=== PATIENT | male | born 1950 | race Caucasian/White ===

== ENCOUNTER 2022-06-11 13:10 | Observation (INO) | payer OTHER ==
[2022-06-11 13:44] LABS: Absolute Lymphocytes (CBC) 0.4 K/uL (0.7-4.9); Hematocrit 28.4 % (39.6-49.0); Lymphocytes % 4.3 % (15.3-44.8); MCV 90.4 fL (80-100); MPV 8.4 fL (7.6-11.3); RBC Red Blood Cell Count 3.15 M/uL (4.33-5.43)
[2022-06-11] MEDS ORDERED: LEVALBUTEROL 1.25 MG/3 ML NEB ONE (14:03)
[2022-06-11 14:10] LABS: Albumin 2.9 g/dL (3.4-5.0); Bilirubin Direct 0.3 mg/dL (0-0.2); Bilirubin Total 0.6 mg/dL (0.2-1.0); Potassium 4.2 mmol/L (3.5-5.1); Protein, Total 7.2 g/dL (6.4-8.2); Troponin High Sensitivity 10.2 pg/mL (<58.9)
--- NOTE | 2022-06-11 14:36 | RAD REPORT ---
EXAM DESCRIPTION: Lainey Single View06/11/2022 2:22 pm CLINICAL HISTORY: Confusion COMPARISON: none FINDINGS: 9 millimeter nodular opacity overlies the left base. Haziness involves the lateral left umm ng. Right lung appears clear. The heart is normal size Deformity of the humeral head and neck has the appearance of a subacute fracture IMPRESSION: Haziness involves the lateral left lung. This may represent pleural thickening, pulmonar y infiltrate or overlying soft tissue. 9 millimeter nodular opacity overlies the left base. This may represent a pulmonary nodule such as a granuloma or other nodule. Sclerotic foci within the rib is another consideration Given the aforementioned findings unenhanced CT chest may be helpful
[2022-06-11] MEDS ORDERED: MORPHINE 4 MG/ML SYR ONE (15:08)
[2022-06-11] MEDS ORDERED: HYDROCODONE/APAP 10/325 TAB ONE (15:09)
[2022-06-11] MEDS ORDERED: ONDANSETRON 4 MG/2 ML VIAL ONE (15:09)
[2022-06-11 16:44] LABS: Anisocytosis 2+; Blood Morphology Comment NOTED (NOT SEEN); Platelet Estimate ADEQ; White Blood Cell Scan OK (OK)
[2022-06-11 16:45] LABS: Poikilocytosis 1+
--- NOTE | 2022-06-11 17:23 | EDPHYS ---
Physician Documentation [facility] Name: Dk Miranda Age: 71 yrs Sex: Male : 1950 Arrival Date: 06/11/2022 Time: 13:11 Bed 2 Private MD: ED Physician Ariel Manning Historical: - Allergies: 06/11 13:14 No Known Allergies; hb - Immunization history:: Adult Immunizations up to date. - Social history:: Smoking status: Patient reports the use of cigarette tobacco products. Vital Signs: 13:13 BP 141 / 76; Pulse 63; Resp 16; Temp 97.8; Pulse Ox 100% on R/A; Weight 79.38 kg; hb Height 5 ft. 3 in. (160.02 cm); Pain 0/10; 14:16 BP 145 / 74; Pulse 59; Resp 17; Pulse Ox 100% on R/A; hb 15:14 BP 152 / 66; Pulse 57; Resp 15; Pulse Ox 99% ; Pain 10/10; hb 16:47 BP 132 / 65; Pulse 63; Resp 17; Pulse Ox 97% on R/A; hb 13:13 Body Mass Index 31.00 (79.38 kg, 160.02 cm) hb MDM: 17:22 Patient medically screened. kdr 06/11 13:15 Order name: glucometer results - FOR PT WITH NO ID hb 06/11 13:27 Order name: Basic Metabolic Panel kdr 06/11 13:27 Order name: CBC with Diff kdr 06/11 13:27 Order name: LFT's kdr / 13:27 Order name: NT PRO-BNP kdr 06/11 13:27 Order name: Troponin HS kdr 06/11 13:27 Order name: XRAY Chest (1 view) kdr 03/ 13:27 Order name: EKG; Complete Time: 13:28 kdr 03/ 13:27 Order name: IV Saline Lock; Complete Time: 13:35 kdr 03/ 13:27 Order name: Labs collected and sent; Complete Time: 13:35 kdr 03/ 13:27 Order name: O2 Per Protocol; Complete Time: 13:35 kdr 03/ 13:27 Order name: O2 Sat Monitoring; Complete Time: 13:35 kdr 03/ 13:27 Order name: Cardiac monitoring; Complete Time: 13:35 kdr 03/ 13:27 Order name: EKG - Nurse/Tech; Complete Time: 13:58 kdr 06/11 13:53 Order name: FSBS; Complete Time: 14:03 kdr 06/11 14:10 Order name: Basic Metabolic Panel; Complete Time: 15:07 EDMS 06/11 14:10 Order name: Liver (Hepatic) Function; Complete Time: 15:07 EDMS 06/11 14:10 Order name: NT PRO-BNP; Complete Time: 15:07 EDMS 06/11 14:12 Order name: Glucose, Ancillary Testing; Complete Time: 15:07 EDMS 06/11 14:10 Order name: Troponin High Sensitivity; Complete Time: 15:07 EDMS 06/11 14:37 Order name: RAD; Complete Time: 15:07 EDMS 06/11 16:08 Order name: Glucose, Ancillary Testing; Complete Time: 16:34 EDMS 06/11 13:50 Order name: CBC with Automated Diff; Complete Time: 17:12 EDMS 06/11 16:45 Order name: CBC Smear Scan; Complete Time: 17:12 EDMS Administered Medications: 14:03 Drug: Xopenex (levalbuterol) (3) 1.25 mg Route: Inhalation; hb 15:00 Follow up: Response: No adverse reaction hb 15:08 Drug: [place] (HYDROcodone-acetaminophen) 10 mg-325 mg 1 tabs Route: PO; hb 16:43 Follow up: Response: No adverse reaction hb 15:08 Drug: Zofran (Ondansetron) 4 mg Route: IVP; Site: right antecubital; hb 16:00 Follow up: Response: No adverse reaction hb 15:08 Drug: morphine 4 mg Route: IVP; Infused Over: 4 mins; Site: right antecubital; hb 16:00 Follow up: Response: No adverse reaction hb Point of Care Testing: Blood Glucose: 13:14 Blood Glucose: 180 mg/dL; hb 14:03 Blood Glucose: 193 mg/dL; hb 15:57 Blood Glucose: 223 mg/dL; hb Ranges: Critical Glucose Levels:Adult <50 mg/dl or >400 mg/dl <40 mg/dl or >180 mg/dl Disposition Summary: 06/11/22 17:22 Hospitalization Ordered Hospitalization Status: Observation kdr Provider: Hayes, Mohammad kdr Location: Telemetry/MedSurg (observation) kdr Condition: Fair kdr Problem: new kdr Symptoms: have improved kdr Bed/Room Type: Standard kdr Room Assignment: kdr Diagnosis - Other hypoglycemia kdr - Hypoglycemia, unspecified kdr - Weakness kdr Forms: - Medication Reconciliation Form kdr - SBAR form kdr Signatures: Dispatcher [employer] EDAriel Snowden MD MD kdr Camryn Johnson RN RN hb
--- NOTE | 2022-06-11 17:23 | ER ---
Nurse's Notes [facility] Name: Dk Miranda Age: 71 yrs Sex: Male : 1950 Arrival Date: 06/11/2022 Time: 13:11 Bed 2 Private MD: Diagnosis: Other hypoglycemia;Hypoglycemia, unspecified;Weakness Presentation: 06/11 13:13 Chief complaint: EMS states: Toned out for confusion, possible stroke, on scene BGL 47, hb improved to 127 after oral glucose and protein shake. VAN Negative. GCS 15. Coronavirus screen: At this time, the client does not indicate any symptoms associated with coronavirus-19. Ebola Screen: No symptoms or risks identified at this time. Initial Sepsis Screen: Does the patient meet any 2 criteria? No. Patient's initial sepsis screen is negative. Does the patient have a suspected source of infection? No. Patient's initial sepsis screen is negative. Risk Assessment: Do you want to hurt yourself or someone else? Patient reports no desire to harm self or others. Onset of symptoms was June 11, 2022. 13:13 Method Of Arrival: EMS: [facility] hb 13:13 Acuity: INDIO 3 hb Triage Assessment: 13:15 General: Appears in no apparent distress. Behavior is calm, cooperative. Pain: Pain hb currently is 8 out of 10 on a pain scale. EENT: No signs and/or symptoms were reported regarding the EENT system. Neuro: Level of Consciousness is awake, alert, obeys commands, Oriented to person, place, time, situation. Cardiovascular: Patient's skin is warm and dry. Respiratory: Respiratory effort is even, unlabored, Respiratory pattern is regular, symmetrical. GI: No signs and/or symptoms were reported involving the gastrointestinal system. : No signs and/or symptoms were reported regarding the genitourinary system. Derm: Skin is pink, warm \T\ dry. Musculoskeletal: No signs and/or symptoms reported regarding the musculoskeletal system. Historical: - Allergies: 13:14 No Known Allergies; hb - Immunization history:: Adult Immunizations up to date. - Social history:: Smoking status: Patient reports the use of cigarette tobacco products. Screenin:16 [facility] ED Fall Risk Assessment (Adult) Score/Fall Risk Level 0 - 2 = Low Risk hb Oriented to surroundings, Maintained a safe environment, Educated pt \T\ family on fall prevention, incl call for assistance when getting out of bed. Abuse screen: Denies threats or abuse. Denies injuries from another. Nutritional screening: No deficits noted. Tuberculosis screening: No symptoms or risk factors identified. Assessment: 13:16 General: SEE TRIAGE ASSESSMENT. hb 14:16 Reassessment: Patient appears in no apparent distress at this time. No changes from hb previously documented assessment. Patient and/or family updated on plan of care and expected duration. Pain level reassessed. 15:13 Reassessment: Patient appears in no apparent distress at this time. No changes from hb previously documented assessment. Patient and/or family updated on plan of care and expected duration. Pain level reassessed. 16:47 Reassessment: Patient appears in no apparent distress at this time. No changes from hb previously documented assessment. Patient and/or family updated on plan of care and expected duration. Pain level reassessed. Vital Signs: 13:13 BP 141 / 76; Pulse 63; Resp 16; Temp 97.8; Pulse Ox 100% on R/A; Weight 79.38 kg; hb Height 5 ft. 3 in. (160.02 cm); Pain 0/10; 14:16 BP 145 / 74; Pulse 59; Resp 17; Pulse Ox 100% on R/A; hb 15:14 BP 152 / 66; Pulse 57; Resp 15; Pulse Ox 99% ; Pain 10/10; hb 16:47 BP 132 / 65; Pulse 63; Resp 17; Pulse Ox 97% on R/A; hb 13:13 Body Mass Index 31.00 (79.38 kg, 160.02 cm) hb ED Course: 13:11 Patient arrived in ED. hb 13:13 Ariel Manning MD is Attending Physician. kdr 13:14 Triage completed. hb 13:14 Arm band placed on. hb 13:16 Patient has correct armband on for positive identification. hb 13:34 Camryn Johnson RN is Primary Nurse. hb 17:21 Melissa Hayes MD is Hospitalizing Provider. kdr Administered Medications: 14:03 Drug: Xopenex (levalbuterol) (3) 1.25 mg Route: Inhalation; hb 15:00 Follow up: Response: No adverse reaction hb 15:08 Drug: [place] (HYDROcodone-acetaminophen) 10 mg-325 mg 1 tabs Route: PO; hb 16:43 Follow up: Response: No adverse reaction hb 15:08 Drug: Zofran (Ondansetron) 4 mg Route: IVP; Site: right antecubital; hb 16:00 Follow up: Response: No adverse reaction hb 15:08 Drug: morphine 4 mg Route: IVP; Infused Over: 4 mins; Site: right antecubital; hb 16:00 Follow up: Response: No adverse reaction hb Medication: 13:16 VIS not applicable for this client. hb Point of Care Testing: Blood Glucose: 13:14 Blood Glucose: 180 mg/dL; hb 14:03 Blood Glucose: 193 mg/dL; hb 15:57 Blood Glucose: 223 mg/dL; hb Ranges: Outcome: 17:22 Decision to Hospitalize by Provider. kdr Signatures: Ariel Manning MD MD kdr Camryn Johnson RN RN hb
[2022-06-11 17:29] LABS: Urine Blood Negative (Negative); Urine Glucose Negative (Negative); Urine Protein Negative (Negative)
[2022-06-11 18:20] LABS: SARS-CoV-2 Antigen Rapid Res Negative (Negative)
--- NOTE | 2022-06-11 18:46 | RAD REPORT ---
EXAM DESCRIPTION: CT - Thorax Wo Con - 06/11/2022 6:24 pm CLINICAL HISTORY: sob TECHNIQUE: Computed axial tomography of the chest was obtained. Contrast was not requested. All CT scans are performed using dose optimization technique as appropriate and may include automated exposure control or mA/KV adjustment according to patient size. FINDINGS: The evaluation of mediastinum, sara and vessels is limited secondary to lack of IV contras t administration. Calcified granuloma left lung corresponding to the nodule on recent chest x-ray. Lungs are otherwise generally clear. No mediastinal or hilar lymphadenopathy is seen. Minimal pleural effusion. Fractures involve the majority of the left ribs. Some are subacute and others are old. Some of the fr actures are mildly displaced. Subacute and old right rib fractures. Moderately displaced left humeral head/neck fracture probably subacute Moderate compression fracture involves a lower vertebral body probably is subacute Moderate compression fracture involves and upper vertebral body which appears late subacute IMPRESSION: Rib, humeral and vertebral fractures. The majority appear subacute
--- NOTE | 2022-06-11 19:20 | P.HP ---
Certification for Inpatient Patient admitted to: Observation With expected LOS: <2 Midnights Patient will require the following post-hospital care: None Practitioner: I am a practitioner with admitting privileges, knowledge of patient current condition, hospital course, and medical plan of care. Services: Services provided to patient in accordance with Admission requirements found in Title 42 Section 412.3 of the Code of Federal Regulations Patient History Date of Service: 06/11/22 Reason for admission: Hypoglycemia, falls History of Present Illness: 71-year-old male with history of insulin-dependent diabetes, PAD, hypertension presents to the emergency department for altered mental status. He reports going to bed around midnight and waking up around noon today very confused, he last took his insulin 70/30 approximately 40 units at 3 PM on 06/10/2022, he reports normal oral intake. Upon EMS arrival patient's blood sugar was 47, his mental status quickly improved after oral glucose and protein shake and is back at baseline at this time. Patient has had multiple falls in the recent past, CT without contrast of his chest performed today revealed rib, humeral and vertebral fractures the majority of which appear subacute. His labs were significant for normocytic anemia with a hemoglobin of 9.3 and hematocrit of 28.4, creatinine of 1.51 GFR 49 BUN 27 bicarb 20unknown renal baseline, BNP 1951. ED provider wishes to admit under observation for hypoglycemia, multiple falls, multiple rib fractures. - Past Medical/Surgical History -: Insulin-dependent diabetes -: PAD -: Hypertension -: Hepatitis C -: Cholecystectomy -: Knee surgery -: Leg stent/PAD Psychosocial/ Personal History: Patient lives at home, alone. - Social History Smoking Status: Current every day smoker (Cigar x1/day) Counseled patient to stop smoking for: less than 10 minutes Alcohol use: Yes CD- Drugs: No Caffeine use: Yes Place of Residence: Home Review of Systems 10-point ROS is otherwise unremarkable General: Weakness, Other (Frequent falls) Musculoskeletal: Back Pain Physical Examination - Physical Exam General: Alert, In no apparent distress, Oriented x3 HEENT: Atraumatic, PERRLA, Mucous membr. moist/pink, EOMI, Sclerae nonicteric Neck: Supple, 2+ carotid pulse no bruit, No LAD, Without JVD or thyroid abnormality Respiratory: Clear to auscultation bilaterally, Normal air movement Cardiovascular: Regular rate/rhythm, Normal S1 S2 Capillary refill: <2 Seconds Gastrointestinal: Normal bowel sounds, No tenderness Musculoskeletal: Other (Left arm in sling) Integumentary: No rashes Neurological: Normal speech, Normal strength at 5/5 x4 extr, Normal tone, Normal affect - Studies Laboratory Data (last 24 hrs) 06/11/22 13:30: WBC 9.00, Hgb 9.3 L, Hct 28.4 L, Plt Count 242 06/11/22 13:30: Sodium 132 L, Potassium 4.2, BUN 27 H, Creatinine 1.51 H, Glucose 168 H, Total Bilirubin 0.6, AST 26, ALT 22, Alkaline Phosphatase 225 H Assessment and Plan - Plan Assessment: Diabetes mellitus type 2insulin-dependent with hypoglycemia Weakness, multiple falls, subacute fractures of the ribs, left humerus, vertebrae Acute kidney injury Normocytic anemia Hypertension PAD Plan: Diabetes mellitus type 2insulin-dependent with hypoglycemia Hold long-acting insulin tonight, patient recently had his insulin titrated down from approximately 80 units down to 40 units twice daily of 70/30 insulin. Will obtain A1c in the morning, patient may require further decrease in his dose of insulin. Blood sugar stabilized at this time, patient eating. We will provide mild sliding scale insulin for tonight, titrate up as needed. Weakness, multiple falls, subacute fractures of the ribs, left humerus, vertebrae PT consult, PRN pain meds, Incentive spirometry. Acute kidney injury Continue IVF, recheck renal function in AM. Consult nephrology PRN. Normocytic anemia Possible acute blood loss anemia with multiple fractures/falls. Trend, anemia workup ordered. Denies GIB symptoms Hypertension PAD Continue home meds. DVT PPX: Lovenox Code status: Full Discharge Plan: Home Plan to discharge in: 24 Hours - Advance Directives Does patient have a Living Will: No Does patient have a Durable POA for Healthcare: No - Code Status/Comfort Care Code Status Assessed: Yes (Full code) Critical Care: No Time Spent Managing Pts Care (In Minutes): 70
[2022-06-11 19:25] VITALS: BMI 30.9
[2022-06-11] MEDS ORDERED: ALBUTEROL 2.5 MG/3 ML NEB SOL NEB PRN (19:25)
[2022-06-11] MEDS ORDERED: MELATONIN 5 MG TABLET PO PRN (19:25)
[2022-06-11] MEDS ORDERED: ONDANSETRON 4 MG/2 ML VIAL IV PRN (19:25)
[2022-06-11] MEDS ORDERED: NA CHLORIDE 0.9% 1,000 ML ONE (19:43)
[2022-06-11] MEDS: NA CHLORIDE 0.9% 1,000 ML IV SCH (19:51)
[2022-06-11] MEDS: HYDROCODONE/APAP 7.5/325 MG TAB PO PRN (20:52)
[2022-06-11] MEDS ORDERED: HYDROCODONE/APAP 7.5/325 MG TAB ONE (20:54)
[2022-06-11] MEDS: INSULIN -REGULAR HUMAN 50 UNIT/0.5 ML ML SQ SCH (21:00)
[2022-06-11] MEDS ORDERED: INSULIN -REGULAR HUMAN 50 UNIT/0.5 ML ML ONE (21:41)
[2022-06-12 02:46] LABS: Absolute Lymphocytes (CBC) 0.9 K/uL (0.7-4.9); Hematocrit 24.2 % (39.6-49.0); Lymphocytes % 12.8 % (15.3-44.8); MCV 91.8 fL (80-100); MPV 8.8 fL (7.6-11.3); RBC Red Blood Cell Count 2.63 M/uL (4.33-5.43)
[2022-06-12 03:24] LABS: Ferritin 28.8 ng/mL (26-388); Potassium 3.9 mmol/L (3.5-5.1)
[2022-06-12] MEDS: HYDROCODONE/APAP 7.5/325 MG TAB PO PRN ×4 (03:24→22:46)
[2022-06-12] MEDS ORDERED: HYDROCODONE/APAP 7.5/325 MG TAB ONE ×4 (03:27→22:21)
[2022-06-12] MEDS: INSULIN -REGULAR HUMAN 50 UNIT/0.5 ML ML SQ SCH ×4 (07:30→21:00)
[2022-06-12] MEDS: ENOXAPARIN 40 MG/0.4 ML SQ SCH (09:00)
[2022-06-12] MEDS: NA CHLORIDE 0.9% 1,000 ML IV SCH ×2 (09:00→19:11)
[2022-06-12] MEDS ORDERED: NA CHLORIDE 0.9% 1,000 ML ONE ×2 (09:04→19:11)
[2022-06-12] MEDS ORDERED: ENOXAPARIN 40 MG/0.4 ML SQ ONE (09:04)
[2022-06-12] MEDS ORDERED: INSULIN -REGULAR HUMAN 50 UNIT/0.5 ML ML ONE ×3 (11:40→17:31)
[2022-06-12] MEDS ORDERED: ALBUTEROL 2.5 MG/3 ML NEB SOL NEB PRN (15:00)
--- NOTE | 2022-06-12 16:40 | EKG ---
Test Date: 2022-06-11 Test Time: 13:54:04 Textile Worker: QUAN MEASUREMENT RESULTS: Intervals: Rate: 60 VA: 170 QRSD: 84 QT: 446 QTc: 446 [place]: P: 69 VA: 170 QRS: 54 T: 62 INTERPRETIVE STATEMENTS: Normal sinus rhythm Normal ECG No previous ECG available for comparison Electronically Signed On 06-12-22 16:37:01 WINDOWS MOBILE DEVELOPER by Jose Luis Orta
[2022-06-13] MEDS: NA CHLORIDE 0.9% 1,000 ML IV SCH (01:25)
[2022-06-13 02:55] LABS: Hematocrit 23.3 % (39.6-49.0); Lymphocytes % 16.5 % (15.3-44.8); MCV 92.5 fL (80-100); MPV 8.9 fL (7.6-11.3); RBC Red Blood Cell Count 2.52 M/uL (4.33-5.43)
[2022-06-13 03:12] LABS: Potassium 4.3 mmol/L (3.5-5.1)
[2022-06-13] MEDS ORDERED: HYDROCODONE/APAP 7.5/325 MG TAB ONE ×2 (04:11→10:53)
[2022-06-13] MEDS: HYDROCODONE/APAP 7.5/325 MG TAB PO PRN ×2 (04:13→11:00)
[2022-06-13 04:16] VITALS: TEMP 98.1
--- NOTE | 2022-06-13 06:39 | P.PN ---
Subjective Date of Service: 06/12/22 Patient still having a lot of pain. However, patient participated with physical therapy today and did really well but he has a hard time going from lying to standing. He walked 200 ft with minimal assistance. Inpatient rehab was requested. However, patient's blood sugars have been stable and he does have some family support. Will discuss with physical therapy and case management and will make the best decision for patient with the least risk to him. Possible discharge home later today or in the morning or we may need to await for inpatient rehab placement. Review of Systems 10-point ROS is otherwise unremarkable Physical Examination - Vital Signs Temperature: 98.1 F Blood Pressure: 173/84 Pulse: 58 Respirations: 21 Pulse Ox (%): 97 - Physical Exam General: Alert, In no apparent distress, Oriented x3 HEENT: Atraumatic, PERRLA, EOMI Neck: Supple, JVD not distended Respiratory: Clear to auscultation bilaterally, Normal air movement Cardiovascular: Regular rate/rhythm, Normal S1 S2 Gastrointestinal: Normal bowel sounds, No tenderness Musculoskeletal: No tenderness Integumentary: No rashes Neurological: Normal speech, Normal tone, Normal affect Lymphatics: No axilla or inguinal lymphadenopathy - Studies Medications List Reviewed: Yes Assessment & Plan - Problems (Diagnosis) (1) Humeral fracture Current Visit: Yes Status: Acute Qualifiers: Encounter type: subsequent encounter Humerus Location: proximal Fracture alignment: nondisplaced Laterality: right (2) History of vertebral fracture Current Visit: Yes Status: Acute (3) Rib fracture Current Visit: Yes Status: Acute Qualifiers: Encounter type: subsequent encounter Fracture type: closed (4) Hypoglycemia Current Visit: Yes Status: Acute - Advance Directives Does patient have a Living Will: No Does patient have a Durable POA for Healthcare: No
[2022-06-13] MEDS: INSULIN -REGULAR HUMAN 50 UNIT/0.5 ML ML SQ SCH ×2 (07:30→11:30)
[2022-06-13] MEDS ORDERED: SOD FERRIC GLUC COMPLX/SUCROSE 125 MG in NA CHLORIDE 0.9% 100 ML IV SCH (09:00)
[2022-06-13] MEDS: ENOXAPARIN 40 MG/0.4 ML SQ SCH (09:00)
[2022-06-13] MEDS ORDERED: ENOXAPARIN 40 MG/0.4 ML SQ ONE (09:34)
[2022-06-13] MEDS ORDERED: INSULIN -REGULAR HUMAN 50 UNIT/0.5 ML ML ONE (11:36)
[2022-06-13 17:05] VITALS: BP 157/79
[2022-06-13 17:30] VITALS: O2SAT 96
== END 2022-06-13 16:58 | disposition home health service (06) ==
LOC: ER 13:10 → ERHOLD 18:58
PROVIDERS: ADMIT Hospitalist; ATTEND Hospitalist
DX: E11.649 Type 2 diabetes mellitus with hypoglycemia without coma (principal); S22.39XG Fracture of one rib, unspecified side, subsequent encounter for fracture with delayed healing; S42.301G Unspecified fracture of shaft of humerus, right arm, subsequent encounter for fracture with delayed healing; R53.1 Weakness; N17.9 Acute kidney failure, unspecified; I10 Essential (primary) hypertension; I73.9 Peripheral vascular disease, unspecified; F17.210 Nicotine dependence, cigarettes, uncomplicated; D64.9 Anemia, unspecified; Z79.4 Long term (current) use of insulin; Z91.81 History of falling
CPT/HCPCS: 93005; 85025 ×3; 80048 ×3; 36415 ×2; 82947 ×11; 80076; 81003; 83036; 84484; 82728; 82607; 83540; 83880; 84466; 71250; 71045; 97116 ×2; 97161; 97530; 94010; 87811; J1815 ×5; J2916; J7614; J1650 ×2; J7030 ×3; J2405; G0378

== ENCOUNTER 2022-10-11 23:10 | Emergency (ER) | payer OTHER ==
[2022-10-11] MEDS ORDERED: ROCURONIUM 50 MG/5 ML VIAL IV ONE (23:11)
[2022-10-11] MEDS ORDERED: ETOMIDATE 20 MG/10 ML VIAL IV ONE ×2 (23:11→23:26)
[2022-10-11] MEDS ORDERED: RSI MEDICATION KIT IV ONE (23:24)
--- OUTSIDE RECORDS SUMMARY | 2022-10-11 23:27 | XMS REPORT | Continuity of Care Document ---
:1950 Author Organization [facility] t Address [address] [place] [address] [place] [id number] Care Team Providers Name Role Phone NORMA BELCHER Primary Care Physician Unavailable YOLI WHALEY Attending Clinician Unavailable Doctor Unassigned, [place] Attending Clinician Unavailable Yoli Elliott Attending Clinician Norma Belcher MD Attending Clinician Tatyana Castaneda MD Attending Clinician Kelsey Fields Attending Clinician Unavailable TATYANA CASTANEDA Attending Clinician Unavailable YOVANI GREEN Attending Clinician Unavailable Yovani Green MD Attending Clinician JINA TREJO Attending Clinician Unavailable Jina Shen Attending Clinician Unknown, Attending Attending Clinician Unavailable NORMA BELCHER Attending Clinician Unavailable Lab, Ang - Db Attending Clinician Unavailable Nati Nicholson RN Attending Clinician Unavailable LEWIS SPICER Attending Clinician Unavailable Humberto Woodward DO Attending Clinician Lewis Spicer DO Attending Clinician Edgar Nye MD Attending Clinician Wil Bennett DO Attending Clinician Rafat Ballard Attending Clinician Gregor Jimenez Attending Clinician Jeet Mccoy Attending Clinician Derek Rivero Attending Clinician Du Lu Attending Clinician Erlin Grimes Attending Clinician YOVANI GREEN Admitting Clinician Unavailable LEWIS SPICER Admitting Clinician Unavailable Lewis Spicer DO Admitting Clinician Derek Rivero Admitting Clinician Du Lu Admitting Clinician Payers Payer Name Policy Type Policy Number Effective Date Expiration Date S suki MEDICARE PART A [id number] 2015 \\T\\ B 00:00:00 [employer] [id number] 2015 00:00:00 Problems Condition Condition Condition Status Onset Resolution Last Treating Co mments Source Name Details Category Date Date Treatment Clinician Date Pneumonia Pneumonia Disease Active Uni vers 4- ity of 00:00: [address] LOW BACK LOW BACK Diagnosis Active 2016-12-01 Memoria PAIN, PAIN, 10-23 18:20:00 l STENOSIS, STENOSIS, 00:00: Sonia fareed SPONDYLOSI SPONDYLOSI 00 S S Active 10/23/2016 [facility] STENOSIS STENOSIS Diagnosis Active 2016-12-01 Memoria Active 09-27 18:20:00 l 09/27/2016 00:00: Edward rodgers [address] LOW BACK LOW BACK Diagnosis Active 2016-09-13 Memoria PAIN PAIN 09-07 10:19:00 l Active 00:00: [place] 09/07/[address] [place], [place] [address]ann M54.30 - M54.30 - Diagnosis Active 2016-10-09 Memoria "SCIATICA, "SCIATICA, 08-31 16:05:00 l UNSPECIFIE UNSPECIFIE 00:01: Rogelio gardiner D SIDE" D SIDE" 00 Active 08/31/2016 [facility] OPID [facility] BACK PAIN BACK PAIN Diagnosis Active 2016-08-22 Memoria Active 08-22 15:24:00 l 08/22/2016 00:00: Edward rodgers [address] WITH PVD WITH Diagnosis Active 2016-08-14 Memoria CLAUDICATI CLAUDICATI 4-11 10:24:00 l ON ON Active 00:00: [place] 07/18/2016 00 [facility] N/A N/A Diagnosis Active 2016-05-11 Mem oria Active 05-02 09:35:00 l 05/02/2016 00:00: Edward n 00 [facility] ATHEROSCLE ATHEROSCL Diagnosis Active 2016-08-14 Memoria ROTIC PVD EROTIC PVD 05-02 10:16:00 l WITH WITH 00:00: [place] INTERMITTE INTERMITTE 00 NT CL NT CL Active 05/02/2016 [facility] I73.9 CPT I73.9 CPT Diagnosis Active 2015-042016-03-16 Memoria [id number] 04-25 11:21:00 l Active 00:00: [place] 02/24/2016 00 [facility] B18.2 - B18.2 - Diagnosis Active 2015-11-02 Memoria CHRONIC CHRONIC 10-25 08:15:00 l VIRAL VIRAL 00:01: [place] HEPATITIS HEPATITIS 00 C C Active 10/26/2015 [facility] Atheroscle Atheroscl Problem 2016-08-16 Memoria rosis of erosis of 00:04:52 [place] arteries arteries of of extremitie extremitie s with s with intermitte intermitte nt nt claudicati claudicati on, on, unspecifie unspecifie d d extremity extremity 08/16/2016 [facility] Final: Final: Problem 2016-05-15 Sukh tigist Atheroscle Atheroscle 02:10:41 l rosis of rosis of [place] n [place] arteries arteries of of extremitie extremitie s with s with intermitte intermitte nt nt claudicati claudicati on, on, unspecifie unspecifie d d extremity extremity 05/15/2016 [facility] Acute Acute Problem Resolve 2018-10-16 Sukh tigist hepatitis hepatitis d 22:49:04 l C C [place] (disorder) (disorder) Resolved Problem 10/16/2018 [facility], [facility], [facility] Benign Benign Problem Resolve 2018-10-16 Mem oria hypertensi hypertensi d 22:49:04 l on on [place] (disorder) (disorder) Resolved Problem 10/16/2018 [facility] 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 to Edward n hepatitis chronic C hepatitis (disorder) C (disorder) Resolved Problem 10/16/2018 [facility] 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 sleep 22:49:04 l apnea apnea [place] syndrome syndrome (disorder) (disorder) Active Problem 10/16/2018 [facility] Chest Chest Problem Active 2018-10-16 Memor ia discomfort discomfort 22:49:04 l (finding) (finding) Herm fareed Active Problem 10/16/2018 [facility] Claudicati Claudicat Problem Active 2018-10-16 Memoria on ion 22:49:04 l (finding) (finding) Herm fareed Active Problem 10/16/2018 [facility] Diabetes Diabetes Problem Active 2018-10-16 Memoria mellitus mellitus 22:49:04 l (disorder) (disorder) He rmann Active Problem 10/16/2018 [facility] Dyspnea Dyspnea Problem Active 2018-10-16 Me moria (finding) (finding) 22:49:04 l Active [place] Problem 10/16/2018 [facility] Gastroesop Gastroeso Problem Active 2018-10-16 Memoria hageal phageal 22:49:04 l reflux reflux [place] disease disease (disorder) (disorder) Active Problem 10/16/2018 [facility] Hypertensi Hypertens Problem Active 2018-10-16 Memoria ve poncho 22:49:04 l disorder, disorder, Herm fareed systemic systemic arterial arterial (disorder) (disorder) Active Problem 10/16/2018 [facility] Low back Low back Problem Active 2018-10-16 Memoria pain pain 22:49:04 l (disorder) (disorder) He rmann Active Problem 10/16/2018 [facility] Peripheral Periphera Problem Active 2018-10-16 Memoria vascular l vascular 22:49:04 l disease disease [place] (disorder) (disorder) Active Problem 10/16/2018 [facility], [facility], [facility] PERIPHERAL PERIPHERA Diagnosis Active 2016-08-14 Memoria VASCULAR L VASCULAR 10:16:00 l DISEASE, DISEASE, Edward n UNSPECIFIE UNSPECIFIE D D Active [facility] ATHSCL ATHSCL Diagnosis Active 2016-08-14 Me moria YERINGTON YERINGTON 10:24:00 l ARTERIES ARTERIES Edward n OF EXTRM W OF EXTRM W INTRMT INTRMT Active [facility] History of Past Illness Condition Condition Condition Status Onset Resolution Last Treating Co mments Source Name Details Category Date Date Treatment Clinician Date Lumbago Lumbago Problem 2016-08-25 2016-08-25 Memoria with with 5-16 03:46:00 03:46:00 l sciatica, sciatica, 05:00: Herm fareed left side left side 00 08/22/201608/25/ 7 [facility] Allergies, Adverse Reactions, Alerts Allergy Allergy Status Severity Reaction(s) Onset Inactive Treating Comm ents Source Name Type Date Date Clinician Penicill Propensi Active Rash 2020-0 Univer s ins ty to 1-29 ity of adverse 00:00: [place] reaction 00 Medical s Branch PENICILL Drug Active Rash 2020-0 Univers INS Class 1-29 ity of 00:00: [place] 00 Medical Branch Penicill Propensi Active Rash 2020-0 Univer s ins ty to 1-29 ity of adverse 00:00: [place] reaction 00 Medical s Branch cephalos cephalos Active Memori a porins porins l [place] NKFA NKFA Active Memoria l [place] penicill penicill Active Memori a ins ins l [place] Social History Social Habit Start Date Stop Date Quantity Comments Source History of Cigar Smoker [place] o f tobacco use [facility] Exposure to 2022-07-03 2022-07-13 Not sure [facility] SARS-CoV-2 00:00:00 10:14:00 [facility] (event) [place] Alcohol intake 2022-07-13 2022-07-13 4 /d University of 00:00:00 00:00:00 [facility] Tobacco use and 2022-05-22 2022-05-22 Smokeless tobacco Un iversity of exposure 00:00:00 00:00:00 non-user [facility] Social History 2016-08-03 2016-08-03 [facility] 14:53:25 14:53:25 Sex [birth year] Universit y of 00:00:00 00:00:00 [facility] Smoking Status Start Date Stop Date Source Smokes tobacco daily 2022-05-22 00:00:00 [facility] Medications Ordered Filled Start Stop Current Ordering Indication Dosage Frequency Signature Comments Components Source Medication Medication Date Date Medication? Clinician (SIG) Name Name clopidogreL Yes [id number] 75mg Take 1 Univers 75 mg 5-11 tablet by ity of tablet 00:00: mouth in [place] the morning. Branch clopidogreL Yes [id number] 75mg Take 1 Univers 75 mg 5-11 tablet by ity of tablet 00:00: mouth in [place] the morning. Branch clopidogreL Yes [id number] 75mg Take 1 Univers 75 mg 5-11 tablet by ity of tablet 00:00: mouth in [place] the morning. Branch insulin Yes [id number] 45U inject 45 Univers aspart 4-03 Units ity of protamine-i 00:00: [place] nsulin 00 skin in Medical aspart the Branch (NOVOLOG morning MIX 70-30 and 45 U-100 Units in INSULN) 100 the unit/mL evening. (70-30) injection insulin Yes [id number] 45U inject 45 Univers aspart 4-03 Units ity of protamine-i 00:00: [place] nsulin 00 skin in Medical aspart the Branch (NOVOLOG morning MIX 70-30 and 45 U-100 Units in INSULN) 100 the unit/mL evening. (70-30) injection insulin Yes [id number] 45U inject 45 Univers aspart 4-03 Units ity of protamine-i 00:00: [place] nsulin 00 skin in Medical aspart the Branch (NOVOLOG morning MIX 70-30 and 45 U-100 Units in INSULN) 100 the unit/mL evening. (70-30) injection insulin Yes [id number] 45U inject 45 Univers aspart 4-03 Units ity of protamine-i 00:00: [place] nsulin 00 skin in Medical aspart the Branch (NOVOLOG morning MIX 70-30 and 45 U-100 Units in INSULN) 100 the unit/mL evening. (70-30) injection insulin 2022-0 Yes [id number] 45U inject 45 Univers aspart 4-03 Units ity of protamine-i 00:00: [place] nsulin 00 skin in Medical aspart the Branch (NOVOLOG morning MIX 70-30 and 45 U-100 Units in INSULN) 100 the unit/mL evening. (70-30) injection insulin 2022-0 Yes [id number] 45U inject 45 Univers aspart 4-03 Units ity of protamine-i 00:00: [place] nsulin 00 skin in Medical aspart the Branch (NOVOLOG morning MIX 70-30 and 45 U-100 Units in INSULN) 100 the unit/mL evening. (70-30) injection insulin 2022-0 Yes [id number] 45U inject 45 Univers aspart 4-03 Units ity of protamine-i 00:00: [place] nsulin 00 skin in Medical aspart the Branch (NOVOLOG morning MIX 70-30 and 45 U-100 Units in INSULN) 100 the unit/mL evening. (70-30) injection insulin 2022-0 Yes [id number] 45U inject 45 Univers aspart 4-03 Units ity of protamine-i 00:00: [place] nsulin 00 skin in Medical aspart the Branch (NOVOLOG morning MIX 70-30 and 45 U-100 Units in INSULN) 100 the unit/mL evening. (70-30) injection insulin 2022-0 Yes [id number] 45U inject 45 Univers aspart 4-03 Units ity of protamine-i 00:00: [place] nsulin 00 skin in Medical aspart the Branch (NOVOLOG morning MIX 70-30 and 45 U-100 Units in INSULN) 100 the unit/mL evening. (70-30) injection insulin 2022-0 Yes [id number] 45U inject 45 Univers aspart 4-03 Units ity of protamine-i 00:00: [place] nsulin 00 skin in Medical aspart the Branch (NOVOLOG morning MIX 70-30 and 45 U-100 Units in INSULN) 100 the unit/mL evening. (70-30) injection insulin 2022-0 Yes [id number] 45U inject 45 Univers aspart 4-03 Units ity of protamine-i 00:00: [place] nsulin 00 skin in Medical aspart the Branch (NOVOLOG morning MIX 70-30 and 45 U-100 Units in INSULN) 100 the unit/mL evening. (70-30) injection insulin 3-0 Yes [id number] 45U inject 45 Univers aspart 4-03 Units ity of protamine-i 00:00: [place] nsulin 00 skin in Medical aspart the Branch (NOVOLOG morning MIX 70-30 and 45 U-100 Units in INSULN) 100 the unit/mL evening. (70-30) injection insulin 3-0 Yes [id number] 45U inject 45 Univers aspart 4-03 Units ity of protamine-i 00:00: [place] nsulin 00 skin in Medical aspart the Branch (NOVOLOG morning MIX 70-30 and 45 U-100 Units in INSULN) 100 the unit/mL evening. (70-30) injection acetaminoph 2023-0 Yes 4647 1{tbl} Take 1 Un ale en-codeine 3-08 tablet by ity of (TYLENOL-CO 00:00: mouth [place] DEINE #3) 00 every 4 Medical 300-30 mg (four) Branch tablet hours as needed for Pain (scale 4-6) or Pain (scale 7-10). Indication s: acute pain acetaminoph 2023-0 Yes 4647 1{tbl} Take 1 Un ale en-codeine 3-08 tablet by ity of (TYLENOL-CO 00:00: mouth [place] DEINE #3) 00 every 4 Medical 300-30 mg (four) Branch tablet hours as needed for Pain (scale 4-6) or Pain (scale 7-10). Indication s: acute pain acetaminoph 2023-0 Yes 4647 1{tbl} Take 1 Un ale en-codeine 3-08 tablet by ity of (TYLENOL-CO 00:00: mouth [place] DEINE #3) 00 every 4 Medical 300-30 mg (four) Branch tablet hours as needed for Pain (scale 4-6) or Pain (scale 7-10). Indication s: acute pain acetaminoph 2023-0 Yes 4647 1{tbl} Take 1 Un ale en-codeine 3-08 tablet by ity of (TYLENOL-CO 00:00: mouth [place] DEINE #3) 00 every 4 Medical 300-30 mg (four) Branch tablet hours as needed for Pain (scale 4-6) or Pain (scale 7-10). Indication s: acute pain acetaminoph 2023-0 Yes 4647 1{tbl} Take 1 Un ale en-codeine 3-08 tablet by ity of (TYLENOL-CO 00:00: mouth [place] DEINE #3) 00 every 4 Medical 300-30 mg (four) Branch tablet hours as needed for Pain (scale 4-6) or Pain (scale 7-10). Indication s: acute pain acetaminoph 2023-0 Yes 4647 1{tbl} Take 1 Un ale en-codeine 3-08 tablet by ity of (TYLENOL-CO 00:00: mouth [place] DEINE #3) 00 every 4 Medical 300-30 mg (four) Branch tablet hours as needed for Pain (scale 4-6) or Pain (scale 7-10). Indication s: acute pain acetaminoph 2023-0 Yes 4647 1{tbl} Take 1 Un ale en-codeine 3-08 tablet by ity of (TYLENOL-CO 00:00: mouth [place] DEINE #3) 00 every 4 Medical 300-30 mg (four) Branch tablet hours as needed for Pain (scale 4-6) or Pain (scale 7-10). Indication s: acute pain acetaminoph 2023-0 Yes 4647 1{tbl} Take 1 Un ale en-codeine 3-08 tablet by ity of (TYLENOL-CO 00:00: mouth [place] DEINE #3) 00 every 4 Medical 300-30 mg (four) Branch tablet hours as needed for Pain (scale 4-6) or Pain (scale 7-10). Indication s: acute pain acetaminoph 2023-0 Yes 4647 1{tbl} Take 1 Un ale en-codeine 3-08 tablet by ity of (TYLENOL-CO 00:00: mouth [place] DEINE #3) 00 every 4 Medical 300-30 mg (four) Branch tablet hours as needed for Pain (scale 4-6) or Pain (scale 7-10). Indication s: acute pain acetaminoph 2023-0 Yes 4647 1{tbl} Take 1 Un ale en-codeine 3-08 tablet by ity of (TYLENOL-CO 00:00: mouth [place] DEINE #3) 00 every 4 Medical 300-30 mg (four) Branch tablet hours as needed for Pain (scale 4-6) or Pain (scale 7-10). Indication s: acute pain acetaminoph 2023-0 Yes 4647 1{tbl} Take 1 Un ale en-codeine 3-08 tablet by ity of (TYLENOL-CO 00:00: mouth [place] DEINE #3) 00 every 4 Medical 300-30 mg (four) Branch tablet hours as needed for Pain (scale 4-6) or Pain (scale 7-10). Indication s: acute pain acetaminoph 2023-0 Yes 4647 1{tbl} Take 1 Un ale en-codeine 3-08 tablet by ity of (TYLENOL-CO 00:00: mouth [place] DEINE #3) 00 every 4 Medical 300-30 mg (four) Branch tablet hours as needed for Pain (scale 4-6) or Pain (scale 7-10). Indication s: acute pain acetaminoph 2023-0 Yes 4647 1{tbl} Take 1 Un ale en-codeine 3-08 tablet by ity of (TYLENOL-CO 00:00: mouth [place] DEINE #3) 00 every 4 Medical 300-30 mg (four) Branch tablet hours as needed for Pain (scale 4-6) or Pain (scale 7-10). Indication s: acute pain acetaminoph 2023-0 Yes 4647 1{tbl} Take 1 Un ale en-codeine 3-08 tablet by ity of (TYLENOL-CO 00:00: mouth [place] DEINE #3) 00 every 4 Medical 300-30 mg (four) Branch tablet hours as needed for Pain (scale 4-6) or Pain (scale 7-10). Indication s: acute pain acetaminoph 2023-0 Yes 4647 1{tbl} Take 1 Un ale en-codeine 3-08 tablet by ity of (TYLENOL-CO 00:00: mouth [place] DEINE #3) 00 every 4 Medical 300-30 mg (four) Branch tablet hours as needed for Pain (scale 4-6) or Pain (scale 7-10). Indication s: acute pain acetaminoph 2023-0 Yes 4647 1{tbl} Take 1 Un ale en-codeine 3-08 tablet by ity of (TYLENOL-CO 00:00: mouth [place] DEINE #3) 00 every 4 Medical 300-30 mg (four) Branch tablet hours as needed for Pain (scale 4-6) or Pain (scale 7-10). Indication s: acute pain acetaminoph 2022-0 Yes 4647 1{tbl} Take 1 Un ale en-codeine 3-08 tablet by ity of (TYLENOL-CO 00:00: mouth [place] DEINE #3) 00 every 4 Medical 300-30 mg (four) Branch tablet hours as needed for Pain (scale 4-6) or Pain (scale 7-10). Indication s: acute pain FENTanyl PF 2022- No 75ug 75 mcg, Un ale (SUBLIMAZE 2-06 06- Intramuscu it y of (PF)) 21:00: 20:29 lar, ONCE, [place] injection 00 :00 1 dose, On Medi marilou 75 mcg Tue Branch 06/06/22 at 1500, STAT ondansetron 2022-0 Yes [id number] 4mg Take 1 Univers 4 mg 2-28 tablet by ity of disintegrat 00:00: mouth [place] ing tablet 00 every 4 Medica l (four) Branch hours as needed for Nausea and Vomiting (N/V). ondansetron 2022-0 Yes [id number] 4mg Take 1 Univers 4 mg 2-28 tablet by ity of disintegrat 00:00: mouth [place] ing tablet 00 every 4 Medica l (four) Branch hours as needed for Nausea and Vomiting (N/V). ondansetron 2022-0 Yes [id number] 4mg Take 1 Univers 4 mg 2-28 tablet by ity of disintegrat 00:00: mouth [place] ing tablet 00 every 4 Medica l (four) Branch hours as needed for Nausea and Vomiting (N/V). ondansetron 2022-0 Yes [id number] 4mg Take 1 Univers 4 mg 2-28 tablet by ity of disintegrat 00:00: mouth [place] ing tablet 00 every 4 Medica l (four) Branch hours as needed for Nausea and Vomiting (N/V). ondansetron 2023-0 Yes [id number] 4mg Take 1 Univers 4 mg 2-28 tablet by ity of disintegrat 00:00: mouth [place] ing tablet 00 every 4 Medica l (four) Branch hours as needed for Nausea and Vomiting (N/V). ondansetron 3-0 Yes [id number] 4mg Take 1 Univers 4 mg 2-28 tablet by ity of disintegrat 00:00: mouth [place] ing tablet 00 every 4 Medica l (four) Branch hours as needed for Nausea and Vomiting (N/V). ondansetron 3-0 Yes [id number] 4mg Take 1 Univers 4 mg 2-28 tablet by ity of disintegrat 00:00: mouth [place] ing tablet 00 every 4 Medica l (four) Branch hours as needed for Nausea and Vomiting (N/V). ondansetron 3-0 Yes [id number] 4mg Take 1 Univers 4 mg 2-28 tablet by ity of disintegrat 00:00: mouth [place] ing tablet 00 every 4 Medica l (four) Branch hours as needed for Nausea and Vomiting (N/V). ondansetron 3-0 Yes [id number] 4mg Take 1 Univers 4 mg 2-28 tablet by ity of disintegrat 00:00: mouth [place] ing tablet 00 every 4 Medica l (four) Branch hours as needed for Nausea and Vomiting (N/V). ondansetron 3-0 Yes [id number] 4mg Take 1 Univers 4 mg 2-28 tablet by ity of disintegrat 00:00: mouth [place] ing tablet 00 every 4 Medica l (four) Branch hours as needed for Nausea and Vomiting (N/V). ondansetron 3-0 Yes [id number] 4mg Take 1 Univers 4 mg 2-28 tablet by ity of disintegrat 00:00: mouth [place] ing tablet 00 every 4 Medica l (four) Branch hours as needed for Nausea and Vomiting (N/V). ondansetron 2023-0 Yes [id number] 4mg Take 1 Univers 4 mg 2-28 tablet by ity of disintegrat 00:00: mouth [place] ing tablet 00 every 4 Medica l (four) Branch hours as needed for Nausea and Vomiting (N/V). ondansetron 2023-0 Yes [id number] 4mg Take 1 Univers 4 mg 2-28 tablet by ity of disintegrat 00:00: mouth [place] ing tablet 00 every 4 Medica l (four) Branch hours as needed for Nausea and Vomiting (N/V). ondansetron 2023-0 Yes [id number] 4mg Take 1 Univers 4 mg 2-28 tablet by ity of disintegrat 00:00: mouth [place] ing tablet 00 every 4 Medica l (four) Branch hours as needed for Nausea and Vomiting (N/V). ondansetron 2023-0 Yes [id number] 4mg Take 1 Univers 4 mg 2-28 tablet by ity of disintegrat 00:00: mouth [place] ing tablet 00 every 4 Medica l (four) Branch hours as needed for Nausea and Vomiting (N/V). ondansetron 2023-0 Yes [id number] 4mg Take 1 Univers 4 mg 2-28 tablet by ity of disintegrat 00:00: mouth [place] ing tablet 00 every 4 Medica l (four) Branch hours as needed for Nausea and Vomiting (N/V). ondansetron 2023-0 Yes [id number] 4mg Take 1 Univers 4 mg 2-28 tablet by ity of disintegrat 00:00: mouth [place] ing tablet 00 every 4 Medica l (four) Branch hours as needed for Nausea and Vomiting (N/V). ondansetron 2023-0 Yes [id number] 4mg Take 1 Univers 4 mg 2-28 tablet by ity of disintegrat 00:00: mouth [place] ing tablet 00 every 4 Medica l (four) Branch hours as needed for Nausea and Vomiting (N/V). ondansetron 2023-0 Yes [id number] 4mg Take 1 Univers 4 mg 2-28 tablet by ity of disintegrat 00:00: mouth [place] ing tablet 00 every 4 Medica l (four) Branch hours as needed for Nausea and Vomiting (N/V). ondansetron 2023-0 Yes [id number] 4mg Take 1 Univers 4 mg 2-28 tablet by ity of disintegrat 00:00: mouth [place] ing tablet 00 every 4 Medica l (four) Branch hours as needed for Nausea and Vomiting (N/V). ondansetron 2023-0 Yes [id number] 4mg Take 1 Univers 4 mg 2-28 tablet by ity of disintegrat 00:00: mouth [place] ing tablet 00 every 4 Medica l (four) Branch hours as needed for Nausea and Vomiting (N/V). ondansetron 2022-0 Yes [id number] 4mg Take 1 Univers 4 mg 2-28 tablet by ity of disintegrat 00:00: mouth [place] ing tablet 00 every 4 Medica l (four) Branch hours as needed for Nausea and Vomiting (N/V). ondansetron 2022-0 Yes [id number] 4mg Take 1 Univers 4 mg 2-28 tablet by ity of disintegrat 00:00: mouth [place] ing tablet 00 every 4 Medica l (four) Branch hours as needed for Nausea and Vomiting (N/V). HYDROcodone 2022-2022- No 4647 1{tbl} Take 1 U nivers -acetaminop 2-28 03-08 tablet by it y of hen 5-325 00:00: 05:59 mouth [place] mg tablet 00 :00 every 4 Medical (four) Branch hours as needed for Pain (scale 4-6) for up to 7 days. Indication s: acute pain HYDROcodone 2022-2022- No 4647 1{tbl} Take 1 U nivers -acetaminop 2-28 03-08 tablet by it y of hen 5-325 00:00: 05:59 mouth [place] mg tablet 00 :00 every 4 Medical (four) Branch hours as needed for Pain (scale 4-6) for up to 7 days. Indication s: acute pain HYDROcodone 2022-0 2022- No 4647 1{tbl} Take 1 U nivers -acetaminop 2-28 03-08 tablet by it y of hen 5-325 00:00: 05:59 mouth [place] mg tablet 00 :00 every 4 Medical (four) Branch hours as needed for Pain (scale 4-6) for up to 7 days. Indication s: acute pain HYDROcodone 2022-0 2022- No 4647 1{tbl} Take 1 U nivers -acetaminop 2-28 03-08 tablet by it y of hen 5-325 00:00: 05:59 mouth [place] mg tablet 00 :00 every 4 Medical (four) Branch hours as needed for Pain (scale 4-6) for up to 7 days. Indication s: acute pain HYDROcodone 2022-0 2022- No 4647 1{tbl} Take 1 U nivers -acetaminop 2-28 03-08 tablet by it y of hen 5-325 00:00: 05:59 mouth [place] mg tablet 00 :00 every 4 Medical (four) Branch hours as needed for Pain (scale 4-6) for up to 7 days. Indication s: acute pain HYDROcodone 2022- No 4647 1{tbl} Take 1 U nivers -acetaminop 2-28 03-08 tablet by it y of hen 5-325 00:00: 05:59 mouth [place] mg tablet 00 :00 every 4 Medical (four) Branch hours as needed for Pain (scale 4-6) for up to 7 days. Indication s: acute pain HYDROcodone 2022- No 4647 1{tbl} Take 1 U nivers -acetaminop 2-28 03-08 tablet by it y of hen 5-325 00:00: 05:59 mouth [place] mg tablet 00 :00 every 4 Medical (four) Branch hours as needed for Pain (scale 4-6) for up to 7 days. Indication s: acute pain methocarbam 2022- No [id number] 500mg Take 1 Univers oL 500 mg 05-22 tablet by ity of tablet 00:00: 05:59 mouth 4 [place] 00 :00 (four) Medical times Branch daily for 5 days. methocarbam 2022- No [id number] 500mg Take 1 [facility] oL 500 mg 05-22 tablet by [facility] of tablet 00:00: 05:59 mouth 4 [place] 00 :00 (four) Medical times Branch daily for 5 days. methocarbam 2022- No [id number] 500mg Take 1 [facility] oL 500 mg 05-22 tablet by [facility] of tablet 00:00: 05:59 mouth 4 [place] 00 :00 (four) Medical times Branch daily for 5 days. insulin Yes [id number] [id number] inject 45 [facility] aspart 1-24 Units it[facility] of protamine-i 00:00: under the [place] nsulin 00 skin in Medical aspart the Branch (NOVOLOG morning MIX 70-30 and 45 U-100 Units in INSULN) 100 the unit/mL evening. (70-30) injection insulin Yes [id number] [id number] inject 45 [facility] aspart 1-24 Units ity of protamine-i 00:00: under the [place] nsulin 00 skin in Medical aspart the Branch (NOVOLOG morning MIX 70-30 and 45 U-100 Units in INSULN) 100 the unit/mL evening. (70-30) injection insulin 0 Yes [id number] 45U inject 45 [facility] aspart 1-24 Units ity of protamine-i 00:00: under the [place] nsulin 00 skin in Medical aspart the Branch (NOVOLOG morning MIX 70-30 and 45 U-100 Units in INSULN) 100 the unit/mL evening. (70-30) injection insulin 0 Yes [id number] 45U inject 45 [facility] aspart 1-24 Units ity of protamine-i 00:00: under the [place] nsulin 00 skin in Medical aspart the Branch (NOVOLOG morning MIX 70-30 and 45 U-100 Units in INSULN) 100 the unit/mL evening. (70-30) injection insulin Yes [id number] 45U inject 45 [facility] aspart 1-24 Units ity of protamine-i 00:00: under the [place] nsulin 00 skin in Medical aspart the Branch (NOVOLOG morning MIX 70-30 and 45 U-100 Units in INSULN) 100 the unit/mL evening. (70-30) injection insulin Yes [id number] 45U inject 45 [facility] aspart 1-24 Units ity of protamine-i 00:00: under the [place] nsulin 00 skin in Medical aspart the Branch (NOVOLOG morning MIX 70-30 and 45 U-100 Units in INSULN) 100 the unit/mL evening. (70-30) injection insulin Yes [id number] 45U inject 45 [facility] aspart 1-24 Units ity of protamine-i 00:00: under the [place] nsulin 00 skin in Medical aspart the Branch (NOVOLOG morning MIX 70-30 and 45 U-100 Units in INSULN) 100 the unit/mL evening. (70-30) injection insulin 0 Yes [id number] 45U inject 45 [facility] aspart 1-24 Units it[facility] of protamine-i 00:00: under the [place] nsulin 00 skin in Medical aspart the Branch (NOVOLOG morning MIX 70-30 and 45 U-100 Units in INSULN) 100 the unit/mL evening. (70-30) injection insulin Yes [id number] 45U inject 45 [facility] aspart 1-24 Units ity of protamine-i 00:00: under the [place] nsulin 00 skin in Medical aspart the Branch (NOVOLOG morning MIX 70-30 and 45 U-100 Units in INSULN) 100 the unit/mL evening. (70-30) injection insulin 0 Yes [id number] 45U inject 45 [facility] aspart 1-24 Units ity of protamine-i 00:00: under the [place] nsulin 00 skin in Medical aspart the Branch (NOVOLOG morning MIX 70-30 and 45 U-100 Units in INSULN) 100 the unit/mL evening. (70-30) injection insulin Yes [id number] 45U inject 45 [facility] aspart 1-24 Units ity of protamine-i 00:00: under the [place] nsulin 00 skin in Medical aspart the Branch (NOVOLOG morning MIX 70-30 and 45 U-100 Units in INSULN) 100 the unit/mL evening. (70-30) injection insulin Yes [id number] 45U inject 45 [facility] aspart 1-24 Units it[facility] of protamine-i 00:00: under the [place] nsulin 00 skin in Medical aspart the Branch (NOVOLOG morning MIX 70-30 and 45 U-100 Units in INSULN) 100 the unit/mL evening. (70-30) injection insulin Yes [id number] 45U inject 45 [facility] aspart 1-24 Units ity of protamine-i 00:00: under the [place] nsulin 00 skin in Medical aspart the Branch (NOVOLOG morning MIX 70-30 and 45 U-100 Units in INSULN) 100 the unit/mL evening. (70-30) injection insulin Yes [id number] 45U inject 45 [facility] aspart 1-24 Units ity of protamine-i 00:00: under the [place] nsulin 00 skin in Medical aspart the Branch (NOVOLOG morning MIX 70-30 and 45 U-100 Units in INSULN) 100 the unit/mL evening. (70-30) injection insulin 2022- No [id number] [id number] inject 45 [facility] aspart 1-24 04-02 Units ity of protamine-i 00:00: 00:00 under the [place] nsulin 00 :00 skin in Medical aspart the Branch (NOVOLOG morning MIX 70-30 and 45 U-100 Units in INSULN) 100 the unit/mL evening. (70-30) injection nebivoloL 2021-04 Yes [id number] 5mg Take 1 Un ale (BYSTOLIC) 2-21 tablet by [facility] of 5 mg tablet 00:00: mouth in [place] 00 the Medical morning. Branch atorvastati 2021-04 Yes [id number] 20mg Take 1 [facility] n 20 mg 2-21 tablet by [facility] of tablet 00:00: mouth in [place] 00 the Medical morning. Branch clopidogreL 2021-04 Yes [id number] 75mg Take 1 [facility] 75 mg 2-21 tablet by it[facility] of tablet 00:00: mouth in [place] 00 the Medical morning. Branch NIFEdipine 2021-04 Yes [id number] 60mg Take 1 U nivers XL 60 mg 24 2-21 tablet by ity of hr tablet 00:00: mouth in [facility] 00 the Medical morning. Branch nebivoloL 2021-04 Yes [id number] 5mg Take 1 Un ale (BYSTOLIC) 2-21 tablet by ity of 5 mg tablet 00:00: mouth in [place] 00 the Medical morning. Branch atorvastati 2021-04 Yes [id number] 20mg Take 1 [facility] n 20 mg 2-21 tablet by ity of tablet 00:00: mouth in [place] 00 the Medical morning. Branch clopidogreL 2021-04 Yes [id number] 75mg Take 1 [facility] 75 mg 2-21 tablet by ity of tablet 00:00: mouth in [place] 00 the Medical morning. Branch NIFEdipine 2021-04 Yes [id number] 60mg Take 1 U nivers XL 60 mg 24 2-21 tablet by [facility] hr tablet 00:00: mouth [place] 00 the Medical morning. Branch nebivoloL 2021-04 Yes [id number] 5mg Take 1 Un ale (BYSTOLIC) 2-21 tablet by ity of 5 mg tablet 00:00: mouth in [place] 00 the Medical morning. Branch atorvastati 2021-04 Yes [id number] 20mg Take 1 [facility] n 20 mg 2-21 tablet by ity of tablet 00:00: mouth in [place] 00 the Medical morning. Branch clopidogreL 2021-04 Yes [id number] 75mg Take 1 [facility] 75 mg 2-21 tablet by ity of tablet 00:00: mouth in [place] 00 the Medical morning. Branch NIFEdipine 2021-04 Yes [id number] 60mg Take 1 [facility] nivers XL 60 mg 24 2-21 tablet by [facility] of hr tablet 00:00: mouth in [place] 00 the Medical morning. Branch nebivoloL 2021-04 Yes [id number] 5mg Take 1 [facility] ale (BYSTOLIC) 2-21 tablet by it[facility] of 5 mg tablet 00:00: mouth in [place] 00 the Medical morning. Branch atorvastati 2021-04 Yes [id number] 20mg Take 1 [facility] n 20 mg 2-21 tablet by ity of tablet 00:00: mouth in [place] 00 the Medical morning. Branch clopidogreL 2021-04 Yes [id number] 75mg Take 1 [facility] 75 mg 2-21 tablet by ity of tablet 00:00: mouth in [place] 00 the Medical morning. Branch NIFEdipine 2021- Yes [id number] 60mg Take 1 U nivers XL 60 mg 24 2-21 tablet by [facility] of hr tablet 00:00: mouth in [place] 00 the Medical morning. Branch nebivoloL 2021-04 Yes [id number] 5mg Take 1 [facility] ale (BYSTOLIC) 2-21 tablet by ity of 5 mg tablet 00:00: mouth in [place] 00 the Medical morning. Branch atorvastati 2021-04 Yes [id number] 20mg Take 1 [facility] n 20 mg 2-21 tablet by ity of tablet 00:00: mouth in [place] 00 the Medical morning. Branch clopidogreL 2021-04 Yes [id number] 75mg Take 1 [facility] 75 mg 2-21 tablet by it[facility] of tablet 00:00: mouth in [place] 00 the Medical morning. Branch NIFEdipine 2021- Yes [id number] 60mg Take 1 U nivers XL 60 mg 24 2-21 tablet by [facility] of hr tablet 00:00: mouth in [place] 00 the Medical morning. Branch nebivoloL 2021-04 Yes [id number] 5mg Take 1 [facility] ale (BYSTOLIC) 2-21 tablet by ity of 5 mg tablet 00:00: mouth in [place] 00 the Medical morning. Branch atorvastati 2021- Yes [id number] 20mg Take 1 [facility] n 20 mg 2-21 tablet by ity of tablet 00:00: mouth in [place] 00 the Medical morning. Branch clopidogreL 2021-04 Yes [id number] 75mg Take 1 [facility] 75 mg 2-21 tablet by ity of tablet 00:00: mouth in [place] 00 the Medical morning. Branch NIFEdipine 2021-04 Yes [id number] 60mg Take 1 U nivers XL 60 mg 24 2-21 tablet by [facility] of hr tablet 00:00: mouth in [place] 00 the Medical morning. Branch nebivoloL 2021-04 Yes [id number] 5mg Take 1 [facility] [place] (BYSTOLIC) 2-21 tablet by ity of 5 mg tablet 00:00: mouth in [place] 00 the Medical morning. Branch atorvastati 2021-04 Yes [id number] 20mg Take 1 [facility] n 20 mg 2-21 tablet by ity of tablet 00:00: mouth in [place] 00 the Medical morning. Branch clopidogreL 2021-04 Yes [id number] 75mg Take 1 [facility] 75 mg 2-21 tablet by ity of tablet 00:00: mouth in [place] 00 the Medical morning. Branch NIFEdipine 2021-04 Yes [id number] 60mg Take 1 [facility] nivers XL 60 mg 24 2-21 tablet by [facility] of hr tablet 00:00: mouth in [place] 00 the Medical morning. Branch nebivoloL 2021-04 Yes [id number] 5mg Take 1 Un ale (BYSTOLIC) 2-21 tablet by ity of 5 mg tablet 00:00: mouth in [place] 00 the Medical morning. Branch atorvastati 2021-04 Yes [id number] 20mg Take 1 [facility] n 20 mg 2-21 tablet by ity of tablet 00:00: mouth in [place] 00 the Medical morning. Branch clopidogreL 2021-04 Yes [id number] 75mg Take 1 [facility] 75 mg 2-21 tablet by ity of tablet 00:00: mouth in [place] 00 the Medical morning. Branch NIFEdipine 2021- Yes [id number] 60mg Take 1 U nivers XL 60 mg 24 2-21 tablet by [facility] of hr tablet 00:00: mouth in [place] 00 the Medical morning. Branch nebivoloL 2021-04 Yes [id number] 5mg Take 1 Un ale (BYSTOLIC) 2-21 tablet by ity of 5 mg tablet 00:00: mouth in [place] 00 the Medical morning. Branch atorvastati 2021-04 Yes [id number] 20mg Take 1 [facility] n 20 mg 2-21 tablet by ity of tablet 00:00: mouth in [place] 00 the Medical morning. Branch clopidogreL 2021-04 Yes [id number] 75mg Take 1 [facility] 75 mg 2-21 tablet by ity of tablet 00:00: mouth in [place] 00 the Medical morning. Branch NIFEdipine 2021-04 Yes [id number] 60mg Take 1 [facility] nivers XL 60 mg 24 2-21 tablet by [facility] of hr tablet 00:00: mouth in [place] 00 the Medical morning. Branch nebivoloL 2021-04 Yes [id number] 5mg Take 1 Un ale (BYSTOLIC) 2-21 tablet by ity of 5 mg tablet 00:00: mouth in [place] 00 the Medical morning. Branch atorvastati 2021-04 Yes [id number] 20mg Take 1 [facility] n 20 mg 2-21 tablet by ity of tablet 00:00: mouth in [place] 00 the Medical morning. Branch clopidogreL 2021-04 Yes [id number] 75mg Take 1 [facility] 75 mg 2-21 tablet by ity of tablet 00:00: mouth in [place] 00 the Medical morning. Branch NIFEdipine 2021-04 Yes [id number] 60mg Take 1 U nivers XL 60 mg 24 2-21 tablet by it[facility] of hr tablet 00:00: mouth in [facility] 00 the Medical morning. Branch nebivoloL 2021-04 Yes [id number] 5mg Take 1 Un ale (BYSTOLIC) 2-21 tablet by ity of 5 mg tablet 00:00: mouth in [place] 00 the Medical morning. Branch atorvastati 2021-04 Yes [id number] 20mg Take 1 [facility] n 20 mg 2-21 tablet by ity of tablet 00:00: mouth in [place] 00 the Medical morning. Branch clopidogreL 2021-04 Yes [id number] 75mg Take 1 [facility] 75 mg 2-21 tablet by ity of tablet 00:00: mouth in [place] 00 the Medical morning. Branch NIFEdipine 2021- Yes [id number] 60mg Take 1 U nivers XL 60 mg 24 2-21 tablet by [facility] of hr tablet 00:00: mouth in [place] 00 the Medical morning. Branch nebivoloL 2021- Yes [id number] 5mg Take 1 Un ale (BYSTOLIC) 2-21 tablet by ity of 5 mg tablet 00:00: mouth in [place] 00 the Medical morning. Branch atorvastati 2021-04 Yes [id number] 20mg Take 1 [facility] n 20 mg 2-21 tablet by ity of tablet 00:00: mouth in [place] 00 the Medical morning. Branch clopidogreL 2021-04 Yes [id number] 75mg Take 1 [facility] 75 mg 2-21 tablet by ity of tablet 00:00: mouth in [place] 00 the Medical morning. Branch NIFEdipine 2021-04 Yes [id number] 60mg Take 1 U nivers XL 60 mg 24 2-21 tablet by [facility] of hr tablet 00:00: mouth in [place] 00 the Medical morning. Branch nebivoloL 2021-04 Yes [id number] 5mg Take 1 Un ale (BYSTOLIC) 2-21 tablet by ity of 5 mg tablet 00:00: mouth in [place] 00 the Medical morning. Branch atorvastati 2021-04 Yes [id number] 20mg Take 1 [facility] n 20 mg 2-21 tablet by ity of tablet 00:00: mouth in [place] 00 the Medical morning. Branch clopidogreL 2021-04 Yes [id number] 75mg Take 1 [facility] 75 mg 2-21 tablet by ity of tablet 00:00: mouth in [place] 00 the Medical morning. Branch NIFEdipine 2021-04 Yes [id number] 60mg Take 1 U nivers XL 60 mg 24 2-21 tablet by [facility] of hr tablet 00:00: mouth [place] 00 the Medical morning. Branch nebivoloL 2021-04 Yes [id number] 5mg Take 1 Un ale (BYSTOLIC) 2-21 tablet by ity of 5 mg tablet 00:00: mouth in [place] 00 the Medical morning. Branch atorvastati 2021-04 Yes [id number] 20mg Take 1 [facility] n 20 mg 2-21 tablet by ity of tablet 00:00: mouth in [place] 00 the Medical morning. Branch clopidogreL 2021-04 Yes [id number] 75mg Take 1 [facility] 75 mg 2-21 tablet by ity of tablet 00:00: mouth in [place] 00 the Medical morning. Branch NIFEdipine 2021- Yes [id number] 60mg Take 1 U nivers XL 60 mg 24 2-21 tablet by [facility] of hr tablet 00:00: mouth in [place] 00 the Medical morning. Branch nebivoloL 2021-04 Yes [id number] 5mg Take 1 Un ale (BYSTOLIC) 2-21 tablet by ity of 5 mg tablet 00:00: mouth in [place] 00 the Medical morning. Branch atorvastati 2021-04 Yes [id number] 20mg Take 1 [facility] n 20 mg 2-21 tablet by ity of tablet 00:00: mouth in [place] 00 the Medical morning. Branch clopidogreL 2021-04 Yes [id number] 75mg Take 1 [facility] 75 mg 2-21 tablet by ity of tablet 00:00: mouth in [place] 00 the Medical morning. Branch NIFEdipine 2021-04 Yes [id number] 60mg Take 1 U nivers XL 60 mg 24 2-21 tablet by [facility] of hr tablet 00:00: mouth in [place] 00 the Medical morning. Branch nebivoloL 2021-04 Yes [id number] 5mg Take 1 Un ale (BYSTOLIC) 2-21 tablet by ity of 5 mg tablet 00:00: mouth in [place] 00 the Medical morning. Branch atorvastati 2021-04 Yes [id number] 20mg Take 1 [facility] n 20 mg 2-21 tablet by ity of tablet 00:00: mouth in [place] 00 the Medical morning. Branch NIFEdipine 2021-04 Yes [id number] 60mg Take 1 U nivers XL 60 mg 24 2-21 tablet by [facility] of hr tablet 00:00: mouth [place] 00 the Medical morning. Branch nebivoloL 2021-04 Yes [id number] 5mg Take 1 Un ale (BYSTOLIC) 2-21 tablet by ity of 5 mg tablet 00:00: mouth in [place] 00 the Medical morning. Branch atorvastati 2021-04 Yes [id number] 20mg Take 1 [facility] n 20 mg 2-21 tablet by ity of tablet 00:00: mouth in [place] 00 the Medical morning. Branch NIFEdipine 2021-04 Yes [id number] 60mg Take 1 U nivers XL 60 mg 24 2-21 tablet by [facility] of hr tablet 00:00: mouth in [place] 00 the Medical morning. Branch nebivoloL 2021-04 Yes [id number] 5mg Take 1 Un ale (BYSTOLIC) 2-21 tablet by ity of 5 mg tablet 00:00: mouth in [place] 00 the Medical morning. Branch atorvastati 2021-04 Yes [id number] 20mg Take 1 [facility] n 20 mg 2-21 tablet by ity of tablet 00:00: mouth in [place] 00 the Medical morning. Branch NIFEdipine 2021-04 Yes [id number] 60mg Take 1 U nivers XL 60 mg 24 2-21 tablet by [facility] of hr tablet 00:00: mouth in [place] 00 the Medical morning. Branch nebivoloL 2021-04 Yes [id number] 5mg Take 1 Un ale (BYSTOLIC) 2-21 tablet by ity of 5 mg tablet 00:00: mouth in [place] 00 the Medical morning. Branch atorvastati 2021-04 Yes [id number] 20mg Take 1 [facility] n 20 mg 2-21 tablet by ity of tablet 00:00: mouth in [place] 00 the Medical morning. Branch clopidogreL 2021-04 Yes [id number] 75mg Take 1 [facility] 75 mg 2-21 tablet by ity of tablet 00:00: mouth in [place] 00 the Medical morning. Branch NIFEdipine 2021-04 Yes [id number] 60mg Take 1 U nivers XL 60 mg 24 2-21 tablet by [facility] of hr tablet 00:00: mouth in [place] 00 the Medical morning. Branch nebivoloL 2021-04 Yes [id number] 5mg Take 1 Un ale (BYSTOLIC) 2-21 tablet by ity of 5 mg tablet 00:00: mouth in [place] 00 the Medical morning. Branch atorvastati 2021-04 Yes [id number] 20mg Take 1 [facility] n 20 mg 2-21 tablet by ity of tablet 00:00: mouth in [place] 00 the Medical morning. Branch clopidogreL 2021-04 Yes [id number] 75mg Take 1 [facility] 75 mg 2-21 tablet by ity of tablet 00:00: mouth in [place] 00 the Medical morning. Branch NIFEdipine 2021-04 Yes [id number] 60mg Take 1 U nivers XL 60 mg 24 2-21 tablet by [facility] of hr tablet 00:00: mouth in [place] 00 the Medical morning. Branch nebivoloL 2021-04 Yes [id number] 5mg Take 1 Un ale (BYSTOLIC) 2-21 tablet by ity of 5 mg tablet 00:00: mouth in [place] 00 the Medical morning. Branch atorvastati 2021-04 Yes [id number] 20mg Take 1 [facility] n 20 mg 2-21 tablet by ity of tablet 00:00: mouth in [place] 00 the Medical morning. Branch clopidogreL 2021-04 Yes [id number] 75mg Take 1 [facility] 75 mg 2-21 tablet by ity of tablet 00:00: mouth in [place] 00 the Medical morning. Branch NIFEdipine 2021-04 Yes [id number] 60mg Take 1 U nivers XL 60 mg 24 2-21 tablet by [facility] of hr tablet 00:00: mouth in [place] 00 the Medical morning. Branch nebivoloL 2021-04 Yes [id number] 5mg Take 1 Un ale (BYSTOLIC) 2-21 tablet by ity of 5 mg tablet 00:00: mouth in [place] 00 the Medical morning. Branch atorvastati 2021-04 Yes [id number] 20mg Take 1 [facility] n 20 mg 2-21 tablet by ity of tablet 00:00: mouth in [place] 00 the Medical morning. Branch clopidogreL 2021-04 Yes [id number] 75mg Take 1 [facility] 75 mg 2-21 tablet by ity of tablet 00:00: mouth in [place] 00 the Medical morning. Branch NIFEdipine 2021-04 Yes [id number] 60mg Take 1 U nivers XL 60 mg 24 2-21 tablet by ity of hr tablet 00:00: mouth in [facility] 00 the Medical morning. Branch nebivoloL 2021-04 Yes [id number] 5mg Take 1 Un ale (BYSTOLIC) 2-21 tablet by ity of 5 mg tablet 00:00: mouth in [place] 00 the Medical morning. Branch atorvastati 2021-04 Yes [id number] 20mg Take 1 [facility] n 20 mg 2-21 tablet by ity of tablet 00:00: mouth in [place] 00 the Medical morning. Branch clopidogreL 2021-04 Yes [id number] 75mg Take 1 [facility] 75 mg 2-21 tablet by ity of tablet 00:00: mouth in [place] 00 the Medical morning. Branch NIFEdipine 2021- Yes [id number] 60mg Take 1 U nivers XL 60 mg 24 2-21 tablet by [facility] of hr tablet 00:00: mouth [place] 00 the Medical morning. Branch nebivoloL 2021-04 Yes [id number] 5mg Take 1 Un ale (BYSTOLIC) 2-21 tablet by ity of 5 mg tablet 00:00: mouth in [place] 00 the Medical morning. Branch atorvastati 2021-04 Yes [id number] 20mg Take 1 [facility] n 20 mg 2-21 tablet by ity of tablet 00:00: mouth in [place] 00 the Medical morning. Branch clopidogreL 2021-04 Yes [id number] 75mg Take 1 [facility] 75 mg 2-21 tablet by ity of tablet 00:00: mouth in [place] 00 the Medical morning. Branch NIFEdipine 2021-04 Yes [id number] 60mg Take 1 U nivers XL 60 mg 24 2-21 tablet by [facility] of hr tablet 00:00: mouth [place] 00 the Medical morning. Branch nebivoloL 2021-04 Yes [id number] 5mg Take 1 Un ale (BYSTOLIC) 2-21 tablet by ity of 5 mg tablet 00:00: mouth in [place] 00 the Medical morning. Branch atorvastati 2021-04 Yes [id number] 20mg Take 1 [facility] n 20 mg 2-21 tablet by ity of tablet 00:00: mouth in [place] 00 the Medical morning. Branch clopidogreL 2021-04 Yes [id number] 75mg Take 1 [facility] 75 mg 2-21 tablet by ity of tablet 00:00: mouth in [place] 00 the Medical morning. Branch NIFEdipine 2021-04 Yes [id number] 60mg Take 1 U nivers XL 60 mg 24 2-21 tablet by ity of hr tablet 00:00: mouth in [facility] 00 the Medical morning. Branch nebivoloL 2021-04 Yes [id number] 5mg Take 1 Un ale (BYSTOLIC) 2-21 tablet by ity of 5 mg tablet 00:00: mouth in [place] 00 the Medical morning. Branch atorvastati 2021-04 Yes [id number] 20mg Take 1 [facility] n 20 mg 2-21 tablet by ity of tablet 00:00: mouth in [place] 00 the Medical morning. Branch clopidogreL 2021-04 Yes [id number] 75mg Take 1 [facility] 75 mg 2-21 tablet by ity of tablet 00:00: mouth in [place] 00 the Medical morning. Branch NIFEdipine 2021- Yes [id number] 60mg Take 1 U nivers XL 60 mg 24 2-21 tablet by [facility] of hr tablet 00:00: mouth in [place] 00 the Medical morning. Branch nebivoloL 2021-04 Yes [id number] 5mg Take 1 Un ale (BYSTOLIC) 2-21 tablet by ity of 5 mg tablet 00:00: mouth in [place] 00 the Medical morning. Branch atorvastati 2021-04 Yes [id number] 20mg Take 1 [facility] n 20 mg 2-21 tablet by ity of tablet 00:00: mouth in [place] 00 the Medical morning. Branch clopidogreL 2021-04 Yes [id number] 75mg Take 1 [facility] 75 mg 2-21 tablet by ity of tablet 00:00: mouth in [place] 00 the Medical morning. Branch NIFEdipine 2021-04 Yes [id number] 60mg Take 1 U nivers XL 60 mg 24 2-21 tablet by ity of hr tablet 00:00: mouth in [facility] 00 the Medical morning. Branch nebivoloL 2021-04 Yes [id number] 5mg Take 1 Un ale (BYSTOLIC) 2-21 tablet by ity of 5 mg tablet 00:00: mouth in [place] 00 the Medical morning. Branch atorvastati 2021-04 Yes [id number] 20mg Take 1 [facility] n 20 mg 2-21 tablet by ity of tablet 00:00: mouth in [place] 00 the Medical morning. Branch clopidogreL 2021-04 Yes [id number] 75mg Take 1 [facility] 75 mg 2-21 tablet by ity of tablet 00:00: mouth in [place] 00 the Medical morning. Branch NIFEdipine 2021-04 Yes [id number] 60mg Take 1 U nivers XL 60 mg 24 2-21 tablet by ity of hr tablet 00:00: mouth in [facility] 00 the Medical morning. Branch clopidogreL 2021-04 2023- No [id number] 75mg Take 1 [facility] 75 mg 2-21 05-10 tablet by ity of tablet 00:00: 00:00 mouth in [place] 00 :00 the Medical morning. Branch HYDROcodone 2021-04 Yes 4647 1{tbl} Take 1 Un ale -acetaminop 2-14 tablet by ity of hen 10-325 00:00: mouth [place] mg tablet 00 every 6 Medical (six) Branch hours as needed for Pain (scale 7-10). Indication s: acute pain HYDROcodone 2021-04 Yes 4647 1{tbl} Take 1 Un ale -acetaminop 2-14 tablet by ity of hen 10-325 00:00: mouth [place] mg tablet 00 every 6 Medical (six) Branch hours as needed for Pain (scale 7-10). Indication s: acute pain HYDROcodone 2021-04 Yes 4647 1{tbl} Take 1 Un ale -acetaminop 2-14 tablet by ity of hen 10-325 00:00: mouth [place] mg tablet 00 every 6 Medical (six) Branch hours as needed for Pain (scale 7-10). Indication s: acute pain HYDROcodone 2021-04 Yes 4647 1{tbl} Take 1 Un ale -acetaminop 2-14 tablet by ity of hen 10-325 00:00: mouth [place] mg tablet 00 every 6 Medical (six) Branch hours as needed for Pain (scale 7-10). Indication s: acute pain HYDROcodone 2021-04 Yes 4647 1{tbl} Take 1 Un ale -acetaminop 2-14 tablet by ity of hen 10-325 00:00: mouth [place] mg tablet 00 every 6 Medical (six) Branch hours as needed for Pain (scale 7-10). Indication s: acute pain HYDROcodone 2021-04 Yes 4647 1{tbl} Take 1 Un ale -acetaminop 2-14 tablet by ity of hen 10-325 00:00: mouth [place] mg tablet 00 every 6 Medical (six) Branch hours as needed for Pain (scale 7-10). Indication s: acute pain HYDROcodone 2021-04 Yes 4647 1{tbl} Take 1 Un ale -acetaminop 2-14 tablet by ity of hen 10-325 00:00: mouth [place] mg tablet 00 every 6 Medical (six) Branch hours as needed for Pain (scale 7-10). Indication s: acute pain HYDROcodone 2021-04 Yes 4647 1{tbl} Take 1 Un ale -acetaminop 2-14 tablet by ity of hen 10-325 00:00: mouth [place] mg tablet 00 every 6 Medical (six) Branch hours as needed for Pain (scale 7-10). Indication s: acute pain HYDROcodone 2021-04 Yes 4647 1{tbl} Take 1 Un ale -acetaminop 2-14 tablet by ity of hen 10-325 00:00: mouth [place] mg tablet 00 every 6 Medical (six) Branch hours as needed for Pain (scale 7-10). Indication s: acute pain HYDROcodone 2021-04 Yes 4647 1{tbl} Take 1 Un ale -acetaminop 2-14 tablet by ity of hen 10-325 00:00: mouth [place] mg tablet 00 every 6 Medical (six) Branch hours as needed for Pain (scale 7-10). Indication s: acute pain HYDROcodone 2021-04 Yes 4647 1{tbl} Take 1 Un ale -acetaminop 2-14 tablet by ity of hen 10-325 00:00: mouth [place] mg tablet 00 every 6 Medical (six) Branch hours as needed for Pain (scale 7-10). Indication s: acute pain HYDROcodone 2021-04 Yes 4647 1{tbl} Take 1 Un ale -acetaminop 2-14 tablet by ity of hen 10-325 00:00: mouth [place] mg tablet 00 every 6 Medical (six) Branch hours as needed for Pain (scale 7-10). Indication s: acute pain HYDROcodone 2021-04 Yes 4647 1{tbl} Take 1 Un ale -acetaminop 2-14 tablet by ity of hen 10-325 00:00: mouth [place] mg tablet 00 every 6 Medical (six) Branch hours as needed for Pain (scale 7-10). Indication s: acute pain HYDROcodone 2021-04 Yes 4647 1{tbl} Take 1 Un ale -acetaminop 2-14 tablet by ity of hen 10-325 00:00: mouth [place] mg tablet 00 every 6 Medical (six) Branch hours as needed for Pain (scale 7-10). Indication s: acute pain HYDROcodone 2021-04 Yes 4647 1{tbl} Take 1 Un ale -acetaminop 2-14 tablet by ity of hen 10-325 00:00: mouth [place] mg tablet 00 every 6 Medical (six) Branch hours as needed for Pain (scale 7-10). Indication s: acute pain HYDROcodone 2021-04 Yes 4647 1{tbl} Take 1 Un ale -acetaminop 2-14 tablet by [facility] hen 10-325 00:00: mouth [place] mg tablet 00 every 6 Medical (six) Branch hours as needed for Pain (scale 7-10). Indication s: acute pain HYDROcodone 2021-04 Yes 4647 1{tbl} Take 1 Un ale -acetaminop 2-14 tablet by [facility] hen 10-325 00:00: mouth [place] mg tablet 00 every 6 Medical (six) Branch hours as needed for Pain (scale 7-10). Indication s: acute pain HYDROcodone 2021-04 Yes 4647 1{tbl} Take 1 Un ale -acetaminop 2-14 tablet by [facility] hen 10-325 00:00: mouth [place] mg tablet 00 every 6 Medical (six) Branch hours as needed for Pain (scale 7-10). Indication s: acute pain HYDROcodone 2021-04 Yes 4647 1{tbl} Take 1 Un ale -acetaminop 2-14 tablet by [facility] hen 10-325 00:00: mouth [place] mg tablet 00 every 6 Medical (six) Branch hours as needed for Pain (scale 7-10). Indication s: acute pain HYDROcodone 2021-04 Yes 4647 1{tbl} Take 1 Un ale -acetaminop 2-14 tablet by [facility] hen 10-325 00:00: mouth [place] mg tablet 00 every 6 Medical (six) Branch hours as needed for Pain (scale 7-10). Indication s: acute pain HYDROcodone 2021-04 Yes 4647 1{tbl} Take 1 Un ale -acetaminop 2-14 tablet by [facility] hen 10-325 00:00: mouth [place] mg tablet 00 every 6 Medical (six) Branch hours as needed for Pain (scale 7-10). Indication s: acute pain HYDROcodone 2021-04 Yes 4647 1{tbl} Take 1 Un ale -acetaminop 2-14 tablet by [facility] hen 10-325 00:00: mouth [place] mg tablet 00 every 6 Medical (six) Branch hours as needed for Pain (scale 7-10). Indication s: acute pain HYDROcodone 2021-04 Yes 4647 1{tbl} Take 1 Un ale -acetaminop 2-14 tablet by [facility] hen 10-325 00:00: mouth [place] mg tablet 00 every 6 Medical (six) Branch hours as needed for Pain (scale 7-10). Indication s: acute pain HYDROcodone 2021-04 Yes 4647 1{tbl} Take 1 Un ale -acetaminop 2-14 tablet by [facility] hen 10-325 00:00: mouth [place] mg tablet 00 every 6 Medical (six) Branch hours as needed for Pain (scale 7-10). Indication s: acute pain HYDROcodone 2021-04 Yes 4647 1{tbl} Take 1 Un ale -acetaminop 2-14 tablet by [facility] hen 10-325 00:00: mouth [place] mg tablet 00 every 6 Medical (six) Branch hours as needed for Pain (scale 7-10). Indication s: acute pain HYDROcodone 2021-04 Yes 4647 1{tbl} Take 1 Un ale -acetaminop 2-14 tablet by [facility] hen 10-325 00:00: mouth [place] mg tablet 00 every 6 Medical (six) Branch hours as needed for Pain (scale 7-10). Indication s: acute pain HYDROcodone 2021-04 Yes 4647 1{tbl} Take 1 Un ale -acetaminop 2-14 tablet by [facility] hen 10-325 00:00: mouth [place] mg tablet 00 every 6 Medical (six) Branch hours as needed for Pain (scale 7-10). Indication s: acute pain HYDROcodone 2021-04 Yes 4647 1{tbl} Take 1 Un ale -acetaminop 2-14 tablet by [facility] hen 10-325 00:00: mouth [place] mg tablet 00 every 6 Medical (six) Branch hours as needed for Pain (scale 7-10). Indication s: acute pain HYDROcodone 2021-04 Yes 4647 1{tbl} Take 1 Un ale -acetaminop 2-14 tablet by [facility] hen 10-325 00:00: mouth [place] mg tablet 00 every 6 Medical (six) Branch hours as needed for Pain (scale 7-10). Indication s: acute pain HYDROcodone 2021-04 Yes 4647 1{tbl} Take 1 Un ale -acetaminop 2-06 tablet by [facility] hen 10-325 00:00: mouth [place] mg tablet 00 every 6 Medical (six) Branch hours as needed for Pain (scale 7-10). Indication s: acute pain HYDROcodone 2021-04 Yes 4647 1{tbl} Take 1 Un ale -acetaminop 2-06 tablet by [facility] hen 10-325 00:00: mouth [place] mg tablet 00 every 6 Medical (six) Branch hours as needed for Pain (scale 7-10). Indication s: acute pain HYDROcodone 2021-04 Yes 4647 1{tbl} Take 1 [facility] ale -acetaminop 2-06 tablet by [facility] hen 10-325 00:00: mouth [place] mg tablet 00 every 6 Medical (six) Branch hours as needed for Pain (scale 7-10). Indication s: acute pain HYDROcodone 2021-04 Yes 4647 1{tbl} Take 1 Un ale -acetaminop 2-06 tablet by [facility] hen 10-325 00:00: mouth [place] mg tablet 00 every 6 Medical (six) Branch hours as needed for Pain (scale 7-10). Indication s: acute pain HYDROcodone 2021-04 Yes 4647 1{tbl} Take 1 Un ale -acetaminop 2-06 tablet by [facility] 10-325 00:00: mouth [place] mg tablet 00 every 6 Medical (six) Branch hours as needed for Pain (scale 7-10). Indication s: acute pain HYDROcodone 2021-04 No 4647 1{tbl} Take 1 U nivers -acetaminop 2-06 12-14 tablet by [facility] hen 10-325 00:00: 00:00 mouth [place] mg tablet 00 :00 every 6 Medical (six) Branch hours as needed for Pain (scale 7-10). Indication s: acute pain HYDROcodone Yes 4647 1{tbl} Take 1 Un ale -acetaminop 6-23 tablet by [facility] hen 10-325 00:00: mouth [place] mg tablet 00 every 6 Medical (six) Branch hours as needed for Pain (scale 7-10). Indication s: acute pain nebivoloL Yes [id number] 5mg Take 1 Un ale (BYSTOLIC) 6-23 tablet by [facility] of 5 mg tablet 00:00: mouth [place] 00 daily. [facility] atorvastati Yes [id number] 20mg Take 1 [facility] n 20 mg 6-23 tablet by [facility] of tablet 00:00: mouth [place] 00 daily. [facility] clopidogreL Yes [id number] 75mg Take 1 [facility] 75 mg 6-23 tablet by [facility] of tablet 00:00: mouth [place] 00 daily. [facility] insulin Yes [id number] 45U inject 45 [facility] aspart 6-23 Units [facility] of protamine-i 00:00: under the [place] nsulin 00 skin 2 Medical aspart (two) Branch (NOVOLOG times MIX 70-30 daily. U-100 INSULN) 100 unit/mL (70-30) injection NIFEdipine Yes [id number] 60mg Take 1 U nivers XL 60 mg 24 6-23 tablet by [facility] of hr tablet 00:00: mouth [place] 00 daily. [facility] furosemide Yes [id number] 20mg Take 1 U nivers 20 mg 6-23 tablet by [facility] of tablet 00:00: mouth [place] 00 daily. [facility] HYDROcodone Yes 4647 1{tbl} Take 1 Un ale -acetaminop 6-23 tablet by [facility] hen 10-325 00:00: mouth [place] mg tablet 00 every 6 Medical (six) Branch hours as needed for Pain (scale 7-10). Indication s: acute pain nebivoloL Yes [id number] 5mg Take 1 Un ale (BYSTOLIC) 6-23 tablet by [facility] of 5 mg tablet 00:00: mouth [place] 00 daily. [facility] atorvastati Yes [id number] 20mg Take 1 [facility] n 20 mg 6-23 tablet by [facility] of tablet 00:00: mouth [place] 00 daily. [facility] clopidogreL Yes [id number] 75mg Take 1 [facility] 75 mg 6-23 tablet by [facility] of tablet 00:00: mouth [place] 00 daily. [facility] insulin Yes [id number] 45U inject 45 [facility] aspart 6-23 Units [facility] of protamine-i 00:00: under the [place] nsulin 00 skin 2 Medical aspart (two) Branch (NOVOLOG times MIX 70-30 daily. U-100 INSULN) 100 unit/mL (70-30) injection NIFEdipine Yes [id number] 60mg Take 1 U nivers XL 60 mg 24 6-23 tablet by [facility] of hr tablet 00:00: mouth [place] 00 daily. [facility] furosemide Yes [id number] 20mg Take 1 [facility] nivers 20 mg 6-23 tablet by [facility] of tablet 00:00: mouth [place] 00 daily. [facility] nebivoloL Yes [id number] 5mg Take 1 Un ale (BYSTOLIC) 6-23 tablet by [facility] of 5 mg tablet 00:00: mouth [place] 00 daily. [facility] atorvastati Yes [id number] 20mg Take 1 [facility] n 20 mg 6-23 tablet by [facility] of tablet 00:00: mouth [place] 00 daily. [facility] clopidogreL Yes [id number] 75mg Take 1 [facility] 75 mg 6-23 tablet by [facility] of tablet 00:00: mouth [place] 00 daily. [facility] insulin Yes [id number] 45U inject 45 [facility] aspart 6-23 Units [facility] of protamine-i 00:00: under the [place] nsulin 00 skin 2 Medical aspart (two) Branch (NOVOLOG times MIX 70-30 daily. U-100 INSULN) 100 unit/mL (70-30) injection NIFEdipine Yes [id number] 60mg Take 1 U nivers XL 60 mg 24 6-23 tablet by [facility] of hr tablet 00:00: mouth [place] 00 daily. [facility] nebivoloL Yes [id number] 5mg Take 1 Un ale (BYSTOLIC) 6-23 tablet by [facility] of 5 mg tablet 00:00: mouth [place] 00 daily. [facility] atorvastati Yes [id number] 20mg Take 1 [facility] n 20 mg 6-23 tablet by [facility] of tablet 00:00: mouth [place] 00 daily. [facility] clopidogreL Yes [id number] 75mg Take 1 [facility] 75 mg 6-23 tablet by [facility] of tablet 00:00: mouth [place] 00 daily. [facility] insulin Yes [id number] 45U inject 45 [facility] aspart 6-23 Units [facility] of protamine-i 00:00: under the [place] nsulin 00 skin 2 Medical aspart (two) Branch (NOVOLOG times MIX 70-30 daily. U-100 INSULN) 100 unit/mL (70-30) injection NIFEdipine 2021-0 Yes [id number] 60mg Take 1 U nivers XL 60 mg 24 6-23 tablet by [facility] of hr tablet 00:00: mouth [place] 00 daily. [facility] nebivoloL 0 Yes [id number] 5mg Take 1 Un ale (BYSTOLIC) 6-23 tablet by [facility] of 5 mg tablet 00:00: mouth [place] 00 daily. [facility] atorvastati Yes [id number] 20mg Take 1 [facility] n 20 mg 6-23 tablet by [facility] of tablet 00:00: mouth [place] 00 daily. [facility] clopidogreL Yes [id number] 75mg Take 1 [facility] 75 mg 6-23 tablet by [facility] of tablet 00:00: mouth [place] 00 daily. [facility] insulin Yes [id number] 45U inject 45 [facility] aspart 6-23 Units [facility] of protamine-i 00:00: under the [place] nsulin 00 skin 2 Medical aspart (two) Branch (NOVOLOG times MIX 70-30 daily. U-100 INSULN) 100 unit/mL (70-30) injection NIFEdipine Yes [id number] 60mg Take 1 U nivers XL 60 mg 24 6-23 tablet by [facility] of hr tablet 00:00: mouth [place] 00 daily. [facility] nebivoloL Yes [id number] 5mg Take 1 Un ale (BYSTOLIC) 6-23 tablet by [facility]y of 5 mg tablet 00:00: mouth [place] 00 daily. [facility] atorvastati Yes [id number] 20mg Take 1 [facility] n 20 mg 6-23 tablet by [facility]y of tablet 00:00: mouth [place] 00 daily. [facility] clopidogreL Yes [id number] 75mg Take 1 [facility] 75 mg 6-23 tablet by [facility] of tablet 00:00: mouth [place] 00 daily. [facility] insulin Yes [id number] 45U inject 45 [facility] aspart 6-23 Units [facility] of protamine-i 00:00: under the [place] nsulin 00 skin 2 Medical aspart (two) Branch (NOVOLOG times MIX 70-30 daily. U-100 INSULN) 100 unit/mL (70-30) injection NIFEdipine 2021-0 Yes [id number] 60mg Take 1 U nivers XL 60 mg 24 6-23 tablet by [facility] of hr tablet 00:00: mouth [place] 00 daily. [facility] nebivoloL Yes [id number] 5mg Take 1 Un ale (BYSTOLIC) 6-23 tablet by [facility]y of 5 mg tablet 00:00: mouth [place] 00 daily. [facility] atorvastati Yes [id number] 20mg Take 1 [facility] n 20 mg 6-23 tablet by [facility] of tablet 00:00: mouth [place] 00 daily. [facility] clopidogreL Yes [id number] 75mg Take 1 [facility] 75 mg 6-23 tablet by [facility]y of tablet 00:00: mouth [place] 00 daily. [facility] insulin Yes [id number] 45U inject 45 [facility] aspart 6-23 Units [facility] of protamine-i 00:00: under the [place] nsulin 00 skin 2 Medical aspart (two) Branch (NOVOLOG times MIX 70-30 daily. U-100 INSULN) 100 unit/mL (70-30) injection NIFEdipine Yes [id number] 60mg Take 1 U nivers XL 60 mg 24 6-23 tablet by [facility] of hr tablet 00:00: mouth [place] 00 daily. [facility] nebivoloL 0 Yes [id number] 5mg Take 1 Un ale (BYSTOLIC) 6-23 tablet by [facility] of 5 mg tablet 00:00: mouth [place] 00 daily. [facility] atorvastati Yes [id number] 20mg Take 1 [facility] n 20 mg 6-23 tablet by [facility]y of tablet 00:00: mouth [place] 00 daily. [facility] clopidogreL Yes [id number] 75mg Take 1 [facility] 75 mg 6-23 tablet by [facility]y of tablet 00:00: mouth [place] 00 daily. [facility] insulin Yes [id number] 45U inject 45 [facility] aspart 6-23 Units [facility] of protamine-i 00:00: under the [place] nsulin 00 skin 2 Medical aspart (two) Branch (NOVOLOG times MIX 70-30 daily. U-100 INSULN) 100 unit/mL (70-30) injection NIFEdipine Yes [id number] 60mg Take 1 U nivers XL 60 mg 24 6-23 tablet by [facility]y of hr tablet 00:00: mouth [place] 00 daily. [facility] insulin Yes [id number] 45U inject 45 [facility] aspart 6-23 Units [facility] of protamine-i 00:00: under the [place] nsulin 00 skin 2 Medical aspart (two) Branch (NOVOLOG times MIX 70-30 daily. U-100 INSULN) 100 unit/mL (70-30) injection insulin 3- No [id number] 45U inject 45 [facility] aspart 6-23 01-24 Units ity of protamine-i 00:00: 00:00 under the [place] nsulin 00 :00 skin 2 Medical aspart (two) Branch (NOVOLOG times MIX 70-30 daily. U-100 INSULN) 100 unit/mL (70-30) injection nebivoloL 2021- No [id number] 5mg Take 1 U nivers (BYSTOLIC) 6-23 12-20 tablet by [facility] 5 mg tablet 00:00: 00:00 [facility] [place] 00 :00 daily. [facility] atorvastati 2021- No [id number] 20mg Take 1 [facility] n 20 mg 6-23 12-20 tablet by [facility] of tablet 00:00: 00:00 mouth [place] 00 :00 daily. [facility] clopidogreL 2021- No [id number] 75mg Take 1 [facility] 75 mg 6-23 12-20 tablet by [facility]y of tablet 00:00: 00:00 mouth [place] 00 :00 daily. [facility] NIFEdipine 2021- No [id number] 60mg Take 1 [facility] XL 60 mg 24 6-23 12-20 tablet by it y of hr tablet 00:00: 00:00 mouth [place] 00 :00 daily. [facility] HYDROcodone 2021- No 4647 1{tbl} Take 1 U nivers -acetaminop 6-23 12-06 tablet by [facility] y of hen 10-325 00:00: 00:00 mouth [place] mg tablet 00 :00 every 6 Medical (six) Branch hours as needed for Pain (scale 7-10). Indication s: acute pain furosemide 2021- No [id number] 20mg Take 1 [facility] 20 mg 6-23 12-06 tablet by [facility]y of tablet 00:00: 00:00 mouth [place] 00 :00 daily. [facility] HYDROcodone 2021- No 4647 1{tbl} Take 1 U nivers -acetaminop 6-23 12-06 tablet by [facility] of hen 10-325 00:00: 00:00 mouth [place] mg tablet 00 :00 every 6 Medical (six) Branch hours as needed for Pain (scale 7-10). Indication s: acute pain furosemide 2021- No [id number] 20mg Take 1 [facility] 20 mg 6-23 12-06 tablet by [facility] of tablet 00:00: 00:00 mouth [place] 00 :00 daily. [facility] furosemide Yes [id number] 20mg Take 1 U nivers 20 mg 6-03 tablet by [facility] of tablet 00:00: mouth [place] 00 daily. [facility] furosemide Yes [id number] 20mg Take 1 U nivers 20 mg 6-03 tablet by [facility] of tablet 00:00: mouth [place] 00 daily. [facility] furosemide 2021- No [id number] 20mg Take 1 [facility] 20 mg 6-03 -23 tablet by [facility]y of tablet 00:00: 00:00 mouth [place] 00 :00 daily. [facility] furosemide Yes [id number] 20mg Take 1 U nivers 20 mg 5-27 tablet by [facility] of tablet 00:00: mouth [place] 00 daily. [facility] HYDROcodone Yes 4647 1{tbl} Take 1 Un ale -acetaminop 5-27 tablet by [facility] of hen 10-325 00:00: mouth [place] mg tablet 00 every 6 Medical (six) Branch hours as needed for Pain (scale 7-10). Indication s: acute pain HYDROcodone Yes 4647 1{tbl} Take 1 Un ale -acetaminop 5-27 tablet by [facility] of hen 10-325 00:00: mouth [place] mg tablet 00 every 6 Medical (six) Branch hours as needed for Pain (scale 7-10). Indication s: acute pain HYDROcodone Yes 4647 1{tbl} Take 1 Un ale -acetaminop 5-27 tablet by [facility] of hen 10-325 00:00: mouth [place] mg tablet 00 every 6 Medical (six) Branch hours as needed for Pain (scale 7-10). Indication s: acute pain HYDROcodone 2021- No 4647 1{tbl} Take 1 U nivers -acetaminop 5-27 -23 tablet by it y of hen 10-325 00:00: 00:00 mouth [place] mg tablet 00 :00 every 6 Medical (six) Branch hours as needed for Pain (scale 7-10). Indication s: acute pain furosemide 2021-2021- No [id number] 20mg Take 1 [facility] 20 mg 5-27 06-03 tablet by ity of tablet 00:00: 00:00 mouth [place] 00 :00 daily. [facility] HYDROcodone 2021- No 4647 1{tbl} Take 1 U nivers -acetaminop 5-17 05-27 tablet by it y of hen 10-325 00:00: 00:00 mouth [place] mg tablet 00 :00 every 6 Medical (six) Branch hours as needed for Pain (scale 7-10). Indication s: acute pain budesonide- 2-0 Yes 2{puff} Inhale 2 [facility] formoteroL 5-13 Puffs 2 ity of (SYMBICORT) 15:01: (two) [place] 160-4.5 54 times Medical mcg/actuati daily. Branch on inhaler aspirin 2-0 Yes 81mg Take 81 mg [facility] ers (ASPIR-81 5-13 by mouth ity of ORAL) 15:01: daily. [place] [address] Medical Branch budesonide- 2-0 Yes 2{puff} Inhale 2 [facility] formoteroL 5-13 Puffs 2 ity of (SYMBICORT) 15:01: (two) [place] 160-4.5 54 times Medical mcg/actuati daily. Branch on inhaler aspirin 2-0 Yes 81mg Take 81 mg [facility] ers (ASPIR-81 5-13 by mouth ity of ORAL) 15:01: daily. [place] [address] Medical Branch budesonide- 2-0 Yes 2{puff} Inhale 2 [facility] formoteroL 5-13 Puffs 2 ity of (SYMBICORT) 15:01: (two) [place] 160-4.5 54 times Medical mcg/actuati daily. Branch on inhaler aspirin 2-0 Yes 81mg Take 81 mg [facility] ers (ASPIR-81 5-13 by mouth ity of ORAL) 15:01: daily. [place] [address] Medical Branch budesonide- 2-0 Yes 2{puff} Inhale 2 [facility] formoteroL 5-13 Puffs 2 ity of (SYMBICORT) 15:01: (two) [place] 160-4.5 54 times Medical mcg/actuati daily. Branch on inhaler aspirin 2-0 Yes 81mg Take 81 mg [facility] ers (ASPIR-81 5-13 by mouth ity of ORAL) 15:01: daily. [place] [address] Medical Branch budesonide- 2-0 Yes 2{puff} Inhale 2 [facility] formoteroL 5-13 Puffs 2 ity of (SYMBICORT) 15:01: (two) [place] 160-4.5 54 times Medical mcg/actuati daily. Branch on inhaler aspirin 2-0 Yes 81mg Take 81 mg [facility] ers (ASPIR-81 5-13 by mouth ity of ORAL) 15:01: daily. [place] [address] [facility] [place] budesonide- 2021-0 Yes 2{puff} Inhale 2 [facility] formoteroL 5-13 Puffs 2 ity of (SYMBICORT) 15:01: (two) [place] 160-4.5 54 times Medical mcg/actuati daily. Branch on inhaler aspirin 2-0 Yes 81mg Take 81 mg [facility] ers (ASPIR-81 5-13 by mouth ity of ORAL) 15:01: daily. [place] [address] Medical Branch budesonide- 2021-0 Yes 2{puff} Inhale 2 [facility] formoteroL 5-13 Puffs 2 ity of (SYMBICORT) 15:01: (two) [place] 160-4.5 54 times Medical mcg/actuati daily. Branch on inhaler aspirin 2-0 Yes 81mg Take 81 mg [facility] ers (ASPIR-81 5-13 by mouth ity of ORAL) 15:01: daily. [place] [address] Medical Branch budesonide- 2021-0 Yes 2{puff} Inhale 2 [facility] formoteroL 5-13 Puffs 2 ity of (SYMBICORT) 15:01: (two) [place] 160-4.5 54 times Medical mcg/actuati daily. Branch on inhaler aspirin 2-0 Yes 81mg Take 81 mg [facility] ers (ASPIR-81 5-13 by mouth ity of ORAL) 15:01: daily. [place] [address] Medical [place] budesonide- 2021-0 Yes 2{puff} Inhale 2 [facility] formoteroL 5-13 Puffs 2 ity of (SYMBICORT) 15:01: (two) [place] 160-4.5 54 times Medical mcg/actuati daily. Branch on inhaler aspirin 2-0 Yes 81mg Take 81 mg [facility] ers (ASPIR-81 5-13 by mouth ity of ORAL) 15:01: daily. [place] [address] [facility] [place] budesonide- 2-0 Yes 2{puff} Inhale 2 [facility] formoteroL 5-13 Puffs 2 ity of (SYMBICORT) 15:01: (two) [place] 160-4.5 54 times Medical mcg/actuati daily. Branch on inhaler aspirin 2-0 Yes 81mg Take 81 mg [facility] ers (ASPIR-81 5-13 by mouth ity of ORAL) 15:01: daily. [address] budesonide- 2-0 Yes 2{puff} Inhale 2 [facility] formoteroL 5-13 Puffs 2 ity of (SYMBICORT) 15:01: (two) [place] 160-4.5 54 times Medical mcg/actuati daily. Branch on inhaler aspirin 2022-0 Yes 81mg Take 81 mg [facility] ers (ASPIR-81 5-13 by mouth ity of ORAL) 15:01: daily. [place] [address] Medical Branch budesonide- 2-0 Yes 2{puff} Inhale 2 [facility] formoteroL 5-13 Puffs 2 ity of (SYMBICORT) 15:01: (two) [place] 160-4.5 54 times Medical mcg/actuati daily. Branch on inhaler aspirin 2-0 Yes 81mg Take 81 mg [facility] ers (ASPIR-81 5-13 by mouth ity of ORAL) 15:01: daily. [address] budesonide- 2021-0 Yes 2{puff} Inhale 2 [facility] formoteroL 5-13 Puffs 2 ity of (SYMBICORT) 15:01: (two) [place] 160-4.5 54 times Medical mcg/actuati daily. Branch on inhaler aspirin 2-0 Yes 81mg Take 81 mg [facility] ers (ASPIR-81 5-13 by mouth ity of ORAL) 15:01: daily. [address] budesonide- 2-0 Yes 2{puff} Inhale 2 [facility] formoteroL 5-13 Puffs 2 ity of (SYMBICORT) 15:01: (two) [place] 160-4.5 54 times Medical mcg/actuati daily. Branch on inhaler aspirin 2022-0 Yes 81mg Take 81 mg [facility] ers (ASPIR-81 5-13 by mouth ity of ORAL) 15:01: daily. [address] budesonide- 2022-0 Yes 2{puff} Inhale 2 [facility] formoteroL 5-13 Puffs 2 ity of (SYMBICORT) 15:01: (two) [place] 160-4.5 54 times Medical mcg/actuati daily. Branch on inhaler aspirin 2022-0 Yes 81mg Take 81 mg [facility] ers (ASPIR-81 5-13 by mouth ity of ORAL) 15:01: daily. [place] 54 [facility] Branch budesonide- 2-0 Yes 2{puff} Inhale 2 [facility] formoteroL 5-13 Puffs 2 ity of (SYMBICORT) 15:01: (two) [place] 160-4.5 54 times Medical mcg/actuati daily. Branch on inhaler aspirin 2-0 Yes 81mg Take 81 mg [facility] ers (ASPIR-81 5-13 by mouth ity of ORAL) 15:01: daily. [place] [address] Medical Branch budesonide- 2-0 Yes 2{puff} Inhale 2 [facility] formoteroL 5-13 Puffs 2 ity of (SYMBICORT) 15:01: (two) [place] 160-4.5 54 times Medical mcg/actuati daily. Branch on inhaler aspirin 2-0 Yes 81mg Take 81 mg [facility] ers (ASPIR-81 5-13 by mouth ity of ORAL) 15:01: daily. [place] [address] Medical Branch budesonide- 2021-0 Yes 2{puff} Inhale 2 [facility] formoteroL 5-13 Puffs 2 ity of (SYMBICORT) 15:01: (two) [place] 160-4.5 54 times Medical mcg/actuati daily. Branch on inhaler aspirin 2-0 Yes 81mg Take 81 mg [facility] ers (ASPIR-81 5-13 by mouth ity of ORAL) 15:01: daily. [place] [address] Medical Branch budesonide- 2-0 Yes 2{puff} Inhale 2 [facility] formoteroL 5-13 Puffs 2 ity of (SYMBICORT) 15:01: (two) [place] 160-4.5 54 times Medical mcg/actuati daily. Branch on inhaler aspirin 2-0 Yes 81mg Take 81 mg [facility] ers (ASPIR-81 5-13 by mouth ity of ORAL) 15:01: daily. [place] [address] Medical Branch budesonide- 2-0 Yes 2{puff} Inhale 2 [facility] formoteroL 5-13 Puffs 2 ity of (SYMBICORT) 15:01: (two) [place] 160-4.5 54 times Medical mcg/actuati daily. Branch on inhaler aspirin 2022-0 Yes 81mg Take 81 mg [facility] ers (ASPIR-81 5-13 by mouth ity of ORAL) 15:01: daily. [place] [address] Medical Branch budesonide- 2022-0 Yes 2{puff} Inhale 2 [facility] formoteroL 5-13 Puffs 2 ity of (SYMBICORT) 15:01: (two) [place] 160-4.5 54 times Medical mcg/actuati daily. Branch on inhaler aspirin 2-0 Yes 81mg Take 81 mg [facility] ers (ASPIR-81 5-13 by mouth ity of ORAL) 15:01: daily. [place] [address] Medical Branch budesonide- 2021-0 Yes 2{puff} Inhale 2 [facility] formoteroL 5-13 Puffs 2 ity of (SYMBICORT) 15:01: (two) [place] 160-4.5 54 times Medical mcg/actuati daily. Branch on inhaler aspirin 2-0 Yes 81mg Take 81 mg [facility] ers (ASPIR-81 5-13 by mouth ity of ORAL) 15:01: daily. [place] [address] [facility] [place] budesonide- 2021-0 Yes 2{puff} Inhale 2 [facility] formoteroL 5-13 Puffs 2 ity of (SYMBICORT) 15:01: (two) [place] 160-4.5 54 times Medical mcg/actuati daily. Branch on inhaler aspirin 2-0 Yes 81mg Take 81 mg [facility] ers (ASPIR-81 5-13 by mouth ity of ORAL) 15:01: daily. [place] [address] [facility] [place] budesonide- 2021-0 Yes 2{puff} Inhale 2 [facility] formoteroL 5-13 Puffs 2 ity of (SYMBICORT) 15:01: (two) [place] 160-4.5 54 times Medical mcg/actuati daily. Branch on inhaler aspirin 2-0 Yes 81mg Take 81 mg [facility] ers (ASPIR-81 5-13 by mouth ity of ORAL) 15:01: daily. [place] [address] Medical Branch budesonide- 2-0 Yes 2{puff} Inhale 2 [facility] formoteroL 5-13 Puffs 2 ity of (SYMBICORT) 15:01: (two) [place] 160-4.5 54 times Medical mcg/actuati daily. Branch on inhaler aspirin 2-0 Yes 81mg Take 81 mg [facility] ers (ASPIR-81 5-13 by mouth ity of ORAL) 15:01: daily. [place] [address] Medical Branch budesonide- 2021-0 Yes 2{puff} Inhale 2 [facility] formoteroL 5-13 Puffs 2 ity of (SYMBICORT) 15:01: (two) [place] 160-4.5 54 times Medical mcg/actuati daily. Branch on inhaler aspirin 2-0 Yes 81mg Take 81 mg [facility] ers (ASPIR-81 5-13 by mouth ity of ORAL) 15:01: daily. [place] [address] Medical Branch budesonide- 2021-0 Yes 2{puff} Inhale 2 [facility] formoteroL 5-13 Puffs 2 ity of (SYMBICORT) 15:01: (two) [place] 160-4.5 54 times Medical mcg/actuati daily. Branch on inhaler aspirin 2-0 Yes 81mg Take 81 mg [facility] ers (ASPIR-81 5-13 by mouth ity of ORAL) 15:01: daily. [place] [address] Medical Branch budesonide- 2021-0 Yes 2{puff} Inhale 2 [facility] formoteroL 5-13 Puffs 2 ity of (SYMBICORT) 15:01: (two) [place] 160-4.5 54 times Medical mcg/actuati daily. Branch on inhaler aspirin 2-0 Yes 81mg Take 81 mg [facility] ers (ASPIR-81 5-13 by mouth ity of ORAL) 15:01: daily. [place] [address] Medical Branch budesonide- 2021-0 Yes 2{puff} Inhale 2 [facility] formoteroL 5-13 Puffs 2 ity of (SYMBICORT) 15:01: (two) [place] 160-4.5 54 times Medical mcg/actuati daily. Branch on inhaler aspirin 2-0 Yes 81mg Take 81 mg [facility] ers (ASPIR-81 5-13 by mouth ity of ORAL) 15:01: daily. [place] [address] Medical Branch budesonide- 2021-0 Yes 2{puff} Inhale 2 [facility] formoteroL 5-13 Puffs 2 ity of (SYMBICORT) 15:01: (two) [place] 160-4.5 54 times Medical mcg/actuati daily. Branch on inhaler aspirin 2-0 Yes 81mg Take 81 mg [facility] ers (ASPIR-81 5-13 by mouth ity of ORAL) 15:01: daily. [place] [address] [facility] [place] budesonide- 2021-0 Yes 2{puff} Inhale 2 [facility] formoteroL 5-13 Puffs 2 ity of (SYMBICORT) 15:01: (two) [place] 160-4.5 54 times Medical mcg/actuati daily. Branch on inhaler aspirin 2022-0 Yes 81mg Take 81 mg [facility] ers (ASPIR-81 5-13 by mouth ity of ORAL) 15:01: daily. [place] [address] Medical Branch budesonide- 2022-0 Yes 2{puff} Inhale 2 [facility] formoteroL 5-13 Puffs 2 ity of (SYMBICORT) 15:01: (two) [place] 160-4.5 54 times Medical mcg/actuati daily. Branch on inhaler aspirin 2022-0 Yes 81mg Take 81 mg [facility] ers (ASPIR-81 5-13 by mouth ity of ORAL) 15:01: daily. [place] [address] Medical Branch budesonide- 2-0 Yes 2{puff} Inhale 2 [facility] formoteroL 5-13 Puffs 2 ity of (SYMBICORT) 15:01: (two) [place] 160-4.5 54 times Medical mcg/actuati daily. Branch on inhaler aspirin 2-0 Yes 81mg Take 81 mg [facility] ers (ASPIR-81 5-13 by mouth ity of ORAL) 15:01: daily. [place] [address] Medical Branch budesonide- 2022-0 Yes 2{puff} Inhale 2 [facility] formoteroL 5-13 Puffs 2 ity of (SYMBICORT) 15:01: (two) [place] 160-4.5 54 times Medical mcg/actuati daily. Branch on inhaler aspirin 2022-0 Yes 81mg Take 81 mg [facility] ers (ASPIR-81 5-13 by mouth ity of ORAL) 15:01: daily. [place] [address] Medical Branch budesonide- 2022-0 Yes 2{puff} Inhale 2 [facility] formoteroL 5-13 Puffs 2 ity of (SYMBICORT) 15:01: (two) [place] 160-4.5 54 times Medical mcg/actuati daily. Branch on inhaler aspirin 2022-0 Yes 81mg Take 81 mg [facility] ers (ASPIR-81 5-13 by mouth ity of ORAL) 15:01: daily. [place] [address] Medical Branch budesonide- 2022-0 Yes 2{puff} Inhale 2 [facility] formoteroL 5-13 Puffs 2 ity of (SYMBICORT) 15:01: (two) [place] 160-4.5 54 times Medical mcg/actuati daily. Branch on inhaler aspirin 2-0 Yes 81mg Take 81 mg [facility] ers (ASPIR-81 5-13 by mouth ity of ORAL) 15:01: daily. [place] [address] Medical Branch budesonide- 2021-0 Yes 2{puff} Inhale 2 [facility] formoteroL 5-13 Puffs 2 ity of (SYMBICORT) 15:01: (two) [place] 160-4.5 54 times Medical mcg/actuati daily. Branch on inhaler aspirin 2-0 Yes 81mg Take 81 mg [facility] ers (ASPIR-81 5-13 by mouth ity of ORAL) 15:01: daily. [place] [address] Medical Branch budesonide- 2021-0 Yes 2{puff} Inhale 2 [facility] formoteroL 5-13 Puffs 2 ity of (SYMBICORT) 15:01: (two) [place] 160-4.5 54 times Medical mcg/actuati daily. Branch on inhaler aspirin 2021-0 Yes 81mg Take 81 mg [facility] ers (ASPIR-81 5-13 by mouth ity of ORAL) 15:01: daily. [place] [address] Medical Branch budesonide- 2021-0 Yes 2{puff} Inhale 2 [facility] formoteroL 5-13 Puffs 2 ity of (SYMBICORT) 15:01: (two) [place] 160-4.5 54 times Medical mcg/actuati daily. Branch on inhaler aspirin 2-0 Yes 81mg Take 81 mg [facility] ers (ASPIR-81 5-13 by mouth ity of ORAL) 15:01: daily. [place] [address] Medical Branch budesonide- 2021-0 Yes 2{puff} Inhale 2 [facility] formoteroL 5-13 Puffs 2 ity of (SYMBICORT) 15:01: (two) [place] 160-4.5 54 times Medical mcg/actuati daily. Branch on inhaler aspirin 2-0 Yes 81mg Take 81 mg [facility] ers (ASPIR-81 5-13 by mouth ity of ORAL) 15:01: daily. [address] Branch Cholecalcif 2021-0 Yes [id number] 2000U Take 1 [facility] stiven, 5-05 tablet by ity of Vitamin D3, 00:00: mouth [place] 50 mcg 00 daily. Medical (2,000 Branch unit) tablet ipratropium 2022-0 Yes [id number] 3mL Inhale 3 [facility] -albuteroL 5-05 mL every 6 ity of 0.5 mg-3 00:00: (six) [place] mg(2.5 mg 00 hours as Medica l base)/3 mL needed for [facility] nebulizer Wheezing. solution Nebulizer & 2-0 Yes [id number] Use every [facility] Compressor 5-05 4 hours as ity of For Neb 00:00: needed for [place] 00 shortness [facility] of breath Branch Cholecalcif 2022-0 Yes [id number] 2000U Take 1 [facility] stiven, 5-05 tablet by ity of Vitamin D3, 00:00: mouth [place] 50 mcg 00 daily. Medical (2,000 Branch unit) tablet ipratropium 2022-0 Yes [id number] 3mL Inhale 3 [facility] -albuteroL 5-05 mL every 6 ity of 0.5 mg-3 00:00: (six) [place] mg(2.5 mg 00 hours as Medica l base)/3 mL needed for [facility] nebulizer Wheezing. solution Nebulizer & 2021-0 Yes [id number] Use every [facility] Compressor 5-05 4 hours as ity of For Neb 00:00: needed for [place] 00 shortness Medical of breath Branch Cholecalcif 2-0 Yes [id number] 2000U Take 1 [facility] stiven, 5-05 tablet by ity of Vitamin D3, 00:00: mouth [place] 50 mcg 00 daily. Medical (2,000 Branch unit) tablet ipratropium 2022-0 Yes [id number] 3mL Inhale 3 [facility] -albuteroL 5-05 mL every 6 ity of 0.5 mg-3 00:00: (six) [place] mg(2.5 mg 00 hours as Medica l base)/3 mL needed for [facility] nebulizer Wheezing. solution Nebulizer & 2-0 Yes [id number] Use every [facility] Compressor 5-05 4 hours as ity of For Neb 00:00: needed for [place] 00 shortness Medical of breath Branch Cholecalcif 2-0 Yes [id number] 2000U Take 1 [facility] stiven, 5-05 tablet by ity of Vitamin D3, 00:00: mouth [place] 50 mcg 00 daily. Medical (2,000 Branch unit) tablet ipratropium 2022-0 Yes [id number] 3mL Inhale 3 [facility] -albuteroL 5-05 mL every 6 ity of 0.5 mg-3 00:00: (six) [place] mg(2.5 mg 00 hours as Medica l base)/3 mL needed for [facility] nebulizer Wheezing. solution Nebulizer & 2-0 Yes [id number] Use every [facility] Compressor 5-05 4 hours as ity of For Neb 00:00: needed for [place] 00 shortness Medical of breath Branch Cholecalcif 2-0 Yes [id number] 2000U Take 1 [facility] stiven, 5-05 tablet by ity of Vitamin D3, 00:00: mouth [place] 50 mcg 00 daily. Medical (2,000 Branch unit) tablet ipratropium 2-0 Yes [id number] 3mL Inhale 3 [facility] -albuteroL 5-05 mL every 6 ity of 0.5 mg-3 00:00: (six) [place] mg(2.5 mg 00 hours as Medica l base)/3 mL needed for [facility] nebulizer Wheezing. solution Nebulizer & 2021-0 Yes [id number] Use every [facility] Compressor 5-05 4 hours as ity of For Neb 00:00: needed for [place] 00 shortness Medical of breath Branch Cholecalcif 2021-0 Yes [id number] 2000U Take 1 [facility] stiven, 5-05 tablet by ity of Vitamin D3, 00:00: mouth [place] 50 mcg 00 daily. Medical (2,000 Branch unit) tablet ipratropium 2022-0 Yes [id number] 3mL Inhale 3 [facility] -albuteroL 5-05 mL every 6 ity of 0.5 mg-3 00:00: (six) [place] mg(2.5 mg 00 hours as Medica l base)/3 mL needed for [facility] n[facility] nebulizer Wheezing. solution Nebulizer & 2-0 Yes [id number] Use every [facility] Compressor 5-05 4 hours as ity of For Neb 00:00: needed for [place] 00 shortness Medical of breath Branch Cholecalcif 2-0 Yes [id number] 2000U Take 1 [facility] stiven, 5-05 tablet by ity of Vitamin D3, 00:00: mouth [place] 50 mcg 00 daily. Medical (2,000 Branch unit) tablet ipratropium 2022-0 Yes [id number] 3mL Inhale 3 [facility] -albuteroL 5-05 mL every 6 ity of 0.5 mg-3 00:00: (six) [place] mg(2.5 mg 00 hours as Medica l base)/3 mL needed for [facility] n[facility] nebulizer Wheezing. solution Nebulizer & 2-0 Yes [id number] Use every [facility] Compressor 5-05 4 hours as ity of For Neb 00:00: needed for [place] 00 shortness Medical of breath Branch Cholecalcif 2022-0 Yes [id number] 2000U Take 1 [facility] stiven, 5-05 tablet by ity of Vitamin D3, 00:00: mouth [place] 50 mcg 00 daily. Medical (2,000 Branch unit) tablet ipratropium 2022-0 Yes [id number] 3mL Inhale 3 [facility] -albuteroL 5-05 mL every 6 ity of 0.5 mg-3 00:00: (six) [place] mg(2.5 mg 00 hours as Medica l base)/3 mL needed for [facility] n[facility] nebulizer Wheezing. solution Nebulizer & 2021-0 Yes [id number] Use every [facility] Compressor 5-05 4 hours as ity of For Neb 00:00: needed for [place] 00 shortness Medical of breath Branch Cholecalcif 2-0 Yes [id number] 2000U Take 1 [facility] stiven, 5-05 tablet by ity of Vitamin D3, 00:00: mouth [place] 50 mcg 00 daily. Medical (2,000 Branch unit) tablet ipratropium 2-0 Yes [id number] 3mL Inhale 3 [facility] -albuteroL 5-05 mL every 6 ity of 0.5 mg-3 00:00: (six) [place] mg(2.5 mg 00 hours as Medica l base)/3 mL needed for [facility] n[facility] nebulizer Wheezing. solution Nebulizer & 2-0 Yes [id number] Use every [facility] Compressor 5-05 4 hours as ity of For Neb 00:00: needed for [place] 00 shortness Medical of breath Branch Cholecalcif 2022-0 Yes [id number] 2000U Take 1 [facility] stiven, 5-05 tablet by ity of Vitamin D3, 00:00: mouth [place] 50 mcg 00 daily. Medical (2,000 Branch unit) tablet ipratropium 2022-0 Yes [id number] 3mL Inhale 3 [facility] -albuteroL 5-05 mL every 6 ity of 0.5 mg-3 00:00: (six) [place] mg(2.5 mg 00 hours as Medica l base)/3 mL needed for Bra n[facility] nebulizer Wheezing. solution Nebulizer & 2-0 Yes [id number] Use every [facility] Compressor 5-05 4 hours as ity of For Neb 00:00: needed for [place] 00 shortness Medical of breath Branch Cholecalcif 2-0 Yes [id number] 2000U Take 1 [facility] stiven, 5-05 tablet by ity of Vitamin D3, 00:00: mouth [place] 50 mcg 00 daily. Medical (2,000 Branch unit) tablet ipratropium 2022-0 Yes [id number] 3mL Inhale 3 [facility] -albuteroL 5-05 mL every 6 ity of 0.5 mg-3 00:00: (six) [place] mg(2.5 mg 00 hours as Medica l base)/3 mL needed for Bra nch nebulizer Wheezing. solution Nebulizer & 2021-0 Yes [id number] Use every [facility] Compressor 5-05 4 hours as ity of For Neb 00:00: needed for [place] 00 shortness Medical of breath Branch Cholecalcif 2-0 Yes [id number] 2000U Take 1 [facility] stiven, 5-05 tablet by ity of Vitamin D3, 00:00: mouth [place] 50 mcg 00 daily. Medical (2,000 Branch unit) tablet ipratropium 2-0 Yes [id number] 3mL Inhale 3 [facility] -albuteroL 5-05 mL every 6 ity of 0.5 mg-3 00:00: (six) [place] mg(2.5 mg 00 hours as Medica l base)/3 mL needed for Bra n[facility] nebulizer Wheezing. solution Nebulizer & 2021-0 Yes [id number] Use every [facility] Compressor 5-05 4 hours as ity of For Neb 00:00: needed for [place] 00 shortness Medical of breath Branch Cholecalcif 2-0 Yes [id number] 2000U Take 1 [facility] stiven, 5-05 tablet by ity of Vitamin D3, 00:00: mouth [place] 50 mcg 00 daily. Medical (2,000 Branch unit) tablet ipratropium 2022-0 Yes [id number] 3mL Inhale 3 [facility] -albuteroL 5-05 mL every 6 ity of 0.5 mg-3 00:00: (six) [place] mg(2.5 mg 00 hours as Medica l base)/3 mL needed for Bra nch nebulizer Wheezing. solution Nebulizer & 2-0 Yes [id number] Use every [facility] Compressor 5-05 4 hours as ity of For Neb 00:00: needed for [place] 00 shortness Medical of breath Branch Cholecalcif 2022-0 Yes [id number] 2000U Take 1 [facility] stiven, 5-05 tablet by ity of Vitamin D3, 00:00: mouth [place] 50 mcg 00 daily. Medical (2,000 Branch unit) tablet ipratropium 2022-0 Yes [id number] 3mL Inhale 3 [facility] -albuteroL 5-05 mL every 6 ity of 0.5 mg-3 00:00: (six) [place] mg(2.5 mg 00 hours as Medica l base)/3 mL needed for Bra n[facility] nebulizer Wheezing. solution Nebulizer & 2021-0 Yes [id number] Use every [facility] Compressor 5-05 4 hours as ity of For Neb 00:00: needed for [place] 00 shortness Medical of breath Branch Cholecalcif 2-0 Yes [id number] 2000U Take 1 [facility] stiven, 5-05 tablet by ity of Vitamin D3, 00:00: mouth [place] 50 mcg 00 daily. Medical (2,000 Branch unit) tablet ipratropium 2-0 Yes [id number] 3mL Inhale 3 [facility] -albuteroL 5-05 mL every 6 ity of 0.5 mg-3 00:00: (six) [place] mg(2.5 mg 00 hours as Medica l base)/3 mL needed for Bra nch nebulizer Wheezing. solution Nebulizer & 2021-0 Yes [id number] Use every [facility] Compressor 5-05 4 hours as ity of For Neb 00:00: needed for [place] 00 shortness Medical of breath Branch Cholecalcif 2-0 Yes [id number] 2000U Take 1 [facility] stiven, 5-05 tablet by ity of Vitamin D3, 00:00: mouth [place] 50 mcg 00 daily. Medical (2,000 Branch unit) tablet ipratropium 2022-0 Yes [id number] 3mL Inhale 3 [facility] -albuteroL 5-05 mL every 6 ity of 0.5 mg-3 00:00: (six) [place] mg(2.5 mg 00 hours as Medica l base)/3 mL needed for Bra nch nebulizer Wheezing. solution Nebulizer & 2021-0 Yes [id number] Use every [facility] Compressor 5-05 4 hours as ity of For Neb 00:00: needed for [place] 00 shortness Medical of breath Branch Cholecalcif 2-0 Yes [id number] 2000U Take 1 [facility] stiven, 5-05 tablet by ity of Vitamin D3, 00:00: mouth [place] 50 mcg 00 daily. Medical (2,000 Branch unit) tablet ipratropium 2-0 Yes [id number] 3mL Inhale 3 [facility] -albuteroL 5-05 mL every 6 ity of 0.5 mg-3 00:00: (six) [place] mg(2.5 mg 00 hours as Medica l base)/3 mL needed for Bra nch nebulizer Wheezing. solution Nebulizer & 2021-0 Yes [id number] Use every [facility] Compressor 5-05 4 hours as ity of For Neb 00:00: needed for [place] 00 shortness Medical of breath Branch Cholecalcif 2021-0 Yes [id number] 2000U Take 1 [facility] stiven, 5-05 tablet by ity of Vitamin D3, 00:00: mouth [place] 50 mcg 00 daily. Medical (2,000 Branch unit) tablet ipratropium 2-0 Yes [id number] 3mL Inhale 3 [facility] -albuteroL 5-05 mL every 6 ity of 0.5 mg-3 00:00: (six) [place] mg(2.5 mg 00 hours as Medica l base)/3 mL needed for Bra nch nebulizer Wheezing. solution Nebulizer & 2021-0 Yes [id number] Use every [facility] Compressor 5-05 4 hours as ity of For Neb 00:00: needed for [place] 00 shortness Medical of breath Branch Cholecalcif 2-0 Yes [id number] 2000U Take 1 [facility] stiven, 5-05 tablet by ity of Vitamin D3, 00:00: mouth [place] 50 mcg 00 daily. Medical (2,000 Branch unit) tablet nebivoloL 2022-0 Yes [id number] 5mg Take 1 Un ale (BYSTOLIC) 5-05 tablet by ity of 5 mg tablet 00:00: mouth [place] 00 daily. Medical Branch ipratropium 2-0 Yes [id number] 3mL Inhale 3 [facility] -albuteroL 5-05 mL every 6 ity of 0.5 mg-3 00:00: (six) [place] mg(2.5 mg 00 hours as Medica l base)/3 mL needed for Bra nch nebulizer Wheezing. solution Nebulizer & 2021-0 Yes [id number] Use every [facility] Compressor 5-05 4 hours as ity of For Neb 00:00: needed for [place] 00 shortness Medical of breath Branch Cholecalcif 2-0 Yes [id number] 2000U Take 1 [facility] stiven, 5-05 tablet by ity of Vitamin D3, 00:00: mouth [place] 50 mcg 00 daily. Medical (2,000 Branch unit) tablet nebivoloL 2022-0 Yes [id number] 5mg Take 1 Un ale (BYSTOLIC) 5-05 tablet by ity of 5 mg tablet 00:00: mouth [place] 00 daily. Medical Branch ipratropium 2-0 Yes [id number] 3mL Inhale 3 [facility] -albuteroL 5-05 mL every 6 ity of 0.5 mg-3 00:00: (six) [place] mg(2.5 mg 00 hours as Medica l base)/3 mL needed for Bra nch nebulizer Wheezing. solution Nebulizer & 2021-0 Yes [id number] Use every [facility] Compressor 5-05 4 hours as ity of For Neb 00:00: needed for [place] 00 shortness Medical of breath Branch Cholecalcif 2022-0 Yes [id number] 2000U Take 1 [facility] stiven, 5-05 tablet by ity of Vitamin D3, 00:00: mouth [place] 50 mcg 00 daily. Medical (2,000 Branch unit) tablet nebivoloL 2022-0 Yes [id number] 5mg Take 1 Un ale (BYSTOLIC) 5-05 tablet by ity of 5 mg tablet 00:00: mouth [place] 00 daily. Medical Branch ipratropium 2022-0 Yes [id number] 3mL Inhale 3 [facility] -albuteroL 5-05 mL every 6 ity of 0.5 mg-3 00:00: (six) [place] mg(2.5 mg 00 hours as Medica l base)/3 mL needed for Bra nch nebulizer Wheezing. solution Nebulizer & 2021-0 Yes [id number] Use every [facility] Compressor 5-05 4 hours as ity of For Neb 00:00: needed for [place] 00 shortness Medical of breath Branch Cholecalcif 2-0 Yes [id number] 2000U Take 1 [facility] stiven, 5-05 tablet by ity of Vitamin D3, 00:00: mouth [place] 50 mcg 00 daily. Medical (2,000 Branch unit) tablet nebivoloL 2021-0 Yes [id number] 5mg Take 1 Un ale (BYSTOLIC) 5-05 tablet by ity of 5 mg tablet 00:00: mouth [place] 00 daily. Medical Branch ipratropium 2021-0 Yes [id number] 3mL Inhale 3 [facility] -albuteroL 5-05 mL every 6 ity of 0.5 mg-3 00:00: (six) [place] mg(2.5 mg 00 hours as Medica l base)/3 mL needed for Bra nch nebulizer Wheezing. solution Nebulizer & 2021-0 Yes [id number] Use every [facility] Compressor 5-05 4 hours as ity of For Neb 00:00: needed for [place] 00 shortness Medical of breath Branch Cholecalcif 2021-0 Yes [id number] 2000U Take 1 [facility] stiven, 5-05 tablet by ity of Vitamin D3, 00:00: mouth [place] 50 mcg 00 daily. Medical (2,000 Branch unit) tablet ipratropium 2-0 Yes [id number] 3mL Inhale 3 [facility] -albuteroL 5-05 mL every 6 ity of 0.5 mg-3 00:00: (six) [place] mg(2.5 mg 00 hours as Medica l base)/3 mL needed for Bra nch nebulizer Wheezing. solution Nebulizer & 2021-0 Yes [id number] Use every [facility] Compressor 5-05 4 hours as ity of For Neb 00:00: needed for [place] 00 shortness Medical of breath Branch Cholecalcif 2-0 Yes [id number] 2000U Take 1 [facility] stiven, 5-05 tablet by ity of Vitamin D3, 00:00: mouth [place] 50 mcg 00 daily. Medical (2,000 Branch unit) tablet ipratropium 2022-0 Yes [id number] 3mL Inhale 3 [facility] -albuteroL 5-05 mL every 6 ity of 0.5 mg-3 00:00: (six) [place] mg(2.5 mg 00 hours as Medica l base)/3 mL needed for Bra nch nebulizer Wheezing. solution Nebulizer & 2-0 Yes [id number] Use every [facility] Compressor 5-05 4 hours as ity of For Neb 00:00: needed for [place] 00 shortness Medical of breath Branch Cholecalcif 2-0 Yes [id number] 2000U Take 1 [facility] stiven, 5-05 tablet by ity of Vitamin D3, 00:00: mouth [place] 50 mcg 00 daily. Medical (2,000 Branch unit) tablet ipratropium 2022-0 Yes [id number] 3mL Inhale 3 [facility] -albuteroL 5-05 mL every 6 ity of 0.5 mg-3 00:00: (six) [place] mg(2.5 mg 00 hours as Medica l base)/3 mL needed for Bra nch nebulizer Wheezing. solution Nebulizer & 2021-0 Yes [id number] Use every [facility] Compressor 5-05 4 hours as ity of For Neb 00:00: needed for [place] 00 shortness Medical of breath Branch Cholecalcif 2-0 Yes [id number] 2000U Take 1 [facility] stiven, 5-05 tablet by ity of Vitamin D3, 00:00: mouth [place] 50 mcg 00 daily. Medical (2,000 Branch unit) tablet ipratropium 2-0 Yes [id number] 3mL Inhale 3 [facility] -albuteroL 5-05 mL every 6 ity of 0.5 mg-3 00:00: (six) [place] mg(2.5 mg 00 hours as Medica l base)/3 mL needed for Bra nch nebulizer Wheezing. solution Nebulizer & 2021-0 Yes [id number] Use every [facility] Compressor 5-05 4 hours as ity of For Neb 00:00: needed for [place] 00 shortness Medical of breath Branch Cholecalcif 2-0 Yes [id number] 2000U Take 1 [facility] stiven, 5-05 tablet by ity of Vitamin D3, 00:00: mouth [place] 50 mcg 00 daily. Medical (2,000 Branch unit) tablet ipratropium 2022-0 Yes [id number] 3mL Inhale 3 [facility] -albuteroL 5-05 mL every 6 ity of 0.5 mg-3 00:00: (six) [place] mg(2.5 mg 00 hours as Medica l base)/3 mL needed for Bra nch nebulizer Wheezing. solution Nebulizer & 2-0 Yes [id number] Use every [facility] Compressor 5-05 4 hours as ity of For Neb 00:00: needed for [place] 00 shortness Medical of breath Branch Cholecalcif 2022-0 Yes [id number] 2000U Take 1 [facility] stiven, 5-05 tablet by ity of Vitamin D3, 00:00: mouth [place] 50 mcg 00 daily. Medical (2,000 Branch unit) tablet ipratropium 2022-0 Yes [id number] 3mL Inhale 3 [facility] -albuteroL 5-05 mL every 6 ity of 0.5 mg-3 00:00: (six) [place] mg(2.5 mg 00 hours as Medica l base)/3 mL needed for Bra nch nebulizer Wheezing. solution Nebulizer & 2021-0 Yes [id number] Use every [facility] Compressor 5-05 4 hours as ity of For Neb 00:00: needed for [place] 00 shortness Medical of breath Branch Cholecalcif 2-0 Yes [id number] 2000U Take 1 [facility] stiven, 5-05 tablet by ity of Vitamin D3, 00:00: mouth [place] 50 mcg 00 daily. Medical (2,000 Branch unit) tablet ipratropium 2-0 Yes [id number] 3mL Inhale 3 [facility] -albuteroL 5-05 mL every 6 ity of 0.5 mg-3 00:00: (six) [place] mg(2.5 mg 00 hours as Medica l base)/3 mL needed for Bra nch nebulizer Wheezing. solution Nebulizer & 2021-0 Yes [id number] Use every [facility] Compressor 5-05 4 hours as ity of For Neb 00:00: needed for [place] 00 shortness Medical of breath Branch Cholecalcif 2-0 Yes [id number] 2000U Take 1 [facility] stiven, 5-05 tablet by ity of Vitamin D3, 00:00: mouth [place] 50 mcg 00 daily. Medical (2,000 Branch unit) tablet ipratropium 2022-0 Yes [id number] 3mL Inhale 3 [facility] -albuteroL 5-05 mL every 6 ity of 0.5 mg-3 00:00: (six) [place] mg(2.5 mg 00 hours as Medica l base)/3 mL needed for Bra nch nebulizer Wheezing. solution Nebulizer & 2021-0 Yes [id number] Use every [facility] Compressor 5-05 4 hours as ity of For Neb 00:00: needed for [place] 00 shortness Medical of breath Branch Cholecalcif 2-0 Yes [id number] 2000U Take 1 [facility] stiven, 5-05 tablet by ity of Vitamin D3, 00:00: mouth [place] 50 mcg 00 daily. Medical (2,000 Branch unit) tablet ipratropium 2-0 Yes [id number] 3mL Inhale 3 [facility] -albuteroL 5-05 mL every 6 ity of 0.5 mg-3 00:00: (six) [place] mg(2.5 mg 00 hours as Medica l base)/3 mL needed for Bra nch nebulizer Wheezing. solution Nebulizer & 2021-0 Yes [id number] Use every [facility] Compressor 5-05 4 hours as ity of For Neb 00:00: needed for [place] 00 shortness Medical of breath Branch Cholecalcif 2021-0 Yes [id number] 2000U Take 1 [facility] stiven, 5-05 tablet by ity of Vitamin D3, 00:00: mouth [place] 50 mcg 00 daily. Medical (2,000 Branch unit) tablet ipratropium 2-0 Yes [id number] 3mL Inhale 3 [facility] -albuteroL 5-05 mL every 6 ity of 0.5 mg-3 00:00: (six) [place] mg(2.5 mg 00 hours as Medica l base)/3 mL needed for Bra nch nebulizer Wheezing. solution Nebulizer & 2021-0 Yes [id number] Use every [facility] Compressor 5-05 4 hours as ity of For Neb 00:00: needed for [place] 00 shortness Medical of breath Branch Cholecalcif 2-0 Yes [id number] 2000U Take 1 [facility] stiven, 5-05 tablet by ity of Vitamin D3, 00:00: mouth [place] 50 mcg 00 daily. Medical (2,000 Branch unit) tablet ipratropium 2022-0 Yes [id number] 3mL Inhale 3 [facility] -albuteroL 5-05 mL every 6 ity of 0.5 mg-3 00:00: (six) [place] mg(2.5 mg 00 hours as Medica l base)/3 mL needed for Bra nch nebulizer Wheezing. solution Nebulizer & 2-0 Yes [id number] Use every [facility] Compressor 5-05 4 hours as ity of For Neb 00:00: needed for [place] 00 shortness Medical of breath Branch Cholecalcif 2022-0 Yes [id number] 2000U Take 1 [facility] stiven, 5-05 tablet by ity of Vitamin D3, 00:00: mouth [place] 50 mcg 00 daily. Medical (2,000 Branch unit) tablet ipratropium 2022-0 Yes [id number] 3mL Inhale 3 [facility] -albuteroL 5-05 mL every 6 ity of 0.5 mg-3 00:00: (six) [place] mg(2.5 mg 00 hours as Medica l base)/3 mL needed for Bra nch nebulizer Wheezing. solution Nebulizer & 2021-0 Yes [id number] Use every [facility] Compressor 5-05 4 hours as ity of For Neb 00:00: needed for [place] 00 shortness Medical of breath Branch Cholecalcif 2-0 Yes [id number] 2000U Take 1 [facility] stiven, 5-05 tablet by ity of Vitamin D3, 00:00: mouth [place] 50 mcg 00 daily. Medical (2,000 Branch unit) tablet ipratropium 2022-0 Yes [id number] 3mL Inhale 3 [facility] -albuteroL 5-05 mL every 6 ity of 0.5 mg-3 00:00: (six) [place] mg(2.5 mg 00 hours as Medica l base)/3 mL needed for Bra nch nebulizer Wheezing. solution Nebulizer & 2021-0 Yes [id number] Use every [facility] Compressor 5-05 4 hours as ity of For Neb 00:00: needed for [place] 00 shortness Medical of breath Branch Cholecalcif 2-0 Yes [id number] 2000U Take 1 [facility] stiven, 5-05 tablet by ity of Vitamin D3, 00:00: mouth [place] 50 mcg 00 daily. Medical (2,000 Branch unit) tablet ipratropium 2022-0 Yes [id number] 3mL Inhale 3 [facility] -albuteroL 5-05 mL every 6 ity of 0.5 mg-3 00:00: (six) [place] mg(2.5 mg 00 hours as Medica l base)/3 mL needed for Bra nch nebulizer Wheezing. solution Nebulizer & 2021-0 Yes [id number] Use every [facility] Compressor 5-05 4 hours as ity of For Neb 00:00: needed for [place] 00 shortness Medical of breath Branch Cholecalcif 2-0 Yes [id number] 2000U Take 1 [facility] stiven, 5-05 tablet by ity of Vitamin D3, 00:00: mouth [place] 50 mcg 00 daily. Medical (2,000 Branch unit) tablet ipratropium 2-0 Yes [id number] 3mL Inhale 3 [facility] -albuteroL 5-05 mL every 6 ity of 0.5 mg-3 00:00: (six) [place] mg(2.5 mg 00 hours as Medica l base)/3 mL needed for Bra nch nebulizer Wheezing. solution Nebulizer & 2021-0 Yes [id number] Use every [facility] Compressor 5-05 4 hours as ity of For Neb 00:00: needed for [place] 00 shortness Medical of breath Branch Cholecalcif 2021-0 Yes [id number] 2000U Take 1 [facility] stiven, 5-05 tablet by ity of Vitamin D3, 00:00: mouth [place] 50 mcg 00 daily. Medical (2,000 Branch unit) tablet ipratropium 2-0 Yes [id number] 3mL Inhale 3 [facility] -albuteroL 5-05 mL every 6 ity of 0.5 mg-3 00:00: (six) [place] mg(2.5 mg 00 hours as Medica l base)/3 mL needed for Bra nch nebulizer Wheezing. solution Nebulizer & 2021-0 Yes [id number] Use every [facility] Compressor 5-05 4 hours as ity of For Neb 00:00: needed for [place] 00 shortness [facility] of breath Branch Cholecalcif 2-0 Yes [id number] 2000U Take 1 [facility] stiven, 5-05 tablet by ity of Vitamin D3, 00:00: mouth [place] 50 mcg 00 daily. Medical (2,000 Branch unit) tablet ipratropium 2022-0 Yes [id number] 3mL Inhale 3 [facility] -albuteroL 5-05 mL every 6 ity of 0.5 mg-3 00:00: (six) [place] mg(2.5 mg 00 hours as Medica l base)/3 mL needed for Bra nch nebulizer Wheezing. solution Nebulizer & 0 Yes [id number] Use every [facility] Compressor 5-05 4 hours as ity of For Neb 00:00: needed for [place] 00 shortness [facility] of breath Branch Cholecalcif 0 Yes [id number] 2000U Take 1 [facility] stiven, 5-05 tablet by ity of Vitamin D3, 00:00: mouth [place] 50 mcg 00 daily. Medical (2,000 Branch unit) tablet ipratropium Yes [id number] 3mL Inhale 3 [facility] -albuteroL 5-05 mL every 6 ity of 0.5 mg-3 00:00: (six) [place] mg(2.5 mg 00 hours as Medica l base)/3 mL needed for Bra nch nebulizer Wheezing. solution Nebulizer & Yes [id number] Use every [facility] Compressor 5-05 4 hours as [facility]y of For Neb 00:00: needed [place] [place] 00 shortness Medical of breath Branch nebivoloL 0 2021- No [id number] 5mg Take 1 U nivers (BYSTOLIC) - 06-23 tablet by ity of 5 mg tablet 00:[place]. [facility] furosemide 2021-0 2021- No [id number] 20mg Take 1 [facility] 20 mg -05 05-27 tablet by ity of tablet 00:00: 00:00 mouth [place] 00 :00 daily for Medical 30 days. Branch NIFEdipine 2020-0 Yes [facility] XL 60 mg 24 1-25 ity of hr tablet 00:00: Medical Branch NIFEdipine 2020-0 Yes [facility] XL 60 mg 24 1-25 ity of hr tablet 00:00: Medical Branch NIFEdipine 2020-0 Yes [facility] XL 60 mg 24 1-25 ity of hr tablet 00:00: Medical Branch NIFEdipine 2020-0 Yes [facility] XL 60 mg 24 1-25 ity of hr tablet 00:00: Medical Branch NIFEdipine 2020-0 2021- No Univer s XL 60 mg 24 1-25 06-23 ity of hr tablet 00:00: 00:00 [place] 00 :00 Medical Branch NOVOLOG MIX 2020-0 Yes 45U 45 Units 2 [facility] 70-30 U-100 1-20 (two) ity of INSULN 100 00:00: times [place] unit/mL 00 daily. Medical (70-30) Branch injection NOVOLOG MIX 2020-0 Yes 45U 45 Units 2 [facility] 70-30 U-100 1-20 (two) ity of INSULN 100 00:00: times [place] unit/mL 00 daily. Medical (70-30) Branch injection NOVOLOG MIX 2020-0 Yes 45U 45 Units 2 [facility] 70-30 U-100 1-20 (two) ity of INSULN 100 00:00: times [place] unit/mL 00 daily. Medical (70-30) Branch injection NOVOLOG MIX 2020-0 Yes 45U 45 Units 2 [facility] 70-30 U-100 1-20 (two) ity of INSULN 100 00:00: times [place] unit/mL 00 daily. Medical (70-30) Branch injection NOVOLOG MIX 0 202- No 45U 45 Units 2 [facility] 70-30 U-100 -20 - (two) ity of INSULN 100 00:00: 00:00 times [place] unit/mL 00 :00 daily. Medical (70-30) Branch injection atorvastati 2019- Yes Univer s n 20 mg 2-21 ity of tablet 00:00: [place] 00 Medical Branch clopidogreL 2020-1 Yes Univer s 75 mg 2-21 ity of tablet 00:00: [place] 00 [facility] atorvastati 2020-1 Yes Univer s n 20 mg 2-21 ity of tablet 00:00: [place] 00 [facility] clopidogreL 2020-1 Yes Univer s 75 mg 2-21 ity of tablet 00:00: [place] 00 Medical Branch atorvastati 2020-1 Yes Univer s n 20 mg 2-21 ity of tablet 00:00: [place] 00 Medical Branch clopidogreL 2020-1 Yes Univer s 75 mg 2-21 ity of tablet 00:00: [place] 00 Medical [facility] atorvastati 2020- Yes Univer s n 20 mg 2-21 ity of tablet 00:00: [place] 00 Medical Branch clopidogreL 2020- Yes Univer s 75 mg 2-21 ity of tablet 00:00: [place] 00 Medical Branch atorvastati 2019-2021- No Unive rs n 20 mg 2-21 - ity of tablet 00:00: 00:00 [place] 00 :00 Medical Branch clopidogreL 2019-2021- No Unive rs 75 mg 2-21 -23 ity of tablet 00:00: 00:00 [place] 00 :00 Medical Branch omeprazole 2020- Yes [facility] 20 mg 2-05 ity of capsule 00:00: [place] 00 [facility] omeprazole 2020- Yes [facility] 20 mg 2-05 ity of capsule 00:00: [place] 00 Medical Branch omeprazole 2020- Yes [facility] 20 mg 2-05 ity of capsule 00:00: [place] 00 Medical Branch omeprazole 2020- Yes [facility] 20 mg 2-05 ity of capsule 00:00: [place] [address] Medical Branch omeprazole 2020- Yes [facility] 20 mg 2-05 ity of capsule 00:00: [place] [address] Medical Branch omeprazole 2020- Yes [facility] 20 mg 2-05 ity of capsule 00:00: [place] 00 [facility] omeprazole 2020-1 Yes [facility] 20 mg 2-05 ity of capsule 00:00: [place] 00 [facility] Branch omeprazole 2020-1 Yes [facility] 20 mg 2-05 ity of capsule 00:00: [place] 00 [facility] omeprazole 2020-1 Yes [facility] 20 mg 2-05 ity of capsule 00:00: [place] 00 Medical Branch omeprazole 2020-1 Yes [facility] 20 mg 2-05 ity of capsule 00:00: [place] [address] Medical Branch omeprazole 2020-1 Yes [facility] 20 mg 2-05 ity of capsule 00:00: [place] 00 Medical Branch omeprazole 2020-1 Yes [facility] 20 mg 2-05 ity of capsule 00:00: [place] 00 Medical Branch omeprazole 2020-1 Yes [facility] 20 mg 2-05 ity of capsule 00:00: [place] 00 Medical Branch omeprazole 2020-1 Yes [facility] 20 mg 2-05 ity of capsule 00:00: [place] 00 Medical Branch omeprazole 2020-1 Yes [facility] 20 mg 2-05 ity of capsule 00:00: [place] [address] Medical Branch omeprazole 2020-1 Yes [facility] 20 mg 2-05 ity of capsule 00:00: [place] [address] Medical Branch omeprazole 2020-1 Yes [facility] 20 mg 2-05 ity of capsule 00:00: [place] [address] Medical Branch omeprazole 2020-1 Yes [facility] 20 mg 2-05 ity of capsule 00:00: [place] 00 Medical Branch omeprazole 2020-1 Yes [facility] 20 mg 2-05 ity of capsule 00:00: [place] [facility] omeprazole 2020-1 Yes [facility] 20 mg 2-05 ity of capsule 00:00: [place] [facility] omeprazole 2020-1 Yes [facility] 20 mg 2-05 ity of capsule 00:00: [place] [facility] omeprazole 2020-1 Yes [facility] 20 mg 2-05 ity of capsule 00:00: [place] [facility] omeprazole 2020-1 Yes [facility] 20 mg 2-05 ity of capsule 00:00: [place] [address] Medical Branch omeprazole 2020-1 Yes [facility] 20 mg 2-05 ity of capsule 00:00: [place] [address] Medical Branch omeprazole 2020-1 Yes [facility] 20 mg 2-05 ity of capsule 00:00: [place] [address] Medical Branch omeprazole 2020-1 Yes [facility] 20 mg 2-05 ity of capsule 00:00: [place] [address] Medical Branch omeprazole 2020-1 Yes [facility] 20 mg 2-05 ity of capsule 00:00: [place] [facility] omeprazole 2020-1 Yes [facility] 20 mg 2-05 ity of capsule 00:00: [place] [address] Medical Branch omeprazole 2020-1 Yes [facility] 20 mg 2-05 ity of capsule 00:00: [place] [address] Medical Branch omeprazole 2020-1 Yes [facility] 20 mg 2-05 ity of capsule 00:00: [place] [facility] omeprazole 2020-1 Yes [facility] 20 mg 2-05 ity of capsule 00:00: [place] [address] Medical Branch omeprazole 2020-1 Yes [facility] 20 mg 2-05 ity of capsule 00:00: [place] [facility] omeprazole 2020-1 Yes [facility] 20 mg 2-05 ity of capsule 00:00: [place] [address] Medical Branch omeprazole 2020-1 Yes [facility] 20 mg 2-05 ity of capsule 00:00: [place] [address] Medical Branch omeprazole 2020-1 Yes [facility] 20 mg 2-05 ity of capsule 00:00: [place] [address] Medical Branch omeprazole 2020-1 Yes [facility] 20 mg 2-05 ity of capsule 00:00: [place] [address] Medical Branch omeprazole 2020-1 Yes [facility] 20 mg 2-05 ity of capsule 00:00: [place] [address] Medical Branch omeprazole 2020-1 Yes [facility] 20 mg 2-05 ity of capsule 00:00: [place] [address] Medical Branch omeprazole 2020- Yes [facility] 20 mg 2-05 ity of capsule 00:00: [place] [facility] [place] omeprazole 2020- Yes [facility] 20 mg 2-05 ity of capsule 00:00: [place] [facility] VENTOLIN 2020- Yes Univers HFA 90 2-02 ity of mcg/actuati 00:00: [place] on inhaler Medical Branch VENTOLIN 2020- Yes Univers HFA 90 2-02 ity of mcg/actuati 00:00: [place] on inhaler Medical Branch VENTOLIN 2020- Yes Univers HFA 90 2-02 ity of mcg/actuati 00:00: [place] on inhaler [facility] HFA 90 2-02 ity of mcg/actuati 00:00: [place] on inhaler Medical Branch VENTOLIN 2020- Yes Univers HFA 90 2-02 ity of mcg/actuati 00:00: [place] on inhaler [facility] Yes [facility] HFA 90 2-02 ity of mcg/actuati 00:00: [place] on inhaler Medical Branch VENTOLIN 2020- Yes Univers HFA 90 2-02 ity of mcg/actuati 00:00: [place] on inhaler Medical Branch VENTOLIN 2020 Yes Univers HFA 90 2-02 ity of mcg/actuati 00:00: [place] on inhaler Medical Branch VENTOLIN 2020- Yes Univers HFA 90 2-02 ity of mcg/actuati 00:00: [place] on inhaler Medical Branch VENTOLIN 2020- Yes Univers HFA 90 2-02 ity of mcg/actuati 00:00: [place] on inhaler Medical Branch VENTOLIN 2020- Yes Univers HFA 90 2-02 ity of mcg/actuati 00:00: [place] on inhaler Medical Branch VENTOLIN 2020- Yes Univers HFA 90 2-02 ity of mcg/actuati 00:00: [place] on inhaler Medical Branch VENTOLIN 2020- Yes Univers HFA 90 2-02 ity of mcg/actuati 00:00: [place] on inhaler Medical Branch VENTOLIN 2020- Yes Univers HFA 90 2-02 ity of mcg/actuati 00:00: [place] on inhaler Medical Branch VENTOLIN 2020- Yes Univers HFA 90 2-02 ity of mcg/actuati 00:00: [place] on inhaler 00 Medical Branch VENTOLIN 2020- Yes Univers HFA 90 2-02 ity of mcg/actuati 00:00: [place] on inhaler Medical Branch VENTOLIN 2020- Yes Univers HFA 90 2-02 ity of mcg/actuati 00:00: [place] on inhaler [facility] Yes [facility] HFA 90 2-02 ity of mcg/actuati 00:00: [place] on inhaler Medical Branch VENTOLIN 2020- Yes Univers HFA 90 2-02 ity of mcg/actuati 00:00: [place] on inhaler [facility] Yes [facility] HFA 90 2-02 ity of mcg/actuati 00:00: [place] on inhaler Medical [facility]- Yes [facility] HFA 90 2-02 ity of mcg/actuati 00:00: [place] on inhaler [facility]- Yes [facility] HFA 90 2-02 ity of mcg/actuati 00:00: [place] on inhaler Medical [facility]- Yes Univers HFA 90 2-02 ity of mcg/actuati 00:00: [place] on inhaler Medical [facility]- Yes Univers HFA 90 2-02 ity of mcg/actuati 00:00: [place] on inhaler Medical [facility]- Yes Univers HFA 90 2-02 ity of mcg/actuati 00:00: [place] on inhaler Medical Branch [facility]- Yes Univers HFA 90 2-02 ity of mcg/actuati 00:00: [place] on inhaler Medical Branch VENTOLIN 2020- Yes Univers HFA 90 2-02 ity of mcg/actuati 00:00: [place] on inhaler Medical [facility]- Yes Univers HFA 90 2-02 ity of mcg/actuati 00:00: [place] on inhaler Medical Branch VENTOLIN 2020- Yes Univers HFA 90 2-02 ity of mcg/actuati 00:00: [place] on inhaler Medical [facility]- Yes Univers HFA 90 2-02 ity of mcg/actuati 00:00: [place] on inhaler Medical Branch VENTOLIN 2020- Yes Univers HFA 90 2-02 ity of mcg/actuati 00:00: [place] on inhaler Medical Branch VENTOLIN 2019-04 Yes Univers HFA 90 2-02 ity of mcg/actuati 00:00: [place] on inhaler Medical Branch VENTOLIN 2019-04 Yes Univers HFA 90 2-02 ity of mcg/actuati 00:00: [place] on inhaler [facility] VENTOLIN 2019-04 Yes Univers HFA 90 2-02 ity of mcg/actuati 00:00: [place] on inhaler [facility] VENTOLIN 2019-04 Yes Univers HFA 90 2-02 ity of mcg/actuati 00:00: [place] on inhaler [facility] VENTOLIN 2019-04 Yes Univers HFA 90 2-02 ity of mcg/actuati 00:00: [place] on inhaler [facility] VENTOLIN 2019-04 Yes Univers HFA 90 2-02 ity of mcg/actuati 00:00: [place] on inhaler [facility] VENTOLIN 2019-04 Yes Univers HFA 90 2-02 ity of mcg/actuati 00:00: [place] on inhaler [facility] VENTOLIN 2019-04 Yes Univers HFA 90 2-02 ity of mcg/actuati 00:00: [place] on inhaler [facility] VENTOLIN 2019-04 Yes Univers HFA 90 2-02 ity of mcg/actuati 00:00: [place] on inhaler [facility] Lactated No 1,000 mL, Sukh tigist Ringers - Rate: 125 l 1,000 mL 17:11: ml/hr, Infuse over: 8 hr, Route: IV, Dosing Weight 94.545 kg, Total Volume: 1,000, Start date: 10/25/16 12:11:00 CDT, Duration: 30 day, Stop date: 11/24/16 12:10:00 CDT Ondansetron No Notes: Sukh tigist - (Same as: l 17:11: Zofran) MEDICATION WASTE Product Size: 4 mg Product Wasted: ___ mg Hydromorpho No Notes: Sukh tigist ne - Same as l 17:11: Dilaudid Acetaminoph No Notes: Do M emoria en 325 MG / 10-25 not exceed l Hydrocodone 17:11: 4gm/day of [place] Bitartrate 00 acetaminop 10 MG Oral hen. (Same Tablet as: Bapchule 325/10) Lactated No 1,000 mL, Sukh tigits [place] -19 Rate: 125 l 1,000 mL 17:11: ml/hr, [place] 00 Infuse over: 8 hr, Route: IV, Dosing Weight 94.545 kg, Total Volume: 1,000, Start date: 10/25/16 12:11:00 CDT, Duration: 30 day, Stop date: 11/24/16 12:10:00 CDT Ondansetron No Notes: Sukh tigist 7-19 (Same as: l 17:11: Zofran) [place] 00 MEDICATION WASTE Product Size: 4 mg Product Wasted: ___ mg Hydromorpho No Notes: Sukh tigist ne 10-25 Same as l 17:11: Dilaudid [place] Acetaminoph No Notes: Do M emoria en 325 MG / 10-25 not exceed l Hydrocodone 17:11: 4gm/day of [place] Bitartrate 00 acetaminop 10 MG Oral hen. (Same Tablet as: Bapchule 325/10) Lactated No 1,000 mL, Sukh tigist Ringers 19 Rate: 125 l 1,000 mL 17:11: ml/hr, [place] 00 Infuse over: 8 hr, Route: IV, Dosing Weight 94.545 kg, Total Volume: 1,000, Start date: 10/25/16 12:11:00 CDT, Duration: 30 day, Stop date: 11/24/16 12:10:00 CDT Ondansetron No Notes: Sukh tigist 7-19 (Same as: l 17:11: Zofran) [place] 00 MEDICATION WASTE Product Size: 4 mg Product Wasted: ___ mg Hydromorpho No Notes: Sukh tigist ne 19 Same as l 17:11: Dilaudid [place] 00 Acetaminoph No Notes: Do M emoria en 325 MG / 10-25 not exceed l Hydrocodone 17:11: 4gm/day of [place] Bitartrate 00 acetaminop 10 MG Oral hen. (Same Tablet as: Bapchule 325/10) Lactated 2017-0 No 1,000 mL, Sukh tigist Ring[place] 7-19 Rate: 125 l 1,000 mL 16:02: ml/hr, [place] 00 Infuse over: 8 hr, Route: IV, Dosing Weight 94.545 kg, Total Volume: 1,000, Start date: 10/25/16 11:02:00 CDT, Duration: 30 day, Stop date: 11/24/16 11:01:00 CDT Lactated 2017-0 No 1,000 mL, Sukh tigist Ring[place] 7-19 Rate: 125 l 1,000 mL 16:02: ml/hr, [place] 00 Infuse over: 8 hr, Route: IV, Dosing Weight 94.545 kg, Total Volume: 1,000, Start date: 10/25/16 11:02:00 CDT, Duration: 30 day, Stop date: 11/24/16 11:01:00 CDT Lactated 2017-0 No 1,000 mL, Sukh tigist Ring[place] 7-19 Rate: 125 l 1,000 mL 16:02: ml/hr, [place] 00 Infuse over: 8 hr, Route: IV, Dosing Weight 94.545 kg, Total Volume: 1,000, Start date: 10/25/16 11:02:00 CDT, Duration: 30 day, Stop date: 11/24/16 11:01:00 CDT Vitamin B 2017- Yes 1 tab, PO, Me moria Complex 7-17 Daily, # l oral tablet 19:53: 100 tab, 0 [place] 00 Refill(s) nebivolol 5 0 Yes 5 mg = 1 Me moria mg oral 7-17 tab, PO, l tablet 19:53: Daily, # [place] 00 30 tab, 0 Refill(s) Vitamin B 2017-0 Yes 1 tab, PO, Me moria Complex 7-17 Daily, # l oral tablet 19:53: 100 tab, 0 [place] 00 Refill(s) nebivolol 5 Yes 5 mg = 1 Me moria mg oral 7-17 tab, PO, l tablet 19:53: Daily, # [place] 00 30 tab, 0 Refill(s) Vitamin B 2017-0 Yes 1 tab, PO, Me moria Complex 7-17 Daily, # l oral tablet 19:53: 100 tab, 0 Refill(s) nebivolol 5 Yes 5 mg = 1 Me moria mg oral 7-17 tab, PO, l tablet 19:53: Daily, # [place] 00 30 tab, 0 Refill(s) Milk Yes 1 tb, Memoria Thistle 7-17 Daily, 0 l 19:52: Refill(s) [place] 00 multivitami Yes 1 tab, PO, Memoria n 7-17 Daily, 0 l 19:52: Refill(s) [place] Milk Yes 1 tb, [facility] Thistle 7-17 Daily, 0 l 19:52: Refill(s) [place] Milk Yes 1 tb, [facility] Thistle 7-17 Daily, 0 l 19:52: Refill(s) [place] multivitami Yes 1 tab, PO, Memoria n 7-17 Daily, 0 l 19:52: Refill(s) [place] multivitami Yes 1 tab, PO, Memoria n 7-17 Daily, 0 l 19:52: Refill(s) Hydromorpho No Notes: Sukh tigist ne 09-28 Same as l 14:46: Dilaudid Acetaminoph No Notes: Do M emoria en 325 MG / 09-28 not exceed l Hydrocodone 14:46: 4gm/day of [place] Bitartrate 00 acetaminop 10 MG Oral hen. (Same Tablet as: Bapchule 325/10) Ondansetron No Notes: Sukh tigist 09-28 (Same as: l 14:46: Zofran) MEDICATION WASTE Product Size: 4 mg Product Wasted: ___ mg Lactated No 1,000 mL, Sukh tigist Ringers 09-28 Rate: 125 l 1,000 mL 14:46: ml/hr, Infuse over: 8 hr, Route: IV, Dosing Weight 96.364 kg, Total Volume: 1,000, Start date: 09/28/16 9:46:00 CDT, Duration: 30 day, Stop date: 10/28/16 9:45:00 CDT Hydromorpho No Notes: Sukh tigist ne -22 Same as l 14:46: Dilaudid [place] Acetaminoph No Notes: Do M emoria en 325 MG / 09-28 not exceed l Hydrocodone 14:46: 4gm/day of [place] Bitartrate 00 acetaminop 10 MG Oral hen. (Same Tablet as: Bapchule 325/10) Ondansetron No Notes: Sukh tigist 6-22 (Same as: l 14:46: Zofran) [place] 00 MEDICATION WASTE Product Size: 4 mg Product Wasted: ___ mg Lactated No 1,000 mL, Sukh tigist Ringers 22 Rate: 125 l 1,000 mL 14:46: ml/hr, [place] 00 Infuse over: 8 hr, Route: IV, Dosing Weight 96.364 kg, Total Volume: 1,000, Start date: 09/28/16 9:46:00 CDT, Duration: 30 day, Stop date: 10/28/16 9:45:00 CDT Hydromorpho No Notes: Sukh tigist ne -22 Same as l 14:46: Dilaudid [place] Acetaminoph No Notes: Do M emoria en 325 MG / 09-28 not exceed l Hydrocodone 14:46: 4gm/day of [place] Bitartrate 00 acetaminop 10 MG Oral hen. (Same Tablet as: Bapchule 325/10) Ondansetron No Notes: Sukh tigist 6-22 (Same as: l 14:46: Zofran) [place] 00 MEDICATION WASTE Product Size: 4 mg Product Wasted: ___ mg Lactated No 1,000 mL, Sukh tigist Ringers 6-22 Rate: 125 l 1,000 mL 14:46: ml/hr, [place] 00 Infuse over: 8 hr, Route: IV, Dosing Weight 96.364 kg, Total Volume: 1,000, Start date: 09/28/16 9:46:00 CDT, Duration: 30 day, Stop date: 10/28/16 9:45:00 CDT Lactated 2017-0 No 1,000 mL, Sukh tigist Ringers 6-22 Rate: 125 l 1,000 mL 13:49: ml/hr, [place] 00 Infuse over: 8 hr, Route: IV, Dosing Weight 96.364 kg, Total Volume: 1,000, Start date: 09/28/16 8:49:00 CDT, Duration: 30 day, Stop date: 10/28/16 8:48:00 CDT Lactated 2017-0 No 1,000 mL, Sukh tigist Ring[place] 6-22 Rate: 125 l 1,000 mL 13:49: ml/hr, [place] 00 Infuse over: 8 hr, Route: IV, Dosing Weight 96.364 kg, Total Volume: 1,000, Start date: 09/28/16 8:49:00 CDT, Duration: 30 day, Stop date: 10/28/16 8:48:00 CDT Lactated 2017-0 No 1,000 mL, Sukh tigist Ringers 6- Rate: 125 l 1,000 mL 13:49: ml/hr, [place] 00 Infuse over: 8 hr, Route: IV, Dosing Weight 96.364 kg, Total Volume: 1,000, Start date: 09/28/16 8:49:00 CDT, Duration: 30 day, Stop date: 10/28/16 8:48:00 CDT Lactated 2016-0 No 1,000 mL, Sukh tigist Ringers -07 Rate: 125 l 1,000 mL 14:31: ml/hr, [place] 00 Infuse over: 8 hr, Route: IV, Dosing Weight 96.79 kg, Total Volume: 1,000, Start date: 09/13/16 9:31:00 CDT, Duration: 30 day, Stop date: 10/13/16 9:30:00 CDT Ondansetron No Notes: Sukh tigist 09-13 (Same as: l 14:31: Zofran) [place] 00 MEDICATION WASTE Product Size: 4 mg Product Wasted: ___ mg Acetaminoph No Notes: Do M emoria en 325 MG / 09-13 not exceed l Hydrocodone 14:31: 4gm/day of [place] Bitartrate 00 acetaminop 10 MG Oral hen. (Same Tablet as: Bapchule 325/10) Hydromorpho No Notes: Sukh tigist ne 6-07 Same as l 14:31: Dilaudid [place] 00 Lactated No 1,000 mL, Sukh tigist Ringers 09-13 Rate: 125 l 1,000 mL 14:31: ml/hr, [place] 00 Infuse over: 8 hr, Route: IV, Dosing Weight 96.79 kg, Total Volume: 1,000, Start date: 09/13/16 9:31:00 CDT, Duration: 30 day, Stop date: 10/13/16 9:30:00 CDT Ondansetron No Notes: Sukh tigist 6- (Same as: l 14:31: Zofran) [place] 00 MEDICATION WASTE Product Size: 4 mg Product Wasted: ___ mg Acetaminoph No Notes: Do M emoria en 325 MG / 09-13 not exceed l Hydrocodone 14:31: 4gm/day of [place] Bitartrate 00 acetaminop 10 MG Oral hen. (Same Tablet as: Bapchule 325/10) Hydromorpho No Notes: Sukh tigist ne 07 Same as l 14:31: Dilaudid [place] 00 Lactated No 1,000 mL, Sukh tigist Ringers 09-13 Rate: 125 l 1,000 mL 14:31: ml/hr, [place] 00 Infuse over: 8 hr, Route: IV, Dosing Weight 96.79 kg, Total Volume: 1,000, Start date: 09/13/16 9:31:00 CDT, Duration: 30 day, Stop date: 10/13/16 9:30:00 CDT Ondansetron No Notes: Sukh tigist 6-07 (Same as: l 14:31: Zofran) [place] 00 MEDICATION WASTE Product Size: 4 mg Product Wasted: ___ mg Acetaminoph No Notes: Do M emoria en 325 MG / 09-13 not exceed l Hydrocodone 14:31: 4gm/day of [place] Bitartrate 00 acetaminop 10 MG Oral hen. (Same Tablet as: Bapchule 325/10) Hydromorpho No Notes: Sukh tigist ne 6-07 Same as l 14:31: Dilaudid Flumazenil No Notes: Memor ia 6-07 (Same as: l 13:48: Romazicon) [place] Naloxone No Notes: Memoria 6-07 Same as l 13:48: Narcan Ondansetron No Notes: Sukh tigist 6-07 (Same as: l 13:48: Zofran) [place] 00 MEDICATION WASTE Product Size: 4 mg Product Wasted: ___ mg Flumazenil No Notes: Memor ia 6-07 (Same as: l 13:48: Romazicon) [place] Naloxone No Notes: Memoria 6-07 Same as l 13:48: Narcan Ondansetron No Notes: Sukh tigist 6-07 (Same as: l 13:48: Zofran) [place] 00 MEDICATION WASTE Product Size: 4 mg Product Wasted: ___ mg Flumazenil No Notes: Memor ia 6-07 (Same as: l 13:48: Romazicon) [place] Naloxone No Notes: Memoria 6-07 Same as l 13:48: Narcan Ondansetron No Notes: Sukh tigist 6-07 (Same as: l 13:48: Zofran) [place] 00 MEDICATION WASTE Product Size: 4 mg Product Wasted: ___ mg Lactated No 1,000 mL, Sukh tigist Ringers 6-07 Rate: 125 l 1,000 mL 13:21: ml/hr, [place] 00 Infuse over: 8 hr, Route: IV, Dosing Weight 96.79 kg, Total Volume: 1,000, Start date: 09/13/16 8:21:00 CDT, Duration: 30 day, Stop date: 10/13/16 8:20:00 CDT Lactated No 1,000 mL, Sukh tigist Ringers 6-07 Rate: 125 l 1,000 mL 13:21: ml/hr, [place] 00 Infuse over: 8 hr, Route: IV, Dosing Weight 96.79 kg, Total Volume: 1,000, Start date: 09/13/16 8:21:00 CDT, Duration: 30 day, Stop date: 10/13/16 8:20:00 CDT Lactated 2016- No 1,000 mL, Sukh tigist Ringers 09-13 Rate: 125 l 1,000 mL 13:21: ml/hr, [place] 00 Infuse over: 8 hr, Route: IV, Dosing Weight 96.79 kg, Total Volume: 1,000, Start date: 09/13/16 8:21:00 CDT, Duration: 30 day, Stop date: 10/13/16 8:20:00 CDT Acetaminoph Yes 1-2 tab, Me moria en 325 MG / 5-16 PO, Q4-6H, l Hydrocodone 20:43: PRN Pain, [place] Bitartrate 00 X 5 day, # 5 MG Oral 24 tab, 0 Tablet Refill(s) [Bapchule 5/325] Acetaminoph Yes 1-2 tab, Me moria en 325 MG / 5-16 PO, Q4-6H, l Hydrocodone 20:43: PRN Pain, [place] Bitartrate 00 X 5 day, # 5 MG Oral 24 tab, 0 Tablet Refill(s) [Bapchule 5/325] Acetaminoph 2016- Yes 1-2 tab, Me moria en 325 MG / 5-16 PO, Q4-6H, l Hydrocodone 20:43: PRN Pain, [place] Bitartrate 00 X 5 day, # 5 MG Oral 24 tab, 0 Tablet Refill(s) [Bapchule 5/325] Naproxen Yes 375 mg = 1 Mem oria 375 MG Oral 5-16 tab, PO, l Tablet 20:42: BID, PRN [place] [Naprosyn] 00 pain., # 20 tab, 0 Refill(s) Naproxen 2016- Yes 375 mg = 1 Mem oria 375 MG Oral 5-16 tab, PO, l Tablet 20:42: BID, PRN [place] [Naprosyn] 00 pain., # 20 tab, 0 Refill(s) Naproxen Yes 375 mg = 1 Mem oria 375 MG Oral 5-16 tab, PO, l Tablet 20:42: BID, PRN [place] [Naprosyn] 00 pain., # 20 tab, 0 Refill(s) Dilaudid 2017-0 No 1 mg, Memoria 5-16 Route: IM, l 19:33: ONCE, Dosing Weight 100, kg, Start date: 08/22/16 14:33:00 CDT, Stop date: 08/22/16 14:33:00 CDT Dexamethaso 2017-0 No 10 mg, Sukh tigist ne 5-16 Route: IM, l 19:33: ONCE, Dosing Weight 100, kg, Priority: STAT, Start date: 08/22/16 14:33:00 CDT, Stop date: 08/22/16 14:33:00 CDT Dilaudid 2017-0 No 1 mg, Memoria 5-16 Route: IM, l 19:33: ONCE, Dosing Weight 100, kg, Start date: 08/22/16 14:33:00 CDT, Stop date: 08/22/16 14:33:00 CDT Dexamethaso 2017-0 No 10 mg, Sukh tigist ne 5-16 Route: IM, l 19:33: ONCE, Dosing Weight 100, kg, Priority: STAT, Start date: 08/22/16 14:33:00 CDT, Stop date: 08/22/16 14:33:00 CDT Dilaudid 2017-0 No 1 mg, Memoria 5-16 Route: IM, l 19:33: ONCE, Dosing Weight 100, kg, Start date: 08/22/16 14:33:00 CDT, Stop date: 08/22/16 14:33:00 CDT Dexamethaso 2017-0 No 10 mg, Sukh tigist ne 5-16 Route: IM, l 19:33: ONCE, Dosing Weight 100, kg, Priority: STAT, Start date: 08/22/16 14:33:00 CDT, Stop date: 08/22/16 14:33:00 CDT tramadol 2017-0 Yes 50 mg = 1 Sukh tigist hydrochlori 5-07 tab, PO, l de 50 MG 19:06: Q4H, PRN Jess nn Oral Tablet 00 for pain, [Ultram] X 10 day, # 60 tab, 0 Refill(s) tramadol Yes 50 mg = 1 Sukh tigist hydrochlori 5-07 tab, PO, l de 50 MG 19:06: Q4H, PRN Jess nn Oral Tablet 00 for pain, [Ultram] X 10 day, # 60 tab, 0 Refill(s) tramadol Yes 50 mg = 1 Sukh tigist hydrochlori 5-07 tab, PO, l de 50 MG 19:06: Q4H, PRN Jess nn Oral Tablet 00 for pain, [Ultram] X 10 day, # 60 tab, 0 Refill(s) sitaGLIPtin Yes 50 mg = 1 M emoria 50 mg oral 5-07 tab, PO, l tablet 19:05: Daily, # Uriah 00 30 tab, 0 Refill(s), Pharmacy: [place] [id number] nebivolol 5 Yes 2.5 mg = Me moria mg oral 5-07 0.5 tab, l tablet 19:05: PO, Daily, Jess nn 00 # 30 tab, 0 Refill(s), Pharmacy: [facility] [place] [id number] sitaGLIPtin Yes 50 mg = 1 M emoria 50 mg oral 5-07 tab, PO, l tablet 19:05: Daily, # Uriah 00 30 tab, 0 Refill(s), Pharmacy: [place] [id number] nebivolol 5 Yes 2.5 mg = Me moria mg oral 5-07 0.5 tab, l tablet 19:05: PO, Daily, Jess nn 00 # 30 tab, 0 Refill(s), Pharmacy: [facility] sitaGLIPtin Yes 50 mg = 1 M emoria 50 mg oral 5-07 tab, PO, l tablet 19:05: Daily, # [place] 00 30 tab, 0 Refill(s), Pharmacy: [facility] [place] [id number] nebivolol 5 Yes 2.5 mg = Me moria mg oral 5-07 0.5 tab, l tablet 19:05: PO, Daily, Jess nn 00 # 30 tab, 0 Refill(s), Pharmacy: [facility] [place] [id number] Januvia 2017-0 No Notes: Memoria 5-06 Same as l 14:00: Apruvia [place] No Notes: Memoria 5-06 (same as: l 14:00: ) No Notes: Memoria 5-06 Same as l 14:00: ia [place] No Notes: Memoria 5-06 (same as: l 14:00: ) No Notes: Memoria 5-06 Same as l 14:00: [place] No Notes: Memoria 5-06 (same as: l 14:00: ) Sodium 2017-0 No 250 mL, Memoria Chloride 5-05 Route: l 0.9% IV 21:00: IVPB, [place] 00 Start date: 08/11/16 16:00:00 CDT, Duration: 30 day, Stop date: 09/10/16 15:59:00 CDT, PRN Line Flush Sodium 2016-0 No 250 mL, Memoria Chloride 5-05 Route: l 0.9% IV 21:00: IVPB, Start date: 08/11/16 16:00:00 CDT, Duration: 30 day, Stop date: 09/10/16 15:59:00 CDT, PRN Line Flush Sodium 2017-0 No 250 mL, Memoria Chloride 5-05 Route: l 0.9% IV 21:00: IVPB, Start date: 08/11/16 16:00:00 CDT, Duration: 30 day, Stop date: 09/10/16 15:59:00 CDT, PRN Line Flush clopidogrel 2016-0 No Notes: Sukh tigist 5-05 (Same As: l 14:00: Plavix) Protonix 2016-0 No 40 mg, Memoria 5-05 Route: l 14:00: IVP, Uri[place] Daily, Dosing Weight 99.545, kg, Patient is NPO, Start date: 08/11/16 9:00:00 CDT, Duration: 30 day, Stop date: 09/09/16 9:00:00 CDT clopidogrel 2016-0 No Notes: Sukh tigist 5-05 (Same As: l 14:00: Plavix) Protonix No 40 mg, Memoria 5-05 Route: l 14:00: IVP, [place] 00 Daily, Dosing Weight 99.545, kg, Patient is NPO, Start date: 08/11/16 9:00:00 CDT, Duration: 30 day, Stop date: 09/09/16 9:00:00 CDT clopidogrel No Notes: Sukh tigist 5-05 (Same As: l 14:00: Plavix) Protonix No 40 mg, Memoria 5-05 Route: l 14:00: IVP, [place] 00 Daily, Dosing Weight 99.545, kg, Patient is NPO, Start date: 08/11/16 9:00:00 CDT, Duration: 30 day, Stop date: 09/09/16 9:00:00 CDT Acetaminoph No Notes: Sukh tigist en 325 MG / 5-05 (Same as: l Hydrocodone 12:41: Bapchule Jess nn Bitartrate 00 325/5) Do 5 MG Oral not exceed Tablet 4gm/day of [Bapchule acetaminop 5/325] hen. Acetaminoph No Notes: Sukh tigist en 325 MG / 5-05 (Same as: l Hydrocodone 12:41: Bapchule Jess nn Bitartrate 00 325/5) Do 5 MG Oral not exceed Tablet 4gm/day of [B[place]ule acetaminop 5/325] hen. Acetaminoph No Notes: Sukh tigist en 325 MG / 5-05 (Same as: l Hydrocodone 12:41: Bapchule Jess nn Bitartrate 00 325/5) Do 5 MG Oral not exceed Tablet 4gm/day of [Bap[place]ule acetaminop 5/325] hen. potassium No Notes: Memori a chloride 20 5-05 (Same as: l mEq oral 11:30: K-Dur 20) Herm fareed tablet, 00 "Do Not extended Crush" release With food and full glass of water potassium No Notes: Memori a chloride 20 5-05 (Same as: l mEq oral 11:30: K-Dur 20) Herm fareed tablet, 00 "Do Not extended Crush" release With food and full glass of water potassium 2017-0 No Notes: Memori a chloride 20 5-05 (Same as: l mEq oral 11:30: K-Dur 20) Herm fareed tablet, 00 "Do Not extended Crush" release With food and full glass of water Hydromorpho 2016-0 No 0.4 mg, Mem oria ne 5-05 0.4 mL, l 09:12: Route: IV, [place] 00 Drug form: INJ, ONCE, Dosing Weight 99.545, kg, Priority: NOW, Start date: 08/11/16 4:12:00 CDT, Stop date: 08/11/16 4:12:00 CDT Hydromorpho 2017-0 No 0.4 mg, Mem oria ne 5-05 0.4 mL, l 09:12: Route: IV, [place] 00 Drug form: INJ, ONCE, Dosing Weight 99.545, kg, Priority: NOW, Start date: 08/11/16 4:12:00 CDT, Stop date: 08/11/16 4:12:00 CDT Hydromorpho 2016-0 No 0.4 mg, Mem oria ne 5-05 0.4 mL, l 09:12: Route: IV, [place] 00 Drug form: INJ, ONCE, Dosing Weight 99.545, kg, Priority: NOW, Start date: 08/11/16 4:12:00 CDT, Stop date: 08/11/16 4:12:00 CDT vancomycin 2016-0 No 2001 mg: Me moria 5-05 infuse l 00:59: over 2.5 [place] 00 hours vancomycin 2017-0 No 2001 mg: Me moria 5-05 infuse l 00:59: over 2.5 [place] 00 hours vancomycin 2017-0 No 2001 mg: Me moria 5-05 infuse l 00:59: over 2.5 [place] 00 hours pantoprazol 2017-0 No Notes: Sukh tigist e -04 Tablet l 23:00: should not [place] 00 be chewed or crushed. (Same as: Protonix) NovoLOG 2017-0 No Notes: Memoria 70/30 5-04 pharmacy l 23:00: re-entry [place] 00 for dosing time adjustment Roll in palms of hands gently; Do not shake vigorously . (Same as: NovoLOG Mix) "single patient use only" WASTE: F/P - Black; E - Municipal Trash Bin Stable for 14 days at room temperatur e Expires in days from ____Date pantoprazol No Notes: Sukh tigist e 5-04 Tablet l 23:00: should not [place] 00 be chewed or crushed. (Same as: Protonix) NovoLOG No Notes: Memoria 08-10 pharmacy l 23:00: re-entry [place] 00 for dosing time adjustment Roll in palms of hands gently; Do not shake vigorously . (Same as: NovoLOG Mix) "single patient use only" WASTE: F/P - Black; E - Municipal Trash Bin Stable for 14 days at room temperatur e Expires in days from ____Date pantoprazol No Notes: Sukh tigist e 5-04 Tablet l 23:00: should not [place] 00 be chewed or crushed. (Same as: Protonix) NovoLOG No Notes: Memoria 08-10 pharmacy l 23:00: re-entry [place] 00 for dosing time adjustment Roll in palms of hands gently; Do not shake vigorously . (Same as: NovoLOG Mix) "single patient use only" WASTE: F/P - Black; E - Municipal Trash Bin Stable for 14 days at room temperatur e Expires in days from ____Date insulin No Notes: Memoria aspart 5-04 Roll in l 22:27: palms of [place] 00 hands gently; Do not shake vigorously . (Same as: NovoLOG) "single patient use only" WASTE: F/P - Black; E - Municipal Trash Bin Stable for 28 days at room temperatur e. Expires in days from ____Date glucagon 2016- No 1 mg, Memoria 5-04 Route: IV, l 22:27: Drug form: [place] 00 PDR/INJ, PRN, PRN Blood Glucose Results, Start date: 08/10/16 17:27:00 CDT, Duration: 30 day, Stop date: 09/09/16 17:26:00 CDT Dextrose 2017-0 No 25 gm, 50 Sukh tigist 50% in 5-04 mL, Route: l Water IV 22:27: IVP, Drug Herm fareed 00 Form: INJ, PRN, PRN Blood Glucose Results, Start date: 08/10/16 17:27:00 CDT, Duration: 30 day, Stop date: 09/09/16 17:26:00 CDT insulin 2017-0 No Notes: Memoria aspart 5-04 Roll in l 22:27: palms of [place] 00 hands gently; Do not shake vigorously . (Same as: NovoLOG) "single patient use only" WASTE: F/P - Black; E - Municipal Trash Bin Stable for 28 days at room temperatur e. Expires in days from ____Date glucagon 2017-0 No 1 mg, Memoria 5-04 Route: IV, l 22:27: Drug form: [place] 00 PDR/INJ, PRN, PRN Blood Glucose Results, Start date: 08/10/16 17:27:00 CDT, Duration: 30 day, Stop date: 09/09/16 17:26:00 CDT Dextrose 2017-0 No 25 gm, 50 Sukh tigist 50% in 5-04 mL, Route: l Water IV 22:27: IVP, Drug Herm fareed 00 Form: INJ, PRN, PRN Blood Glucose Results, Start date: 08/10/16 17:27:00 CDT, Duration: 30 day, Stop date: 09/09/16 17:26:00 CDT insulin 2017-0 No Notes: Memoria aspart 5-04 Roll in l 22:27: palms of [place] 00 hands gently; Do not shake vigorously . (Same as: NovoLOG) "single patient use only" WASTE: F/P - Black; E - Municipal Trash Bin Stable for 28 days at room temperatur e. Expires in days from ____Date glucagon 2017-0 No 1 mg, Memoria 5-04 Route: IV, l 22:27: Drug form: [place] 00 PDR/INJ, PRN, PRN Blood Glucose Results, Start date: 08/10/16 17:27:00 CDT, Duration: 30 day, Stop date: 09/09/16 17:26:00 CDT Dextrose No 25 gm, 50 Sukh tigist 50% in 5-04 mL, Route: l Water IV 22:27: IVP, Drug Form: INJ, PRN, PRN Blood Glucose Results, Start date: 08/10/16 17:27:00 CDT, Duration: 30 day, Stop date: 09/09/16 17:26:00 CDT Nifedical No Notes: Memori a XL 5-04 (Same as: l 22:15: Adalat CC, [place] Procardia XL) Give on empty stomach. Take 1 hour before or 2 hours after meal; "Avoid grapefruit and grapefruit juice". Do not crush Nifedical No Notes: Memori a XL 5-04 (Same as: l 22:15: Adalat CC, [place] Procardia XL) Give on empty stomach. Take 1 hour before or 2 hours after meal; "Avoid grapefruit and grapefruit juice". Do not crush Nifedical No Notes: Memori a XL 5-04 (Same as: l 22:15: Adalat CC, [place] 00 Procardia XL) Give on empty stomach. Take 1 hour before or 2 hours after meal; "Avoid grapefruit and grapefruit juice". Do not crush Enoxaparin No Notes: Memor ia 5-04 (Same as: l 22:00: Lovenox) Enoxaparin No Notes: Memor ia 5-04 (Same as: l 22:00: Lovenox) Enoxaparin No Notes: Memor ia 5-04 (Same as: l 22:00: Lovenox) sodium No 1,000 mL, Memori a chloride 5-04 Rate: 75 l 0.9% 1000 17:00: ml/hr, Edward n ml INJ 00 Infuse 1,000 mL over: 13.3 hr, Route: IV, Dosing Weight 99.545 kg, Total Volume: 1,000, Start date: 08/10/16 12:00:00 CDT, Duration: 1 day, Stop date: 08/11/16 11:59:00 CDT sodium 2017-0 No 1,000 mL, Memori a chloride 5-04 Rate: 75 l 0.9% 1000 17:00: ml/hr, Edward n ml INJ 00 Infuse 1,000 mL over: 13.3 hr, Route: IV, Dosing Weight 99.545 kg, Total Volume: 1,000, Start date: 08/10/16 12:00:00 CDT, Duration: 1 day, Stop date: 08/11/16 11:59:00 CDT sodium 2017-0 No 1,000 mL, Memori a chloride 5-04 Rate: 75 l 0.9% 1000 17:00: ml/hr, Edward n ml INJ 00 Infuse 1,000 mL over: 13.3 hr, Route: IV, Dosing Weight 99.545 kg, Total Volume: 1,000, Start date: 08/10/16 12:00:00 CDT, Duration: 1 day, Stop date: 08/11/16 11:59:00 CDT Labetalol No Notes: Memori a 5-04 (Same as: l 16:29: Normodyne, [place] 00 Trandate) Push over 2 minutes Give bolus over 2-3 minutes. Labetalol 2016- No Notes: Memori a 5-04 (Same as: l 16:29: Normodyne, [place] 00 Trandate) Push over 2 minutes Give bolus over 2-3 minutes. Labetalol No Notes: Memori a 5-04 (Same as: l 16:29: Normodyne, [place] 00 Trandate) Push over 2 minutes Give bolus over 2-3 minutes. Hydralazine 2016- No Notes: Sukh tigist 5-04 (Same as: l 15:43: Apresoline Uri[place] 00 ) Push over 5 minutes Hydralazine 2016-0 No Notes: Sukh tigist 5-04 (Same as: l 15:43: Apresoline Uri[place] 00 ) Push over 5 minutes Hydralazine No Notes: Sukh tigist 5-04 (Same as: l 15:43: Apresoline [place] 00 ) Push over 5 minutes Albuterol No Notes: Memori a 0.833 MG/ML 5-04 (Same as: l / 15:40: Duoneb) [place] Ipratropium 00 Point 0.167 MG/ML Inhalant Solution [DuoNeb] Albuterol No Notes: Memori a 0.833 MG/ML 5-04 (Same as: l / 15:40: Duoneb) [place] Ipratropium 00 Point 0.167 MG/ML Inhalant Solution [DuoNeb] Albuterol No Notes: Memori a 0.833 MG/ML 5-04 (Same as: l / 15:40: Duoneb) [place] Ipratropium 00 Point 0.167 MG/ML Inhalant Solution [DuoNeb] Magnesium No Notes: Memori a Sulfate 5-04 WASTE: F/P l 15:38: - Sink; E [place] 00 - Municipal Trash Bin potassium No Notes: Memori a phosphate + 5-04 (Same as: l sodium 15:38: K [place] chloride 00 Phosphate. 0.9% INJ ) 1 mMol 250 mL phoshate has 1.47 mEq potassium Infuse over 4 hours potassium No Notes: Memori a phosphate-s -04 (Same as: l odium 15:38: Phos-NaK) [place] phosphate 00 Each 1.5 250 mg-280 gm pkt has mg-160 mg 250mg oral powder phosphorou for s. Mix reconstitut w/2.5oz ion water and stir. sodium No 30 mmol, Memoria phosphate 5-04 250 mL, l 15:38: Route: [place] 00 IVPB, Drug form: INJ, PRN, Dosing Weight 99.545, kg, PRN Abnormal Lab Result, Start date: 08/10/16 10:38:00 CDT, Duration: 30 day, Stop date: 09/09/16 10:37:00 CDT, FOR ICU USE ONLY sodium No 45 mmol, Memoria phosphate + 5-04 15 mL, l sodium 15:38: Route: [place] chloride 00 IVPB, PRN, 0.9% INJ Dosing 250 mL Weight 99.545, kg, PRN Abnormal Lab Result, Start date: 08/10/16 10:38:00 CDT, Duration: 30 day, Stop date: 09/09/16 10:37:00 CDT, FOR ICU USE ONLY Magnesium No Notes: Memori a Oxide 5-04 (Same as: l 15:38: Mag-Ox [place] 00 400) Magnesium oxide 599qh=350l g elemental magnesium Dose=____m g magnesium oxide (___mg elemental magnesium) Calcium No Notes: Memoria Gluconate - WASTE: F/P l 15:38: - Sink; E [place] 00 - Municipal Trash Bin Calcium No Notes: Memoria Carbonate -04 (Same As: l 500 MG 15:38: Tums) [place] Chewable 00 Calcium Tablet Carbonate 500 mg = 200 mg elemental calcium Dose = mg calcium carbonate ( mg elemental calcium) potassium No Notes: Memori a phosphate 5-04 (Same as: l 15:38: K [place] 00 Phosphate) potassium No Notes: Memori a chloride 5-04 (Same as: l 15:38: K-Dur 20) [place] 00 "Do Not Crush" With food and full glass of water sodium No 30 mmol, Memoria phosphate 5-04 250 mL, l 15:38: Route: [place] 00 IVPB, Drug form: INJ, PRN, Dosing Weight 99.545, kg, PRN Abnormal Lab Result, Start date: 08/10/16 10:38:00 CDT, Duration: 30 day, Stop date: 09/09/16 10:37:00 CDT, FOR ICU USE ONLY sodium No 45 mmol, Memoria phosphate + 5-04 15 mL, l sodium 15:38: Route: [place] chloride 00 IVPB, PRN, 0.9% INJ Dosing 250 mL Weight 99.545, kg, PRN Abnormal Lab Result, Start date: 08/10/16 10:38:00 CDT, Duration: 30 day, Stop date: 09/09/16 10:37:00 CDT, FOR ICU USE ONLY Magnesium No Notes: Memori a Oxide 5-04 (Same as: l 15:38: Mag-Ox [place] 00 400) Magnesium oxide 630lj=865h g elemental magnesium Dose=____m g magnesium oxide (___mg elemental magnesium) Calcium No Notes: Memoria Gluconate 5-04 WASTE: F/P l 15:38: - Sink; E [place] 00 - Municipal Trash Bin Calcium No Notes: Memoria Carbonate 5-04 (Same As: l 500 MG 15:38: Tums) [place] Chewable 00 Calcium Tablet Carbonate 500 mg = 200 mg elemental calcium Dose = mg calcium carbonate ( mg elemental calcium) potassium No Notes: Memori a phosphate 5-04 (Same as: l 15:38: K [place] 00 Phosphate) potassium No Notes: Memori a chloride 5-04 (Same as: l 15:38: K-Dur 20) [place] 00 "Do Not Crush" With food and full glass of water Magnesium No Notes: Memori a Sulfate -04 WASTE: F/P l 15:38: - Sink; E [place] - Municipal Trash Bin potassium No Notes: Memori a phosphate + 5-04 (Same as: l sodium 15:38: K [place] chloride 00 Phosphate. 0.9% INJ ) 1 mMol 250 mL phoshate has 1.47 mEq potassium Infuse over 4 hours potassium No Notes: Memori a phosphate-s 5-04 (Same as: l odium 15:38: Phos-NaK) [place] phosphate 00 Each 1.5 250 mg-280 gm pkt has mg-160 mg 250mg oral powder phosphorou for s. Mix reconstitut w/2.5oz ion water and stir. sodium No 30 mmol, Memoria phosphate 5-04 250 mL, l 15:38: Route: [place] 00 IVPB, Drug form: INJ, PRN, Dosing Weight 99.545, kg, PRN Abnormal Lab Result, Start date: 08/10/16 10:38:00 CDT, Duration: 30 day, Stop date: 09/09/16 10:37:00 CDT, FOR ICU USE ONLY sodium No 45 mmol, Memoria phosphate + 5-04 15 mL, l sodium 15:38: Route: [place] chloride 00 IVPB, PRN, 0.9% INJ Dosing 250 mL Weight 99.545, kg, PRN Abnormal Lab Result, Start date: 08/10/16 10:38:00 CDT, Duration: 30 day, Stop date: 09/09/16 10:37:00 CDT, FOR ICU USE ONLY Magnesium No Notes: Memori a Oxide 5-04 (Same as: l 15:38: Mag-Ox [place] 00 400) Magnesium oxide 438gn=357t g elemental magnesium Dose=____m g magnesium oxide (___mg elemental magnesium) Calcium No Notes: Memoria Gluconate - WASTE: F/P l 15:38: - Sink; E [place] 00 - Municipal Trash Bin Calcium No Notes: Memoria Carbonate - (Same As: l 500 MG 15:38: Tums) [place] Chewable 00 Calcium Tablet Carbonate 500 mg = 200 mg elemental calcium Dose = mg calcium carbonate ( mg elemental calcium) potassium No Notes: Memori a phosphate - (Same as: l 15:38: K [place] 00 Phosphate) potassium No Notes: Memori a chloride - (Same as: l 15:38: K-Dur 20) [place] 00 "Do Not Crush" With food and full glass of water Magnesium No Notes: Memori a Sulfate - WASTE: F/P l 15:38: - Sink; E [place] - Municipal Trash Bin potassium No Notes: Memori a phosphate + - (Same as: l sodium 15:38: K [place] chloride 00 Phosphate. 0.9% INJ ) 1 mMol 250 mL phoshate has 1.47 mEq potassium Infuse over 4 hours potassium No Notes: Memori a phosphate-s -04 (Same as: l odium 15:38: Phos-NaK) [place] phosphate 00 Each 1.5 250 mg-280 gm pkt has mg-160 mg 250mg oral powder phosphorou for s. Mix reconstitut w/2.5oz ion water and stir. calcium No Route: IV, Sukh tigist chloride 08-10 Drug form: l (ANES) 15:26: INJ, ONCE, Jess nn 00 Stop date: 08/10/16 10:26:00 CDT calcium 2016-0 No Route: IV, Sukh tigist chloride 5-04 Drug form: l (ANES) 15:26: INJ, ONCE, Jess Stop date: 08/10/16 10:26:00 CDT calcium 2016-0 No Route: IV, Sukh tigist chloride 5-04 Drug form: l (ANES) 15:26: INJ, ONCE, Jess Stop date: 08/10/16 10:26:00 CDT protamine 0 No Route: IV, Me moria (ANES) 5-04 Drug form: l 15:25: INJ, ONCE, Stop date: 08/10/16 10:25:00 CDT protamine 0 No Route: IV, Me moria (ANES) 5-04 Drug form: l 15:25: INJ, ONCE, Stop date: 08/10/16 10:25:00 CDT protamine 0 No Route: IV, Me moria (ANES) 5-04 Drug form: l 15:25: INJ, ONCE, Stop date: 08/10/16 10:25:00 CDT heparin 0 No Route: IV, Sukh tigist (ANES) 5-04 Drug form: l 14:10: INJ, ONCE, Stop date: 08/10/16 9:10:00 CDT heparin 0 No Route: IV, Sukh tigist (ANES) 5-04 Drug form: l 14:10: INJ, ONCE, Stop date: 08/10/16 9:10:00 CDT heparin 2016-0 No Route: IV, Sukh tigist (ANES) 5-04 Drug form: l 14:10: INJ, ONCE, Stop date: 08/10/16 9:10:00 CDT Omeprazole No 20 mg, Memor ia 5-04 Route: PO, l 14:00: Drug form: [place] ECTAB, QAM, Dosing Weight 99.545, kg, Start date: 08/10/16 9:00:00 CDT, Duration: 30 day, Stop date: 09/08/16 9:00:00 CDT Nifedical 0 No Notes: Memori a XL 5-04 (Same as: l 14:00: Adalat CC, [place] 00 Procardia XL) Give on empty stomach. Take 1 hour before or 2 hours after meal; "Avoid grapefruit and grapefruit juice". Do not crush NovoLOG No Route: Memoria 5-04 SUB-Q, l 14:00: BID, [place] Dosing Weight 99.545, kg, Start date: 08/10/16 9:00:00 CDT, Duration: 30 day, Stop date: 09/08/16 17:00:00 CDT atorvastati No Notes: Sukh tigist n 5-04 (Same As: l 14:00: Lipitor) [place] 00 aspirin 81 No Notes: Do Me moria mg tablet, 5-04 not crush l enteric 14:00: or chew. Edward n coated 00 (Same As: Ecotrin) pantoprazol No Notes: Sukh tigist e 5-04 Tablet l 14:00: should not [place] 00 be chewed or crushed. (Same as: Protonix) Docusate No Notes: Memoria Sodium 100 -04 (Same as: l MG Oral 14:00: Colace) [place] Capsule 00 (Do Not Crush) Omeprazole No 20 mg, Memor ia 5-04 Route: PO, l 14:00: Drug form: [place] LESLIE LANGLEY, Dosing Weight 99.545, kg, Start date: 08/10/16 9:00:00 CDT, Duration: 30 day, Stop date: 09/08/16 9:00:00 CDT Nifedical No Notes: Memori a XL 5-04 (Same as: l 14:00: Adalat CC, [place] 00 Procardia XL) Give on empty stomach. Take 1 hour before or 2 hours after meal; "Avoid grapefruit and grapefruit juice". Do not crush NovoLOG No Route: Memoria -04 SUB-Q, l 14:00: BID, [place] Dosing Weight 99.545, kg, Start date: 08/10/16 9:00:00 CDT, Duration: 30 day, Stop date: 09/08/16 17:00:00 CDT atorvastati No Notes: Sukh tigist n 5-04 (Same As: l 14:00: Lipitor) [place] 00 aspirin 81 No Notes: Do Me moria mg tablet, 5-04 not crush l enteric 14:00: or chew. Edward n coated 00 (Same As: Ecotrin) pantoprazol No Notes: Sukh tigist e 5-04 Tablet l 14:00: should not [place] 00 be chewed or crushed. (Same as: Protonix) Docusate No Notes: Memoria Sodium 100 5-04 (Same as: l MG Oral 14:00: Colace) [place] Capsule 00 (Do Not Crush) Omeprazole No 20 mg, Memor ia 5-04 Route: PO, l 14:00: Drug form: [place] 00 ECTABNITOM, Dosing Weight 99.545, kg, Start date: 08/10/16 9:00:00 CDT, Duration: 30 day, Stop date: 09/08/16 9:00:00 CDT Nifedical No Notes: Memori a XL 5-04 (Same as: l 14:00: Adalat CC, [place] 00 Procardia XL) Give on empty stomach. Take 1 hour before or 2 hours after meal; "Avoid grapefruit and grapefruit juice". Do not crush NovoLOG No Route: Memoria 70/30 5-04 SUB-Q, l 14:00: BID, Dosing Weight 99.545, kg, Start date: 08/10/16 9:00:00 CDT, Duration: 30 day, Stop date: 09/08/16 17:00:00 CDT atorvastati No Notes: Sukh tigist n 5-04 (Same As: l 14:00: Lipitor) aspirin 81 No Notes: Do Me moria mg tablet, 5-04 not crush l enteric 14:00: or chew. Edward n coated 00 (Same As: Ecotrin) pantoprazol No Notes: Sukh tigist e 5-04 Tablet l 14:00: should not [place] 00 be chewed or crushed. (Same as: Protonix) Docusate No Notes: Memoria Sodium 100 5-04 (Same as: l MG Oral 14:00: Colace) [place] Capsule 00 (Do Not Crush) morphine No Route: IV, Mem oria Sulfate 5-04 Drug form: l (ANES) 13:55: INJ, ONCE, Jess nn Stop date: 08/10/16 8:55:00 CDT morphine No Route: IV, Mem oria Sulfate 5-04 Drug form: l (ANES) 13:55: INJ, ONCE, Jess nn Stop date: 08/10/16 8:55:00 CDT morphine No Route: IV, Mem oria Sulfate 5-04 Drug form: l (ANES) 13:55: INJ, ONCE, Jess nn Stop date: 08/10/16 8:55:00 CDT rocuronium No Route: IV, M emoria (ANES) 5-04 Drug form: l 13:35: INJ, ONCE, Uri[place] Stop date: 08/10/16 8:35:00 CDT propofol 0 No Route: IV, Mem oria (ANES) 5-04 Drug form: l 13:35: INJ, ONCE, [place] Stop date: 08/10/16 8:35:00 CDT rocuronium 0 No Route: IV, M emoria (ANES) 5-04 Drug form: l 13:35: INJ, ONCE, [place] Stop date: 08/10/16 8:35:00 CDT propofol 0 No Route: IV, Mem oria (ANES) 5-04 Drug form: l 13:35: INJ, ONCE, [place] Stop date: 08/10/16 8:35:00 CDT rocuronium 0 No Route: IV, M emoria (ANES) 5-04 Drug form: l 13:35: INJ, ONCE, [place] Stop date: 08/10/16 8:35:00 CDT propofol 0 No Route: IV, Mem oria (ANES) 5-04 Drug form: l 13:35: INJ, ONCE, [place] Stop date: 08/10/16 8:35:00 CDT fentaNYL 2017-0 No Route: IV, Mem oria (ANES) 5-04 Drug form: l 13:15: INJ, ONCE, [place] 00 Stop date: 08/10/16 8:15:00 CDT midazolam 2017-0 No Route: IV, Me moria (ANES) 5-04 Drug form: l 13:15: SOLN, [place] 00 ONCE, Stop date: 08/10/16 8:15:00 CDT fentaNYL 2017-0 No Route: IV, Mem oria (ANES) 5-04 Drug form: l 13:15: INJ, ONCE, [place] 00 Stop date: 08/10/16 8:15:00 CDT midazolam 2017-0 No Route: IV, Me moria (ANES) 5-04 Drug form: l 13:15: SOLN, [place] 00 ONCE, Stop date: 08/10/16 8:15:00 CDT fentaNYL 2017-0 No Route: IV, Mem oria (ANES) 5-04 Drug form: l 13:15: INJ, ONCE, [place] 00 Stop date: 08/10/16 8:15:00 CDT midazolam 2017-0 No Route: IV, Me moria (ANES) 5-04 Drug form: l 13:15: SOLN, [place] 00 ONCE, Stop date: 08/10/16 8:15:00 CDT sodium 2017-0 No Route: IV, Memor ia chloride 5-04 Drug form: l 0.9% 100 ml 13:00: INJ, Start [place] INJ (ANES) 00 date: 08/10/16 gentamicin 8:00:00 (ANES) CDT, Stop (ANES) date: 08/10/16 9:00:00 CDT sodium 2017-0 No Route: IV, Memor ia chloride 5-04 Drug form: l 0.9% 100 ml 13:00: INJ, Start [place] INJ (ANES) 00 date: 08/10/16 gentamicin 8:00:00 (ANES) CDT, Stop (ANES) date: 08/10/16 9:00:00 CDT sodium 2017-0 No Route: IV, Memor ia chloride 5-04 Drug form: l 0.9% 100 ml 13:00: INJ, Start [place] INJ (ANES) 00 date: 08/10/16 gentamicin 8:00:00 (ANES) CDT, Stop (ANES) date: 08/10/16 9:00:00 CDT vancomycin No Route: IV, M emoria (ANES) 5-04 Drug form: l (ANES) 12:59: INJ, Start Jess nn 00 date: 08/10/16 7:59:00 CDT, Stop date: 08/10/16 8:59:00 CDT vancomycin No Route: IV, M emoria (ANES) 5-04 Drug form: l (ANES) 12:59: INJ, Start Jess nn 00 date: 08/10/16 7:59:00 CDT, Stop date: 08/10/16 8:59:00 CDT vancomycin No Route: IV, M emoria (ANES) 5-04 Drug form: l (ANES) 12:59: INJ, Start Jess nn 00 date: 08/10/16 7:59:00 CDT, Stop date: 08/10/16 8:59:00 CDT Saline No Notes: Memoria Flush 0.9% 5-04 (Same as: l 12:45: BD [place] Posiflush) POLYETHYLEN No Notes: Sukh tigist E GLYCOL 5-04 Dissolve l 3350 12:45: in 8 oz of [place] 00 water or juice. (Same as: Miralax) Acetaminoph No Notes: Do M emoria en 5-04 not exceed l 12:45: 4 gm/day. Uriah 00 (Same as: Tylenol) acetaminoph No Notes: Do M emoria en-codeine 5-04 not exceed l #3 12:45: 4gm/day of Uriah acetaminop hen. (Same as: Tylenol with Codeine # 3) Morphine No Notes: Memoria 5-04 (Same l 12:45: as:MORPhin [place] 00 e Sulfate) Acetaminoph No Notes: Sukh tigist en 325 MG / 5-04 (Same as: l Hydrocodone 12:45: Bapchule Jess nn Bitartrate 00 325/5) Do 5 MG Oral not exceed Tablet 4gm/day of acetaminop hen. Ondansetron No Notes: Sukh tigist 5-04 (Same as: l 12:45: Zofran) [place] 00 MEDICATION WASTE Product Size: 4 mg Product Wasted: ___ mg Dulcolax No Notes: Memoria Laxative 5-04 (Same As: l 12:45: Dulcolax, Uriah 00 Correctol) (Do Not Crush) "Do Not Crush" Saline No Notes: Memoria Flush 0.9% 5-04 (Same as: l 12:45: BD Uriah 00 Posiflush) POLYETHYLEN No Notes: Sukh tigist E GLYCOL 5-04 Dissolve l [id number] 12:45: in 8 oz of Uriah water or juice. (Same as: Miralax) Acetaminoph No Notes: Do M emoria en 5-04 not exceed l 12:45: 4 gm/day. [place] 00 (Same as: Tylenol) acetaminoph No Notes: Do M emoria en-codeine 5-04 not exceed l #3 12:45: 4gm/day of Uriah 00 acetaminop hen. (Same as: Tylenol with Codeine # 3) Morphine No Notes: Memoria 5-04 (Same l 12:45: as:MORPhin [place] 00 e Sulfate) Acetaminoph No Notes: Sukh tigist en 325 MG / 5-04 (Same as: l Hydrocodone 12:45: Bapchule Jess nn Bitartrate 00 325/5) Do 5 MG Oral not exceed Tablet 4gm/day of acetaminop hen. Ondansetron No Notes: Sukh tigist 5-04 (Same as: l 12:45: Zofran) [place] 00 MEDICATION WASTE Product Size: 4 mg Product Wasted: ___ mg Dulcolax No Notes: Memoria Laxative 5-04 (Same As: l 12:45: Dulcolax, [place] 00 Correctol) (Do Not Crush) "Do Not Crush" Saline No Notes: Memoria Flush 0.9% 5-04 (Same as: l 12:45: BD [place] 00 Posiflush) POLYETHYLEN No Notes: Sukh tigist E GLYCOL 5-04 Dissolve l 3350 12:45: in 8 oz of [place] 00 water or juice. (Same as: Miralax) Acetaminoph No Notes: Do M emoria en 5-04 not exceed l 12:45: 4 gm/day. [place] 00 (Same as: Tylenol) acetaminoph No Notes: Do M emoria en-codeine 5-04 not exceed l #3 12:45: 4gm/day of [place] acetaminop hen. (Same as: Tylenol with Codeine # 3) Morphine No Notes: Memoria 5-04 (Same l 12:45: as:MORPhin [place] 00 e Sulfate) Acetaminoph No Notes: Sukh tigist en 325 MG / 5-04 (Same as: l Hydrocodone 12:45: Bapchule Jess nn Bitartrate 00 325/5) Do 5 MG Oral not exceed Tablet 4gm/day of acetaminop hen. Ondansetron No Notes: Sukh tigist 5-04 (Same as: l 12:45: Zofran) [place] 00 MEDICATION WASTE Product Size: 4 mg Product Wasted: ___ mg Dulcolax No Notes: Memoria Laxative -04 (Same As: l 12:45: Dulcolax, [place] 00 Correctol) (Do Not Crush) "Do Not Crush" Isolyte S No Route: IV, Me moria (PH 7.4) 5-04 Total l 1000 mL 12:39: Volume: [place] (ANES) 00 1,000, Start date: 08/10/16 7:39:00 CDT, Stop date: 08/10/16 8:39:00 CDT Isolyte S No Route: IV, Me moria (PH 7.4) 5-04 Total l 1000 mL 12:39: Volume: [place] (ANES) 00 1,000, Start date: 08/10/16 7:39:00 CDT, Stop date: 08/10/16 8:39:00 CDT Isolyte S No Route: IV, Me moria (PH 7.4) 5-04 Total l 1000 mL 12:39: Volume: [place] (ANES) 00 1,000, Start date: 08/10/16 7:39:00 CDT, Stop date: 08/10/16 8:39:00 CDT Cefazolin No Notes: Memori a 5-04 Same as: l 12:00: Ancef [place] Cefazolin No Notes: Memori a 5-04 Same as: l 12:00: Ancef [place] 00 Cefazolin No Notes: Memori a 5-04 Same as: l 12:00: Ancef [place] 00 gentamicin Yes Notes: Memor ia + sodium 5-04 TIME l chloride 11:25: CRITICAL Jess nn 0.9% INJ 00 MEDICATION 100 mL (Same as Garamycin) gentamicin Yes Notes: Memor ia + sodium 5-04 TIME l chloride 11:25: CRITICAL Jess nn 0.9% INJ 00 MEDICATION 100 mL (Same as Garamycin) gentamicin Yes Notes: Memor ia + sodium 5-04 TIME l chloride 11:25: CRITICAL Jess nn 0.9% INJ 00 MEDICATION 100 mL (Same as Garamycin) NovoLOG Yes 40-50 Memoria 70/30 4-27 UNITS, l 16:53: SUB-Q, BID [place] 00 NovoLOG Yes 40-50 Memoria 70/30 4-27 UNITS, l 16:53: SUB-Q, BID [place] 00 NovoLOG Yes 40-50 Memoria 70/30 4-27 UNITS, l 16:53: SUB-Q, BID [place] 00 Acetaminoph Yes 1 tab, PO, Memoria en 325 MG / 4-27 Q6H, PRN l Hydrocodone 15:01: Pain Edward n Bitartrate 00 10 MG Oral Tablet Acetaminoph Yes 1 tab, PO, Memoria en 325 MG / 4-27 Q6H, PRN l Hydrocodone 15:01: Pain Edward n Bitartrate 00 10 MG Oral Tablet Acetaminoph Yes 1 tab, PO, Memoria en 325 MG / 4-27 Q6H, PRN l Hydrocodone 15:01: Pain Edward n Bitartrate 00 10 MG Oral Tablet Plavix No Notes: Memoria 2-04 (Same As: l 15:00: Plavix) Plavix No Notes: Memoria 2-04 (Same As: l 15:00: Plavix) Plavix No Notes: Memoria 2-04 (Same As: l 15:00: Plavix) atorvastati No Notes: Sukh tigist n 2-04 (Same As: l 03:00: Lipitor) atorvastati No Notes: Sukh tigist n 2-04 (Same As: l 03:00: Lipitor) atorvastati No Notes: Sukh tigist n 2-04 (Same As: l 03:00: Lipitor) clopidogrel Yes 75 mg = 1 M emoria 75 mg oral 2-03 tab, PO, l tablet 19:01: Daily, 0 [place] 00 Refill(s) atorvastati Yes 20 mg = 1 M emoria n 20 mg 2-03 tab, PO, l oral tablet 19:01: Bedtime, 0 [place] 00 Refill(s) clopidogrel 0 Yes 75 mg = 1 M emoria 75 mg oral 2-03 tab, PO, l tablet 19:01: Daily, 0 [place] 00 Refill(s) atorvastati 0 Yes 20 mg = 1 M emoria n 20 mg 2-03 tab, PO, l oral tablet 19:01: Bedtime, 0 [place] 00 Refill(s) clopidogrel 0 Yes 75 mg = 1 M emoria 75 mg oral 2-03 tab, PO, l tablet 19:01: Daily, 0 [place] 00 Refill(s) atorvastati 0 Yes 20 mg = 1 M emoria n 20 mg 2-03 tab, PO, l oral tablet 19:01: Bedtime, 0 [place] 00 Refill(s) Plavix No Notes: Memoria 2-03 (Same As: l 16:26: Plavix) Plavix No Notes: Memoria 2-03 (Same As: l 16:26: Plavix) Plavix 2016-0 No Notes: Memoria 2-03 (Same As: l 16:26: Plavix) [place] 00 Insulin, 0 No Notes: Memoria Aspart, 2-03 Roll in l Human 16:25: palms of [place] 00 hands gently; Do not shake vigorously . (Same as: NovoLOG) "single patient use only" WASTE: F/P - Black; E - Municipal Trash Bin Stable for 28 days at room temperatur e. Expires in days from ____Date Dextrose 2016-0 No 25 gm, 50 Sukh tigist 50% Syringe 2-03 mL, Route: l 16:25: IVP, Drug [place] 00 Form: INJ, Dosing Weight 100, kg, PRN, PRN Blood Glucose Results, Start date: 05/12/16 10:25:00 [employer]ER [employer]EDIT COUNSELOR, Duration: 30 day, Stop date: 06/11/16 10:24:00 [employer]ER [employer]EDIT COUNSELOR Glucagon No 1 mg, Memoria 2-03 Route: IM, l 16:25: Drug form: [place] 00 PDR/INJ, PRN, Dosing Weight 100, kg, PRN Blood Glucose Results, Start date: 05/12/16 10:25:00 [employer]ER [employer]EDIT COUNSELOR, Duration: 30 day, Stop date: 06/11/16 10:24:00 [employer]SUMER [employer]EDIT COUNSELOR Insulin, 0 No Notes: Memoria Aspart, 2-03 Roll in l Human 16:25: palms of [place] 00 hands gently; Do not shake vigorously . (Same as: NovoLOG) "single patient use only" WASTE: F/P - Black; E - Municipal Trash Bin Stable for 28 days at room temperatur e. Expires in days from ____Date Dextrose 2016-0 No 25 gm, 50 Sukh tigist 50% Syringe 2-03 mL, Route: l 16:25: IVP, Drug [place] 00 Form: INJ, Dosing Weight 100, kg, PRN, PRN Blood Glucose Results, Start date: 05/12/16 10:25:00 [employer]ER [employer]EDIT COUNSELOR, Duration: 30 day, Stop date: 06/11/16 10:24:00 [employer]ER [employer]EDIT COUNSELOR Glucagon 2016-0 No 1 mg, Memoria 2-03 Route: IM, l 16:25: Drug form: [place] 00 PDR/INJ, PRN, Dosing Weight 100, kg, PRN Blood Glucose Results, Start date: 05/12/16 10:25:00 [employer]ER [employer]EDIT COUNSELOR, Duration: 30 day, Stop date: 06/11/16 10:24:00 CONSUMER CREDIT COUNSELOR Insulin, No Notes: Memoria Aspart, 2- Roll in l Human 16:25: palms of hands gently; Do not shake vigorously . (Same as: NovoLOG) "single patient use only" WASTE: F/P - Black; E - Municipal Trash Bin Stable for 28 days at room temperatur e. Expires in days from ____Date Dextrose No 25 gm, 50 Sukh tigist 50% Syringe 2-03 mL, Route: l 16:25: IVP, Drug Form: INJ, Dosing Weight 100, kg, PRN, PRN Blood Glucose Results, Start date: 05/12/16 10:25:00 [employer]ER [employer] COUNSELOR, Duration: 30 day, Stop date: 06/11/16 10:24:00 [employer]ER [employer] COUN[employer]OR Glucagon No 1 mg, Memoria - Route: IM, l 16:25: Drug form: PDR/INJ, PRN, Dosing Weight 100, kg, PRN Blood Glucose Results, Start date: 05/12/16 10:25:00 [employer]ER [employer] COUNSELOR, Duration: 30 day, Stop date: 06/11/16 10:24:00 [employer]ER [employer] COUNSELOR aspirin 81 No Notes: Do Me moria mg tablet, 2 not crush l enteric 15:00: or chew. Edward n coated 00 (Same As: Ecotrin) Omeprazole No 20 mg, Memor ia 2- Route: PO, l 15:00: Drug form: ECTAB, Daily, Dosing Weight 100, kg, Start date: 05/12/16 9:00:00 [employer]ER [employer] COUNSEL[employer], Duration: 30 day, Stop date: 06/10/16 9:00:00 [employer]ER [employer] COUNSELOR Nifedical No Notes: Memori a XL 2-03 (Same as: l 15:00: Adalat CC, Procardia XL) Give on empty stomach. Take 1 hour before or 2 hours after meal; "Avoid grapefruit and grapefruit juice". Do not crush aspirin 81 0 No Notes: Do Me moria mg tablet, 2-03 not crush l enteric 15:00: or chew. Edward n coated (Same As: Ecotrin) Omeprazole No 20 mg, Memor ia 2-03 Route: PO, l 15:00: Drug form: [place] ECTAB, Daily, Dosing Weight 100, kg, Start date: 05/12/16 9:00:00 [employer]ER [employer] COUNSEL[employer], Duration: 30 day, Stop date: 06/10/16 9:00:00 [employer]ER [employer]EDIT COUNSELOR Nifedical No Notes: Memori a XL 2-03 (Same as: l 15:00: Adalat CC, [place] Procardia XL) Give on empty stomach. Take 1 hour before or 2 hours after meal; "Avoid grapefruit and grapefruit juice". Do not crush aspirin 81 0 No Notes: Do Me moria mg tablet, 2- not crush l enteric 15:00: or chew. Edward n coated (Same As: Ecotrin) Omeprazole No 20 mg, Memor ia 2-03 Route: PO, l 15:00: Drug form: [place] 00 ECTAB, Daily, Dosing Weight 100, kg, Start date: 05/12/16 9:00:00 [employer]ER [employer] COUNSELOR, Duration: 30 day, Stop date: 06/10/16 9:00:00 [employer]ER [employer]EDIT COUNSELOR Nifedical No Notes: Memori a XL 2-03 (Same as: l 15:00: Adalat CC, [place] 00 Procardia XL) Give on empty stomach. Take 1 hour before or 2 hours after meal; "Avoid grapefruit and grapefruit juice". Do not crush Dextrose 2017 No 50 mL, Memoria 50% in 2-03 Route: l Water IV 14:06: IVP, Start date: 05/12/16 8:06:00 [employer]SEL[employer], Duration: 30 day, Stop date: 06/11/16 8:05:00 [employer]ER [employer] COUNSELOR, PRN Blood Glucose Results NovoLOG 0 No Notes: Memoria FlexPen 2-03 Roll in l 14:06: palms of [place] 00 hands gently; Do not shake vigorously . (Same as: NovoLOG) "single patient use only" WASTE: F/P - Black; E - Municipal Trash Bin Stable for 28 days at room temperatur e. Expires in days from ____Date glucagon 0 No 1 mg, Memoria 05-12 Route: l 14:06: INJ, Drug [place] 00 form: PDR/INJ, PRN, PRN Blood Glucose Results, Start date: 05/12/16 8:06:00 [employer]ER [employer] COUNSELOR, Duration: 30 day, Stop date: 06/11/16 8:05:00 [employer]ER [employer]EDIT COUNSELOR Dextrose No 50 mL, Memoria 50% in 05-12 Route: l Water IV 14:06: IVP, Start date: 05/12/16 8:06:00 [employer]ER [employer] COUNSELOR, Duration: 30 day, Stop date: 06/11/16 8:05:00 [employer]ER [employer] COUNSELOR, PRN Blood Glucose Results NovoLOG No Notes: Memoria FlexPen 05-12 Roll in l 14:06: palms of [place] 00 hands gently; Do not shake vigorously . (Same as: NovoLOG) "single patient use only" WASTE: F/P - Black; E - Municipal Trash Bin Stable for 28 days at room temperatur e. Expires in days from ____Date glucagon 0 No 1 mg, Memoria 05-12 Route: l 14:06: INJ, Drug [place] form: PDR/INJ, PRN, PRN Blood Glucose Results, Start date: 05/12/16 8:06:00 [employer]ER [employer] COUNSELOR, Duration: 30 day, Stop date: 06/11/16 8:05:00 [employer]ER [employer] COUNSELOR Dextrose No 50 mL, Memoria 50% in 05-12 Route: l Water IV 14:06: IVP, Start date: 05/12/16 8:06:00 [employer]ER [employer] COUNSEL[employer], Duration: 30 day, Stop date: 06/11/16 8:05:00 [employer]ER [employer] COUNSELOR, PRN Blood Glucose Results NovoLOG No Notes: Memoria FlexPen 03 Roll in l 14:06: palms of [place] 00 hands gently; Do not shake vigorously . (Same as: NovoLOG) "single patient use only" WASTE: F/P - Black; E - Municipal Trash Bin Stable for 28 days at room temperatur e. Expires in days from ____Date glucagon No 1 mg, Memoria 05-12 Route: l 14:06: INJ, Drug [place] 00 form: PDR/INJ, PRN, PRN Blood Glucose Results, Start date: 05/12/16 8:06:00 [employer]ER [employer] COUNSELOR, Duration: 30 day, Stop date: 06/11/16 8:05:00 [employer]ER [employer]EDIT COUNSELOR NovoLOG No Notes: Memoria FlexPen 2- Roll in l 14:05: palms of [place] 00 hands gently; Do not shake vigorously . (Same as: NovoLOG) "single patient use only" WASTE: F/P - Black; E - Municipal Trash Bin Stable for 28 days at room temperatur e. Expires in days from ____Date NovoLOG No Notes: Memoria FlexPen 2- Roll in l 14:05: palms of [place] 00 hands gently; Do not shake vigorously . (Same as: NovoLOG) "single patient use only" WASTE: F/P - Black; E - Municipal Trash Bin Stable for 28 days at room temperatur e. Expires in days from ____Date NovoLOG No Notes: Memoria FlexPen 2-03 Roll in l 14:05: palms of [place] 00 hands gently; Do not shake vigorously . (Same as: NovoLOG) "single patient use only" WASTE: F/P - Black; E - Municipal Trash Bin Stable for 28 days at room temperatur e. Expires in days from ____Date pneumococca No Notes: Sukh tigist l capsular 2 (Same as: l polysacchar 03:29: Pneumovax H ermann reta type 1 18 23) vaccine / Refrigerat pneumococca e l capsular polysacchar reta type 10A vaccine / pneumococca l capsular polysacchar reta type 11A vaccine / pneumococca l capsular polysacchar reta type 12F vaccine / pneumococca l capsular polysacchar pneumococca No Notes: Sukh tigist l capsular 2-03 (Same as: l polysacchar 03:29: Pneumovax H ermann reta type 1 18 23) vaccine / Refrigerat pneumococca e l capsular polysacchar reta type 10A vaccine / pneumococca l capsular polysacchar reta type 11A vaccine / pneumococca l capsular polysacchar reta type 12F vaccine / pneumococca l capsular polysacchar pneumococca No Notes: Sukh tigist l capsular 2-03 (Same as: l polysacchar 03:29: Pneumovax H ermann reta type 1 18 23) vaccine / Refrigerat pneumococca e l capsular polysacchar reta type 10A vaccine / pneumococca l capsular polysacchar reta type 11A vaccine / pneumococca l capsular polysacchar reta type 12F vaccine / pneumococca l capsular polysacchar Saline No Notes: Memoria Flush 0.9% 2-03 (Same as: l 03:00: BD [place] 00 Posiflush) Enoxaparin No Notes: Memor ia 2-03 (Same as: l 03:00: Lovenox) [place] 00 Saline No Notes: Memoria Flush 0.9% 2-03 (Same as: l 03:00: BD [place] 00 Posiflush) Enoxaparin No Notes: Memor ia 2-03 (Same as: l 03:00: Lovenox) [place] 00 Saline No Notes: Memoria Flush 0.9% 2-03 (Same as: l 03:00: BD [place] 00 Posiflush) Enoxaparin No Notes: Memor ia 2-03 (Same as: l 03:00: Lovenox) [place] 00 Docusate No Notes: Memoria Sodium 100 2-02 (Same as: l MG Oral 23:00: Colace) [place] Capsule 00 (Do Not Crush) Docusate No Notes: Memoria Sodium 100 2-02 (Same as: l MG Oral 23:00: Colace) [place] Capsule 00 (Do Not Crush) Docusate No Notes: Memoria Sodium 100 2-02 (Same as: l MG Oral 23:00: Colace) [place] Capsule 00 (Do Not Crush) pantoprazol 2016-0 No Notes: Sukh tigist e 2-02 Tablet l 22:30: should not [place] 00 be chewed or crushed. (Same as: Protonix) pantoprazol 2016-0 No Notes: Sukh tigist e 2-02 Tablet l 22:30: should not [place] 00 be chewed or crushed. (Same as: Protonix) pantoprazol 2016-0 No Notes: Sukh tigist e 2-02 Tablet l 22:30: should not [place] 00 be chewed or crushed. (Same as: Protonix) glucagon 2016- No 1 mg, Memoria 05-11 Route: IV, l 19:33: Drug form: [place] 00 PDR/INJ, PRN, PRN Blood Glucose Results, Start date: 05/11/16 13:33:00 [employer]ER [employer] COUNSELOR, Duration: 30 day, Stop date: 06/10/16 13:32:00 [employer]ER [employer]EDIT COUNSELOR Dextrose 2016-0 No 50 mL, Memoria 50% in 05-11 Route: l Water IV 19:33: IVP, Start Her vernon 00 date: 05/11/16 13:33:00 [employer]ER [employer]EDIT COUNSELOR, Duration: 30 day, Stop date: 06/10/16 13:32:00 [employer]ER [employer]EDIT COUNSELOR, PRN Blood Glucose Results NovoLOG 2016-0 No Notes: Memoria FlexPen 05-11 Roll in l 19:33: palms of [place] 00 hands gently; Do not shake vigorously . (Same as: NovoLOG) "single patient use only" WASTE: F/P - Black; E - Municipal Trash Bin Stable for 28 days at room temperatur e. Expires in days from ____Date glucagon 2016-0 No 1 mg, Memoria 05-11 Route: IV, l 19:33: Drug form: [place] 00 PDR/INJ, PRN, PRN Blood Glucose Results, Start date: 05/11/16 13:33:00 [employer]ER [employer] COUNSELOR, Duration: 30 day, Stop date: 06/10/16 13:32:00 [employer]ER [employer]EDIT COUNSELOR Dextrose 2016-0 No 50 mL, Memoria 50% in 05-11 Route: l Water IV 19:33: IVP, Start Her vernon 00 date: 05/11/16 13:33:00 [employer]ER [employer]EDIT COUNSELOR, Duration: 30 day, Stop date: 06/10/16 13:32:00 [employer]ER [employer]EDIT COUNSELOR, PRN Blood Glucose Results NovoLOG No Notes: Memoria FlexPen 2-02 Roll in l 19:33: palms of [place] 00 hands gently; Do not shake vigorously . (Same as: NovoLOG) "single patient use only" WASTE: F/P - Black; E - Municipal Trash Bin Stable for 28 days at room temperatur e. Expires in days from ____Date glucagon No 1 mg, Memoria 2- Route: IV, l 19:33: Drug form: [place] 00 PDR/INJ, PRN, PRN Blood Glucose Results, Start date: 05/11/16 13:33:00 [employer]SUMER [employer]EDIT COUNSELOR, Duration: 30 day, Stop date: 06/10/16 13:32:00 [employer]SUMER CREDIT COUNSELOR Dextrose No 50 mL, Memoria 50% in 05-11 Route: l Water IV 19:33: IVP, Start Her vernon 00 date: 05/11/16 13:33:00 [employer]ER [employer]EDIT COUNSELOR, Duration: 30 day, Stop date: 06/10/16 13:32:00 [employer]SUMER CREDIT COUNSELOR, PRN Blood Glucose Results NovoLOG No Notes: Memoria FlexPen 2-02 Roll in l 19:33: palms of [place] 00 hands gently; Do not shake vigorously . (Same as: NovoLOG) "single patient use only" WASTE: F/P - Black; E - Municipal Trash Bin Stable for 28 days at room temperatur e. Expires in days from ____Date NovoLOG No Notes: Memoria FlexPen 2-02 Roll in l 19:32: palms of [place] 00 hands gently; Do not shake vigorously . (Same as: NovoLOG) "single patient use only" WASTE: F/P - Black; E - Municipal Trash Bin Stable for 28 days at room temperatur e. Expires in days from ____Date NovoLOG No Notes: Memoria FlexPen 2-02 Roll in l 19:32: palms of [place] 00 hands gently; Do not shake vigorously . (Same as: NovoLOG) "single patient use only" WASTE: F/P - Black; E - Municipal Trash Bin Stable for 28 days at room temperatur e. Expires in days from ____Date NovoLOG 2017-0 No Notes: Memoria FlexPen 2-02 Roll in l 19:32: palms of [place] 00 hands gently; Do not shake vigorously . (Same as: NovoLOG) "single patient use only" WASTE: F/P - Black; E - Municipal Trash Bin Stable for 28 days at room temperatur e. Expires in days from ____Date glucagon 2016-0 No 1 mg, Memoria 05-11 Route: l 17:10: INJ, Drug [place] form: PDR/INJ, PRN, PRN Blood Glucose Results, Start date: 05/11/16 11:10:00 [employer]ER [employer] COUNSELOR, Duration: 30 day, Stop date: 06/10/16 11:09:00 [employer]ER [employer]EDIT COUNSELOR Dextrose 2016-0 No 50 mL, Memoria 50% in 05-11 Route: l Water IV 17:10: IVP, Start Her vernon date: 05/11/16 11:10:00 [employer]ER [employer] COUNSELOR, Duration: 30 day, Stop date: 06/10/16 11:09:00 [employer]ER [employer]EDIT COUNSELOR, PRN Blood Glucose Results glucagon 2016-0 No 1 mg, Memoria 05-11 Route: l 17:10: INJ, Drug [place] form: PDR/INJ, PRN, PRN Blood Glucose Results, Start date: 05/11/16 11:10:00 [employer]ER [employer]EDIT COUNSELOR, Duration: 30 day, Stop date: 06/10/16 11:09:00 [employer]SUMER [employer]EDIT COUNSELOR Dextrose 2017-0 No 50 mL, Memoria 50% in 05-11 Route: l Water IV 17:10: IVP, Start Her vernon 00 date: 05/11/16 11:10:00 [employer]ER [employer]EDIT COUNSELOR, Duration: 30 day, Stop date: 06/10/16 11:09:00 [employer]ER [employer]EDIT COUNSELOR, PRN Blood Glucose Results glucagon 2016-0 No 1 mg, Memoria 05-11 Route: l 17:10: INJ, Drug [place] 00 form: PDR/INJ, PRN, PRN Blood Glucose Results, Start date: 05/11/16 11:10:00 [employer]ER [employer]EDIT COUNSELOR, Duration: 30 day, Stop date: 06/10/16 11:09:00 [employer]SUMER [employer]EDIT COUNSELOR Dextrose No 50 mL, Memoria 50% in 05-11 Route: l Water IV 17:10: IVP, Start Her vernon 00 date: 05/11/16 11:10:00 [employer]ER [employer]EDIT COUNSELOR, Duration: 30 day, Stop date: 06/10/16 11:09:00 [employer]ER [employer]EDIT COUNSELOR, PRN Blood Glucose Results NovoLOG No Notes: Memoria FlexPen 2- Roll in l 17:09: palms of [place] 00 hands gently; Do not shake vigorously . (Same as: NovoLOG) "single patient use only" WASTE: F/P - Black; E - Municipal Trash Bin Stable for 28 days at room temperatur e. Expires in days from ____Date NovoLOG No Notes: Memoria FlexPen - Roll in l 17:09: palms of [place] 00 hands gently; Do not shake vigorously . (Same as: NovoLOG) "single patient use only" WASTE: F/P - Black; E - Municipal Trash Bin Stable for 28 days at room temperatur e. Expires in days from ____Date NovoLOG No Notes: Memoria FlexPen 2- Roll in l 17:09: palms of [place] 00 hands gently; Do not shake vigorously . (Same as: NovoLOG) "single patient use only" WASTE: F/P - Black; E - Municipal Trash Bin Stable for 28 days at room temperatur e. Expires in days from ____Date Calcium No Notes: Memoria Carbonate - (Same As: l 500 MG 17:01: Tums) [place] Chewable 00 Calcium Tablet Carbonate 500 mg = 200 mg elemental calcium Dose = mg calcium carbonate ( mg elemental calcium) Calcium No Notes: Memoria Gluconate 2-02 WASTE: F/P l 17:01: - Sink; E [place] 00 - Municipal Trash Bin potassium No Notes: Memori a chloride 2-02 (Same as: l 17:01: KCL) [place] 00 Infuse no faster than 10 mEq/hr if given peripheral ly. sodium No 45 mmol, Memoria phosphate + 2-02 15 mL, l sodium 17:01: Route: [place] chloride 00 IVPB, PRN, 0.9% INJ Dosing 250 mL Weight 100, kg, PRN Abnormal Lab Result, Start date: 05/11/16 11:01:00 [employer]ER [employer] COUNSELOR, Duration: 30 day, Stop date: 06/10/16 11:00:00 [employer]SUMER [employer]EDIT COUNSELOR, FOR ICU USE ONLY sodium No 30 mmol, Memoria phosphate 2-02 250 mL, l 17:01: Route: [place] 00 IVPB, Drug form: INJ, PRN, Dosing Weight 100, kg, PRN Abnormal Lab Result, Start date: 05/11/16 11:01:00 [employer]ER [employer]EDIT COUNSELOR, Duration: 30 day, Stop date: 06/10/16 11:00:00 CONSUMER CREDIT COUNSELOR, FOR ICU USE ONLY potassium No Notes: Memori a phosphate 2-02 (Same as: l 17:01: K [place] 00 Phosphate) Magnesium No Notes: Memori a Sulfate 2-02 WASTE: F/P l 17:01: - Sink; E [place] 00 - Municipal Trash Bin potassium No Notes: Memori a phosphate-s 2-02 (Same as: l odium 17:01: Phos-NaK) [place] phosphate 00 Each 1.5 250 mg-280 gm pkt has mg-160 mg 250mg oral powder phosphorou for s. Mix reconstitut w/2.5oz ion water and stir. Magnesium No Notes: Memori a Oxide 2-02 (Same as: l 17:01: Mag-Ox [place] 00 400) Magnesium oxide [id number] g elemental magnesium Dose=____m g magnesium oxide (___mg elemental magnesium) potassium No Notes: Memori a phosphate + 2-02 (Same as: l sodium 17:01: K [place] chloride 00 Phosphate. 0.9% INJ ) 1 mMol 250 mL phoshate has 1.47 mEq potassium Infuse over 4 hours Saline No Notes: Memoria Flush 0.9% 2-02 preservati l 17:01: ve free. [place] 00 Albuterol No Notes: Memori a 0.833 MG/ML - (Same as: l / 17:01: Duoneb) Ipratropium Point 0.167 MG/ML Inhalant Solution Calcium No Notes: Memoria Carbonate 2- (Same As: l 500 MG 17:01: Tums) [place] Chewable 00 Calcium Tablet Carbonate 500 mg = 200 mg elemental calcium Dose = mg calcium carbonate ( mg elemental calcium) Calcium No Notes: Memoria Gluconate 2- WASTE: F/P l 17:01: - Sink; E - Municipal Trash Bin potassium No Notes: Memori a chloride 2- (Same as: l 17:01: KCL) Infuse no faster than 10 mEq/hr if given peripheral ly. sodium No 45 mmol, Memoria phosphate + 2-02 15 mL, l sodium 17:01: Route: [place] chloride 00 IVPB, PRN, 0.9% INJ Dosing 250 mL Weight 100, kg, PRN Abnormal Lab Result, Start date: 05/11/16 11:01:00 [employer]ER [employer] COUNSEL[employer], Duration: 30 day, Stop date: 06/10/16 11:00:00 [employer]SUMER CREDIT COUNSELOR, FOR ICU USE ONLY sodium No 30 mmol, Memoria phosphate 2-02 250 mL, l 17:01: Route: [place] 00 IVPB, Drug form: INJ, PRN, Dosing Weight 100, kg, PRN Abnormal Lab Result, Start date: 05/11/16 11:01:00 [employer]ER [employer]EDIT COUNSELOR, Duration: 30 day, Stop date: 06/10/16 11:00:00 CONSUMER CREDIT COUNSELOR, FOR ICU USE ONLY potassium No Notes: Memori a phosphate 2-02 (Same as: l 17:01: K [place] 00 Phosphate) Magnesium No Notes: Memori a Sulfate 2- WASTE: F/P l 17:01: - Sink; E - Municipal Trash Bin potassium No Notes: Memori a phosphate-s 2-02 (Same as: l odium 17:01: Phos-NaK) [place] phosphate 00 Each 1.5 250 mg-280 gm pkt has mg-160 mg 250mg oral powder phosphorou for s. Mix reconstitut w/2.5oz ion water and stir. Magnesium No Notes: Memori a Oxide - (Same as: l 17:01: Mag-Ox [place] 00 400) Magnesium oxide 531uk=825b g elemental magnesium Dose=____m g magnesium oxide (___mg elemental magnesium) potassium No Notes: Memori a phosphate + 2-02 (Same as: l sodium 17:01: K [place] chloride 00 Phosphate. 0.9% INJ ) 1 mMol 250 mL phoshate has 1.47 mEq potassium Infuse over 4 hours Saline No Notes: Memoria Flush 0.9% 05-11 preservati l 17:01: ve free. [place] 00 Albuterol No Notes: Memori a 0.833 MG/ML 05-11 (Same as: l / 17:01: Duoneb) [place] Ipratropium 00 Point 0.167 MG/ML Inhalant Solution Calcium No Notes: [facility] Carbonate - (Same As: l 500 MG 17:01: Tums) [place] Chewable 00 Calcium Tablet Carbonate 500 mg = 200 mg elemental calcium Dose = mg calcium carbonate ( mg elemental calcium) Calcium No Notes: [facility] Gluconate 05-11 WASTE: F/P l 17:01: - Sink; E [place] 00 - [employer] Trash Bin potassium No Notes: Memori a chloride 2- (Same as: l 17:01: KCL) [place] 00 Infuse no faster than 10 mEq/hr if given peripheral ly. sodium No 45 mmol, [facility]oria phosphate + 2-02 15 mL, l sodium 17:01: Route: [place] chloride 00 IVPB, PRN, 0.9% INJ Dosing 250 mL Weight 100, kg, PRN Abnormal Lab Result, Start date: 05/11/16 11:01:00 [employer]SUMER CREDIT COUNSELOR, Duration: 30 day, Stop date: 06/10/16 11:00:00 CONSUMER CREDIT COUNSELOR, FOR ICU USE ONLY sodium No 30 mmol, Memoria phosphate 2-02 250 mL, l 17:01: Route: [place] 00 IVPB, Drug form: INJ, PRN, Dosing Weight 100, kg, PRN Abnormal Lab Result, Start date: 05/11/16 11:01:00 [employer]SUMER CREDIT COUNSELOR, Duration: 30 day, Stop date: 06/10/16 11:00:00 CONSUMER CREDIT COUNSELOR, FOR ICU USE ONLY potassium No Notes: Memori a phosphate 2-02 (Same as: l 17:01: K [place] Phosphate) Magnesium No Notes: Memori a Sulfate - WASTE: F/P l 17:01: - Sink; E [place] 00 - Municipal Trash Bin potassium No Notes: Memori a phosphate-s - (Same as: l odium 17:01: Phos-NaK) [place] phosphate 00 Each 1.5 250 mg-280 gm pkt has mg-160 mg 250mg oral powder phosphorou for s. Mix reconstitut w/2.5oz ion water and stir. Magnesium No Notes: Memori a Oxide - (Same as: l 17:01: Mag-Ox [place] 00 400) Magnesium oxide 858ic=892f g elemental magnesium Dose=____m g magnesium oxide (___mg elemental magnesium) potassium No Notes: Memori a phosphate + 2-02 (Same as: l sodium 17:01: K [place] chloride 00 Phosphate. 0.9% INJ ) 1 mMol 250 mL phoshate has 1.47 mEq potassium Infuse over 4 hours Saline No Notes: Memoria Flush 0.9% 2 preservati l 17:01: ve free. [place] Albuterol No Notes: Memori a 0.833 MG/ML - (Same as: l / 17:01: Duoneb) [place] Ipratropium 00 Point 0.167 MG/ML Inhalant Solution 24 HR No Notes: [facility]oria Nifedipine 2-02 (Same as: l 60 MG 16:54: Adalat CC, Edward n Extended 00 Procardia Release XL) Give Tablet on empty stomach. Take 1 hour before or 2 hours after meal; "Avoid grapefruit and grapefruit juice". Do not crush 24 HR No Notes: [facility] Nifedipine 2-02 (Same as: l 60 MG 16:54: Adalat CC, Edward n Extended 00 Procardia Release XL) Give Tablet on empty stomach. Take 1 hour before or 2 hours after meal; "Avoid grapefruit and grapefruit juice". Do not crush 24 HR No Notes: [facility] Nifedipine 2-02 (Same as: l 60 MG 16:54: Adalat CC, Edward n Extended 00 Procardia Release XL) Give Tablet on empty stomach. Take 1 hour before or 2 hours after meal; "Avoid grapefruit and grapefruit juice". Do not crush Benadryl No Notes: Memoria 2-02 (Same as: l 16:00: Benadryl) Enoxaparin 2016-0 No 40 mg, Memor ia 2 Route: l 16:00: SUB-Q, Drug form: INJ, [id number], Dosing Weight 100, kg, Start date: 05/11/16 10:00:00 [employer]ER [employer] COUNSELOR, Duration: 30 day, Stop date: 06/09/16 10:00:00 [employer]ER [employer]EDIT COUNSELOR Benadryl 2016-0 No Notes: Memoria 2- (Same as: l 16:00: Benadryl) Enoxaparin 2016-0 No 40 mg, Memor ia 2- Route: l 16:00: SUB-Q, Drug form: INJ, [id number], Dosing Weight 100, kg, Start date: 05/11/16 10:00:00 [employer]ER [employer]EDIT COUNSELOR, Duration: 30 day, Stop date: 06/09/16 10:00:00 [employer]ER CREDIT COUNSELOR Benadryl 2016-0 No Notes: Memoria 2- (Same as: l 16:00: Benadryl) Enoxaparin 2016-0 No 40 mg, Memor ia 2- Route: l 16:00: SUB-Q, Drug form: INJ, [id number], Dosing Weight 100, kg, Start date: 05/11/16 10:00:00 [employer]ER [employer] COUNSELOR, Duration: 30 day, Stop date: 06/09/16 10:00:00 [employer]ER [employer] COUNSELOR cefuroxime 0 No Route: IV, M emoria (ANES) 2 Drug form: l 15:30: INJ, ONCE, [place] 00 Stop date: 05/11/16 9:30:00 [employer]ER [employer] COUNSELOR cefuroxime No Route: IV, M emoria (ANES) 2- Drug form: l 15:30: INJ, ONCE, [place] 00 Stop date: 05/11/16 9:30:00 [employer]ER [employer] COUNSELOR cefuroxime No Route: IV, M emoria (ANES) 2 Drug form: l 15:30: INJ, ONCE, Stop date: 05/11/16 9:30:00 CON[employer]ER CREDIT COUNSELOR POLYETHYLEN No Notes: Sukh tigist E GLYCOL - Dissolve l 3350 15:21: in 8 oz of water or juice. (Same as: Miralax) Saline No Notes: [facility] Flush 0.9% 05-11 (Same as: l 15:21: BD [place] 00 Posiflush) Ondansetron No Notes: Sukh tigist - (Same as: l 15:21: Zofran) MEDICATION WASTE Product Size: 4 mg Product Wasted: ___ mg Morphine No Notes: Memoria 2- (Same l 15:21: as:MORPhin [place] 00 e Sulfate) Dulcolax No Notes: [facility] Laxative - (Same As: l 15:21: Dulcolax, [place] 00 Correctol) (Do Not Crush) "Do Not Crush" Acetaminoph No Notes: Suhk tigist en 325 MG / 2- (Same as: l Hydrocodone 15:21: Bapchule Jess nn Bitartrate 00 325/5) Do 5 MG Oral not exceed Tablet 4gm/day of acetaminop hen. acetaminoph No Notes: Do M emoria en-codeine 2-02 not exceed l #3 15:21: 4gm/day of [place] 00 acetaminop hen. (Same as: Tylenol with Codeine # 3) Acetaminoph No Notes: Do M emoria en 2-02 not exceed l 15:21: 4 gm/day. [place] (Same as: Tylenol) POLYETHYLEN No Notes: Sukh tigist E GLYCOL 2-02 Dissolve l 3350 15:21: in 8 oz of [place] 00 water or juice. (Same as: Miralax) Saline No Notes: [facility] Flush 0.9% 2-02 (Same as: l 15:21: BD [place] 00 Posiflush) Ondansetron No Notes: Sukh tigist 2-02 (Same as: l 15:21: Zofran) [place] 00 MEDICATION WASTE Product Size: 4 mg Product Wasted: ___ mg Morphine No Notes: Memoria 2-02 (Same l 15:21: as:MORPhin [place] 00 e Sulfate) Dulcolax No Notes: [facility] Laxative 2-02 (Same As: l 15:21: Dulcolax, [place] 00 Correctol) (Do Not Crush) "Do Not Crush" Acetaminoph No Notes: Sukh tigist en 325 MG / 2-02 (Same as: l Hydrocodone 15:21: Bapchule Jess nn Bitartrate 00 325/5) Do 5 MG Oral not exceed Tablet 4gm/day of acetaminop hen. acetaminoph No Notes: Do M emoria en-codeine 2-02 not exceed l #3 15:21: 4gm/day of [place] 00 acetaminop hen. (Same as: Tylenol with Codeine # 3) Acetaminoph No Notes: Do M emoria en 2-02 not exceed l 15:21: 4 gm/day. [place] 00 (Same as: Tylenol) POLYETHYLEN No Notes: Sukh tigist E GLYCOL 2-02 Dissolve l 3350 15:21: in 8 oz of [place] 00 water or juice. (Same as: Miralax) Saline No Notes: [facility] Flush 0.9% 2-02 (Same as: l 15:21: BD [place] 00 Posiflush) Ondansetron No Notes: Sukh tigist 2-02 (Same as: l 15:21: Zofran) [place] 00 MEDICATION WASTE Product Size: 4 mg Product Wasted: ___ mg Morphine No Notes: Memoria - (Same l 15:21: as:MORPhin e Sulfate) Dulcolax No Notes: [facility] Laxative 05-11 (Same As: l 15:21: Dulcolax, [place] 00 Correctol) (Do Not Crush) "Do Not Crush" Acetaminoph No Notes: Sukh tigist en 325 MG / 05-11 (Same as: l Hydrocodone 15:21: Bapchule Jess nn Bitartrate 00 325/5) Do 5 MG Oral not exceed Tablet 4gm/day of acetaminop hen. acetaminoph No Notes: Do M emoria en-codeine 05-11 not exceed l #3 15:21: 4gm/day of [place] acetaminop hen. (Same as: Tylenol with Codeine # 3) Acetaminoph No Notes: Do M emoria en - not exceed l 15:21: 4 gm/day. [place] (Same as: Tylenol) vancomycin No Route: IV, M emoria (ANES) 05-11 Drug form: l 15:19: INJ, ONCE, Stop date: 05/11/16 9:19:00 [employer]ER [employer] COUNSELOR heparin No Route: IV, Sukh tigist (ANES) 05-11 Drug form: l 15:19: INJ, ONCE, Stop date: 05/11/16 9:19:00 CONSUMER CREDIT COUNSELOR protamine No Route: IV, Me moria (ANES) 05-11 Drug form: l 15:19: INJ, ONCE, [place] 00 Stop date: 05/11/16 9:19:00 CONSUMER CREDIT COUNSELOR vancomycin No Route: IV, M emoria (ANES) 05-11 Drug form: l 15:19: INJ, ONCE, [place] 00 Stop date: 05/11/16 9:19:00 CONSUMER CREDIT COUNSELOR heparin No Route: IV, Sukh tigist (ANES) 05-11 Drug form: l 15:19: INJ, ONCE, [place] 00 Stop date: 05/11/16 9:19:00 CONSUMER CREDIT COUNSELOR protamine No Route: IV, Me moria (ANES) 2 Drug form: l 15:19: INJ, ONCE, [place] 00 Stop date: 05/11/16 9:19:00 CONSUMER CREDIT COUNSELOR vancomycin 2017-0 No Route: IV, Sonia emoria (ANES) 2- Drug form: l 15:19: INJ, ONCE, [place] 00 Stop date: 05/11/16 9:19:00 CONSUMER CREDIT COUNSELOR heparin 2017-0 No Route: IV, Sukh tigist (ANES) 2 Drug form: l 15:19: INJ, ONCE, [place] 00 Stop date: 05/11/16 9:19:00 CONSUMER CREDIT COUNSELOR protamine 2017-0 No Route: IV, Me moria (ANES) 2- Drug form: l 15:19: INJ, ONCE, [place] 00 Stop date: 05/11/16 9:19:00 CONSUMER CREDIT COUNSELOR midazolam 2017-0 No Route: IV, Me moria (ANES) 2- Drug form: l 14:44: SOLN, [place] 00 ONCE, Stop date: 05/11/16 8:44:00 CONSUMER CREDIT COUNSELOR lidocaine 2017-0 No Route: IV, Me moria (ANES) 2- Drug form: l 14:44: INJ, ONCE, [place] 00 Stop date: 05/11/16 8:44:00 CONSUMER CREDIT COUNSELOR propofol 2017-0 No Route: IV, Mem oria (ANES) 2- Drug form: l 14:44: INJ, ONCE, [place] 00 Stop date: 05/11/16 8:44:00 CONSUMER CREDIT COUNSELOR fentaNYL 2017-0 No Route: IV, Mem oria (ANES) 2- Drug form: l 14:44: INJ, ONCE, [place] Stop date: 05/11/16 8:44:00 CONSUMER CREDIT COUNSELOR midazolam 2017-0 No Route: IV, Me moria (ANES) 2- Drug form: l 14:44: SOLN, [place] 00 ONCE, Stop date: 05/11/16 8:44:00 CONSUMER CREDIT COUNSELOR lidocaine 2017-0 No Route: IV, Me moria (ANES) 2- Drug form: l 14:44: INJ, ONCE, [place] 00 Stop date: 05/11/16 8:44:00 CONSUMER CREDIT COUNSELOR propofol 2017-0 No Route: IV, Mem oria (ANES) 2- Drug form: l 14:44: INJ, ONCE, [place] 00 Stop date: 05/11/16 8:44:00 CONSUMER CREDIT COUNSELOR fentaNYL No Route: IV, Mem oria (ANES) 2- Drug form: l 14:44: INJ, ONCE, Stop date: 05/11/16 8:44:00 CONSUMER CREDIT COUNSELOR midazolam No Route: IV, Me moria (ANES) 2- Drug form: l 14:44: SOLN, ONCE, Stop date: 05/11/16 8:44:00 CONSUMER CREDIT COUNSELOR lidocaine No Route: IV, Me moria (ANES) 2- Drug form: l 14:44: INJ, ONCE, Stop date: 05/11/16 8:44:00 CONSUMER CREDIT COUNSELOR propofol No Route: IV, Mem oria (ANES) 2- Drug form: l 14:44: INJ, ONCE, Stop date: 05/11/16 8:44:00 CONSUMER CREDIT COUNSELOR fentaNYL No Route: IV, Mem oria (ANES) 2- Drug form: l 14:44: INJ, ONCE, Stop date: 05/11/16 8:44:00 CONSUMER CREDIT COUNSELOR LR 1000 mL No Route: IV, M emoria INJ (ANES) 2- Total l 14:05: Volume: [place] 00 1,000, Start date: 05/11/16 8:05:00 CONSUMER CREDIT COUNSELOR, Stop date: 05/11/16 9:05:00 CONSUMER CREDIT COUNSELOR LR 1000 mL No Route: IV, M emoria INJ (ANES) 2-02 Total l 14:05: Volume: [place] 00 1,000, Start date: 05/11/16 8:05:00 CONSUMER CREDIT COUNSELOR, Stop date: 05/11/16 9:05:00 CONSUMER CREDIT COUNSELOR LR 1000 mL No Route: IV, M emoria INJ (ANES) 2-02 Total l 14:05: Volume: [place] 00 1,000, Start date: 05/11/16 8:05:00 CONSUMER CREDIT COUNSELOR, Stop date: 05/11/16 9:05:00 CONSUMER CREDIT COUNSELOR Omnipaque 2015-04 Yes Notes: Memori a 350 2-08 (same l injectable 14:22: as:Omnipaq H ermann solution 00 ue 350). WASTE: F/P - Black; E - Municipal Trash Bin Omnipaque 2015-04 Yes Notes: Memori a 350 2-08 (same l injectable 14:22: as:Omnipaq H ermann solution 00 ue 350). WASTE: F/P - Black; E - Municipal Trash Bin Omnipaque 2015-04 Yes Notes: Memori a 350 2-08 (same l injectable 14:22: as:Omnipaq H ermann solution 00 ue 350). WASTE: F/P - Black; E - Municipal Trash Bin Immunizations Ordered Filled Immunization Date Status Comments [facility] e Immunization Name Name SARS-COV-2 COVID-19 2021-02-19 Completed [facility]ive [facility] of MODERNA 0.5ML 00:00:00 [facility] SARS-COV-2 COVID-19 2021-02-19 Completed Unive [facility] of MODERNA 0.5ML 00:00:00 [facility] SARS-COV-2 COVID-19 2021-02-19 Completed Unive rs[facility] of MODERNA 0.5ML 00:00:00 [facility] SARS-COV-2 COVID-19 2021-02-19 Completed Unive rs[facility] of MODERNA 0.5ML 00:00:00 [facility] SARS-COV-2 COVID-19 2021-02-19 Completed [facility]ive [facility] of MODERNA 0.5ML 00:00:00 [facility] SARS-COV-2 COVID-19 2021-02-19 Completed Unive [facility] of MODERNA 0.5ML 00:00:00 [facility] SARS-COV-2 COVID-19 2021-02-19 Completed Unive rsity of MODERNA 0.5ML 00:00:00 [facility] SARS-COV-2 COVID-19 2021-02-19 Completed Unive rs[facility] of MODERNA 0.5ML 00:00:00 [facility] SARS-COV-2 COVID-19 2021-02-19 Completed [facility]ive rs[facility] of MODERNA 0.5ML 00:00:00 [facility] SARS-COV-2 COVID-19 2021-02-19 Completed [facility]ive [facility] of MODERNA 0.5ML 00:00:00 [facility] SARS-COV-2 COVID-19 2021-02-19 Completed [facility]ive rs[facility] of MODERNA 0.5ML 00:00:00 [facility] SARS-COV-2 COVID-19 2021-02-19 Completed [facility]ive rs[facility] of MODERNA 0.5ML 00:00:00 [facility]ACC[facility] SARS-COV-2 COVID-19 2021-02-19 Completed Unive rs[facility] of MODERNA 0.5ML 00:00:00 [facility]ACC[facility] SARS-COV-2 COVID-19 2021-02-19 Completed [facility]ive rs[facility] of MODERNA 0.5ML 00:00:00 [facility] SARS-COV-2 COVID-19 2021-02-19 Completed [facility]ive rs[facility] of MODERNA 0.5ML 00:00:00 [facility] SARS-COV-2 COVID-19 2021-02-19 Completed Unive rsity of MODERNA 0.5ML 00:00:00 [facility]ACC[facility] SARS-COV-2 COVID-19 2021-02-19 Completed Unive rsity of MODERNA 0.5ML 00:00:00 [facility]ACC[facility] SARS-COV-2 COVID-19 2021-02-19 Completed [facility]ive rs[facility] of MODERNA 0.5ML 00:00:00 [facility]ACC[facility] SARS-COV-2 COVID-19 2021-02-19 Completed Unive rsity of MODERNA 0.5ML 00:00:00 [facility]ACC[facility] SARS-COV-2 COVID-19 2021-02-19 Completed Unive rsity of MODERNA 0.5ML 00:00:00 [facility]ACC[facility] SARS-COV-2 COVID-19 2021-02-19 Completed Unive rsity of MODERNA 0.5ML 00:00:00 [facility]ACC[facility] SARS-COV-2 COVID-19 2021-02-19 Completed Unive rsity of MODERNA 0.5ML 00:00:00 [facility]ACC[facility] SARS-COV-2 COVID-19 2021-02-19 Completed Unive rsity of MODERNA 0.5ML 00:00:00 [facility]ACC[facility] SARS-COV-2 COVID-19 2021-02-19 Completed Unive rsity of MODERNA 0.5ML 00:00:00 [facility]ACC[facility] SARS-COV-2 COVID-19 2021-02-19 Completed Unive rsity of MODERNA 0.5ML 00:00:00 [facility]ACC[facility] SARS-COV-2 COVID-19 2021-02-19 Completed Unive rsity of MODERNA 0.5ML 00:00:00 [facility]ACC[facility] SARS-COV-2 COVID-19 2021-02-19 Completed Unive rsity of MODERNA 0.5ML 00:00:00 [facility]ACC[facility] SARS-COV-2 COVID-19 2021-02-19 Completed Unive rsity of MODERNA 0.5ML 00:00:00 [facility]ACC[facility] SARS-COV-2 COVID-19 2021-02-19 Completed Unive rsity of MODERNA 0.5ML 00:00:00 [facility]ACC[facility] SARS-COV-2 COVID-19 2021-02-19 Completed Unive rsity of MODERNA 0.5ML 00:00:00 [facility]ACC[facility] SARS-COV-2 COVID-19 2021-02-19 Completed Unive rsity of MODERNA 0.5ML 00:00:00 [facility]ACC[facility] SARS-COV-2 COVID-19 2021-02-19 Completed Unive rs[facility] of MODERNA 0.5ML 00:00:00 [facility]ACC[facility] SARS-COV-2 COVID-19 2021-02-19 Completed Unive rsity of MODERNA 0.5ML 00:00:00 [facility]ACC[facility] SARS-COV-2 COVID-19 2021-02-19 Completed Unive rsity of MODERNA 0.5ML 00:00:00 [facility]ACC[facility] SARS-COV-2 COVID-19 2021-02-19 Completed Unive rsity of MODERNA 0.5ML 00:00:00 [facility] SARS-COV-2 COVID-19 2021-02-19 Completed Unive rsity of MODERNA 0.5ML 00:00:00 [facility]ACC[facility] SARS-COV-2 COVID-19 2021-02-19 Completed Unive rsity of MODERNA 0.5ML 00:00:00 [facility]ACC[facility] SARS-COV-2 COVID-19 2021-02-19 Completed Unive rsity of MODERNA 0.5ML 00:00:00 [facility]ACC[facility] SARS-COV-2 COVID-19 2021-02-19 Completed Unive rsity of MODERNA 0.5ML 00:00:00 [facility] SARS-COV-2 COVID-19 2021-02-19 Completed Unive rs[facility] of MODERNA 0.5ML 00:00:00 [facility] SARS-COV-2 COVID-19 2020-06-18 Completed Unive rsity of CAROLYN/J&J VACCINE 00:00:00 [facility] SARS-COV-2 COVID-19 2020-06-18 Completed Unive rsity of CAROLYN/J&J VACCINE 00:00:00 [facility] SARS-COV-2 COVID-19 2020-06-18 Completed Unive rsity of CAROLYN/J&J VACCINE 00:00:00 [facility] SARS-COV-2 COVID-19 2020-06-18 Completed Unive rsity of CAROLYN/J&J VACCINE 00:00:00 [facility] SARS-COV-2 COVID-19 2020-06-18 Completed Unive rsity of CAROYLN/J&J VACCINE 00:00:00 [facility] SARS-COV-2 COVID-19 2020-06-18 Completed Unive rsity of CAROLYN/J&J VACCINE 00:00:00 [facility] SARS-COV-2 COVID-19 2020-06-18 Completed Unive rsity of CAROLYN/J&J VACCINE 00:00:00 [facility] SARS-COV-2 COVID-19 2020-06-18 Completed Unive rsity of CAROLYN/J&J VACCINE 00:00:00 [facility] SARS-COV-2 COVID-19 2020-06-18 Completed Unive rsity of CAROLYN/J&J VACCINE 00:00:00 [facility] SARS-COV-2 COVID-19 2020-06-18 Completed Unive rsity of CAROLYN/J&J VACCINE 00:00:00 [facility] SARS-COV-2 COVID-19 2020-06-18 Completed Unive rsity of CAROLYN/J&J VACCINE 00:00:00 [facility] SARS-COV-2 COVID-19 2020-06-18 Completed Unive rsity of CAROLYN/J&J VACCINE 00:00:00 [facility] SARS-COV-2 COVID-19 2020-06-18 Completed Unive rsity of CAROLYN/J&J VACCINE 00:00:00 [facility] SARS-COV-2 COVID-19 2020-06-18 Completed Unive rsity of CAROLYN/J&J VACCINE 00:00:00 [facility] SARS-COV-2 COVID-19 2020-06-18 Completed Unive rsity of CAROLYN/J&J VACCINE 00:00:00 [facility] SARS-COV-2 COVID-19 2020-06-18 Completed Unive rsity of CAROLYN/J&J VACCINE 00:00:00 [facility] SARS-COV-2 COVID-19 2020-06-18 Completed Unive rsity of CAROLYN/J&J VACCINE 00:00:00 [facility] SARS-COV-2 COVID-19 2020-06-18 Completed Unive rsity of CAROLYN/J&J VACCINE 00:00:00 [facility] SARS-COV-2 COVID-19 2020-06-18 Completed Unive rsity of CAROLYN/J&J VACCINE 00:00:00 [facility] SARS-COV-2 COVID-19 2020-06-18 Completed Unive rsity of CAROLYN/J&J VACCINE 00:00:00 [facility] SARS-COV-2 COVID-19 2020-06-18 Completed Unive rsity of CAROLYN/J&J VACCINE 00:00:00 [facility] SARS-COV-2 COVID-19 2020-06-18 Completed Unive rsity of CAROLYN/J&J VACCINE 00:00:00 [facility] SARS-COV-2 COVID-19 2020-06-18 Completed Unive rsity of CAROLYN/J&J VACCINE 00:00:00 [facility] SARS-COV-2 COVID-19 2020-06-18 Completed Unive rsity of CAROLYN/J&J VACCINE 00:00:00 [facility] SARS-COV-2 COVID-19 2020-06-18 Completed Unive rsity of CAROLYN/J&J VACCINE 00:00:00 [facility] SARS-COV-2 COVID-19 2020-06-18 Completed Unive rsity of CAROLYN/J&J VACCINE 00:00:00 [facility] SARS-COV-2 COVID-19 2020-06-18 Completed Unive rsity of CAROLYN/J&J VACCINE 00:00:00 [facility] SARS-COV-2 COVID-19 2020-06-18 Completed Unive rsity of CAROLYN/J&J VACCINE 00:00:00 [facility] SARS-COV-2 COVID-19 2020-06-18 Completed Unive rsity of CAROLYN/J&J VACCINE 00:00:00 [facility] SARS-COV-2 COVID-19 2020-06-18 Completed Unive rsity of CAROLYN/J&J VACCINE 00:00:00 [facility] SARS-COV-2 COVID-19 2020-06-18 Completed Unive rsity of CAROLYN/J&J VACCINE 00:00:00 [facility] SARS-COV-2 COVID-19 2020-06-18 Completed Unive rsity of CAROLYN/J&J VACCINE 00:00:00 [facility] SARS-COV-2 COVID-19 2020-06-18 Completed Unive rsity of CAROLYN/J&J VACCINE 00:00:00 [facility] SARS-COV-2 COVID-19 2020-06-18 Completed Unive rsity of CAROLYN/J&J VACCINE 00:00:00 [facility] SARS-COV-2 COVID-19 2020-06-18 Completed Unive rsity of CAROLYN/J&J VACCINE 00:00:00 [facility] SARS-COV-2 COVID-19 2020-06-18 Completed Unive rsity of CAROLYN/J&J VACCINE 00:00:00 [facility] SARS-COV-2 COVID-19 2020-06-18 Completed Unive rsity of CAROLYN/J&J VACCINE 00:00:00 [facility] SARS-COV-2 COVID-19 2020-06-18 Completed Unive rsity of CAROLYN/J&J VACCINE 00:00:00 [facility] SARS-COV-2 COVID-19 2020-06-18 Completed Unive rsity of CAROLYN/J&J VACCINE 00:00:00 [facility] SARS-COV-2 COVID-19 2020-06-18 Completed Unive rs[facility] of CAROLYN/J&J VACCINE 00:00:00 [facility] Vital Signs Vital Name Observation Time Observation Value Comments Source Systolic blood 2022-07-13 145 mm[Hg] [facility] pressure 15:22:00 [facility] Diastolic blood 2022-07-13 72 mm[Hg] [facility] pressure 15:22:00 [facility] Heart rate 2022-07-13 56 /min [facility] 15:22:00 [facility] Body height 2022-07-13 177.8 cm [facility] 15:21:00 [facility] Body weight 2022-07-13 88.406 kg [facility] 15:21:00 [facility] BMI 2022-07-13 27.97 kg/m2 [facility] 15:21:00 [facility] Body height 2022-06-15 177.8 cm [facility] 17:25:00 [facility] Body weight 2022-06-15 88.451 kg [facility] 17:25:00 [facility] BMI 2022-06-15 27.98 kg/m2 [facility] 17:25:00 [facility] Body height 2022-06-08 177.8 cm [facility] 16:14:00 [facility] Body weight 2022-06-08 88.451 kg [facility] 16:14:00 [facility] BMI 2022-06-08 27.98 kg/m2 [facility] 16:14:00 [facility] Systolic blood 2022-06-06 130 mm[Hg] [facility] pressure 23:00:00 [facility] Diastolic blood 2022-06-06 84 mm[Hg] [facility] pressure 23:00:00 [facility] Respiratory rate 2022-06-06 19 /min [facility] 23:00:00 [facility] Heart rate 2022-06-06 73 /min [facility] 22:00:00 [facility] Oxygen saturation 2022-06-06 91 /min [facility] Arterial blood 22:00:00 [facility] by Pulse oximetry [place] Body temperature 2022-06-06 36.89 [place] [facility] 18:38:00 [facility] Body weight 2022-06-06 88.451 kg [facility] 18:38:00 [facility] BMI 2022-06-06 27.98 kg/m2 [facility] 18:38:00 [facility] Systolic blood 2022-05-22 156 mm[Hg] Did not take BP [facility] pressure 21:41:00 meds today [facility] Diastolic blood 2022-05-22 106 mm[Hg] Did not take BP [facility] pressure 21:41:00 meds today [facility] Heart rate 2022-05-22 116 /min [facility] 21:37:00 [facility] Body temperature 2022-05-22 36.44 [place] [facility] 21:37:00 [facility] Respiratory rate 2022-05-22 12 /min [facility] 21:37:00 [facility] Body height 2022-05-22 177.8 cm [facility] 21:37:00 [facility] Body weight 2022-05-22 88.542 kg [facility] 21:37:00 [facility] BMI 2022-05-22 28.01 kg/m2 [facility] 21:37:00 [facility] Oxygen saturation 2022-05-22 98 /min [facility] in Arterial blood 21:37:00 [facility] Pulse oximetry [place] Systolic blood 2022-03-14 139 mm[Hg] [facility] pressure 18:58:00 [facility] Diastolic blood 2022-03-14 78 mm[Hg] [facility] pressure 18:58:00 [facility] Heart rate 2022-03-14 80 /min [facility] 18:58:00 [facility] Body temperature 2022-03-14 36.83 [place] [facility] 18:58:00 [facility] Body weight 2022-03-14 93.441 kg [facility] 18:58:00 [facility] BMI 2022-03-14 29.56 kg/m2 [facility] 18:58:00 [facility] Systolic blood 2021-09-02 172 mm[Hg] [facility] pressure 19:13:00 [facility] Diastolic blood 2021-09-02 82 mm[Hg] [facility] pressure 19:13:00 [facility] Heart rate 2021-09-02 73 /min [facility] 19:07:00 [facility] Body height 2021-09-02 177.8 cm [facility] 19:07:00 [facility] Body weight 2021-09-02 97.523 kg [facility] 19:07:00 [facility] BMI 2021-09-02 30.85 kg/m2 University of 19:07:00 [facility] Oxygen saturation 2021-09-02 97 /min University in Arterial blood 19:07:00 [facility] by Pulse oximetry Branch Respitory Rate 2016-10-25 [facility] 17:41:00 Systolic (mm Hg) 2016-10-25 [facility] 17:41:00 Diastolic (mm Hg) 2016-10-25 [facility] 17:41:00 Respitory Rate 2016-10-25 [facility] 17:26:00 Systolic (mm Hg) 2016-10-25 [facility] 17:26:00 Diastolic (mm Hg) 2016-10-25 [facility] 17:26:00 Respitory Rate 2016-10-25 [facility] 17:11:00 Systolic (mm Hg) 2016-10-25 [facility] 17:11:00 Diastolic (mm Hg) 2016-10-25 [facility] 17:11:00 Temperature Oral 2016-10-25 98 F [facility] (F) 15:09:00 Height 2016-10-23 177.8 cm [facility] 19:49:00 Weight 2016-10-23 [facility] 19:49:00 BMI Calculated 2016-10-23 [facility] 19:49:00 Respitory Rate 2016-09-28 [facility] 15:19:00 Systolic (mm Hg) 2016-09-28 [facility] 15:19:00 Diastolic (mm Hg) 2016-09-28 [facility] 15:19:00 Respitory Rate 2016-09-28 [facility] 15:04:00 Systolic (mm Hg) 2016-09-28 [facility] 15:04:00 Diastolic (mm Hg) 2016-09-28 [facility] 15:04:00 Respitory Rate 2016-09-28 [facility] 14:49:00 Systolic (mm Hg) 2016-09-28 [facility] 14:49:00 Diastolic (mm Hg) 2016-09-28 [facility] 14:49:00 BMI Calculated 2016-09-28 [facility] 13:41:00 Weight 2016-09-28 [facility] n 13:41:00 Height 2016-09-27 177.8 cm [facility] n 18:46:00 Respitory Rate 2016-09-13 [facility] 15:00:00 Systolic (mm Hg) 2016-09-13 [facility] 15:00:00 Diastolic (mm Hg) 2016-09-13 [facility] 15:00:00 Systolic (mm Hg) 2016-09-13 [facility] 14:45:00 Diastolic (mm Hg) 2016-09-13 [facility] 14:45:00 Respitory Rate 2016-09-13 [facility] 14:45:00 Systolic (mm Hg) 2016-09-13 [facility] 14:30:00 Diastolic (mm Hg) 2016-09-13 [facility] 14:30:00 Respitory Rate 2016-09-13 [facility] 14:30:00 Temperature Oral 2016-09-13 98.2 F [facility] (F) 12:59:00 BMI Calculated 2016-09-13 [facility] 12:36:00 Weight 2016-09-13 [facility] n 12:36:00 Height 2016-09-11 177.8 cm [facility] 15:38:00 Respitory Rate 2016-08-22 [facility] 21:50:00 Heart Rate 2016-08-22 [facility] 21:50:00 Temperature Oral 2016-08-22 98.2 F [facility] (F) 21:50:00 Systolic (mm Hg) 2016-08-22 [facility] 21:50:00 Diastolic (mm Hg) 2016-08-22 [facility] 21:50:00 Weight 2016-08-22 [facility] n 18:50:00 Respitory Rate 2016-08-22 [facility] 18:50:00 Heart Rate 2016-08-22 [facility] 18:50:00 Temperature Oral 2016-08-22 98.0 F [facility] (F) 18:50:00 Height 2016-08-22 167.64 cm [facility] 18:50:00 Systolic (mm Hg) 2016-08-22 [facility] 18:50:00 Diastolic (mm Hg) 2016-08-22 [facility] 18:50:00 BMI Calculated 2016-08-22 [facility] 18:50:00 Heart Rate 2016-08-13 [facility] n 17:00:00 Systolic (mm Hg) 2016-08-13 [facility] 17:00:00 Diastolic (mm Hg) 2016-08-13 [facility] 17:00:00 Respitory Rate 2016-08-13 [facility] 17:00:00 Heart Rate 2016-08-13 [facility] n 12:51:00 Systolic (mm Hg) 2016-08-13 [facility] 12:51:00 Diastolic (mm Hg) 2016-08-13 [facility] 12:51:00 Respitory Rate 2016-08-13 [facility] 12:51:00 Heart Rate 2016-08-13 [facility] n 09:00:00 Respitory Rate 2016-08-13 [facility] 09:00:00 Systolic (mm Hg) 2016-08-13 [facility] 09:00:00 Diastolic (mm Hg) 2016-08-13 [facility] 09:00:00 Temperature Oral 2016-08-11 98.8 F [facility] (F) 21:00:00 Temperature Oral 2016-08-10 98.2 F [facility] (F) 11:30:00 Height 2016-08-03 177.8 cm [facility] 14:37:00 Weight 2016-08-03 [facility] 14:37:00 BMI Calculated 2016-08-03 [facility] 14:37:00 Temperature Oral 2016-08-03 97.9 F [facility] (F) 14:36:00 Respitory Rate 2016-05-12 [facility] 20:00:00 Respitory Rate 2016-05-12 [facility] 19:00:00 Systolic (mm Hg) 2016-05-12 [facility] 19:00:00 Diastolic (mm Hg) 2016-05-12 [facility] 19:00:00 Respitory Rate 2016-05-12 [facility] 18:00:00 Systolic (mm Hg) 2016-05-12 [facility] 18:00:00 Diastolic (mm Hg) 2016-05-12 [facility] 18:00:00 Systolic (mm Hg) 2016-05-12 [facility] 17:00:00 Diastolic (mm Hg) 2016-05-12 [facility] 17:00:00 Temperature Oral 2016-05-11 98.5 F [facility] (F) 12:30:00 BMI Calculated 2016-05-05 [facility] 15:47:00 Height 2016-05-05 177.8 cm [facility] 15:47:00 Weight 2016-05-05 Grecia Leon n 15:47:00 Procedures Procedure Date / Time Performing Clinician Source Performed REFERRAL- REQUEST/RESPONSE 2022-08-23 05:01:00 Doctor Loo [facility] HOME HEALTH - OTHER 2022-07-27 05:01:00 Doctor Loo [facility] Medical [place] CT THORAX WO CONTRAST 2022-06-06 21:07:32 Yovani Green [facility] CT SHOULDER LEFT WO 2022-06-06 21:07:32 Yovani Green [facility] CONTRAST Medical Branch COMP. METABOLIC PANEL 2022-06-06 20:45:00 Yovani Green [facility] ([id number]) Medical [place] CBC WITH DIFF 2022-06-06 20:45:00 Yovani Green [place] [facility] PROTHROMBIN TIME / INR 2022-06-06 20:45:00 Yovani [facility] ACTIVATED PARTIAL THRMPLAS 2022-06-06 20:45:00 Yovani Green [facility] XR RIBS 3 VW LEFT 2022-06-06 19:49:04 Yovani Green [facility] XR SHOULDER 2+ VW LEFT 2022-06-06 19:49:04 Y[facility]ani [facility] CONSENT/REFUSAL FOR 2022-06-06 18:31:49 Doctor Eze [facility] DIAGNOSIS AND TREATMENT [place] [facility] [place] XR RIBS 3 VW BILATERAL 2022-05-22 22:19:17 [facility] EXTERNAL PROVIDER RECORDS 2021-11-17 05:01:00 Doctor Loo [facility] - OTHER 2021-09-15 05:01:00 [facility] [place] [facility] [place] HOME HEALTH - OTHER 2021-08-12 05:01:00 Doctor Loo [facility] [place] Injection 2016-09-28 05:00:00 Grecia Irby vernon Epidural steroid 2016-09-13 05:00:00 Grecia Mercado rmann injection<sup>1</sup> Femoral-popliteal artery 2016-08-10 05:00:00 Mem orial Uriah bypass graft Abdominal aortogram 2016-05-11 06:00:00 [facility] Arthrosc[facility] of knee [facility] vernon Cholecystectomy [facility] Colonoscopy [facility] Encounters Start End Encounter Admission Attending Care Care Encounter Source Date/Time Date/Time Type Type Clinicians Facility Department ID 2022-10-06 2022-10-06 Outpatient Ana Rosa WHALEY [facility] [id number] Univers 11:15:00 11:15:00 [facility] 2022-09-20 2022-09-20 [facility] [id number] Univers 14:45:00 14:45:00 [facility] 2022-08-23 2022-08-23 Orders Doctor GREGOR 1.2.840.114 [id number] Univers 00:00:00 00:00:00 Only Unassigned, MARGO 350.1.13.10 ity of [place] [facility] 4.2.7.2.686 [place] as [phone] [address] 2022-08-17 2022-08-17 Outpatient Ana Rosa JUDD [facility] [id number] Univers 10:30:00 10:30:00 [facility] 2022-08-17 2022-08-17 Telephone [facility] [id number] [id number] Univers 00:00:00 00:00:00 Yoli S HEALTH 350.1.13.10 it y of [place] 4.2.7.2.686 [place] as DESIREE?BLEA [phone] Ky roddydaniella BENITEZ [address] MEDICAL OFFICE [facility] 2022-08-16 2022-08-16 [facility] 1.2.840.114 [id number] Univers 00:00:00 00:00:00 Norma HEALTH 350.1.13.10 it y of [place] 4.2.7.2.686 [place] DESIREE?BLEA [phone] Ky suman BENITEZ [address] MEDICAL OFFICE [facility] 2022-07-27 2022-07-27 Telephone [facility] 1.2.840.114 [id number] Univers 00:00:00 00:00:00 Tatyana L HEALTH 350.1.13.10 it y of [place] 4.2.7.2.686 [place] DESIREE?BLEA [phone] Ky suman BENITEZ [address] [facility] OFFICE [facility] 2022-07-27 2022-07-27 Telephone [facility] 1.2.840.114 [id number] Univers 00:00:00 00:00:00 [facility] 350.1.13.10 it y of [place] 4.2.7.2.686 [place] DESIREE?BLEA [phone] Ky suman BENITEZ [address] MEDICAL OFFICE [facility] 2022-07-27 2022-07-27 Orders Doctor GREGOR 1.2.840.114 [id number] Univers 00:00:00 00:00:00 Only Unassigned, MARGO 350.1.13.10 ity of [place] [facility] 4.2.7.2.686 [place] [phone] [address] 2022-07-20 2022-07-20 Telephone [facility] [id number] Univers 00:00:00 00:00:00 [facility] HEALTH 350.1.13.10 it y of [place] 4.2.7.2.686 [place] DESIREE?BLEA [phone] Ky suman BENITEZ [address] [facility] OFFICE [facility] 2022-07-18 2022-07-18 Telephone [facility] 1.2.840.114 [id number] Univers 00:00:00 00:00:00 [facility] 350.1.13.10 it y of [place] 4.2.7.2.686 [place] DESIREE?BLEA [phone] Ky suman BENITEZ 0[address] [facility] OFFICE [facility] 2022-07-14 2022-07-14 Patient [facility] 1.2.123.261 [id number] Univers 00:00:00 00:00:00 Outreach Kelsey HEALTH 350.1.13.10 ity of [place] 4.2.7.2.686 [place] DESIREE?BLEA [phone] Ky suman BENITEZ [address] [facility] OFFICE [facility] 2022-07-13 2022-07-13 Out[facility] [id number] Univers 10:45:00 11:18:25 [facility] 2022-07-13 2022-07-13 Office [facility] 1.2.840.114 [id number] Univers 10:45:00 11:18:25 Visit [facility] 350.1.13.10 it y of [place] 4.2.7.2.686 [place] DESIREE?BLEA [phone] Me dical KNEY [address] [facility] OFFICE [facility] 2022-07-09 2022-07-09 Refirvin [facility] 1.2.840.114 [id number] Univers 00:00:00 00:00:00 Norma HEALTH 350.1.13.10 it y of [place] 4.2.7.2.686 [place] DESIREE?BLEA [phone] Ky dicdaniella BENITEZ 044 [facility] 2022-06-15 2022-06-15 Outpatient R [facility] [id number] Univers 11:15:00 23:59:00 [facility] 2022-06-15 2022-06-15 Office [facility] 1.2.840.114 [id number] Univers 10:15:00 10:30:00 Visit [facility] 350.1.13.10 it y of [place] 4.2.7.2.686 [place] DESIREE?BLEA [phone] Ky suman BENITEZ 198 [facility] 2022-06-15 2022-06-15 Telephone [facility] 1.2.863.545 [id number] Univers 00:00:00 00:00:00 [facility] HEALTH 350.1.13.10 it y of [place] 4.2.7.2.686 [place] DESIREE?BLEA [phone] Me dical KNEY [address] [facility] OFFICE [facility] 2022-06-09 2022-06-09 Refirvin [facility] 1.2.786.741 [id number] Univers 00:00:00 00:00:00 [facility] HEALTH 350.1.13.10 it y of [place] 4.2.7.2.686 [place] DESIREE?BLEA [phone] Me dical KNEY [address] [facility] OFFICE [facility] 2022-06-08 2022-06-08 Outpatient [facility] [id number] Univers 10:15:00 11:54:10 TATYANA itcelso of [facility] 2022-06-08 2022-06-08 Office [facility] 1.2.357.327 [id number] Univers 10:15:00 11:54:10 Visit Tatyana Jacques AlaMarka 350.1.13.10 it y [facility] 4.2.7.2.686 [place] DESIREE?BLEA [phone] Ky suman BENITEZ [address] [facility] OFFICE [facility] 2022-06-07 2022-06-07 Telephone [facility] 1.2.840.114 [id number] Univers 00:00:00 00:00:00 Tatyana Jacques HEALTH 350.1.13.10 it y [facility] 4.2.7.2.686 [place] DESIREE?BLEA [phone] Ky suman BENITEZ [address] [place] [address] 2022-06-06 2022-06-06 Emergency X [facility] ERT [id number] Univers 12:40:00 17:33:00 YOVANI [facility] 2022-06-06 2022-06-06 Emergency [facility] 1.2.666.918 [id number] Univers 12:40:00 17:33:00 Yovani [place] 350.1.13.10 i ty of [place].2.7.2.[place] [phone] [facility] [address] [place] 2022-05-22 2022-05-22 Outpatient R NEIL [facility] [id number] Univers 15:54:03 23:59:00 REENU ity [facility] 2022-05-22 2022-05-22 [facility] 1.2.840.114 [id number] Univers 15:54:03 23:59:00 Encounter Nena HEALTH 350.1.13.10 ity of [place] 4.2.7.2.686 [place] DESIREE?BLEA [phone] Ky suman BENITEZ 808 [facility] 2022-05-22 2022-05-22 Urgent Jina Trejo [facility] 1.2.840.11 [id number] Univers 15:20:00 16:04:29 Care Unknown, [facility] 350.1.13.10 ity of [place] 4.2.7.2.686 [place] as DESIREE?BLEA [phone] [facility] MACKENZIE [address] MEDICAL OFFICE [facility] 2022-05-02 2022-05-02 [facility] 1.2.840.114 [id number] Univers 00:00:00 00:00:00 [facility] 350.1.13.10 it y of [place] 4.2.7.2.686 [place] DESIREE?BLEA [phone] [address] OFFICE [facility] 2022-03-28 2022-03-28 [facility] 1.2.840.114 [id number] Univers 00:00:00 00:00:00 [facility] 350.1.13.10 it y of [place] 4.2.7.2.686 [place] DESIREE?BLEA [phone] [address] OFFICE [facility] 2022-03-22 2022-03-22 Telephone [facility] 1.2.840.114 [id number] Univers 00:00:00 00:00:00 [facility] 350.1.13.10 it y of [place] 4.2.7.2.686 [place] DESIREE?BLEA [phone] [address] OFFICE [facility] 2022-03-20 2022-03-20 [facility] 1.2.840.114 [id number] Univers 00:00:00 00:00:00 [facility] 350.1.13.10 it y of [place] 4.2.7.2.686 [place] DESIREE?BLEA [phone] [address] OFFICE [facility] 2022-03-17 2022-03-17 [facility] 1.2.840.114 [id number] Univers 00:00:00 00:00:00 [facility] 350.1.13.10 it y of [place] 4.2.7.2.686 [place] DESIREE?BLEA [phone] [facility] 0[address] [facility] OFFICE [facility] 2022-03-14 2022-03-14 Outpatient R SIMI [facility] [id number] Univers 13:27:11 23:59:00 NORMA ity of [facility] 2022-03-14 2022-03-14 Clinical Cytopathologist Lab, Ang - Db [facility] 1.2.840.1 14 [id number] Univers 13:30:00 13:45:00 Visit SharitasarahNorma [facility] 350.1.13 .10 ity of [facility] 4.2.7.2.686 [place] as DESIREE?BLEA [phone] [facility] EMAMNUEL [address] [facility] OFFICE [facility] 2022-03-14 2022-03-14 Office [facility] 1.2.840.114 [id number] Univers 13:00:00 13:15:00 Visit [facility] 350.1.13.10 it y of [place] [facility] 4.2.7.2.686 [place] DESIREE?BLEA [phone] [address] MEDICAL OFFICE [facility] 2021-11-17 2021-11-17 Orders Doctor GREGOR 1.2.840.114 [id number] Univers 00:00:00 00:00:00 Only Unassigned, MARGO 350.1.13.10 ity of [place] [facility] 4.2.7.2.686 [place] as [phone] [address] 2021-09-28 2021-09-28 Refill [facility] 1.2.840.114 [id number] Univers 00:00:00 00:00:00 [facility] 350.1.13.10 it y of [place] 4.2.7.2.686 [place] DESIREE?BLEA [phone] [address] MEDICAL OFFICE [facility] 2021-09-15 2021-09-15 Orders Doctor GREGOR 1.2.840.114 [id number] Univers 00:00:00 00:00:00 Only Unassigned, MARGO 350.1.13.10 ity of [place] [facility] 4.2.7.2.686 [place] [phone] [address] 2021-09-09 2021-09-09 Refill [facility] 1.2.840.114 [id number] Univers 00:00:00 00:00:00 [facility] 350.1.13.10 it y of [place] 4.2.7.2.686 [place] DESIREE?BLEA [phone] [address] OFFICE [facility] 2021-09-02 2021-09-02 Out[facility] [id number] [facility] 14:00:00 14:26:57 NORMA ity [facility] 2021-09-02 2021-09-02 Office [facility] 1.2.840.114 [id number] [facility] 14:00:00 14:26:57 Visit [facility] 350.1.13.10 it y of [place] 4.2.7.2.686 [place] DESIREE?BLEA [phone] [address] OFFICE [facility] 2021-08-25 2021-08-25 Telephone [facility] 1.2.840.114 [id number] [facility] 00:00:00 00:00:00 [facility] 350.1.13.10 it y of [place] 4.2.7.2.686 [place] DESIREE?BLEA [phone] [address] 2021-08-23 2021-08-23 [facility] 1.2.840.114 [id number] Univers 00:00:00 00:00:00 [facility] 350.1.13.10 it y of [place] 4.2.7.2.686 [place] DESIREE?BLEA [phone] [address] OFFICE [facility] 2021-08-19 2021-08-19 Clinical Cytopathologist Lab, Ang - [facility] 1.2.840.1 14 [id number] Univers 15:30:00 15:45:00 Visit SimiNorma [place] HEALTH 350.1.13 .10 ity of [place] 4.2.7.2.686 [place] DESIREE?BLEA [phone] Me suman BENITEZ [address] MEDICAL OFFICE BUILDING 2021-08-19 2021-08-19 Outpatient R SIMI [facility] [id number] Univers 15:30:00 15:30:00 NORMA [facility] 2021-08-19 2021-08-19 Office [facility] 1.2.840.114 [id number] Univers 14:30:00 15:00:00 Visit [facility] 350.1.13.10 it y of [place] 4.2.7.2.686 [place] as DESIREE?BLEA [phone] Ky suman [facility] [address] MEDICAL OFFICE [facility] 2021-08-19 2021-08-19 Outpatient R SIMI [facility] [id number] Univers 14:30:00 14:30:00 NORMA [facility] 2021-08-19 2021-08-19 Orders Doctor BUNDY 1.2.840.114 [id number] Univers 00:00:00 00:00:00 Only Unassigned, MARGO 350.1.13.10 ity of [place] [facility] 4.2.7.2.686 [place] [phone] [facility] [address] 2021-08-12 2021-08-12 Transition ADELINA Nicholson 1.2.840.114 [id number] Univers 00:00:00 00:00:00 of Care Nati WILSON 350.1.13.10 i ty of [place]2.7.2.[place] [phone] [facility] [address] 2021-08-12 2021-08-12 Orders Doctor BUNDY 1.2.840.114 [id number] Univers 00:00:00 00:00:00 Only Unassigned, MARGO 350.1.13.10 ity of [place] [facility] 4.2.7.2.686 [place] [phone] [address] 2021-08-04 2021-08-11 Inpatient Jack D[facility]ELLE [facility] [id number] Univers 13:03:00 14:53:00 [facility] 2021-08-04 2021-08-11 [facility] Humberto Woodward [facility] 1.2.840.1 [id number] Univers 13:03:00 14:53:00 Encounter Lewis SpicerDIDIER 350.1.13.10 ity [facility] 4.2.7.2.686 [facility] [phone] [facility] [address] 2021-08-08 2021-08-08 [facility] 1.2.840.114 [id number] Univers 11:04:58 23:59:00 Encounter Edgar RODRÍGUEZDIDIER 350.1.13.10 ity of [place] 4.2.7.2.686 [facility] [phone] [facility] [address] 2021-08-04 2021-08-04 Orders Doctor GREGOR 1.2.840.114 [id number] Univers 00:00:00 00:00:00 Only Unassigned, MARGO 350.1.13.10 ity of [place] [facility] 4.2.7.2.686 [place] [phone] [facility] [address] Branch 2020-06-14 2020-06-14 Patient [facility] 1.2.840.114 [id number] Univers 00:00:00 00:00:00 Outreach Wil PRIMARY 350.1.13.10 i ty of [facility] 4.2.7.2.686 [facility] [phone] [place] dical [address] 2020-05-07 2020-05-07 Office [facility] 1.2.840.114 [id number] Univers 15:16:40 15:46:[address] [facility] 350.1.13.10 it y of [place] 4.2.7.2.686 [place] as Professio [phone] [place] dical nal [address] Office [address] [facility] 2020-05-07 2020-05-07 Outpatient R SIMI [facility] [id number] Univers 15:15:00 15:15:00 NORMA jones of [facility] 2018-10-14 2018-10-15 Outpt Diag nullFlavo [facility] [id number] Memoria 14:40:00 04:59:00 Services r Outpatient 03 l Imaging [facility] 2018-10-14 2018-10-15 Outpt Diag nullFlavo [facility] [id number] Memoria 14:40:00 04:59:00 Services r Outpatient 03 l Imaging Uriah [facility] 2018-10-14 2018-10-14 Outpatient Elio 2.16.840. 2.16.840.1 . [id number] 09:40:00 23:59:00 Rafat Tatum [id number] 5.36 2016-10-25 2016-10-26 Day nullFlavo [facility] [id number] Memoria 13:53:00 04:59:00 Surgery r [place] 09 l [facility] 2016-10-25 2016-10-26 Day nullFlavo [facility] [id number] Memoria 13:53:00 04:59:00 Surgery r [place] 09 l [facility] 2016-10-25 2016-10-25 Outpatient Tony [place] [id number] 08:53:00 23:59:00 Gregor Tilley 2016-09-28 2016-09-29 Day nullFlavo [facility] [id number] Memoria 13:16:00 04:59:00 Surgery r [place] 08 l [facility] 2016-09-28 2016-09-29 Day nullFlavo [facility] [id number] Memoria 13:16:00 04:59:00 Surgery r [place] 08 l [facility]opedic [facility] 2016-09-28 2016-09-28 Outpatient Tony [place] [id number] 08:16:00 23:59:00 Gregor Ceballos 2016-09-13 2016-09-14 Day nullFlavo [facility] [id number] Memoria 12:04:00 04:59:00 Surgery r [place] 07 l [facility]opedic [facility] 2016-09-13 2016-09-14 Day nullFlavo [facility] [id number] Memoria 12:04:00 04:59:00 Surgery r [place] 07 l [facility] 2016-09-13 2016-09-13 Outpatient Tony [facility] [id number] 07:04:00 23:59:00 Gregor Sanchez 2016-08-22 2016-08-22 [facility] [id number] Memoria 18:48:00 21:53:[address] [facility] 2016-08-22 2016-08-22 [facility] [id number] Memoria 18:48:00 21:53:[address] [facility] 2016-08-22 2016-08-22 Outpatient Darius [facility] [id number] 13:48:00 16:53:00 Jeet Marvin 2016-08-10 2016-08-13 [facility] [id number] Memoria 11:09:00 23:30:[address] [facility] 2016-08-10 2016-08-13 [facility] [id number] Memoria 11:09:00 23:30:[address] [place] [address] [facility] 2016-08-10 2016-08-13 Outpatient Rivero, [facility] [id number] 06:09:00 18:30:00 Derek Rosalva [place] 2016-05-12 2016-05-12 Inpatient [facility]avo [facility] [id number] [facility] 06:10:00 20:30:[address] [place] [address] [facility] 2016-05-12 2016-05-12 Inpatient nullFlavo [facility] [id number] Memoria 06:10:00 20:30:[address] [place] [address] [facility] 2016-05-12 2016-05-12 Outpatient Aly [facility] [id number] 00:10:00 14:30:00 Du Mahoney 2016-05-05 2016-05-06 Outpt Diag nullFlavo [facility] [id number] Memoria 16:46:00 05:59:00 Services r Outpatient 01 [facility] 2016-05-05 2016-05-06 Outpt Diag nullFlavo [facility] [id number] Memoria 16:46:00 05:59:00 Services r Outpatient 01 [facility] 2016-05-05 2016-05-05 Outpatient Aly, [id number]. [id number] . [id number] 10:46:00 23:59:00 Du Davey.[id number]. [id number] Denzel [id number] 5.36 2016-04-28 2016-04-28 Outpatient MHIE [place] [id number] Memoria 08:30:00 08:30:00 06 jojo [place] 2016-04-28 2016-04-28 Outpatient MHIE MHIE [id number] Memoria 08:30:00 08:30:00 06 [facility] 2016-03-16 2016-03-17 Outpatient nullFlavo [place] [id number] Memoria 13:39:00 05:59:[address] [facility] 2016-03-16 2016-03-17 Outpatient nullFlavo [place] [id number] Memoria 13:39:00 05:59:[address] [facility] 2016-03-16 2016-03-16 [facility] [id number] 07:39:00 23:59:00 Erlin [place] 03 2016-02-24 2016-02-24 Outpatient MHIE IE [id number] Memoria 11:45:00 11:45:00 05 jojo [place] 2016-02-24 2016-02-24 Outpatient MHIE IE [id number] Memoria 11:45:00 11:45:00 05 jojo [place] 2016-02-17 2016-02-17 Outpatient MHIE IE [id number] Memoria 09:30:00 09:30:00 04 jojo [place] 2016-02-17 2016-02-17 Outpatient MHIE IE [id number] Memoria 09:30:00 09:30:00 04 [facility] 2015-11-02 2015-11-03 Outpt Diag nullFlavo [facility] [id number] Memoria 13:03:00 04:59:00 Services r Outpatient 00 [facility] 2015-11-02 2015-11-03 Outpt Diag nullFlavo [facility] [id number] Memoria 13:03:00 04:59:00 Services r Outpatient 00 [facility] 2015-11-02 2015-11-02 Outpatient Elio, 2.16.840. [id number] . [id number] 08:03:00 23:59:00 Rafat Tatum [id number] 5.36 2015-10-21 2015-10-21 Outpatient [facility] [id number] Memoria 10:15:00 10:15:00 01 jojo Kruse 2015-10-21 2015-10-21 Outpatient [facility] [id number] Memoria 10:15:00 10:15:00 01 jojo Kruse Results Test Description Test Time Test Comments Results Result Comments Source ELECTROLYTES 2016-08-13 08:51:00 Test Item Value Reference Range Interpretation Comme nts AGAP (test code = AGAP) 13.0 10.0-20.0 [facility]apQBTQRQZKIERG2261-15-39 08:51:00 Test Item Value Reference Range Interpretation Comments AGAP (test code = AGAP) 13.0 10.0-20.0 [facility]NxhcxcpJQOMSVNPXQHM8259-50-12 08:51:00 Test Item Value Reference Range Interpretation Comments eGFR (test code = eGFR) 39 [facility] HospitalJkpaeumQFUMZCRGAIAB4939-57-25 08:51:00 Test Item Value Reference Range Interpretation Comments Glucose Lvl (test code = Glucose Lvl) 119 70-99 [facility] HospitalAmzpuanVZHHIQMDYHTQ1184-83-28 08:51:00 Test Item Value Reference Range Interpretation Comments Chloride Lvl (test code = Chloride Lvl) 102 95-109 [facility] HospitalIqakwkhMIPIGKEHOQCX1274-97-35 08:51:00 Test Item Value Reference Range Interpretation Comments Potassium Lvl (test code = Potassium 4.0 3.5-5.1 Lvl) [facility] HospitalUyubrnnNNHRIGRWEMRK7617-70-99 08:51:00 Test Item Value Reference Range Interpretation Comments CO2 (test code = CO2) 23 24-32 [facility] HospitalPdgrovpNIWKWSNTISJM1143-68-38 08:51:00 Test Item Value Reference Range Interpretation Comments Creatinine Lvl (test code = Creatinine 1.80 0.50-1.40 Lvl) [facility] HospitalIeqecrlEBDCOXMNCCZV8912-07-57 08:51:00 Test Item Value Reference Range Interpretation Comments BUN (test code = BUN) 28 7-22 [facility] HospitalMyzpzdzAKFHNGQRAXYN3598-54-79 08:51:00 Test Item Value Reference Range Interpretation Comments Sodium Lvl (test code = Sodium Lvl) 134 135-145 [facility] HospitalBgqlrlfDPAWWUCPMMNI2750-81-29 08:51:00 Test Item Value Reference Range Interpretation Comments Calcium Lvl (test code = Calcium Lvl) 8.0 8.5-10.5 [facility]IhqllktGNLHMPLVBT7354-47-88 08:51:00 Test Item Value Reference Range Interpretation Comments Eosinophils (test code = 3.5 See_Comment [A utomated message] The Eosinophils) system which ge nerated this result tra nsmitted reference range : <=4.0. The reference r kenya was not used to int erpret this result as normal/abnormal . [facility] CenterLfklubdAEFWHEYFNQ0539-46-14 08:51:00 Test Item Value Reference Range Interpretation Comments Monocytes (test code = Monocytes) 10.7 2.0-12.0 [facility] CenterJnqvmnpHIXWAEVMAS7099-86-17 08:51:00 Test Item Value Reference Range Interpretation Comments Basophils (test code = 0.5 See_Comment [Aut omated message] The Basophils) system which ge nerated this result tra nsmitted reference range : <=1.0. The reference r kenya was not used to int erpret this result as normal/abnormal . [facility] CenterFctmdyzQGTHEIMGRQ3747-79-97 08:51:00 Test Item Value Reference Range Interpretation Comments Segs (test code = Segs) 71.3 45.0-75.0 [facility] CenterVeptgxsBMIPUKIMUL5018-84-93 08:51:00 Test Item Value Reference Range Interpretation Comments Lymphocytes (test code = Lymphocytes) 14.0 20.0-40.0 [facility] CenterCuuylafQIHGEDDCGL2411-54-86 08:51:00 Test Item Value Reference Range Interpretation Comments Eosinophils # (test code 0.3 See_Comment [A utomated message] The = Eosinophils #) system wh h generated this result tra nsmitted reference range : <=0.5. The reference r kenya was not used to int erpret this result as normal/abnormal . [facility] CenterEvduxfaVYGHEPPEYX1924-92-69 08:51:00 Test Item Value Reference Range Interpretation Comments Monocytes # (test code 1.0 See_Comment [Aut omated message] The = Monocytes #) system which generated this result tra nsmitted reference range : <=0.8. The reference r kenya was not used to int erpret this result as normal/abnormal . [facility] CenterAifhgynAZAKOTFDZW5900-45-95 08:51:00 Test Item Value Reference Range Interpretation Comments Lymphocytes # (test code = Lymphocytes 1.3 1.0-5.5 #) [facility] CenterPiaihrwWIIDOMKGIW5980-81-63 08:51:00 Test Item Value Reference Range Interpretation Comments Segs-Bands # (test code = Segs-Bands #) 6.7 1.5-8.1 [facility] CenterHgxmsqpEUWJLTMSCX0536-98-24 08:51:00 Test Item Value Reference Range Interpretation Comments Platelet (test code = Platelet) 98 133-450 [facility] CenterThuqejqSCYIRWWOTA0904-47-21 08:51:00 Test Item Value Reference Range Interpretation Comments MPV (test code = MPV) 10.7 7.4-10.4 [facility] CenterOisobtgGYYFBZZASH1248-24-49 08:51:00 Test Item Value Reference Range Interpretation Comments MCH (test code = MCH) 34.1 pg 27.0-31.0 [facility] CenterKclbjcgDANIQNTBHZ5556-32-74 08:51:00 Test Item Value Reference Range Interpretation Comments MCHC (test code = MCHC) 34.8 32.0-36.0 [facility] CenterEackycnTAIFAYWZQU7965-90-86 08:51:00 Test Item Value Reference Range Interpretation Comments RDW (test code = RDW) 13.9 11.5-14.5 [facility] CenterHerotscUNCBSYOBEG0466-63-88 08:51:00 Test Item Value Reference Range Interpretation Comments Hgb (test code = Hgb) 11.5 14.0-18.0 [facility] CenterNyqvjsjIKKNUGPNLC3927-43-22 08:51:00 Test Item Value Reference Range Interpretation Comments WBC (test code = WBC) 9.4 3.7-10.4 [facility] CenterDapmafxDNUAOMEENB8016-86-62 08:51:00 Test Item Value Reference Range Interpretation Comments RBC (test code = RBC) 3.36 4.70-6.10 [facility] CenterNsshapgACYZRAFVQK1763-86-52 08:51:00 Test Item Value Reference Range Interpretation Comments Hct (test code = Hct) 33.0 42.0-54.0 [facility] CenterJluccveQNDRFLPAJC3389-09-88 08:51:00 Test Item Value Reference Range Interpretation Comments MCV (test code = MCV) 98.0 80.0-94.0 [facility]IxsjxdfZGNMYVJMBDND0480-55-38 08:51:00 Test Item Value Reference Range Interpretation Comments eGFR (test code = eGFR) 39 [facility] HospitalGoxlvnzXQCJBMYYHCPU5152-61-01 08:51:00 Test Item Value Reference Range Interpretation Comments Glucose Lvl (test code = Glucose Lvl) 119 70-99 [facility] HospitalOnlrcbeYRPSFLEAEUXR5452-26-04 08:51:00 Test Item Value Reference Range Interpretation Comments Chloride Lvl (test code = Chloride Lvl) 102 95-109 [facility] HospitalNwpcqydAPMWHUJZKLCI9314-60-94 08:51:00 Test Item Value Reference Range Interpretation Comments Potassium Lvl (test code = Potassium 4.0 3.5-5.1 Lvl) [facility] HospitalFnznirwUOQXPGOWNYBX3320-99-36 08:51:00 Test Item Value Reference Range Interpretation Comments CO2 (test code = CO2) 23 24-32 [facility] HospitalGopzkdrBENBFZEUFELD0798-68-94 08:51:00 Test Item Value Reference Range Interpretation Comments Creatinine Lvl (test code = Creatinine 1.80 0.50-1.40 Lvl) [facility] HospitalCudnlfpVCVHBLTHOUYC6785-14-37 08:51:00 Test Item Value Reference Range Interpretation Comments BUN (test code = BUN) 28 7-22 [facility] HospitalGcrtlkkODARGFVAQFLO4113-77-47 08:51:00 Test Item Value Reference Range Interpretation Comments Sodium Lvl (test code = Sodium Lvl) 134 135-145 [facility] HospitalHphinbzIPRJKHPINYIM2282-39-89 08:51:00 Test Item Value Reference Range Interpretation Comments Calcium Lvl (test code = Calcium Lvl) 8.0 8.5-10.5 [facility] CenterLwlohsnNPZOBGRPDZ1220-17-66 08:51:00 Test Item Value Reference Range Interpretation Comments Eosinophils (test code = 3.5 See_Comment [A utomated message] The Eosinophils) system which ge nerated this result tra nsmitted reference range : <=4.0. The reference r kenya was not used to int erpret this result as normal/abnormal . [facility] CenterCepldlhZXIMPLOHVA1897-22-73 08:51:00 Test Item Value Reference Range Interpretation Comments Monocytes (test code = Monocytes) 10.7 2.0-12.0 [facility] CenterEnrjozqXJSAXOCMXT2543-18-62 08:51:00 Test Item Value Reference Range Interpretation Comments Basophils (test code = 0.5 See_Comment [Aut omated message] The Basophils) system which ge nerated this result tra nsmitted reference range : <=1.0. The reference r kenya was not used to int erpret this result as normal/abnormal . [facility] CenterDytktpvEXZSGEHIGL1365-09-38 08:51:00 Test Item Value Reference Range Interpretation Comments Segs (test code = Segs) 71.3 45.0-75.0 [facility] CenterJcygzdlTKPSBHXRPV2928-36-84 08:51:00 Test Item Value Reference Range Interpretation Comments Lymphocytes (test code = Lymphocytes) 14.0 20.0-40.0 [facility] CenterJgecjesGMKTYCKBIV9296-82-30 08:51:00 Test Item Value Reference Range Interpretation Comments Eosinophils # (test code 0.3 See_Comment [A utomated message] The = Eosinophils #) system whic h generated this result tra nsmitted reference range : <=0.5. The reference r kenya was not used to int erpret this result as normal/abnormal . [facility] CenterYlhqdupHALNMWLYHC4254-68-08 08:51:00 Test Item Value Reference Range Interpretation Comments Monocytes # (test code 1.0 See_Comment [Aut omated message] The = Monocytes #) system which generated this result tra nsmitted reference range : <=0.8. The reference r kenya was not used to int erpret this result as normal/abnormal . [facility] CenterAsbnkhnSCTKVOKDHL6890-99-45 08:51:00 Test Item Value Reference Range Interpretation Comments Lymphocytes # (test code = Lymphocytes 1.3 1.0-5.5 #) [facility] CenterAlvzapfCSHQOBODPS6201-10-36 08:51:00 Test Item Value Reference Range Interpretation Comments Segs-Bands # (test code = Segs-Bands #) 6.7 1.5-8.1 [facility] CenterUfbjcupEUTTJKIQWI9451-03-94 08:51:00 Test Item Value Reference Range Interpretation Comments Platelet (test code = Platelet) 98 133-450 [facility] CenterOkvnjtlUQNZVYYHRK0668-16-51 08:51:00 Test Item Value Reference Range Interpretation Comments MPV (test code = MPV) 10.7 7.4-10.4 [facility] CenterQmatapwEMHCVGEQTX1419-18-53 08:51:00 Test Item Value Reference Range Interpretation Comments MCH (test code = MCH) 34.1 pg 27.0-31.0 [facility] CenterIeqzeqjAWMJIZUEQJ5461-23-95 08:51:00 Test Item Value Reference Range Interpretation Comments MCHC (test code = MCHC) 34.8 32.0-36.0 [facility] CenterVgaydcxMSYWOKCRDC4203-19-51 08:51:00 Test Item Value Reference Range Interpretation Comments RDW (test code = RDW) 13.9 11.5-14.5 [facility] CenterSpdtmoiZEKVOSHMMT8491-03-34 08:51:00 Test Item Value Reference Range Interpretation Comments Hgb (test code = Hgb) 11.5 14.0-18.0 [facility] CenterAqvfowoWYCETRRFOZ5577-13-46 08:51:00 Test Item Value Reference Range Interpretation Comments WBC (test code = WBC) 9.4 3.7-10.4 [facility] CenterKhwmzcrTAVKIDUQHO9979-85-69 08:51:00 Test Item Value Reference Range Interpretation Comments RBC (test code = RBC) 3.36 4.70-6.10 [facility] CenterNwdmczbOHOUIPKZXR4567-02-14 08:51:00 Test Item Value Reference Range Interpretation Comments Hct (test code = Hct) 33.0 42.0-54.0 [facility] CenterZvkfbwsOLXHJCSWOG4663-13-26 08:51:00 Test Item Value Reference Range Interpretation Comments MCV (test code = MCV) 98.0 80.0-94.0 [facility] HospitalImvriisODOLDJCDHAVU6625-59-65 08:51:00 Test Item Value Reference Range Interpretation Comments AGAP (test code = AGAP) 13.0 10.0-20.0 [facility] HospitalVxfhracIHGFOTXMVBPU6552-15-02 08:51:00 Test Item Value Reference Range Interpretation Comments eGFR (test code = eGFR) 39 [facility] HospitalWezoeniSLAPEFRBVSUK4170-98-61 08:51:00 Test Item Value Reference Range Interpretation Comments Glucose Lvl (test code = Glucose Lvl) 119 70-99 [facility] HospitalTvzezhbPTBRATWJNLQY6318-78-30 08:51:00 Test Item Value Reference Range Interpretation Comments Chloride Lvl (test code = Chloride Lvl) 102 95-109 [facility] HospitalInoofhoGCDSIIVECXAS3116-48-88 08:51:00 Test Item Value Reference Range Interpretation Comments Potassium Lvl (test code = Potassium 4.0 3.5-5.1 Lvl) [facility] HospitalUxytjbaOJCHHRRXXWTM0410-75-95 08:51:00 Test Item Value Reference Range Interpretation Comments CO2 (test code = CO2) 23 24-32 [facility] HospitalQknjgdcMJSELULSWJIT3873-08-21 08:51:00 Test Item Value Reference Range Interpretation Comments Creatinine Lvl (test code = Creatinine 1.80 0.50-1.40 Lvl) [facility] HospitalKyxjijvZVSKWVFWZJFE5847-56-87 08:51:00 Test Item Value Reference Range Interpretation Comments BUN (test code = BUN) 28 7-22 [facility] HospitalYqgxmjkTSFFOGTXEMTK4575-28-48 08:51:00 Test Item Value Reference Range Interpretation Comments Sodium Lvl (test code = Sodium Lvl) 134 135-145 [facility] HospitalMrcubgbDBNZTPCHADSV1800-70-43 08:51:00 Test Item Value Reference Range Interpretation Comments Calcium Lvl (test code = Calcium Lvl) 8.0 8.5-10.5 [facility] CenterZkrzmofOCCSQOFYCW6540-64-23 08:51:00 Test Item Value Reference Range Interpretation Comments Eosinophils (test code = 3.5 See_Comment [A utomated message] The Eosinophils) system which ge nerated this result tra nsmitted reference range : <=4.0. The reference r kenya was not used to int erpret this result as normal/abnormal . [facility] CenterZtsnorsLETWEMSIKF7431-00-89 08:51:00 Test Item Value Reference Range Interpretation Comments Monocytes (test code = Monocytes) 10.7 2.0-12.0 [facility] CenterOkrlpotSNXZGMLGPC7777-56-95 08:51:00 Test Item Value Reference Range Interpretation Comments Basophils (test code = 0.5 See_Comment [Aut omated message] The Basophils) system which ge nerated this result tra nsmitted reference range : <=1.0. The reference r kenya was not used to int erpret this result as normal/abnormal . [facility] CenterQcvxeswFWPYUMXIMM2128-66-10 08:51:00 Test Item Value Reference Range Interpretation Comments Segs (test code = Segs) 71.3 45.0-75.0 [facility] CenterWekoiufYWUDTODDLJ9054-30-47 08:51:00 Test Item Value Reference Range Interpretation Comments Lymphocytes (test code = Lymphocytes) 14.0 20.0-40.0 [facility] CenterIbyrstrHQLAPPYOCK2284-62-48 08:51:00 Test Item Value Reference Range Interpretation Comments Eosinophils # (test code 0.3 See_Comment [A utomated message] The = Eosinophils #) system whic h generated this result tra nsmitted reference range : <=0.5. The reference r kenya was not used to int erpret this result as normal/abnormal . [facility] CenterMhrbtlwHUPYDEUEKX1370-75-46 08:51:00 Test Item Value Reference Range Interpretation Comments Monocytes # (test code 1.0 See_Comment [Aut omated message] The = Monocytes #) system which generated this result tra nsmitted reference range : <=0.8. The reference r kenya was not used to int erpret this result as normal/abnormal . [facility] CenterAozatjmMKCXXXIDIJ4261-63-01 08:51:00 Test Item Value Reference Range Interpretation Comments Lymphocytes # (test code = Lymphocytes 1.3 1.0-5.5 #) [facility] CenterRfohybjFDLPETBBKB8240-32-67 08:51:00 Test Item Value Reference Range Interpretation Comments Segs-Bands # (test code = Segs-Bands #) 6.7 1.5-8.1 [facility] CenterDhhqobeWREEPLWCQV7783-06-53 08:51:00 Test Item Value Reference Range Interpretation Comments Platelet (test code = Platelet) 98 133-450 [facility] CenterMjsnwfoFHIATIAJLC5981-50-61 08:51:00 Test Item Value Reference Range Interpretation Comments MPV (test code = MPV) 10.7 7.4-10.4 [facility] CenterYeuiubgZPEVTRJBFX4098-40-74 08:51:00 Test Item Value Reference Range Interpretation Comments MCH (test code = MCH) 34.1 pg 27.0-31.0 [facility] CenterWpfvisfSTADSVLLTT0350-19-50 08:51:00 Test Item Value Reference Range Interpretation Comments MCHC (test code = MCHC) 34.8 32.0-36.0 [facility] CenterFsfdvslSDBGMNJTSE7226-21-26 08:51:00 Test Item Value Reference Range Interpretation Comments RDW (test code = RDW) 13.9 11.5-14.5 [facility] CenterAzzvgfoKSNNWCNVTG1588-62-59 08:51:00 Test Item Value Reference Range Interpretation Comments Hgb (test code = Hgb) 11.5 14.0-18.0 [facility] CenterGcnvumgOEILRGEXRJ6375-07-56 08:51:00 Test Item Value Reference Range Interpretation Comments WBC (test code = WBC) 9.4 3.7-10.4 [facility] CenterFcuphajKMMKYXODTD1389-54-79 08:51:00 Test Item Value Reference Range Interpretation Comments RBC (test code = RBC) 3.36 4.70-6.10 [facility] CenterIuwnilvSQIKECBOMV9111-54-37 08:51:00 Test Item Value Reference Range Interpretation Comments Hct (test code = Hct) 33.0 42.0-54.0 [facility] CenterBpknpfvPRFRMNRWCB6515-49-70 08:51:00 Test Item Value Reference Range Interpretation Comments MCV (test code = MCV) 98.0 80.0-94.0 [facility] CenterJlvslyoJKALVKFSDZ0646-59-93 07:40:00 Test Item Value Reference Range Interpretation Comments Platelet (test code = Platelet) 119 133-450 [facility] CenterCbaplvzAFJFJPQQLA8422-82-40 07:40:00 Test Item Value Reference Range Interpretation Comments MCV (test code = MCV) 97.0 80.0-94.0 [facility] CenterIdbckkwGJRFEZOOHT1405-47-82 07:40:00 Test Item Value Reference Range Interpretation Comments Hct (test code = Hct) 37.6 42.0-54.0 [facility] CenterOhhynqpVZCEEZFBTR4084-56-59 07:40:00 Test Item Value Reference Range Interpretation Comments Hgb (test code = Hgb) 12.9 14.0-18.0 [facility] CenterXdiurqkMLEDHPDHVB0955-92-17 07:40:00 Test Item Value Reference Range Interpretation Comments RDW (test code = RDW) 14.5 11.5-14.5 [facility] CenterXayzmhzUGXCCKPENA8452-72-75 07:40:00 Test Item Value Reference Range Interpretation Comments MCHC (test code = MCHC) 34.3 32.0-36.0 [facility] CenterMxzvnjxDDRNHVEUWF6182-26-16 07:40:00 Test Item Value Reference Range Interpretation Comments MCH (test code = MCH) 33.3 pg 27.0-31.0 [facility] CenterIogjwqmLCYBKHWBUQ1208-49-25 07:40:00 Test Item Value Reference Range Interpretation Comments WBC (test code = WBC) 11.3 3.7-10.4 [facility] CenterTzcasrfDWGRYNMNJC3145-57-46 07:40:00 Test Item Value Reference Range Interpretation Comments RBC (test code = RBC) 3.88 4.70-6.10 [facility] CenterPkuubljQCQULCZUYN1641-19-43 07:40:00 Test Item Value Reference Range Interpretation Comments Basophils # (test code 0.0 See_Comment [Aut omated message] The = Basophils #) system which generated this result tra nsmitted reference range : <=0.2. The reference r kenya was not used to int erpret this result as normal/abnormal . [facility] CenterKmgmtywSPACQLLBBV9860-62-06 07:40:00 Test Item Value Reference Range Interpretation Comments Monocytes # (test code 0.9 See_Comment [Aut omated message] The = Monocytes #) system which generated this result tra nsmitted reference range : <=0.8. The reference r kenya was not used to int erpret this result as normal/abnormal . [facility] CenterEzvuhmoDCYZAFYQNG2379-15-16 07:40:00 Test Item Value Reference Range Interpretation Comments Eosinophils # (test code 0.2 See_Comment [A utomated message] The = Eosinophils #) system whic h generated this result tra nsmitted reference range : <=0.5. The reference r kenya was not used to int erpret this result as normal/abnormal . [facility] CenterKizxxisHSTUXGWOJK5317-89-02 07:40:00 Test Item Value Reference Range Interpretation Comments RBC Morph (test code = Normal (08/11/16 2:40 AM) RBC Morph) [facility] CenterFjoysxjOEEVIHPRFG3089-20-38 07:40:00 Test Item Value Reference Range Interpretation Comments Monocytes (test code = Monocytes) 8.3 2.0-12.0 [facility] CenterNminwuoEITRWDTRFD2866-02-09 07:40:00 Test Item Value Reference Range Interpretation Comments Segs (test code = Segs) 82.1 45.0-75.0 [facility] CenterAonlvhcGLUJUKCTGT8348-62-47 07:40:00 Test Item Value Reference Range Interpretation Comments Plt Morph (test code = Normal (08/11/16 2:40 AM) Plt Morph) [facility] CenterIgkjmikLIITMQATEU1086-44-59 07:40:00 Test Item Value Reference Range Interpretation Comments Lymphocytes (test code = Lymphocytes) 8.0 20.0-40.0 [facility] CenterVisffclEEAWBNHXPQ2163-37-55 07:40:00 Test Item Value Reference Range Interpretation Comments Lymphocytes # (test code = Lymphocytes 0.9 1.0-5.5 #) [facility] CenterGfpkomiTZKMTPOPTI2675-70-50 07:40:00 Test Item Value Reference Range Interpretation Comments Segs-Bands # (test code = Segs-Bands #) 9.3 1.5-8.1 [facility]CxjmgikDVAYHRWTYZ5228-68-23 07:40:00 Test Item Value Reference Range Interpretation Comments Basophils (test code = 0.2 See_Comment [Aut omated message] The Basophils) system which ge nerated this result tra nsmitted reference range : <=1.0. The reference r kenya was not used to int erpret this result as normal/abnormal . [facility] CenterJxtxogqLMKZRYPCJJ5258-68-83 07:40:00 Test Item Value Reference Range Interpretation Comments Eosinophils (test code = 1.4 See_Comment [A utomated message] The Eosinophils) system which ge nerated this result tra nsmitted reference range : <=4.0. The reference r kenya was not used to int erpret this result as normal/abnormal . [facility] BLUVUVKCY4524-26-57 07:40:00 Test Item Value Reference Range Interpretation Comments Hgb A1C (test code = Hgb A1C) 5.8 [facility]2017-05-05 07:40:00 Test Item Value Reference Range Interpretation Comments Magnesium Lvl (test code = Magnesium 2.0 1.8-2.4 Lvl) [facility]2017-05-05 07:40:00 Test Item Value Reference Range Interpretation Comments eGFR (test code = eGFR) 45 [facility]2017-05-05 07:40:00 Test Item Value Reference Range Interpretation Comments AST (test code = AST) 35 See_Comment [Auto mated message] The system which ge nerated this result transmit love reference range : <=37. The reference range was not used to interpr et this result as kenny l/abnormal. [facility]2017-05-05 07:40:00 Test Item Value Reference Range Interpretation Comments AGAP (test code = AGAP) 13.7 10.0-20.0 [facility]2017-05-05 07:40:00 Test Item Value Reference Range Interpretation Comments B/C Ratio (test code = B/C Ratio) 16 6-25 [facility]2017-05-05 07:40:00 Test Item Value Reference Range Interpretation Comments Globulin (test code = Globulin) 3.9 2.7-4.2 [place] 924017-05-05 07:40:00 Test Item Value Reference Range Interpretation Comments A/G Ratio (test code = A/G Ratio) 0.8 0.7-1.6 [place] 924017-05-05 07:40:00 Test Item Value Reference Range Interpretation Comments Alk Phos (test code = Alk Phos) 103 39-136 [facility]2017-05-05 07:40:00 Test Item Value Reference Range Interpretation Comments Bili Total (test code = Bili Total) 0.6 0.2-1.3 [place] 924017-05-05 07:40:00 Test Item Value Reference Range Interpretation Comments Glucose Lvl (test code = Glucose Lvl) 66 70-99 [place] 924017-05-05 07:40:00 Test Item Value Reference Range Interpretation Comments Calcium Lvl (test code = Calcium Lvl) 7.7 8.5-10.5 [place] 924017-05-05 07:40:00 Test Item Value Reference Range Interpretation Comments Total Protein (test code = Total 6.9 6.4-8.4 Protein) [place] 924017-05-05 07:40:00 Test Item Value Reference Range Interpretation Comments Albumin Lvl (test code = Albumin Lvl) 3.0 3.5-5.0 [place] 924017-05-05 07:40:00 Test Item Value Reference Range Interpretation Comments ALT (test code = ALT) 54 See_Comment [Auto mated message] The system which ge nerated this result transmit love reference range : <=65. The reference range was not used to interpr et this result as kenny l/abnormal. [place] 924017-05-05 07:40:00 Test Item Value Reference Range Interpretation Comments BUN (test code = BUN) 26 7-22 [place] 924017-05-05 07:40:00 Test Item Value Reference Range Interpretation Comments CO2 (test code = CO2) 20 24-32 [place] 924017-05-05 07:40:00 Test Item Value Reference Range Interpretation Comments Creatinine Lvl (test code = Creatinine 1.60 0.50-1.40 Lvl) [facility]2017-05-05 07:40:00 Test Item Value Reference Range Interpretation Comments Sodium Lvl (test code = Sodium Lvl) 138 135-145 [facility]2017-05-05 07:40:00 Test Item Value Reference Range Interpretation Comments Potassium Lvl (test code = Potassium 3.7 3.5-5.1 Lvl) [facility]2017-05-05 07:40:00 Test Item Value Reference Range Interpretation Comments Chloride Lvl (test code = Chloride Lvl) 108 95-109 [facility]2017-05-05 07:40:00 Test Item Value Reference Range Interpretation Comments Phosphorus (test code = Phosphorus) 2.9 2.5-4.5 [facility]2017-05-05 07:40:00 Test Item Value Reference Range Interpretation Comments Lipase Lvl (test code = Lipase Lvl) 151 73-393 [facility]AmmkjmqUCWYZBTUNW1490-74-37 07:40:00 Test Item Value Reference Range Interpretation Comments MPV (test code = MPV) 10.1 7.4-10.4 [facility] CenterSxrrnfwOBHLZDJMQQ5134-32-46 07:40:00 Test Item Value Reference Range Interpretation Comments Platelet (test code = Platelet) 119 133-450 [facility] CenterFklwxccTAIPITOZBT7076-04-29 07:40:00 Test Item Value Reference Range Interpretation Comments MCV (test code = MCV) 97.0 80.0-94.0 [facility] CenterWbmgrukMDFINMZOFR6472-89-38 07:40:00 Test Item Value Reference Range Interpretation Comments Hct (test code = Hct) 37.6 42.0-54.0 [facility] CenterTsiejftUHQNVMBUTU9471-42-94 07:40:00 Test Item Value Reference Range Interpretation Comments Hgb (test code = Hgb) 12.9 14.0-18.0 [facility] CenterSjjmdvxHTKLKNVXJY3170-78-01 07:40:00 Test Item Value Reference Range Interpretation Comments RDW (test code = RDW) 14.5 11.5-14.5 [facility] CenterVyyusxzOKXFHKEUJW7213-96-82 07:40:00 Test Item Value Reference Range Interpretation Comments MCHC (test code = MCHC) 34.3 32.0-36.0 [facility] CenterBwkoasvWSUGISXKAI6923-33-41 07:40:00 Test Item Value Reference Range Interpretation Comments MCH (test code = MCH) 33.3 pg 27.0-31.0 [facility] CenterQmsuookGOLEVRPOOF5963-67-41 07:40:00 Test Item Value Reference Range Interpretation Comments WBC (test code = WBC) 11.3 3.7-10.4 [facility] CenterHjnsahyALBGOZKYUR8984-20-60 07:40:00 Test Item Value Reference Range Interpretation Comments RBC (test code = RBC) 3.88 4.70-6.10 [facility] CenterDrsetfqSENTYOMBDF5630-75-54 07:40:00 Test Item Value Reference Range Interpretation Comments Basophils # (test code 0.0 See_Comment [Aut omated message] The = Basophils #) system which generated this result tra nsmitted reference range : <=0.2. The reference r kenya was not used to int erpret this result as normal/abnormal . [facility] CenterPqazohmSYEXFNFKNH6994-03-78 07:40:00 Test Item Value Reference Range Interpretation Comments Monocytes # (test code 0.9 See_Comment [Aut omated message] The = Monocytes #) system which generated this result tra nsmitted reference range : <=0.8. The reference r kenya was not used to int erpret this result as normal/abnormal . [facility] CenterZdssjmhSDBWQPKRJT6477-15-04 07:40:00 Test Item Value Reference Range Interpretation Comments Eosinophils # (test code 0.2 See_Comment [A utomated message] The = Eosinophils #) system whic h generated this result tra nsmitted reference range : <=0.5. The reference r kenya was not used to int erpret this result as normal/abnormal . [facility] CenterGvcltsvFFJLYDQOXQ4183-11-93 07:40:00 Test Item Value Reference Range Interpretation Comments RBC Morph (test code = Normal (08/11/16 2:40 AM) RBC Morph) [facility] CenterElgyckkAHFLCJYJSU6717-90-39 07:40:00 Test Item Value Reference Range Interpretation Comments Monocytes (test code = Monocytes) 8.3 2.0-12.0 [facility] CenterIgplhgeNMTCTCSRSN7613-32-62 07:40:00 Test Item Value Reference Range Interpretation Comments Segs (test code = Segs) 82.1 45.0-75.0 [facility] CenterZiduwhoFJSRNAKDMJ8063-58-85 07:40:00 Test Item Value Reference Range Interpretation Comments Plt Morph (test code = Normal (08/11/16 2:40 AM) Plt Morph) [facility] CenterPyeugagZOHKZDVGIC1475-19-76 07:40:00 Test Item Value Reference Range Interpretation Comments Lymphocytes (test code = Lymphocytes) 8.0 20.0-40.0 [facility] CenterRxyiackTPSLNPJMVU9230-37-87 07:40:00 Test Item Value Reference Range Interpretation Comments Lymphocytes # (test code = Lymphocytes 0.9 1.0-5.5 #) [facility] CenterBtcjmyaVOAQUVVZHU0414-47-61 07:40:00 Test Item Value Reference Range Interpretation Comments Segs-Bands # (test code = Segs-Bands #) 9.3 1.5-8.1 [facility] CenterYwlpcimLDXIKYFLDK0153-76-97 07:40:00 Test Item Value Reference Range Interpretation Comments Basophils (test code = 0.2 See_Comment [Aut omated message] The Basophils) system which ge nerated this result tra nsmitted reference range : <=1.0. The reference r kenya was not used to int erpret this result as normal/abnormal . [facility] CenterHantonlIJJSFAEMJR9378-85-04 07:40:00 Test Item Value Reference Range Interpretation Comments Eosinophils (test code = 1.4 See_Comment [A utomated message] The Eosinophils) system which ge nerated this result tra nsmitted reference range : <=4.0. The reference r kenya was not used to int erpret this result as normal/abnormal . [facility] XCKUTLWUO2419-09-16 07:40:00 Test Item Value Reference Range Interpretation Comments Hgb A1C (test code = Hgb A1C) 5.8 [facility]2017-05-05 07:40:00 Test Item Value Reference Range Interpretation Comments Magnesium Lvl (test code = Magnesium 2.0 1.8-2.4 Lvl) [facility]2017-05-05 07:40:00 Test Item Value Reference Range Interpretation Comments eGFR (test code = eGFR) 45 [facility]2017-05-05 07:40:00 Test Item Value Reference Range Interpretation Comments AST (test code = AST) 35 See_Comment [Auto mated message] The system which ge nerated this result transmit love reference range : <=37. The reference range was not used to interpr et this result as kenny l/abnormal. [facility]2017-05-05 07:40:00 Test Item Value Reference Range Interpretation Comments AGAP (test code = AGAP) 13.7 10.0-20.0 [facility]2017-05-05 07:40:00 Test Item Value Reference Range Interpretation Comments B/C Ratio (test code = B/C Ratio) 16 6-25 [place] 924017-05-05 07:40:00 Test Item Value Reference Range Interpretation Comments Globulin (test code = Globulin) 3.9 2.7-4.2 [place] 924017-05-05 07:40:00 Test Item Value Reference Range Interpretation Comments A/G Ratio (test code = A/G Ratio) 0.8 0.7-1.6 [place] 924017-05-05 07:40:00 Test Item Value Reference Range Interpretation Comments Alk Phos (test code = Alk Phos) 103 39-136 [facility]2017-05-05 07:40:00 Test Item Value Reference Range Interpretation Comments Bili Total (test code = Bili Total) 0.6 0.2-1.3 [place] 924017-05-05 07:40:00 Test Item Value Reference Range Interpretation Comments Glucose Lvl (test code = Glucose Lvl) 66 70-99 [facility]2017-05-05 07:40:00 Test Item Value Reference Range Interpretation Comments Calcium Lvl (test code = Calcium Lvl) 7.7 8.5-10.5 [place] 924017-05-05 07:40:00 Test Item Value Reference Range Interpretation Comments Total Protein (test code = Total 6.9 6.4-8.4 Protein) [place] 924017-05-05 07:40:00 Test Item Value Reference Range Interpretation Comments Albumin Lvl (test code = Albumin Lvl) 3.0 3.5-5.0 [place] 924017-05-05 07:40:00 Test Item Value Reference Range Interpretation Comments ALT (test code = ALT) 54 See_Comment [Auto mated message] The system which ge nerated this result transmit love reference range : <=65. The reference range was not used to interpr et this result as kenny l/abnormal. [place] 924017-05-05 07:40:00 Test Item Value Reference Range Interpretation Comments BUN (test code = BUN) 26 7-22 [facility]2017-05-05 07:40:00 Test Item Value Reference Range Interpretation Comments CO2 (test code = CO2) 20 24-32 [place] 924017-05-05 07:40:00 Test Item Value Reference Range Interpretation Comments Creatinine Lvl (test code = Creatinine 1.60 0.50-1.40 Lvl) [facility]2017-05-05 07:40:00 Test Item Value Reference Range Interpretation Comments Sodium Lvl (test code = Sodium Lvl) 138 135-145 [facility]2017-05-05 07:40:00 Test Item Value Reference Range Interpretation Comments Potassium Lvl (test code = Potassium 3.7 3.5-5.1 Lvl) [facility]2017-05-05 07:40:00 Test Item Value Reference Range Interpretation Comments Chloride Lvl (test code = Chloride Lvl) 108 95-109 [place] 924017-05-05 07:40:00 Test Item Value Reference Range Interpretation Comments Phosphorus (test code = Phosphorus) 2.9 2.5-4.5 [place] 924017-05-05 07:40:00 Test Item Value Reference Range Interpretation Comments Lipase Lvl (test code = Lipase Lvl) 151 73-393 [facility] CenterTorilogTASGTLJDCS3234-24-06 07:40:00 Test Item Value Reference Range Interpretation Comments MPV (test code = MPV) 10.1 7.4-10.4 [facility] CenterSwsvekdWLXUPBUWBZ5488-86-31 07:40:00 Test Item Value Reference Range Interpretation Comments Platelet (test code = Platelet) 119 133-450 [facility] CenterHtsydgnQSBJUSDPDZ7586-73-09 07:40:00 Test Item Value Reference Range Interpretation Comments MCV (test code = MCV) 97.0 80.0-94.0 [place] 108177-05-05 07:40:00 Test Item Value Reference Range Interpretation Comments Hct (test code = Hct) 37.6 42.0-54.0 [facility] CenterJwkcaesRQGTZHTSHA2412-11-14 07:40:00 Test Item Value Reference Range Interpretation Comments Hgb (test code = Hgb) 12.9 14.0-18.0 [place] 108177-05-05 07:40:00 Test Item Value Reference Range Interpretation Comments RDW (test code = RDW) 14.5 11.5-14.5 [facility] CenterLwbjlvxLOFEKYXFPO7346-33-65 07:40:00 Test Item Value Reference Range Interpretation Comments MCHC (test code = MCHC) 34.3 32.0-36.0 [facility] CenterGitqpjtYBTANTUGIR1414-85-20 07:40:00 Test Item Value Reference Range Interpretation Comments MCH (test code = MCH) 33.3 pg 27.0-31.0 [facility] CenterDigbgwoGAHKOBSSMP9701-08-85 07:40:00 Test Item Value Reference Range Interpretation Comments WBC (test code = WBC) 11.3 3.7-10.4 [facility] CenterCnxzunpRUUKYWCCJZ1916-17-83 07:40:00 Test Item Value Reference Range Interpretation Comments RBC (test code = RBC) 3.88 4.70-6.10 [facility] CenterPuatyzqIOFMFFICOW8049-28-36 07:40:00 Test Item Value Reference Range Interpretation Comments Basophils # (test code 0.0 See_Comment [Aut omated message] The = Basophils #) system which generated this result tra nsmitted reference range : <=0.2. The reference r kenya was not used to int erpret this result as normal/abnormal . [facility] CenterGksohqrCJZYADREUO6824-50-53 07:40:00 Test Item Value Reference Range Interpretation Comments Monocytes # (test code 0.9 See_Comment [Aut omated message] The = Monocytes #) system which generated this result tra nsmitted reference range : <=0.8. The reference r kenya was not used to int erpret this result as normal/abnormal . [facility] CenterXrwzivjRXJEWYMOME5120-15-18 07:40:00 Test Item Value Reference Range Interpretation Comments Eosinophils # (test code 0.2 See_Comment [A utomated message] The = Eosinophils #) system whic h generated this result tra nsmitted reference range : <=0.5. The reference r kenya was not used to int erpret this result as normal/abnormal . [facility] CenterLpomonoVABBIWWSPX1828-33-04 07:40:00 Test Item Value Reference Range Interpretation Comments RBC Morph (test code = Normal (08/11/16 2:40 AM) RBC Morph) [facility] CenterBdzdamrJAYZMQWEBG2517-87-46 07:40:00 Test Item Value Reference Range Interpretation Comments Monocytes (test code = Monocytes) 8.3 2.0-12.0 [facility] CenterYdzzxpzOZCPWNOWVJ6069-77-84 07:40:00 Test Item Value Reference Range Interpretation Comments Segs (test code = Segs) 82.1 45.0-75.0 [facility] CenterCkzvvsrQSUISEHTCL3920-26-04 07:40:00 Test Item Value Reference Range Interpretation Comments Plt Morph (test code = Normal (08/11/16 2:40 AM) Plt Morph) [facility] CenterQgxlohiDRFUFQNDNL5704-65-18 07:40:00 Test Item Value Reference Range Interpretation Comments Lymphocytes (test code = Lymphocytes) 8.0 20.0-40.0 [facility] CenterCyvlyzzUNCRVPMGQW3143-55-05 07:40:00 Test Item Value Reference Range Interpretation Comments Lymphocytes # (test code = Lymphocytes 0.9 1.0-5.5 #) [facility] CenterLonbxuuPKEXDOLWNT2182-21-70 07:40:00 Test Item Value Reference Range Interpretation Comments Segs-Bands # (test code = Segs-Bands #) 9.3 1.5-8.1 [facility] CenterXrilpigEWMUXSWZCK3017-72-61 07:40:00 Test Item Value Reference Range Interpretation Comments Basophils (test code = 0.2 See_Comment [Aut omated message] The Basophils) system which ge nerated this result tra nsmitted reference range : <=1.0. The reference r kenya was not used to int erpret this result as normal/abnormal . [facility] CenterVafuqxyQWUVKCUUNJ4758-15-14 07:40:00 Test Item Value Reference Range Interpretation Comments Eosinophils (test code = 1.4 See_Comment [A utomated message] The Eosinophils) system which ge nerated this result tra nsmitted reference range : <=4.0. The reference r kenya was not used to int erpret this result as normal/abnormal . [facility] CQNMVACIM0186-30-52 07:40:00 Test Item Value Reference Range Interpretation Comments Hgb A1C (test code = Hgb A1C) 5.8 [facility] BWGBC5440-71-94 07:40:00 Test Item Value Reference Range Interpretation Comments Magnesium Lvl (test code = Magnesium 2.0 1.8-2.4 Lvl) [facility] BMOJM9186-94-81 07:40:00 Test Item Value Reference Range Interpretation Comments eGFR (test code = eGFR) 45 [facility]2017-05-05 07:40:00 Test Item Value Reference Range Interpretation Comments AST (test code = AST) 35 See_Comment [Auto mated message] The system which ge nerated this result transmit love reference range : <=37. The reference range was not used to interpr et this result as kenny l/abnormal. [facility]2017-05-05 07:40:00 Test Item Value Reference Range Interpretation Comments AGAP (test code = AGAP) 13.7 10.0-20.0 [place] 924017-05-05 07:40:00 Test Item Value Reference Range Interpretation Comments B/C Ratio (test code = B/C Ratio) 16 6-25 [facility]2017-05-05 07:40:00 Test Item Value Reference Range Interpretation Comments Globulin (test code = Globulin) 3.9 2.7-4.2 [facility]2017-05-05 07:40:00 Test Item Value Reference Range Interpretation Comments A/G Ratio (test code = A/G Ratio) 0.8 0.7-1.6 [place] 924017-05-05 07:40:00 Test Item Value Reference Range Interpretation Comments Alk Phos (test code = Alk Phos) 103 39-136 [facility]2017-05-05 07:40:00 Test Item Value Reference Range Interpretation Comments Bili Total (test code = Bili Total) 0.6 0.2-1.3 [facility]2017-05-05 07:40:00 Test Item Value Reference Range Interpretation Comments Glucose Lvl (test code = Glucose Lvl) 66 70-99 [facility]2017-05-05 07:40:00 Test Item Value Reference Range Interpretation Comments Calcium Lvl (test code = Calcium Lvl) 7.7 8.5-10.5 [facility]2017-05-05 07:40:00 Test Item Value Reference Range Interpretation Comments Total Protein (test code = Total 6.9 6.4-8.4 Protein) [facility]2017-05-05 07:40:00 Test Item Value Reference Range Interpretation Comments Albumin Lvl (test code = Albumin Lvl) 3.0 3.5-5.0 [place] 924017-05-05 07:40:00 Test Item Value Reference Range Interpretation Comments ALT (test code = ALT) 54 See_Comment [Auto mated message] The system which ge nerated this result transmit love reference range : <=65. The reference range was not used to interpr et this result as kenny l/abnormal. [facility]2017-05-05 07:40:00 Test Item Value Reference Range Interpretation Comments BUN (test code = BUN) 26 7-22 [facility]2017-05-05 07:40:00 Test Item Value Reference Range Interpretation Comments CO2 (test code = CO2) 20 24-32 [facility]2017-05-05 07:40:00 Test Item Value Reference Range Interpretation Comments Creatinine Lvl (test code = Creatinine 1.60 0.50-1.40 Lvl) [facility]2017-05-05 07:40:00 Test Item Value Reference Range Interpretation Comments Sodium Lvl (test code = Sodium Lvl) 138 135-145 [facility]2017-05-05 07:40:00 Test Item Value Reference Range Interpretation Comments Potassium Lvl (test code = Potassium 3.7 3.5-5.1 Lvl) [facility]2017-05-05 07:40:00 Test Item Value Reference Range Interpretation Comments Chloride Lvl (test code = Chloride Lvl) 108 95-109 [facility]2017-05-05 07:40:00 Test Item Value Reference Range Interpretation Comments Phosphorus (test code = Phosphorus) 2.9 2.5-4.5 [facility]2017-05-05 07:40:00 Test Item Value Reference Range Interpretation Comments Lipase Lvl (test code = Lipase Lvl) 151 73-393 [facility] CenterOiejecpJQNCFXFSLC2512-45-01 07:40:00 Test Item Value Reference Range Interpretation Comments MPV (test code = MPV) 10.1 7.4-10.4 [facility]BACT[facility] YSPZDDMS0206-39-05 01:30:00 Test Item Value Reference Range Interpretation Comments MRSA by PCR (test Negative (08/10/16 8:30 code = MRSA by PCR) PM) [facility]lineBACT[facility] - XQHMSIOV3154-23-97 01:30:00 Test Item Value Reference Range Interpretation Comments MRSA by PCR (test Negative (08/10/16 8:30 code = MRSA by PCR) PM) [facility] - GJSXJDHO0119-12-63 01:30:00 Test Item Value Reference Range Interpretation Comments MRSA by PCR (test Negative (08/10/16 8:30 code = MRSA by PCR) PM) [facility]leiIIYQPPTZSELW9107-[facility]-13 15:45:00 Test Item Value Reference Range Interpretation Comments AGAP (test code = AGAP) 17.2 10.0-20.0 [facility] HospitalNdnvgvcDONLMMHZVYOE8909-97-66 15:45:00 Test Item Value Reference Range Interpretation Comments eGFR (test code = eGFR) 39 [facility]OvyzgeqOUFSGGDPTQGJ4155-44-02 15:45:00 Test Item Value Reference Range Interpretation Comments Chloride Lvl (test code = Chloride Lvl) 109 95-109 [facility] HospitalYvbbelnJPNXLVBITYVU4435-43-36 15:45:00 Test Item Value Reference Range Interpretation Comments Potassium Lvl (test code = Potassium 4.2 3.5-5.1 Lvl) [facility] HospitalScxoiaxJRXAYCXFKXQV0572-70-99 15:45:00 Test Item Value Reference Range Interpretation Comments CO2 (test code = CO2) 21 24-32 [facility]XjtxiufFKVCTETYZSTB2205-33-02 15:45:00 Test Item Value Reference Range Interpretation Comments Sodium Lvl (test code = Sodium Lvl) 143 135-145 [facility] HospitalUwdmdeePGXXQGZCFJPC4245-36-14 15:45:00 Test Item Value Reference Range Interpretation Comments Creatinine Lvl (test code = Creatinine 1.80 0.50-1.40 Lvl) [facility] HospitalDqdircoOLUUAFUISOZA5421-00-95 15:45:00 Test Item Value Reference Range Interpretation Comments Glucose Lvl (test code = Glucose Lvl) 74 70-99 [facility] HospitalPeyhdpbMCBUULWETCDA5588-75-76 15:45:00 Test Item Value Reference Range Interpretation Comments BUN (test code = BUN) 34 7-22 [facility] HospitalMfjodwtPKIRSNJFZJBM0959-33-74 15:45:00 Test Item Value Reference Range Interpretation Comments Calcium Lvl (test code = Calcium Lvl) 8.4 8.5-10.5 [facility]lineBojhakbVWJGBUDEYB9676-46-23 15:45:00 Test Item Value Reference Range Interpretation Comments RBC (test code = RBC) 3.91 4.70-6.10 [facility] CenterIoxxnhwFSAQOQDCOF6094-23-71 15:45:00 Test Item Value Reference Range Interpretation Comments Hgb (test code = Hgb) 13.1 14.0-18.0 [facility] CenterKwytohlKUSCKBWDDR9465-80-36 15:45:00 Test Item Value Reference Range Interpretation Comments WBC (test code = WBC) 16.3 3.7-10.4 [facility] CenterFtmmxjtAZDNBOSRBD4247-50-70 15:45:00 Test Item Value Reference Range Interpretation Comments MCV (test code = MCV) 96.6 80.0-94.0 [facility] CenterZqjqyabREJFOGGKBB7057-99-67 15:45:00 Test Item Value Reference Range Interpretation Comments MCHC (test code = MCHC) 34.5 32.0-36.0 [facility] CenterMixglfgAXYQRBUXDB1297-37-52 15:45:00 Test Item Value Reference Range Interpretation Comments MCH (test code = MCH) 33.4 pg 27.0-31.0 [facility] CenterYtirdfwYOAINHJEYV3929-74-97 15:45:00 Test Item Value Reference Range Interpretation Comments MPV (test code = MPV) 10.3 7.4-10.4 [facility] CenterWeazonnUARBSRFORM5601-76-48 15:45:00 Test Item Value Reference Range Interpretation Comments Hct (test code = Hct) 37.8 42.0-54.0 [facility] CenterLfjtjjnLICQCMVXZH3071-47-27 15:45:00 Test Item Value Reference Range Interpretation Comments Platelet (test code = Platelet) 148 133-450 [facility] CenterXyshhjcUWVWWCJDVM1653-05-78 15:45:00 Test Item Value Reference Range Interpretation Comments RDW (test code = RDW) 13.6 11.5-14.5 [facility] CenterCkukuitVNLJUSZYFF8696-62-57 15:45:00 Test Item Value Reference Range Interpretation Comments PTT (test code = PTT) 32.5 s 22.9-35.8 [facility]OplllrkQTUNUWCKBT0889-67-10 15:45:00 Test Item Value Reference Range Interpretation Comments PT (test code = PT) 14.8 s 12.0-14.7 [facility] CenterWjrmjayLJTCRTBMSX6308-30-56 15:45:00 Test Item Value Reference Range Interpretation Comments INR (test code = INR) 1.14 0.85-1.17 [facility] CenterPqwcffgTGJVLZJLOS5664-12-67 15:45:00 Test Item Value Reference Range Interpretation Comments Segs-Bands # (test code = Segs-Bands #) 11.6 1.5-8.1 [facility] CenterSjiupcgBGNLSQEJSD3268-32-42 15:45:00 Test Item Value Reference Range Interpretation Comments Basophils (test code = 0.3 See_Comment [Aut omated message] The Basophils) system which ge nerated this result tra nsmitted reference range : <=1.0. The reference r kenya was not used to int erpret this result as normal/abnormal . [facility] CenterOusrvnaHDEJLHOQPI4395-09-12 15:45:00 Test Item Value Reference Range Interpretation Comments Eosinophils (test code = 2.7 See_Comment [A utomated message] The Eosinophils) system which ge nerated this result tra nsmitted reference range : <=4.0. The reference r kenya was not used to int erpret this result as normal/abnormal . [facility] CenterGkjwvpdEAHRQAWSYH0277-85-92 15:45:00 Test Item Value Reference Range Interpretation Comments Lymphocytes # (test code = Lymphocytes 2.8 1.0-5.5 #) [facility] CenterVzfsqwhWKOAOVKEQP8213-22-46 15:45:00 Test Item Value Reference Range Interpretation Comments Eosinophils # (test code 0.4 See_Comment [A utomated message] The = Eosinophils #) system whic h generated this result tra nsmitted reference range : <=0.5. The reference r kenya was not used to int erpret this result as normal/abnormal . [facility] CenterBvyocqjMSZRNLTCJO8083-97-04 15:45:00 Test Item Value Reference Range Interpretation Comments Monocytes # (test code 1.4 See_Comment [Aut omated message] The = Monocytes #) system which generated this result tra nsmitted reference range : <=0.8. The reference r kenya was not used to int erpret this result as normal/abnormal . [facility] CenterXyustdiQJYMHLPMIB2002-62-32 15:45:00 Test Item Value Reference Range Interpretation Comments Basophils # (test code 0.0 See_Comment [Aut omated message] The = Basophils #) system which generated this result tra nsmitted reference range : <=0.2. The reference r kenya was not used to int erpret this result as normal/abnormal . [facility] CenterFeqxctrAMSRWVQHOD0927-05-03 15:45:00 Test Item Value Reference Range Interpretation Comments Lymphocytes (test code = Lymphocytes) 17.2 20.0-40.0 [facility]XzdyxejOLTVCBTDAPQZ8469-57-47 15:45:00 Test Item Value Reference Range Interpretation Comments AGAP (test code = AGAP) 17.2 10.0-20.0 [facility] HospitalSxoodtsDUHEDLTALDFT5715-79-88 15:45:00 Test Item Value Reference Range Interpretation Comments eGFR (test code = eGFR) 39 [facility]XwcynxgJANPBSTCVHMG7292-81-93 15:45:00 Test Item Value Reference Range Interpretation Comments Chloride Lvl (test code = Chloride Lvl) 109 95-109 [facility] CenterApfljeqZFPGGJLDPE6743-98-79 15:45:00 Test Item Value Reference Range Interpretation Comments Monocytes (test code = Monocytes) 8.5 2.0-12.0 [facility] HospitalTebfozrIXYUULGXDKBP3509-74-08 15:45:00 Test Item Value Reference Range Interpretation Comments Potassium Lvl (test code = Potassium 4.2 3.5-5.1 Lvl) [facility] HospitalYpvrrbcAJAIQCMGZFLP4761-85-25 15:45:00 Test Item Value Reference Range Interpretation Comments CO2 (test code = CO2) 21 24-32 [facility] HospitalDgmjcqaWGDEKSATXTQN3391-70-87 15:45:00 Test Item Value Reference Range Interpretation Comments Sodium Lvl (test code = Sodium Lvl) 143 135-145 [facility] HospitalKrlvzmwTEFUJLKFALST6581-74-49 15:45:00 Test Item Value Reference Range Interpretation Comments Creatinine Lvl (test code = Creatinine 1.80 0.50-1.40 Lvl) [facility] HospitalJrmblfzYMATAEZZPHZO5713-21-65 15:45:00 Test Item Value Reference Range Interpretation Comments Glucose Lvl (test code = Glucose Lvl) 74 70-99 [facility] HospitalTfynktkEOGUMQONDFJQ8139-58-35 15:45:00 Test Item Value Reference Range Interpretation Comments BUN (test code = BUN) 34 7-22 [facility] HospitalDjrzpzyICSNMDVYGLSS1662-47-41 15:45:00 Test Item Value Reference Range Interpretation Comments Calcium Lvl (test code = Calcium Lvl) 8.4 8.5-10.5 [facility] CenterHndbirvWOKGLSFFYA1517-50-86 15:45:00 Test Item Value Reference Range Interpretation Comments RBC (test code = RBC) 3.91 4.70-6.10 [facility] CenterMmmkmcfJUCGOBSHYL5069-37-88 15:45:00 Test Item Value Reference Range Interpretation Comments Hgb (test code = Hgb) 13.1 14.0-18.0 [facility] CenterMeqnhcpSMZCHSNHDZ0570-92-39 15:45:00 Test Item Value Reference Range Interpretation Comments WBC (test code = WBC) 16.3 3.7-10.4 [facility] CenterXhejyuqFKASXZAKNG5304-09-88 15:45:00 Test Item Value Reference Range Interpretation Comments Segs (test code = Segs) 71.3 45.0-75.0 [facility] CenterHithqzjLBAGCPNXXW7505-80-96 15:45:00 Test Item Value Reference Range Interpretation Comments MCV (test code = MCV) 96.6 80.0-94.0 [facility] CenterKsclylyEVXAFYJBCF8917-97-47 15:45:00 Test Item Value Reference Range Interpretation Comments MCHC (test code = MCHC) 34.5 32.0-36.0 [facility] CenterHwozzskOBUDUWVFMB0526-19-65 15:45:00 Test Item Value Reference Range Interpretation Comments MCH (test code = MCH) 33.4 pg 27.0-31.0 [facility] CenterHxoavthUOBDQBUJJJ1599-17-84 15:45:00 Test Item Value Reference Range Interpretation Comments MPV (test code = MPV) 10.3 7.4-10.4 [facility] CenterJxxmelrDHNIAZUCWV2342-64-75 15:45:00 Test Item Value Reference Range Interpretation Comments Hct (test code = Hct) 37.8 42.0-54.0 [facility] CenterQluxofjGXJZWKOMBO6865-49-07 15:45:00 Test Item Value Reference Range Interpretation Comments Platelet (test code = Platelet) 148 133-450 [facility] CenterMxwxhzbIFJHOXFNHL5490-40-70 15:45:00 Test Item Value Reference Range Interpretation Comments RDW (test code = RDW) 13.6 11.5-14.5 [facility] CenterHawzndbJSBOLUIITJ6428-21-03 15:45:00 Test Item Value Reference Range Interpretation Comments PTT (test code = PTT) 32.5 s 22.9-35.8 [facility] CenterBentlytVDPZRJHCGU4160-39-43 15:45:00 Test Item Value Reference Range Interpretation Comments PT (test code = PT) 14.8 s 12.0-14.7 [facility] CenterAzhmgmdHRFMIBYALR0489-46-08 15:45:00 Test Item Value Reference Range Interpretation Comments INR (test code = INR) 1.14 0.85-1.17 [facility] CenterTdpsvhqLNAPHJYWBK4147-91-30 15:45:00 Test Item Value Reference Range Interpretation Comments Plt Morph (test code = Normal (08/10/16 10:45 Plt Morph) AM) [facility] CenterZxybinaTFRNSHQMCJ0118-29-71 15:45:00 Test Item Value Reference Range Interpretation Comments Segs-Bands # (test code = Segs-Bands #) 11.6 1.5-8.1 [facility] CenterDusosnyWZIEBTXKRO7644-98-77 15:45:00 Test Item Value Reference Range Interpretation Comments Basophils (test code = 0.3 See_Comment [Aut omated message] The Basophils) system which ge nerated this result tra nsmitted reference range : <=1.0. The reference r kenya was not used to int erpret this result as normal/abnormal . [facility] CenterWeicpcoUXFASWEPOT5781-24-98 15:45:00 Test Item Value Reference Range Interpretation Comments Eosinophils (test code = 2.7 See_Comment [A utomated message] The Eosinophils) system which ge nerated this result tra nsmitted reference range : <=4.0. The reference r kenya was not used to int erpret this result as normal/abnormal . [facility] CenterRgoncfnKKMOLOLXFP4955-22-51 15:45:00 Test Item Value Reference Range Interpretation Comments Lymphocytes # (test code = Lymphocytes 2.8 1.0-5.5 #) [facility] CenterKelxwvnXGBGGQLXKZ1090-14-04 15:45:00 Test Item Value Reference Range Interpretation Comments Eosinophils # (test code 0.4 See_Comment [A utomated message] The = Eosinophils #) system whic h generated this result tra nsmitted reference range : <=0.5. The reference r kenya was not used to int erpret this result as normal/abnormal . [facility] CenterOiowukqRNWFRTIADA0092-18-08 15:45:00 Test Item Value Reference Range Interpretation Comments Monocytes # (test code 1.4 See_Comment [Aut omated message] The = Monocytes #) system which generated this result tra nsmitted reference range : <=0.8. The reference r kenya was not used to int erpret this result as normal/abnormal . [facility] CenterUfjuxsvZGZMCKCYXY1290-83-92 15:45:00 Test Item Value Reference Range Interpretation Comments Basophils # (test code 0.0 See_Comment [Aut omated message] The = Basophils #) system which generated this result tra nsmitted reference range : <=0.2. The reference r kenya was not used to int erpret this result as normal/abnormal . [facility] CenterQtprzxdMPGPXRJWYX5494-53-21 15:45:00 Test Item Value Reference Range Interpretation Comments Lymphocytes (test code = Lymphocytes) 17.2 20.0-40.0 [facility] CenterRepfutxNIFXLBABXG8967-37-76 15:45:00 Test Item Value Reference Range Interpretation Comments Monocytes (test code = Monocytes) 8.5 2.0-12.0 [facility] CenterRkumcrtQQRVOSDLNZ8449-80-81 15:45:00 Test Item Value Reference Range Interpretation Comments Segs (test code = Segs) 71.3 45.0-75.0 [facility] CenterEypsyhjHJOUKCRAIN9622-36-69 15:45:00 Test Item Value Reference Range Interpretation Comments RBC Morph (test code = Normal (08/10/16 10:45 RBC Morph) AM) [facility] CenterQbqhidvUZINVCHRXV0140-57-19 15:45:00 Test Item Value Reference Range Interpretation Comments Plt Morph (test code = Normal (08/10/16 10:45 Plt Morph) AM) [facility] CenterDwrrbtfAAIYXQIVUI3911-11-84 15:45:00 Test Item Value Reference Range Interpretation Comments RBC Morph (test code = Normal (08/10/16 10:45 RBC Morph) AM) [facility] HospitalKxsexilBSYBRQAAAXMP4910-90-97 15:45:00 Test Item Value Reference Range Interpretation Comments AGAP (test code = AGAP) 17.2 10.0-20.0 [facility] HospitalOkcebmnNXBPLSVYHUTF7678-76-73 15:45:00 Test Item Value Reference Range Interpretation Comments eGFR (test code = eGFR) 39 [facility] HospitalJeoklmkBOYDOMZNKHUL5096-73-30 15:45:00 Test Item Value Reference Range Interpretation Comments Chloride Lvl (test code = Chloride Lvl) 109 95-109 [facility] HospitalKnttqflZUVAOHLDHPTR1221-27-85 15:45:00 Test Item Value Reference Range Interpretation Comments Potassium Lvl (test code = Potassium 4.2 3.5-5.1 Lvl) [facility] HospitalXlprbcwRUIONVGYCTQJ3420-77-29 15:45:00 Test Item Value Reference Range Interpretation Comments CO2 (test code = CO2) 21 24-32 [facility] HospitalMfeffqeNDSJWPWXLPHB1915-27-04 15:45:00 Test Item Value Reference Range Interpretation Comments Sodium Lvl (test code = Sodium Lvl) 143 135-145 [facility] HospitalUbaelzjYHOOXTERJOBL4513-85-03 15:45:00 Test Item Value Reference Range Interpretation Comments Creatinine Lvl (test code = Creatinine 1.80 0.50-1.40 Lvl) [facility] HospitalXvkgonnNNBSPXBPMTSX1935-06-53 15:45:00 Test Item Value Reference Range Interpretation Comments Glucose Lvl (test code = Glucose Lvl) 74 70-99 [facility] HospitalXnpjkaoMJFCGQWBBZHA8275-33-45 15:45:00 Test Item Value Reference Range Interpretation Comments BUN (test code = BUN) 34 7-22 [facility] HospitalYgcsbraAQNPHLXFNRYB2313-01-22 15:45:00 Test Item Value Reference Range Interpretation Comments Calcium Lvl (test code = Calcium Lvl) 8.4 8.5-10.5 [facility] CenterShvhuyuKHCBXAUTFI5149-79-77 15:45:00 Test Item Value Reference Range Interpretation Comments RBC (test code = RBC) 3.91 4.70-6.10 [facility] CenterEmjfohrNTNSSHLNFG4697-72-08 15:45:00 Test Item Value Reference Range Interpretation Comments Hgb (test code = Hgb) 13.1 14.0-18.0 [facility] CenterZsoerpdKRHWAMFUUQ5790-21-01 15:45:00 Test Item Value Reference Range Interpretation Comments WBC (test code = WBC) 16.3 3.7-10.4 [facility] CenterKbugdyiGEJJILZSUV9120-36-08 15:45:00 Test Item Value Reference Range Interpretation Comments MCV (test code = MCV) 96.6 80.0-94.0 [facility] CenterFaeunvpUWHCUQMWSG5233-86-84 15:45:00 Test Item Value Reference Range Interpretation Comments MCHC (test code = MCHC) 34.5 32.0-36.0 [facility] CenterRiagjoyMQASLHUPXZ2482-15-94 15:45:00 Test Item Value Reference Range Interpretation Comments MCH (test code = MCH) 33.4 pg 27.0-31.0 [facility] CenterOvunlktVZUZGQDWSJ9640-71-04 15:45:00 Test Item Value Reference Range Interpretation Comments MPV (test code = MPV) 10.3 7.4-10.4 [facility] CenterHzqeaggEIUDUJPBRV7595-50-91 15:45:00 Test Item Value Reference Range Interpretation Comments Hct (test code = Hct) 37.8 42.0-54.0 [facility] CenterQbkbjurAWJWXEHHCV4601-64-17 15:45:00 Test Item Value Reference Range Interpretation Comments Platelet (test code = Platelet) 148 133-450 [facility] CenterTcvgxsxUTIRATOJIY7067-07-50 15:45:00 Test Item Value Reference Range Interpretation Comments RDW (test code = RDW) 13.6 11.5-14.5 [facility] CenterSvtwwxcYRZLUTHHST0709-66-92 15:45:00 Test Item Value Reference Range Interpretation Comments PTT (test code = PTT) 32.5 s 22.9-35.8 [facility] CenterNrcmruwLTHZRASOSX4686-26-09 15:45:00 Test Item Value Reference Range Interpretation Comments PT (test code = PT) 14.8 s 12.0-14.7 [facility] CenterZpkisnmOCOXUGWDRI5843-83-15 15:45:00 Test Item Value Reference Range Interpretation Comments INR (test code = INR) 1.14 0.85-1.17 [facility] CenterZlbebhsFYQZCIZEHI2115-06-28 15:45:00 Test Item Value Reference Range Interpretation Comments Segs-Bands # (test code = Segs-Bands #) 11.6 1.5-8.1 [facility] CenterTslxmnzIFDMQCSPRI1352-08-23 15:45:00 Test Item Value Reference Range Interpretation Comments Basophils (test code = 0.3 See_Comment [Aut omated message] The Basophils) system which ge nerated this result tra nsmitted reference range : <=1.0. The reference r kenya was not used to int erpret this result as normal/abnormal . [facility] CenterQehxlupAJYDCHMHDJ3287-44-40 15:45:00 Test Item Value Reference Range Interpretation Comments Eosinophils (test code = 2.7 See_Comment [A utomated message] The Eosinophils) system which ge nerated this result tra nsmitted reference range : <=4.0. The reference r kenya was not used to int erpret this result as normal/abnormal . [facility] CenterHwiixybYIBYZKCHUK4744-58-23 15:45:00 Test Item Value Reference Range Interpretation Comments Lymphocytes # (test code = Lymphocytes 2.8 1.0-5.5 #) [facility] CenterDlncgrmXSYIKKBMSG7308-44-17 15:45:00 Test Item Value Reference Range Interpretation Comments Eosinophils # (test code 0.4 See_Comment [A utomated message] The = Eosinophils #) system whic h generated this result tra nsmitted reference range : <=0.5. The reference r kenya was not used to int erpret this result as normal/abnormal . [facility] CenterIhepiquGUPXJTSUGQ2009-96-86 15:45:00 Test Item Value Reference Range Interpretation Comments Monocytes # (test code 1.4 See_Comment [Aut omated message] The = Monocytes #) system which generated this result tra nsmitted reference range : <=0.8. The reference r kenya was not used to int erpret this result as normal/abnormal . [facility] CenterFpeuqmlDUWAQPDVZK3369-31-58 15:45:00 Test Item Value Reference Range Interpretation Comments Basophils # (test code 0.0 See_Comment [Aut omated message] The = Basophils #) system which generated this result tra nsmitted reference range : <=0.2. The reference r kenya was not used to int erpret this result as normal/abnormal . [facility] CenterNpjevwsOKEFJJOBXT0584-49-15 15:45:00 Test Item Value Reference Range Interpretation Comments Lymphocytes (test code = Lymphocytes) 17.2 20.0-40.0 [facility] CenterTsainutVAJDWYPTOK0961-74-30 15:45:00 Test Item Value Reference Range Interpretation Comments Monocytes (test code = Monocytes) 8.5 2.0-12.0 [facility] CenterJmzuqlsYDHXHFYMQO1211-35-64 15:45:00 Test Item Value Reference Range Interpretation Comments Segs (test code = Segs) 71.3 45.0-75.0 [facility] CenterCoyakylYFGYFTQEMT2960-07-60 15:45:00 Test Item Value Reference Range Interpretation Comments Plt Morph (test code = Normal (08/10/16 10:45 Plt Morph) AM) [facility] CenterYsxduqpOEKXOCAAZS1730-48-34 15:45:00 Test Item Value Reference Range Interpretation Comments RBC Morph (test code = Normal (08/10/16 10:45 RBC Morph) AM) [facility] CenterIejuozrQQMYFKBPRQ3563-40-73 11:40:00 Test Item Value Reference Range Interpretation Comments POC Hemoglobin (test code = POC 13.6 14.0-18.0 Hemoglobin) [facility] CenterHxflkmzIZASAVOKUN9542-26-53 11:40:00 Test Item Value Reference Range Interpretation Comments POC AGAP (test code = POC AGAP) 18.0 10.0-20.0 [facility] CenterRwnnnkuVNLOMKZCLY3687-07-37 11:40:00 Test Item Value Reference Range Interpretation Comments POC Hematocrit (test code = POC 40.0 42.0-54.0 Hematocrit) [facility] CenterXozamriJTWXSWTFUN4429-88-97 11:40:00 Test Item Value Reference Range Interpretation Comments POC Carbon Dioxide (test code = POC 21 24-32 Carbon Dioxide) [facility] CenterQthndeeVNAEHGTPUM2831-89-34 11:40:00 Test Item Value Reference Range Interpretation Comments POC Ion Ca (test code = POC Ion Ca) 1.21 1.05-1.25 [facility] CenterWngwpvlQWJCWLKACV5269-09-23 11:40:00 Test Item Value Reference Range Interpretation Comments POC BUN (test code = POC BUN) 35 7-22 [facility] CenterPufaaigWTIPVSEJVM0657-59-53 11:40:00 Test Item Value Reference Range Interpretation Comments POC Creatinine (test code = POC 1.7 0.5-1.4 Creatinine) [facility] CenterAwraovxNMNQDRKRZO4481-81-94 11:40:00 Test Item Value Reference Range Interpretation Comments POC Glucose (test code = POC Glucose) 124 70-99 [facility] CenterRbkydrmWFDIQLHCMI6826-55-09 11:40:00 Test Item Value Reference Range Interpretation Comments POC Hemoglobin (test code = POC 13.6 14.0-18.0 Hemoglobin) [facility] CenterGvpquziUYDTCLSIVJ1431-94-24 11:40:00 Test Item Value Reference Range Interpretation Comments POC Sodium (test code = POC Sodium) 140 135-145 [facility] CenterVkyqmteGHMKDTNSXQ7286-68-45 11:40:00 Test Item Value Reference Range Interpretation Comments POC Chloride (test code = POC Chloride) 106 95-109 [facility] CenterFqubmxhMNCXLKIUDA5345-68-64 11:40:00 Test Item Value Reference Range Interpretation Comments POC Potassium (test code = POC 3.8 3.5-5.1 Potassium) [facility] CenterAqrbnriJUCMGJZHQA2493-69-65 11:40:00 Test Item Value Reference Range Interpretation Comments POC AGAP (test code = POC AGAP) 18.0 10.0-20.0 [facility] CenterDxzivihQZRCJUTILV7669-81-33 11:40:00 Test Item Value Reference Range Interpretation Comments POC Hematocrit (test code = POC 40.0 42.0-54.0 Hematocrit) [facility] CenterNmukpgzARXVMDIVRA5567-03-12 11:40:00 Test Item Value Reference Range Interpretation Comments POC Carbon Dioxide (test code = POC 21 24-32 Carbon Dioxide) [facility] CenterGtfdahgSOLJPZXZYQ5100-63-78 11:40:00 Test Item Value Reference Range Interpretation Comments POC Ion Ca (test code = POC Ion Ca) 1.21 1.05-1.25 [facility] CenterNzfbltoCHAIYYWAXG5871-28-79 11:40:00 Test Item Value Reference Range Interpretation Comments POC BUN (test code = POC BUN) 35 7-22 [facility] CenterBexikdgOMXGALKBNA1945-54-78 11:40:00 Test Item Value Reference Range Interpretation Comments POC Creatinine (test code = POC 1.7 0.5-1.4 Creatinine) [facility] CenterXfhowkuBAAEQZAJMV9077-12-90 11:40:00 Test Item Value Reference Range Interpretation Comments POC Glucose (test code = POC Glucose) 124 70-99 [facility] CenterGqxeznvQISYQMWIAC2484-65-49 11:40:00 Test Item Value Reference Range Interpretation Comments POC Sodium (test code = POC Sodium) 140 135-145 [facility] CenterGgfhntcPJGFZGQVHW1023-74-09 11:40:00 Test Item Value Reference Range Interpretation Comments POC Chloride (test code = POC Chloride) 106 95-109 [facility] CenterDqrojctYDJLEJLVJM3676-65-04 11:40:00 Test Item Value Reference Range Interpretation Comments POC Potassium (test code = POC 3.8 3.5-5.1 Potassium) [facility] CenterQsmbfqdHWZSNYIBYR6808-51-28 11:40:00 Test Item Value Reference Range Interpretation Comments POC Hemoglobin (test code = POC 13.6 14.0-18.0 Hemoglobin) [facility] CenterOqllhhxJFSTYNDFWW4994-27-64 11:40:00 Test Item Value Reference Range Interpretation Comments POC AGAP (test code = POC AGAP) 18.0 10.0-20.0 [facility] CenterHrqrccsYLWXBXZSSI2745-83-70 11:40:00 Test Item Value Reference Range Interpretation Comments POC Hematocrit (test code = POC 40.0 42.0-54.0 Hematocrit) [facility] CenterJvfvoboKOIHMWRZEU7379-88-73 11:40:00 Test Item Value Reference Range Interpretation Comments POC Carbon Dioxide (test code = POC 21 24-32 Carbon Dioxide) [facility]dsPYVFMEUGQU1134-39-27 11:40:00 Test Item Value Reference Range Interpretation Comments POC Ion Ca (test code = POC Ion Ca) 1.21 1.05-1.25 [facility]PvmmbkbNDLAWSAVXM2992-78-92 11:40:00 Test Item Value Reference Range Interpretation Comments POC BUN (test code = POC BUN) 35 7-22 [facility]PygduvyPFBRPKXAIM6717-92-00 11:40:00 Test Item Value Reference Range Interpretation Comments POC Creatinine (test code = POC 1.7 0.5-1.4 Creatinine) [facility] CenterAhetqauTUOWUVZOZU9503-69-10 11:40:00 Test Item Value Reference Range Interpretation Comments POC Glucose (test code = POC Glucose) 124 70-99 [facility] CenterJqwvsxdNKWBRJYXDS8689-17-61 11:40:00 Test Item Value Reference Range Interpretation Comments POC Sodium (test code = POC Sodium) 140 135-145 [facility] HospitalNieribrULURKQRKQK0404-69-98 11:40:00 Test Item Value Reference Range Interpretation Comments POC Chloride (test code = POC Chloride) 106 95-109 [facility] CenterOpjtpbnWUQSVOWMKA8088-86-19 11:40:00 Test Item Value Reference Range Interpretation Comments POC Potassium (test code = POC 3.8 3.5-5.1 Potassium) [facility] - HOFYYTIA7719-64-04 15:13:00 Test Item Value Reference Range Interpretation Comments MRSA by PCR (test Negative (08/03/16 10:13 code = MRSA by PCR) AM) [facility] PRGMMEI8097-24-28 15:13:00 Test Item Value Reference Range Interpretation Comments Antibody Scrn (test Negative (08/03/16 code = Antibody Scrn) 10:13 AM) [facility] LJZSXOE5421-68-12 15:13:00 Test Item Value Reference Range Interpretation Comments ABO/Rh (test code = ABO/Rh) A NEG [facility] CenterQdiijznWQCEJCNWJY3567-71-29 15:13:00 Test Item Value Reference Range Interpretation Comments Basophils # (test code 0.0 See_Comment [Aut omated message] The = Basophils #) system which generated this result tra nsmitted reference range : <=0.2. The reference r kenya was not used to int erpret this result as normal/abnormal . [facility] CenterZstyxjkTXXXGARQZP0075-60-71 15:13:00 Test Item Value Reference Range Interpretation Comments PTT (test code = PTT) 32.1 s 22.9-35.8 [facility] CenterKqcecpqTAPUFYUCAX4220-86-31 15:13:00 Test Item Value Reference Range Interpretation Comments PT (test code = PT) 13.6 s 12.0-14.7 [facility] CenterHidzpkuWHMWUADVPD7593-50-71 15:13:00 Test Item Value Reference Range Interpretation Comments INR (test code = INR) 1.02 0.85-1.17 [facility] [facility] - [id number] 15:13:00 Test Item Value Reference Range Interpretation Comments MRSA by PCR (test Negative (08/03/16 10:13 code = MRSA by PCR) AM) [facility] [id number] 15:13:00 Test Item Value Reference Range Interpretation Comments Antibody Scrn (test Negative (08/03/16 code = Antibody Scrn) 10:13 AM) [facility] [id number] 15:13:00 Test Item Value Reference Range Interpretation Comments ABO/Rh (test code = ABO/Rh) [facility]G [facility]QgaikbsURUTTCTLZO1529-93-05 15:13:00 Test Item Value Reference Range Interpretation Comments Basophils # (test code 0.0 See_Comment [Aut omated message] The = Basophils #) system which generated this result tra nsmitted reference range : <=0.2. The reference r kenya was not used to int erpret this result as normal/abnormal . [facility] CenterJgysjggFOYUGZDJBK3765-71-17 15:13:00 Test Item Value Reference Range Interpretation Comments PTT (test code = PTT) 32.1 s 22.9-35.8 [facility] CenterHdzjruzJMWJQDWPAO9734-89-87 15:13:00 Test Item Value Reference Range Interpretation Comments PT (test code = PT) 13.6 s 12.0-14.7 [facility] CenterGxcorztQWGWTMMLQW5209-78-34 15:13:00 Test Item Value Reference Range Interpretation Comments INR (test code = INR) 1.02 0.85-1.17 [facility] [id number] 15:13:00 Test Item Value Reference Range Interpretation Comments MRSA by PCR (test Negative (08/03/16 10:13 code = MRSA by PCR) AM) [facility] [id number] 15:13:00 Test Item Value Reference Range Interpretation Comments Antibody Scrn (test Negative (08/03/16 code = Antibody Scrn) 10:13 AM) [facility] [id number] 15:13:00 Test Item Value Reference Range Interpretation Comments ABO/Rh (test code = ABO/Rh) A NEG [facility] CenterEmfqfomMDCEBRTTCJ6501-92-34 15:13:00 Test Item Value Reference Range Interpretation Comments Basophils # (test code 0.0 See_Comment [Aut omated message] The = Basophils #) system which generated this result tra nsmitted reference range : <=0.2. The reference r kenya was not used to int erpret this result as normal/abnormal . [facility] CenterBektkayQXIZECRKED0747-74-91 15:13:00 Test Item Value Reference Range Interpretation Comments PTT (test code = PTT) 32.1 s 22.9-35.8 [facility] CenterBzmqdicGJIPQMBPRG3750-95-27 15:13:00 Test Item Value Reference Range Interpretation Comments PT (test code = PT) 13.6 s 12.0-14.7 [facility] CenterEwbegsjOBDSECHDOG8314-00-41 15:13:00 Test Item Value Reference Range Interpretation Comments INR (test code = INR) 1.02 0.85-1.17 [facility] [id number] 14:39:00 Test Item Value Reference Range Interpretation Comments RBC product (test code Product available = RBC product) (08/03/16 9:39 AM) [facility] [id number] 14:39:00 Test Item Value Reference Range Interpretation Comments RBC product (test code Product available = RBC product) (08/03/16 9:39 AM) [facility] [id number] 14:39:00 Test Item Value Reference Range Interpretation Comments RBC product (test code Product available = RBC product) (08/03/16 9:39 AM) [facility] [id number] 08:58:00 Test Item Value Reference Range Interpretation Comments eGFR (test code = eGFR) 57 [facility] JVDBN5497-68-85 08:58:00 Test Item Value Reference Range Interpretation Comments CO2 (test code = CO2) 23 24-32 [facility]2017-02-03 08:58:00 Test Item Value Reference Range Interpretation Comments Chloride Lvl (test code = Chloride Lvl) 106 95-109 [facility]2017-02-03 08:58:00 Test Item Value Reference Range Interpretation Comments Potassium Lvl (test code = Potassium 3.8 3.5-5.1 Lvl) [facility]2017-02-03 08:58:00 Test Item Value Reference Range Interpretation Comments Sodium Lvl (test code = Sodium Lvl) 139 135-145 [facility]2017-02-03 08:58:00 Test Item Value Reference Range Interpretation Comments Calcium Lvl (test code = Calcium Lvl) 8.8 8.5-10.5 [facility]2017-02-03 08:58:00 Test Item Value Reference Range Interpretation Comments Creatinine Lvl (test code = Creatinine 1.30 0.50-1.40 Lvl) [facility]2017-02-03 08:58:00 Test Item Value Reference Range Interpretation Comments BUN (test code = BUN) 22 7-22 [facility]2017-02-03 08:58:00 Test Item Value Reference Range Interpretation Comments Glucose Lvl (test code = Glucose Lvl) 130 70-99 [facility]2017-02-03 08:58:00 Test Item Value Reference Range Interpretation Comments AGAP (test code = AGAP) 13.8 10.0-20.0 [facility] CenterBwclarfTYTQXCVFHC3267-27-95 08:58:00 Test Item Value Reference Range Interpretation Comments RDW (test code = RDW) 14.0 11.5-14.5 [facility] CenterSniymetFVAYBKOLST8824-40-71 08:58:00 Test Item Value Reference Range Interpretation Comments Platelet (test code = Platelet) 115 133-450 [facility] CenterTiuerxgGFULMDKQPN9546-17-67 08:58:00 Test Item Value Reference Range Interpretation Comments MCH (test code = MCH) 32.9 pg 27.0-31.0 [facility] CenterDimslwkPHAVEVYLOG4795-80-39 08:58:00 Test Item Value Reference Range Interpretation Comments MCHC (test code = MCHC) 33.8 32.0-36.0 [facility] CenterDqkpldwTLYUXGASKZ9178-55-17 08:58:00 Test Item Value Reference Range Interpretation Comments MPV (test code = MPV) 10.9 7.4-10.4 [facility] CenterZfvfhmiNSMIYOENUV5505-97-42 08:58:00 Test Item Value Reference Range Interpretation Comments WBC (test code = WBC) 8.6 3.7-10.4 [facility] CenterVwxmqwgCKDQBUJDXY4667-18-79 08:58:00 Test Item Value Reference Range Interpretation Comments Hgb (test code = Hgb) 14.1 14.0-18.0 [facility] CenterGpphejuJOMFBPRECG5934-19-42 08:58:00 Test Item Value Reference Range Interpretation Comments RBC (test code = RBC) 4.28 4.70-6.10 [facility] CenterMzpqrdxKEAAHDNBTQ5428-12-33 08:58:00 Test Item Value Reference Range Interpretation Comments Hct (test code = Hct) 41.6 42.0-54.0 [facility] CenterLckevroBFADZHFPOV2672-58-56 08:58:00 Test Item Value Reference Range Interpretation Comments MCV (test code = MCV) 97.2 80.0-94.0 [facility] CenterDhhpuuzDCXGJFNXPT7145-92-30 08:58:00 Test Item Value Reference Range Interpretation Comments INR (test code = INR) 1.05 0.85-1.17 [facility] CenterQhjfdgvZXFOGZCCUP8146-89-68 08:58:00 Test Item Value Reference Range Interpretation Comments PT (test code = PT) 13.9 s 12.0-14.7 [facility] CenterJfacsozLVFEZTGQRH1711-07-91 08:58:00 Test Item Value Reference Range Interpretation Comments PTT (test code = PTT) 31.4 s 22.9-35.8 [facility] CenterVertyzbKVIFNPZQAJ0220-62-44 08:58:00 Test Item Value Reference Range Interpretation Comments Lymphocytes # (test code = Lymphocytes 1.2 1.0-5.5 #) [facility] CenterWlkuhmqZIUWJSOHLT2190-10-06 08:58:00 Test Item Value Reference Range Interpretation Comments Basophils (test code = 0.2 See_Comment [Aut omated message] The Basophils) system which ge nerated this result tra nsmitted reference range : <=1.0. The reference r kenya was not used to int erpret this result as normal/abnormal . [facility] CenterXaqgtuuPYMKOOQTOZ5324-77-66 08:58:00 Test Item Value Reference Range Interpretation Comments Segs-Bands # (test code = Segs-Bands #) 6.4 1.5-8.1 [facility] CenterGliybqrFQEONEPFLT2918-61-96 08:58:00 Test Item Value Reference Range Interpretation Comments Basophils # (test code 0.0 See_Comment [Aut omated message] The = Basophils #) system which generated this result tra nsmitted reference range : <=0.2. The reference r kenya was not used to int erpret this result as normal/abnormal . [facility] CenterIkmrwvnQJMOJBEBSO3229-26-94 08:58:00 Test Item Value Reference Range Interpretation Comments Monocytes (test code = Monocytes) 7.4 2.0-12.0 [facility] CenterZpqrondTHOAFLWFHL5145-90-21 08:58:00 Test Item Value Reference Range Interpretation Comments Eosinophils (test code = 4.0 See_Comment [A utomated message] The Eosinophils) system which ge nerated this result tra nsmitted reference range : <=4.0. The reference r kenya was not used to int erpret this result as normal/abnormal . [facility] CenterBmvywfgMLKFKSDQDL5651-22-03 08:58:00 Test Item Value Reference Range Interpretation Comments Lymphocytes (test code = Lymphocytes) 14.3 20.0-40.0 [facility] CenterHkceehvPOVTWKWZRK2540-40-61 08:58:00 Test Item Value Reference Range Interpretation Comments Segs (test code = Segs) 74.1 45.0-75.0 [facility] CenterRxqkdaiFXBZFUHACZ9376-49-10 08:58:00 Test Item Value Reference Range Interpretation Comments Monocytes # (test code 0.6 See_Comment [Aut omated message] The = Monocytes #) system which generated this result tra nsmitted reference range : <=0.8. The reference r kenya was not used to int erpret this result as normal/abnormal . [facility] CenterIbgmwvhNXIADLDDRB1309-48-81 08:58:00 Test Item Value Reference Range Interpretation Comments Eosinophils # (test code 0.3 See_Comment [A utomated message] The = Eosinophils #) system whic h generated this result tra nsmitted reference range : <=0.5. The reference r kenya was not used to int erpret this result as normal/abnormal . [facility]2017-02-03 08:58:00 Test Item Value Reference Range Interpretation Comments eGFR (test code = eGFR) 57 [facility]2017-02-03 08:58:00 Test Item Value Reference Range Interpretation Comments CO2 (test code = CO2) 23 24-32 [facility]2017-02-03 08:58:00 Test Item Value Reference Range Interpretation Comments Chloride Lvl (test code = Chloride Lvl) 106 95-109 [facility]2017-02-03 08:58:00 Test Item Value Reference Range Interpretation Comments Potassium Lvl (test code = Potassium 3.8 3.5-5.1 Lvl) [facility]2017-02-03 08:58:00 Test Item Value Reference Range Interpretation Comments Sodium Lvl (test code = Sodium Lvl) 139 135-145 [facility]2017-02-03 08:58:00 Test Item Value Reference Range Interpretation Comments Calcium Lvl (test code = Calcium Lvl) 8.8 8.5-10.5 [facility]2017-02-03 08:58:00 Test Item Value Reference Range Interpretation Comments Creatinine Lvl (test code = Creatinine 1.30 0.50-1.40 Lvl) [facility]2017-02-03 08:58:00 Test Item Value Reference Range Interpretation Comments BUN (test code = BUN) 22 7-22 [facility]2017-02-03 08:58:00 Test Item Value Reference Range Interpretation Comments Glucose Lvl (test code = Glucose Lvl) 130 70-99 [facility]2017-02-03 08:58:00 Test Item Value Reference Range Interpretation Comments AGAP (test code = AGAP) 13.8 10.0-20.0 [facility] CenterKcxuqesLDYXOYDIDK6910-40-55 08:58:00 Test Item Value Reference Range Interpretation Comments RDW (test code = RDW) 14.0 11.5-14.5 [facility] CenterCjfzcviTNEBQQZPDM3569-76-59 08:58:00 Test Item Value Reference Range Interpretation Comments Platelet (test code = Platelet) 115 133-450 [facility] CenterBjbfvhcJPGFHYUOTW7866-06-35 08:58:00 Test Item Value Reference Range Interpretation Comments MCH (test code = MCH) 32.9 pg 27.0-31.0 [facility] CenterPfwmvzmOVKJUWLNUZ0860-12-25 08:58:00 Test Item Value Reference Range Interpretation Comments MCHC (test code = MCHC) 33.8 32.0-36.0 [facility] CenterJqypekuITYTPDOHPS8793-97-56 08:58:00 Test Item Value Reference Range Interpretation Comments MPV (test code = MPV) 10.9 7.4-10.4 [facility] CenterWaeeabuKSQIMCVZYU2576-19-27 08:58:00 Test Item Value Reference Range Interpretation Comments WBC (test code = WBC) 8.6 3.7-10.4 [facility] CenterJbkwmhsIHLERXMBXJ1678-17-52 08:58:00 Test Item Value Reference Range Interpretation Comments Hgb (test code = Hgb) 14.1 14.0-18.0 [facility] CenterTbzcxliTHWGHCYTOO9694-12-15 08:58:00 Test Item Value Reference Range Interpretation Comments RBC (test code = RBC) 4.28 4.70-6.10 [facility] CenterMggxmwdSGRZCILSID6317-06-85 08:58:00 Test Item Value Reference Range Interpretation Comments Hct (test code = Hct) 41.6 42.0-54.0 [facility] CenterFbtxsqxAIQJMNPSFE0835-30-85 08:58:00 Test Item Value Reference Range Interpretation Comments MCV (test code = MCV) 97.2 80.0-94.0 [facility] CenterLuyvpswSEGXPSLVSV7118-45-04 08:58:00 Test Item Value Reference Range Interpretation Comments INR (test code = INR) 1.05 0.85-1.17 [facility] CenterQandraoQBEFRZNXRK2369-40-63 08:58:00 Test Item Value Reference Range Interpretation Comments PT (test code = PT) 13.9 s 12.0-14.7 [facility] CenterUgasiuvGSTFZCDFCR4386-15-45 08:58:00 Test Item Value Reference Range Interpretation Comments PTT (test code = PTT) 31.4 s 22.9-35.8 [facility] CenterAmwotkaNKICPLWUME6422-68-21 08:58:00 Test Item Value Reference Range Interpretation Comments Lymphocytes # (test code = Lymphocytes 1.2 1.0-5.5 #) [facility] CenterBwpyntxRCOIHLTPWT7633-66-34 08:58:00 Test Item Value Reference Range Interpretation Comments Basophils (test code = 0.2 See_Comment [Aut omated message] The Basophils) system which ge nerated this result tra nsmitted reference range : <=1.0. The reference r kenya was not used to int erpret this result as normal/abnormal . [facility] CenterNdwlobfXMKRKGBPPA1858-73-45 08:58:00 Test Item Value Reference Range Interpretation Comments Segs-Bands # (test code = Segs-Bands #) 6.4 1.5-8.1 [facility] CenterAratnjyEIGHQOKUHE5748-32-81 08:58:00 Test Item Value Reference Range Interpretation Comments Basophils # (test code 0.0 See_Comment [Aut omated message] The = Basophils #) system which generated this result tra nsmitted reference range : <=0.2. The reference r kenya was not used to int erpret this result as normal/abnormal . [facility] CenterXqxrcxbZWTMBWMKVE7734-02-99 08:58:00 Test Item Value Reference Range Interpretation Comments Monocytes (test code = Monocytes) 7.4 2.0-12.0 [facility] CenterBuppmefKGQVPJVTTE4418-08-15 08:58:00 Test Item Value Reference Range Interpretation Comments Eosinophils (test code = 4.0 See_Comment [A utomated message] The Eosinophils) system which ge nerated this result tra nsmitted reference range : <=4.0. The reference r kenya was not used to int erpret this result as normal/abnormal . [facility] CenterHhsudrmBHDCHJZQIM1409-23-75 08:58:00 Test Item Value Reference Range Interpretation Comments Lymphocytes (test code = Lymphocytes) 14.3 20.0-40.0 [facility] CenterOybdsmnJUCAXJAZKY4248-71-26 08:58:00 Test Item Value Reference Range Interpretation Comments Segs (test code = Segs) 74.1 45.0-75.0 [facility] CenterGnvqwoaCZBUSTGTHY3240-85-43 08:58:00 Test Item Value Reference Range Interpretation Comments Monocytes # (test code 0.6 See_Comment [Aut omated message] The = Monocytes #) system which generated this result tra nsmitted reference range : <=0.8. The reference r kenya was not used to int erpret this result as normal/abnormal . [facility] CenterZkohlxiHFSFPPOKLJ0758-61-47 08:58:00 Test Item Value Reference Range Interpretation Comments Eosinophils # (test code 0.3 See_Comment [A utomated message] The = Eosinophils #) system whic h generated this result tra nsmitted reference range : <=0.5. The reference r kenya was not used to int erpret this result as normal/abnormal . [facility]2017-02-03 08:58:00 Test Item Value Reference Range Interpretation Comments eGFR (test code = eGFR) 57 [facility]2017-02-03 08:58:00 Test Item Value Reference Range Interpretation Comments CO2 (test code = CO2) 23 24-32 [facility]2017-02-03 08:58:00 Test Item Value Reference Range Interpretation Comments Chloride Lvl (test code = Chloride Lvl) 106 95-109 [facility]2017-02-03 08:58:00 Test Item Value Reference Range Interpretation Comments Potassium Lvl (test code = Potassium 3.8 3.5-5.1 Lvl) [facility]2017-02-03 08:58:00 Test Item Value Reference Range Interpretation Comments Sodium Lvl (test code = Sodium Lvl) 139 135-145 [facility]2017-02-03 08:58:00 Test Item Value Reference Range Interpretation Comments Calcium Lvl (test code = Calcium Lvl) 8.8 8.5-10.5 [facility]2017-02-03 08:58:00 Test Item Value Reference Range Interpretation Comments Creatinine Lvl (test code = Creatinine 1.30 0.50-1.40 Lvl) [facility]2017-02-03 08:58:00 Test Item Value Reference Range Interpretation Comments BUN (test code = BUN) 22 7-22 [facility]2017-02-03 08:58:00 Test Item Value Reference Range Interpretation Comments Glucose Lvl (test code = Glucose Lvl) 130 70-99 [facility]2017-02-03 08:58:00 Test Item Value Reference Range Interpretation Comments AGAP (test code = AGAP) 13.8 10.0-20.0 [facility] CenterIgwmmhaMUKSCLHJMN6773-03-88 08:58:00 Test Item Value Reference Range Interpretation Comments RDW (test code = RDW) 14.0 11.5-14.5 [facility] CenterEhiwnlkJEGNMLLKPH2308-85-84 08:58:00 Test Item Value Reference Range Interpretation Comments Platelet (test code = Platelet) 115 133-450 [facility] CenterTrjqvkkMFNOVNTUJM0822-04-35 08:58:00 Test Item Value Reference Range Interpretation Comments MCH (test code = MCH) 32.9 pg 27.0-31.0 [facility] CenterWhsdklcLZLPSKNWEJ7859-04-62 08:58:00 Test Item Value Reference Range Interpretation Comments MCHC (test code = MCHC) 33.8 32.0-36.0 [facility] CenterPfqgxofHQKLWYIUXK9183-84-50 08:58:00 Test Item Value Reference Range Interpretation Comments MPV (test code = MPV) 10.9 7.4-10.4 [facility] CenterIihzeuqDDKEALTQQV8636-14-43 08:58:00 Test Item Value Reference Range Interpretation Comments WBC (test code = WBC) 8.6 3.7-10.4 [facility] CenterDhinicuIHMLUDJKDT5685-41-70 08:58:00 Test Item Value Reference Range Interpretation Comments Hgb (test code = Hgb) 14.1 14.0-18.0 [facility] CenterTwcdvawMEBGVWNURX8308-97-74 08:58:00 Test Item Value Reference Range Interpretation Comments RBC (test code = RBC) 4.28 4.70-6.10 [facility] CenterLjtdlaxYILMOSHWSF8466-65-65 08:58:00 Test Item Value Reference Range Interpretation Comments Hct (test code = Hct) 41.6 42.0-54.0 [facility] CenterTxkjhswZFLAVUGWXS4580-14-16 08:58:00 Test Item Value Reference Range Interpretation Comments MCV (test code = MCV) 97.2 80.0-94.0 [facility] CenterRveibpaMTQORZCXKK7820-19-46 08:58:00 Test Item Value Reference Range Interpretation Comments INR (test code = INR) 1.05 0.85-1.17 [facility] CenterQmarxfeSFHNJCYPLY7316-46-89 08:58:00 Test Item Value Reference Range Interpretation Comments PT (test code = PT) 13.9 s 12.0-14.7 [facility] CenterAqwxttkRYMDHSXCJL0981-38-43 08:58:00 Test Item Value Reference Range Interpretation Comments PTT (test code = PTT) 31.4 s 22.9-35.8 [facility] CenterYpizselYXXUGRUVDK6512-70-27 08:58:00 Test Item Value Reference Range Interpretation Comments Lymphocytes # (test code = Lymphocytes 1.2 1.0-5.5 #) [facility] CenterKhncaqhJWLCNQXOHG7654-68-43 08:58:00 Test Item Value Reference Range Interpretation Comments Basophils (test code = 0.2 See_Comment [Aut omated message] The Basophils) system which ge nerated this result tra nsmitted reference range : <=1.0. The reference r kenya was not used to int erpret this result as normal/abnormal . [facility] CenterPbynctaQXAJKZWUUI8214-85-56 08:58:00 Test Item Value Reference Range Interpretation Comments Segs-Bands # (test code = Segs-Bands #) 6.4 1.5-8.1 [facility] CenterJzfpdoqMAHFRNQCDT0650-84-28 08:58:00 Test Item Value Reference Range Interpretation Comments Basophils # (test code 0.0 See_Comment [Aut omated message] The = Basophils #) system which generated this result tra nsmitted reference range : <=0.2. The reference r kenya was not used to int erpret this result as normal/abnormal . [facility] CenterRfojljlYMYFWPUTOF7985-31-39 08:58:00 Test Item Value Reference Range Interpretation Comments Monocytes (test code = Monocytes) 7.4 2.0-12.0 [facility] CenterFtwtebbZZIJHMKEMS1301-51-98 08:58:00 Test Item Value Reference Range Interpretation Comments Eosinophils (test code = 4.0 See_Comment [A utomated message] The Eosinophils) system which ge nerated this result tra nsmitted reference range : <=4.0. The reference r kenya was not used to int erpret this result as normal/abnormal . [facility] CenterAxhpxboCYCQDDDQIJ4885-74-03 08:58:00 Test Item Value Reference Range Interpretation Comments Lymphocytes (test code = Lymphocytes) 14.3 20.0-40.0 [facility] CenterAagltwnVJUKWMKUNL6025-74-45 08:58:00 Test Item Value Reference Range Interpretation Comments Segs (test code = Segs) 74.1 45.0-75.0 [facility] CenterEapadriQRTJHOQXEX4790-00-07 08:58:00 Test Item Value Reference Range Interpretation Comments Monocytes # (test code 0.6 See_Comment [Aut omated message] The = Monocytes #) system which generated this result tra nsmitted reference range : <=0.8. The reference r kenya was not used to int erpret this result as normal/abnormal . [facility] CenterPgsqargNTQJEYPHTJ0127-24-25 08:58:00 Test Item Value Reference Range Interpretation Comments Eosinophils # (test code 0.3 See_Comment [A utomated message] The = Eosinophils #) system whic h generated this result tra nsmitted reference range : <=0.5. The reference r kenya was not used to int erpret this result as normal/abnormal . [facility]CrvvlwfJLFNUPZMMIYZ5611-59-53 15:40:00 Test Item Value Reference Range Interpretation Comments AGAP (test code = AGAP) 11.2 10.0-20.0 [facility]JvrqoyqTLYEXYHKZHRE1663-71-39 15:40:00 Test Item Value Reference Range Interpretation Comments eGFR (test code = eGFR) 52 [facility] HospitalHmszykaOORSMSEGNGFN5245-87-12 15:40:00 Test Item Value Reference Range Interpretation Comments Creatinine Lvl (test code = Creatinine 1.40 0.50-1.40 Lvl) [facility] HospitalTypichoWFQNBYOTFOXI6358-05-63 15:40:00 Test Item Value Reference Range Interpretation Comments BUN (test code = BUN) 23 7-22 [facility] HospitalPcgcqfgOZVLMMAYGDBM2942-27-85 15:40:00 Test Item Value Reference Range Interpretation Comments Glucose Lvl (test code = Glucose Lvl) 146 70-99 [facility] HospitalHjuwqnxFDABFBEGGEPF8450-49-93 15:40:00 Test Item Value Reference Range Interpretation Comments Calcium Lvl (test code = Calcium Lvl) 8.1 8.5-10.5 [facility] HospitalXuivxiiSBNCEVBQFTWD8897-06-94 15:40:00 Test Item Value Reference Range Interpretation Comments CO2 (test code = CO2) 23 24-32 [facility] HospitalUtdycsxMHVBMFWLFEYW1265-72-64 15:40:00 Test Item Value Reference Range Interpretation Comments Chloride Lvl (test code = Chloride Lvl) 108 95-109 [facility] HospitalOjvjwkwFLCKMCXTGNFJ1434-65-32 15:40:00 Test Item Value Reference Range Interpretation Comments Sodium Lvl (test code = Sodium Lvl) 138 135-145 [facility] HospitalHozkdndCNNQVIPIUHIG9292-62-22 15:40:00 Test Item Value Reference Range Interpretation Comments Potassium Lvl (test code = Potassium 4.2 3.5-5.1 Lvl) [facility] CenterSodljpgIMUSAABCXN0350-42-98 15:40:00 Test Item Value Reference Range Interpretation Comments MCHC (test code = MCHC) 34.6 32.0-36.0 [facility] CenterGwemjzsJURTDTAMOW0892-16-95 15:40:00 Test Item Value Reference Range Interpretation Comments MCH (test code = MCH) 33.4 pg 27.0-31.0 [facility] CenterWqcvdiiNPISMCOSAY4679-52-53 15:40:00 Test Item Value Reference Range Interpretation Comments RDW (test code = RDW) 13.7 11.5-14.5 [facility]SxrmzspTEAOACXQCQ0932-08-74 15:40:00 Test Item Value Reference Range Interpretation Comments MCV (test code = MCV) 96.7 80.0-94.0 [facility] CenterSozvyygZRMZYRXQMG7873-30-66 15:40:00 Test Item Value Reference Range Interpretation Comments RBC (test code = RBC) 4.23 4.70-6.10 [facility] CenterKqbduxvXGETMYSUCD9395-85-82 15:40:00 Test Item Value Reference Range Interpretation Comments WBC (test code = WBC) 7.2 3.7-10.4 [facility] CenterLlgmfpmNLPTTCMXFT1571-55-48 15:40:00 Test Item Value Reference Range Interpretation Comments Hct (test code = Hct) 40.9 42.0-54.0 [facility] CenterEdrpphxSOTFKHSADZ3015-70-25 15:40:00 Test Item Value Reference Range Interpretation Comments Hgb (test code = Hgb) 14.1 14.0-18.0 [facility] CenterCrqutzfBXGVYUFQXJ3222-08-81 15:40:00 Test Item Value Reference Range Interpretation Comments MPV (test code = MPV) 9.9 7.4-10.4 [facility] CenterUzunudnWMMMRFZYVT8578-37-63 15:40:00 Test Item Value Reference Range Interpretation Comments Platelet (test code = Platelet) 113 133-450 [facility] CenterZteefkfHNSZLZMPOR2856-53-79 15:40:00 Test Item Value Reference Range Interpretation Comments INR (test code = INR) 1.10 0.85-1.17 [facility] CenterZsmwijnXNYLHXVAEN0309-11-28 15:40:00 Test Item Value Reference Range Interpretation Comments PT (test code = PT) 14.4 s 12.0-14.7 [facility] CenterXqisbqcWAPDGGBTFH8466-76-53 15:40:00 Test Item Value Reference Range Interpretation Comments PTT (test code = PTT) 34.6 s 22.9-35.8 [facility] CenterRjanhkgJSFPHHEIDL4926-80-73 15:40:00 Test Item Value Reference Range Interpretation Comments Lymphocytes (test code = Lymphocytes) 17.6 20.0-40.0 [facility] CenterFdegsluPXAHLBKQNF0494-39-44 15:40:00 Test Item Value Reference Range Interpretation Comments Segs (test code = Segs) 71.1 45.0-75.0 [facility] CenterXnalnbcTTEYIQXNQI7695-14-47 15:40:00 Test Item Value Reference Range Interpretation Comments Monocytes # (test code 0.5 See_Comment [Aut omated message] The = Monocytes #) system which generated this result tra nsmitted reference range : <=0.8. The reference r kenya was not used to int erpret this result as normal/abnormal . [facility] CenterEajlffvPHHQQJORLR7911-78-03 15:40:00 Test Item Value Reference Range Interpretation Comments Basophils # (test code 0.0 See_Comment [Aut omated message] The = Basophils #) system which generated this result tra nsmitted reference range : <=0.2. The reference r kenya was not used to int erpret this result as normal/abnormal . [facility] CenterLktqyerQIJECJFVZS2106-92-68 15:40:00 Test Item Value Reference Range Interpretation Comments Eosinophils # (test code 0.3 See_Comment [A utomated message] The = Eosinophils #) system whic h generated this result tra nsmitted reference range : <=0.5. The reference r kenya was not used to int erpret this result as normal/abnormal . [facility] CenterApjizlsGVRNDFFBOT0689-95-32 15:40:00 Test Item Value Reference Range Interpretation Comments Monocytes (test code = Monocytes) 7.3 2.0-12.0 [facility] CenterCtoviuqEGUAYKTBTI0629-86-71 15:40:00 Test Item Value Reference Range Interpretation Comments Lymphocytes # (test code = Lymphocytes 1.3 1.0-5.5 #) [facility] CenterAcykmysUNVDZCEKSL7207-29-73 15:40:00 Test Item Value Reference Range Interpretation Comments Eosinophils (test code = 3.8 See_Comment [A utomated message] The Eosinophils) system which ge nerated this result tra nsmitted reference range : <=4.0. The reference r kenya was not used to int erpret this result as normal/abnormal . [facility] CenterIkelcdaCEEABDTYVM8890-30-55 15:40:00 Test Item Value Reference Range Interpretation Comments Segs-Bands # (test code = Segs-Bands #) 5.1 1.5-8.1 [facility] CenterIftgjntMGDXZYEXHS4620-63-02 15:40:00 Test Item Value Reference Range Interpretation Comments Basophils (test code = 0.2 See_Comment [Aut omated message] The Basophils) system which ge nerated this result tra nsmitted reference range : <=1.0. The reference r kenya was not used to int erpret this result as normal/abnormal . [facility]UwizzymMBRMYEFVDLWG1744-72-23 15:40:00 Test Item Value Reference Range Interpretation Comments AGAP (test code = AGAP) 11.2 10.0-20.0 [facility] HospitalNvzahfeXXDXGAAVJKTL8080-22-92 15:40:00 Test Item Value Reference Range Interpretation Comments eGFR (test code = eGFR) 52 [facility] HospitalUprgjatNJVTUSLJBXXR9970-65-67 15:40:00 Test Item Value Reference Range Interpretation Comments Creatinine Lvl (test code = Creatinine 1.40 0.50-1.40 Lvl) [facility] HospitalCzalghsFPSSEIECYZJM3516-63-98 15:40:00 Test Item Value Reference Range Interpretation Comments BUN (test code = BUN) 23 7-22 [facility] HospitalSzpddfoGSPEPCTDFJDH8444-58-56 15:40:00 Test Item Value Reference Range Interpretation Comments Glucose Lvl (test code = Glucose Lvl) 146 70-99 [facility] HospitalZoatnfgAQQDQVTZZZRD5599-89-99 15:40:00 Test Item Value Reference Range Interpretation Comments Calcium Lvl (test code = Calcium Lvl) 8.1 8.5-10.5 [facility] HospitalFfxlzytOVMVYPBZYHYM8416-41-04 15:40:00 Test Item Value Reference Range Interpretation Comments CO2 (test code = CO2) 23 24-32 [facility] HospitalSdfpdwfTRMHTRJOJMJW7316-59-05 15:40:00 Test Item Value Reference Range Interpretation Comments Chloride Lvl (test code = Chloride Lvl) 108 95-109 [facility] HospitalPvpiuoiCZYTESNSLIXL8074-15-76 15:40:00 Test Item Value Reference Range Interpretation Comments Sodium Lvl (test code = Sodium Lvl) 138 135-145 [facility] HospitalGylyunpBGGXUMGRHNVA0862-82-36 15:40:00 Test Item Value Reference Range Interpretation Comments Potassium Lvl (test code = Potassium 4.2 3.5-5.1 Lvl) [facility] CenterJhvysxlKNEIHGSHQI3516-47-61 15:40:00 Test Item Value Reference Range Interpretation Comments MCHC (test code = MCHC) 34.6 32.0-36.0 [facility] CenterZhezvkkSDGYJJEAHE0972-56-40 15:40:00 Test Item Value Reference Range Interpretation Comments MCH (test code = MCH) 33.4 pg 27.0-31.0 [facility] CenterXneqytmPHABQKNBHJ8817-72-59 15:40:00 Test Item Value Reference Range Interpretation Comments RDW (test code = RDW) 13.7 11.5-14.5 [facility] CenterYfxjciqVZMMGXECDD0551-13-52 15:40:00 Test Item Value Reference Range Interpretation Comments MCV (test code = MCV) 96.7 80.0-94.0 [facility] CenterBtlbwdrWQIQEQRXDM7581-40-55 15:40:00 Test Item Value Reference Range Interpretation Comments RBC (test code = RBC) 4.23 4.70-6.10 [facility] CenterEohxgjePGFJQXYXYA6598-48-62 15:40:00 Test Item Value Reference Range Interpretation Comments WBC (test code = WBC) 7.2 3.7-10.4 [facility] CenterXikovluGOPPRCAJRZ5364-06-31 15:40:00 Test Item Value Reference Range Interpretation Comments Hct (test code = Hct) 40.9 42.0-54.0 [facility] CenterNipfoqvCFDLGEPQPY6087-87-33 15:40:00 Test Item Value Reference Range Interpretation Comments Hgb (test code = Hgb) 14.1 14.0-18.0 [facility] CenterRnryrehTSMACGDLAP7520-43-22 15:40:00 Test Item Value Reference Range Interpretation Comments MPV (test code = MPV) 9.9 7.4-10.4 [facility] CenterFgyjppmNSWFHAVLPG4510-22-30 15:40:00 Test Item Value Reference Range Interpretation Comments Platelet (test code = Platelet) 113 133-450 [facility] CenterAgwhrejKGXXPLVCJZ5557-95-50 15:40:00 Test Item Value Reference Range Interpretation Comments INR (test code = INR) 1.10 0.85-1.17 [facility] CenterJekryycICFDATAMZF2093-25-13 15:40:00 Test Item Value Reference Range Interpretation Comments PT (test code = PT) 14.4 s 12.0-14.7 [facility] CenterDbidsssAHWGEEMSOB0036-34-39 15:40:00 Test Item Value Reference Range Interpretation Comments PTT (test code = PTT) 34.6 s 22.9-35.8 [facility] CenterVxavtpnIHEUIVXOWA8846-49-41 15:40:00 Test Item Value Reference Range Interpretation Comments Lymphocytes (test code = Lymphocytes) 17.6 20.0-40.0 [facility] CenterSwmfhjbQHZNUNGDSA9968-68-95 15:40:00 Test Item Value Reference Range Interpretation Comments Segs (test code = Segs) 71.1 45.0-75.0 [facility] CenterSbkibkhHJIVNSZFGS8062-70-30 15:40:00 Test Item Value Reference Range Interpretation Comments Monocytes # (test code 0.5 See_Comment [Aut omated message] The = Monocytes #) system which generated this result tra nsmitted reference range : <=0.8. The reference r kenya was not used to int erpret this result as normal/abnormal . [facility] CenterEcldabxOSNQLNOIXF6809-69-97 15:40:00 Test Item Value Reference Range Interpretation Comments Basophils # (test code 0.0 See_Comment [Aut omated message] The = Basophils #) system which generated this result tra nsmitted reference range : <=0.2. The reference r kenya was not used to int erpret this result as normal/abnormal . [facility] CenterOvbfdbxEHZCGZEZMV6296-45-91 15:40:00 Test Item Value Reference Range Interpretation Comments Eosinophils # (test code 0.3 See_Comment [A utomated message] The = Eosinophils #) system whic h generated this result tra nsmitted reference range : <=0.5. The reference r kenya was not used to int erpret this result as normal/abnormal . [facility] CenterGwnbjggHPEBKCYMOU8108-45-17 15:40:00 Test Item Value Reference Range Interpretation Comments Monocytes (test code = Monocytes) 7.3 2.0-12.0 [facility] CenterSispixuGOFJYHAVCH9150-82-66 15:40:00 Test Item Value Reference Range Interpretation Comments Lymphocytes # (test code = Lymphocytes 1.3 1.0-5.5 #) [facility] CenterCxiydbhIGHKFXIFBY0015-27-28 15:40:00 Test Item Value Reference Range Interpretation Comments Eosinophils (test code = 3.8 See_Comment [A utomated message] The Eosinophils) system which ge nerated this result tra nsmitted reference range : <=4.0. The reference r kenya was not used to int erpret this result as normal/abnormal . [facility] CenterFxvhpuuGARBVUQNRB2063-66-95 15:40:00 Test Item Value Reference Range Interpretation Comments Segs-Bands # (test code = Segs-Bands #) 5.1 1.5-8.1 [facility] CenterFobabsoYTZQEVLNKW6253-36-15 15:40:00 Test Item Value Reference Range Interpretation Comments Basophils (test code = 0.2 See_Comment [Aut omated message] The Basophils) system which ge nerated this result tra nsmitted reference range : <=1.0. The reference r kenya was not used to int erpret this result as normal/abnormal . [facility] HospitalUyolqvmSRZAUDOLSMTY6789-93-31 15:40:00 Test Item Value Reference Range Interpretation Comments AGAP (test code = AGAP) 11.2 10.0-20.0 [facility] HospitalGppvlydQCTEBBTPIWTT5183-00-51 15:40:00 Test Item Value Reference Range Interpretation Comments eGFR (test code = eGFR) 52 [facility] HospitalSmywzlfCTPBAXTUGFHF0626-03-62 15:40:00 Test Item Value Reference Range Interpretation Comments Creatinine Lvl (test code = Creatinine 1.40 0.50-1.40 Lvl) [facility] HospitalQmxepgiESUVMRGLLCVY0159-56-63 15:40:00 Test Item Value Reference Range Interpretation Comments BUN (test code = BUN) 23 7-22 [facility] HospitalTawzghhEGQAAOFHKAYE0075-04-27 15:40:00 Test Item Value Reference Range Interpretation Comments Glucose Lvl (test code = Glucose Lvl) 146 70-99 [facility] HospitalKnlzejsJGBQSBCCYYMK9673-38-66 15:40:00 Test Item Value Reference Range Interpretation Comments Calcium Lvl (test code = Calcium Lvl) 8.1 8.5-10.5 [facility] HospitalNfnrdipHUQXRHSZAFAR5576-58-48 15:40:00 Test Item Value Reference Range Interpretation Comments CO2 (test code = CO2) 23 24-32 [facility] HospitalKvpistsFZMMSEZZQPMT5733-77-48 15:40:00 Test Item Value Reference Range Interpretation Comments Chloride Lvl (test code = Chloride Lvl) 108 95-109 [facility] HospitalTqnjmkiAVIEXCUKNHCJ5251-08-08 15:40:00 Test Item Value Reference Range Interpretation Comments Sodium Lvl (test code = Sodium Lvl) 138 135-145 [facility] HospitalElajchfKTCHPIFSTQSB1093-44-47 15:40:00 Test Item Value Reference Range Interpretation Comments Potassium Lvl (test code = Potassium 4.2 3.5-5.1 Lvl) [facility] CenterHpnjbamGSGVZJNMKJ1230-14-70 15:40:00 Test Item Value Reference Range Interpretation Comments MCHC (test code = MCHC) 34.6 32.0-36.0 [facility] CenterTibeyfwMTITSOIZSF4660-50-26 15:40:00 Test Item Value Reference Range Interpretation Comments MCH (test code = MCH) 33.4 pg 27.0-31.0 [facility] CenterTlshocqQSQSTJSBZM3726-63-50 15:40:00 Test Item Value Reference Range Interpretation Comments RDW (test code = RDW) 13.7 11.5-14.5 [facility] CenterZxydfvuEOXDMOGSBQ0886-13-32 15:40:00 Test Item Value Reference Range Interpretation Comments MCV (test code = MCV) 96.7 80.0-94.0 [facility] CenterYwuwevdKFISKNDBVG2831-31-23 15:40:00 Test Item Value Reference Range Interpretation Comments RBC (test code = RBC) 4.23 4.70-6.10 [facility] CenterZpqbbyfUTCYTHTOVW6777-22-52 15:40:00 Test Item Value Reference Range Interpretation Comments WBC (test code = WBC) 7.2 3.7-10.4 [facility] CenterWxqqcukWJVYOBZXUT2469-08-44 15:40:00 Test Item Value Reference Range Interpretation Comments Hct (test code = Hct) 40.9 42.0-54.0 [facility] CenterAycctypOEFVZYOYEI6834-95-18 15:40:00 Test Item Value Reference Range Interpretation Comments Hgb (test code = Hgb) 14.1 14.0-18.0 [facility] CenterRuytzvfTLCTRZSKFZ1462-07-07 15:40:00 Test Item Value Reference Range Interpretation Comments MPV (test code = MPV) 9.9 7.4-10.4 [facility] CenterRrsfomqGTZOFKJQGY8747-60-33 15:40:00 Test Item Value Reference Range Interpretation Comments Platelet (test code = Platelet) 113 133-450 [facility] CenterFpitnyvUENTHNMVPZ8973-68-99 15:40:00 Test Item Value Reference Range Interpretation Comments INR (test code = INR) 1.10 0.85-1.17 [facility] CenterArvckxkJABXBFITUU1915-10-97 15:40:00 Test Item Value Reference Range Interpretation Comments PT (test code = PT) 14.4 s 12.0-14.7 [facility] CenterAzwpnrmPMUWHLPLOU5667-92-92 15:40:00 Test Item Value Reference Range Interpretation Comments PTT (test code = PTT) 34.6 s 22.9-35.8 [facility] CenterIfjfvawMQZHUNUKOZ7059-71-58 15:40:00 Test Item Value Reference Range Interpretation Comments Lymphocytes (test code = Lymphocytes) 17.6 20.0-40.0 [facility] CenterWfxmtbjVKXUFJIESM3744-72-02 15:40:00 Test Item Value Reference Range Interpretation Comments Segs (test code = Segs) 71.1 45.0-75.0 [facility] CenterXvuhhrwOQLLRWMSWM2019-55-88 15:40:00 Test Item Value Reference Range Interpretation Comments Monocytes # (test code 0.5 See_Comment [Aut omated message] The = Monocytes #) system which generated this result tra nsmitted reference range : <=0.8. The reference r kenya was not used to int erpret this result as normal/abnormal . [facility] CenterAdolzkyZOVRKEZKLV4767-79-96 15:40:00 Test Item Value Reference Range Interpretation Comments Basophils # (test code 0.0 See_Comment [Aut omated message] The = Basophils #) system which generated this result tra nsmitted reference range : <=0.2. The reference r kenya was not used to int erpret this result as normal/abnormal . [facility] CenterCxyumvgOGLRTLMYGX1901-63-10 15:40:00 Test Item Value Reference Range Interpretation Comments Eosinophils # (test code 0.3 See_Comment [A utomated message] The = Eosinophils #) system whic h generated this result tra nsmitted reference range : <=0.5. The reference r kenya was not used to int erpret this result as normal/abnormal . [facility] CenterZdapzuuIVINTYNPVZ0572-02-00 15:40:00 Test Item Value Reference Range Interpretation Comments Monocytes (test code = Monocytes) 7.3 2.0-12.0 [facility] CenterQtpujktTHHTUZSMPC1922-99-06 15:40:00 Test Item Value Reference Range Interpretation Comments Lymphocytes # (test code = Lymphocytes 1.3 1.0-5.5 #) [facility] CenterMsubhubKZNRKUMRVG3298-43-51 15:40:00 Test Item Value Reference Range Interpretation Comments Eosinophils (test code = 3.8 See_Comment [A utomated message] The Eosinophils) system which ge nerated this result tra nsmitted reference range : <=4.0. The reference r kenya was not used to int erpret this result as normal/abnormal . [facility] CenterHcdgpylHEUZUJTEBX6296-43-10 15:40:00 Test Item Value Reference Range Interpretation Comments Segs-Bands # (test code = Segs-Bands #) 5.1 1.5-8.1 [facility] CenterDaihayxJBVTFGEPLF3757-26-65 15:40:00 Test Item Value Reference Range Interpretation Comments Basophils (test code = 0.2 See_Comment [Aut omated message] The Basophils) system which ge nerated this result tra nsmitted reference range : <=1.0. The reference r kenya was not used to int erpret this result as normal/abnormal . [facility] - VGNVGKKI5632-39-34 15:38:00 Test Item Value Reference Range Interpretation Comments MRSA by PCR (test Negative (05/11/16 9:38 code = MRSA by PCR) AM) [facility] DECSAEAT1803-09-94 15:38:00 Test Item Value Reference Range Interpretation Comments MRSA by PCR (test Negative (05/11/16 9:38 code = MRSA by PCR) AM) [facility] - DLRMLOFH8607-88-52 15:38:00 Test Item Value Reference Range Interpretation Comments MRSA by PCR (test Negative (05/11/16 9:38 code = MRSA by PCR) AM) [facility] CenterNruzprsDWIENZLRMR6923-21-37 12:52:00 Test Item Value Reference Range Interpretation Comments Eosinophils # (test code 0.3 See_Comment [A utomated message] The = Eosinophils #) system whic h generated this result tra nsmitted reference range : <=0.5. The reference r kenya was not used to int erpret this result as normal/abnormal . [facility] CenterLviovpmDEPIILPQSP4256-72-26 12:52:00 Test Item Value Reference Range Interpretation Comments Monocytes # (test code 0.7 See_Comment [Aut omated message] The = Monocytes #) system which generated this result tra nsmitted reference range : <=0.8. The reference r kenya was not used to int erpret this result as normal/abnormal . [facility] CenterVcmsybwRFJGSRVDKP0995-70-51 12:52:00 Test Item Value Reference Range Interpretation Comments Lymphocytes # (test code = Lymphocytes 1.4 1.0-5.5 #) [facility] CenterLtejgawOAHCSCKWHC0880-10-33 12:52:00 Test Item Value Reference Range Interpretation Comments Basophils # (test code 0.0 See_Comment [Aut omated message] The = Basophils #) system which generated this result tra nsmitted reference range : <=0.2. The reference r kenya was not used to int erpret this result as normal/abnormal . [facility] CenterAnelfhmXQGUJKDBZU0510-17-23 12:52:00 Test Item Value Reference Range Interpretation Comments Segs-Bands # (test code = Segs-Bands #) 5.2 1.5-8.1 [facility] CenterSfhnzjgIEAQSEYNRX7265-19-20 12:52:00 Test Item Value Reference Range Interpretation Comments Eosinophils (test code = 3.8 See_Comment [A utomated message] The Eosinophils) system which ge nerated this result tra nsmitted reference range : <=4.0. The reference r kenya was not used to int erpret this result as normal/abnormal . [facility] CenterCsvxqbdBZWKKADBHS1640-70-56 12:52:00 Test Item Value Reference Range Interpretation Comments Segs (test code = Segs) 68.7 45.0-75.0 [facility] CenterHcgiwgqHONWDWRVMU7304-83-75 12:52:00 Test Item Value Reference Range Interpretation Comments Basophils (test code = 0.4 See_Comment [Aut omated message] The Basophils) system which ge nerated this result tra nsmitted reference range : <=1.0. The reference r kenya was not used to int erpret this result as normal/abnormal . [facility] CenterOtgbgafAWIYZYIRBO3309-03-33 12:52:00 Test Item Value Reference Range Interpretation Comments Monocytes (test code = Monocytes) 8.9 2.0-12.0 [facility] CenterDntncmiQTZXTQWTTJ0375-60-22 12:52:00 Test Item Value Reference Range Interpretation Comments Lymphocytes (test code = Lymphocytes) 18.2 20.0-40.0 [facility] CenterNsswhkySKDFNJRDMV3247-19-82 12:52:00 Test Item Value Reference Range Interpretation Comments RDW (test code = RDW) 14.1 11.5-14.5 [facility] CenterKxzkfesVAVEUDRDNR2774-15-56 12:52:00 Test Item Value Reference Range Interpretation Comments MCHC (test code = MCHC) 35.0 32.0-36.0 [facility] CenterIdebolsNIVFAGKGAT9118-02-39 12:52:00 Test Item Value Reference Range Interpretation Comments MCH (test code = MCH) 33.5 pg 27.0-31.0 [facility] CenterBpafergUSHRNAWNID1522-84-88 12:52:00 Test Item Value Reference Range Interpretation Comments MCV (test code = MCV) 95.7 80.0-94.0 [facility] CenterMutczdlOIRUOABRGE8471-02-05 12:52:00 Test Item Value Reference Range Interpretation Comments Hct (test code = Hct) 42.9 42.0-54.0 [facility] CenterPwsekunOHKGSYBGKD6492-43-69 12:52:00 Test Item Value Reference Range Interpretation Comments WBC (test code = WBC) 7.6 3.7-10.4 [facility] CenterQtanyyeQGJSDCAIIM8801-94-48 12:52:00 Test Item Value Reference Range Interpretation Comments Hgb (test code = Hgb) 15.0 14.0-18.0 [facility] CenterRzzcedjMNLSIWZXVC0241-69-91 12:52:00 Test Item Value Reference Range Interpretation Comments RBC (test code = RBC) 4.48 4.70-6.10 [facility] CenterJyqqsrbFADSRAJBLO7432-36-75 12:52:00 Test Item Value Reference Range Interpretation Comments MPV (test code = MPV) 10.2 7.4-10.4 [facility] CenterIoickqcZNDCWJTMBP6742-28-15 12:52:00 Test Item Value Reference Range Interpretation Comments Platelet (test code = Platelet) 126 133-450 [facility] CenterVntwrvqJNMBXYDONQ7020-34-35 12:52:00 Test Item Value Reference Range Interpretation Comments Eosinophils # (test code 0.3 See_Comment [A utomated message] The = Eosinophils #) system whic h generated this result tra nsmitted reference range : <=0.5. The reference r kenya was not used to int erpret this result as normal/abnormal . [facility] CenterLjfyjykCREVOJOXFT6666-07-71 12:52:00 Test Item Value Reference Range Interpretation Comments Monocytes # (test code 0.7 See_Comment [Aut omated message] The = Monocytes #) system which generated this result tra nsmitted reference range : <=0.8. The reference r kenya was not used to int erpret this result as normal/abnormal . [facility] CenterHxsywutMDEJIEAHYJ2111-51-30 12:52:00 Test Item Value Reference Range Interpretation Comments Lymphocytes # (test code = Lymphocytes 1.4 1.0-5.5 #) [facility] CenterMzrfjzuXYXYDTMENX2034-69-23 12:52:00 Test Item Value Reference Range Interpretation Comments Basophils # (test code 0.0 See_Comment [Aut omated message] The = Basophils #) system which generated this result tra nsmitted reference range : <=0.2. The reference r kenya was not used to int erpret this result as normal/abnormal . [facility] CenterCrfccgbYWZUGGCOTL5142-58-81 12:52:00 Test Item Value Reference Range Interpretation Comments Segs-Bands # (test code = Segs-Bands #) 5.2 1.5-8.1 [facility] CenterIoovgzaXMELKEISFY2253-94-47 12:52:00 Test Item Value Reference Range Interpretation Comments Eosinophils (test code = 3.8 See_Comment [A utomated message] The Eosinophils) system which ge nerated this result tra nsmitted reference range : <=4.0. The reference r kenya was not used to int erpret this result as normal/abnormal . [facility] CenterXfkdhkoEOJLLHOFNL5892-16-84 12:52:00 Test Item Value Reference Range Interpretation Comments Segs (test code = Segs) 68.7 45.0-75.0 [facility] CenterFprsdgbIQUDFLAGKI1567-95-82 12:52:00 Test Item Value Reference Range Interpretation Comments Basophils (test code = 0.4 See_Comment [Aut omated message] The Basophils) system which ge nerated this result tra nsmitted reference range : <=1.0. The reference r kenya was not used to int erpret this result as normal/abnormal . [facility] CenterDkxblnxDYRIENGPMR5089-50-64 12:52:00 Test Item Value Reference Range Interpretation Comments Monocytes (test code = Monocytes) 8.9 2.0-12.0 [facility] CenterOoijorhMDLPFSGEYL5375-94-80 12:52:00 Test Item Value Reference Range Interpretation Comments Lymphocytes (test code = Lymphocytes) 18.2 20.0-40.0 [facility] CenterUmcedceQDREFTWNIZ0772-59-76 12:52:00 Test Item Value Reference Range Interpretation Comments RDW (test code = RDW) 14.1 11.5-14.5 [facility] CenterBobpqokVUPNPMNHSW3435-67-18 12:52:00 Test Item Value Reference Range Interpretation Comments MCHC (test code = MCHC) 35.0 32.0-36.0 [facility] CenterZpizegsYZPBAQSIBW9473-88-52 12:52:00 Test Item Value Reference Range Interpretation Comments MCH (test code = MCH) 33.5 pg 27.0-31.0 [facility] CenterOznokhaZMDJGUDWOT6106-70-37 12:52:00 Test Item Value Reference Range Interpretation Comments MCV (test code = MCV) 95.7 80.0-94.0 [facility] CenterKctwyiuBIMQCYULWY0121-69-39 12:52:00 Test Item Value Reference Range Interpretation Comments Hct (test code = Hct) 42.9 42.0-54.0 [facility] CenterZysodifAWCFJSAMIH4161-13-19 12:52:00 Test Item Value Reference Range Interpretation Comments WBC (test code = WBC) 7.6 3.7-10.4 [facility] CenterLzhttvlTLDEZMIUHU7305-17-34 12:52:00 Test Item Value Reference Range Interpretation Comments Hgb (test code = Hgb) 15.0 14.0-18.0 [facility] CenterQrkhvjgMFBTEKZLGA1519-53-76 12:52:00 Test Item Value Reference Range Interpretation Comments RBC (test code = RBC) 4.48 4.70-6.10 [facility] CenterXbcygzeSJEGQFHXTD8456-65-17 12:52:00 Test Item Value Reference Range Interpretation Comments MPV (test code = MPV) 10.2 7.4-10.4 [facility] CenterJzpaawfYZGKPRSMPE7748-62-64 12:52:00 Test Item Value Reference Range Interpretation Comments Platelet (test code = Platelet) 126 133-450 [facility] CenterBbhmddoFXANJCLTBB8661-82-81 12:52:00 Test Item Value Reference Range Interpretation Comments Eosinophils # (test code 0.3 See_Comment [A utomated message] The = Eosinophils #) system whic h generated this result tra nsmitted reference range : <=0.5. The reference r kenya was not used to int erpret this result as normal/abnormal . [facility] CenterNrczgpsIONILLOOLG7430-79-54 12:52:00 Test Item Value Reference Range Interpretation Comments Monocytes # (test code 0.7 See_Comment [Aut omated message] The = Monocytes #) system which generated this result tra nsmitted reference range : <=0.8. The reference r kenya was not used to int erpret this result as normal/abnormal . [facility] CenterLxglkghZRVBORHEER0106-81-33 12:52:00 Test Item Value Reference Range Interpretation Comments Lymphocytes # (test code = Lymphocytes 1.4 1.0-5.5 #) [facility] CenterBdxoqbfQMDITDFQCZ8600-62-08 12:52:00 Test Item Value Reference Range Interpretation Comments Basophils # (test code 0.0 See_Comment [Aut omated message] The = Basophils #) system which generated this result tra nsmitted reference range : <=0.2. The reference r kenya was not used to int erpret this result as normal/abnormal . [facility] CenterUxihgohWJIFNFOOJY9368-29-73 12:52:00 Test Item Value Reference Range Interpretation Comments Segs-Bands # (test code = Segs-Bands #) 5.2 1.5-8.1 [facility] CenterKqbfuoiNGTPSTMEND5313-98-47 12:52:00 Test Item Value Reference Range Interpretation Comments Eosinophils (test code = 3.8 See_Comment [A utomated message] The Eosinophils) system which ge nerated this result tra nsmitted reference range : <=4.0. The reference r kenya was not used to int erpret this result as normal/abnormal . [facility] CenterXpyttmlNABAQFXKTK8009-91-95 12:52:00 Test Item Value Reference Range Interpretation Comments Segs (test code = Segs) 68.7 45.0-75.0 [facility] CenterPiwyzcdTNTFPKKSZH3920-69-51 12:52:00 Test Item Value Reference Range Interpretation Comments Basophils (test code = 0.4 See_Comment [Aut omated message] The Basophils) system which ge nerated this result tra nsmitted reference range : <=1.0. The reference r kenya was not used to int erpret this result as normal/abnormal . [facility] CenterWxzmnvsNDGYEDYUYW3632-29-55 12:52:00 Test Item Value Reference Range Interpretation Comments Monocytes (test code = Monocytes) 8.9 2.0-12.0 [facility] CenterSqgjxouIWOHDDYQVU6812-23-87 12:52:00 Test Item Value Reference Range Interpretation Comments Lymphocytes (test code = Lymphocytes) 18.2 20.0-40.0 [facility] CenterYqkajduAGBWKLIANO0916-38-07 12:52:00 Test Item Value Reference Range Interpretation Comments RDW (test code = RDW) 14.1 11.5-14.5 [facility] CenterKxksjgcKYQFPEBIOL8855-97-41 12:52:00 Test Item Value Reference Range Interpretation Comments MCHC (test code = MCHC) 35.0 32.0-36.0 [facility] CenterUmxfivwLCSPYZRGWV7029-64-38 12:52:00 Test Item Value Reference Range Interpretation Comments MCH (test code = MCH) 33.5 pg 27.0-31.0 [facility] CenterFsvaphpEAJXXVIIPQ3111-78-19 12:52:00 Test Item Value Reference Range Interpretation Comments MCV (test code = MCV) 95.7 80.0-94.0 [facility] CenterHrprbigLDIVAZDHXK5144-60-58 12:52:00 Test Item Value Reference Range Interpretation Comments Hct (test code = Hct) 42.9 42.0-54.0 [facility] CenterYdfedzwUTLKJANLGE9211-22-24 12:52:00 Test Item Value Reference Range Interpretation Comments WBC (test code = WBC) 7.6 3.7-10.4 [facility] CenterCuomyaqQYBTLHWTPH9717-24-54 12:52:00 Test Item Value Reference Range Interpretation Comments Hgb (test code = Hgb) 15.0 14.0-18.0 [facility] CenterNjohongSIWGBUMVNB7177-39-35 12:52:00 Test Item Value Reference Range Interpretation Comments RBC (test code = RBC) 4.48 4.70-6.10 [facility] CenterDvlvgsaYSLBUYTXLS8403-43-34 12:52:00 Test Item Value Reference Range Interpretation Comments MPV (test code = MPV) 10.2 7.4-10.4 [facility] CenterVwtqiewHWCKMZLEZX3690-56-66 12:52:00 Test Item Value Reference Range Interpretation Comments Platelet (test code = Platelet) 126 133-450 [facility]PqcuidoKAWNYSXIICIG2695-85-72 12:50:00 Test Item Value Reference Range Interpretation Comments POC Carbon Dioxide (test code = POC 22 24-32 Carbon Dioxide) [facility] HospitalNewpzwkVTDOKWMFOSYA0586-78-34 12:50:00 Test Item Value Reference Range Interpretation Comments POC BUN (test code = POC BUN) 24 7-22 [facility] HospitalPgdqtdnYIDREVXDJPYC4387-92-92 12:50:00 Test Item Value Reference Range Interpretation Comments POC Creatinine (test code = POC 1.3 0.5-1.4 Creatinine) [facility] HospitalInokbbeQYTJKHPPPIDW3334-89-82 12:50:00 Test Item Value Reference Range Interpretation Comments POC Potassium (test code = POC 4.0 3.5-5.1 Potassium) [facility] HospitalFhvmlfbRAYLTLEGFAVC2290-21-58 12:50:00 Test Item Value Reference Range Interpretation Comments POC Chloride (test code = POC Chloride) 105 95-109 [facility] HospitalHfycgapYLWFPIJWUVTW6960-19-12 12:50:00 Test Item Value Reference Range Interpretation Comments POC Glucose (test code = POC Glucose) 160 70-99 [facility] HospitalFsnaynmAQZLKOQNOASG2714-41-42 12:50:00 Test Item Value Reference Range Interpretation Comments eGFR (test code = eGFR) 57 [facility] HospitalOxjlxkoKWLKFXFQZYMM6145-51-06 12:50:00 Test Item Value Reference Range Interpretation Comments POC Ion Ca (test code = POC Ion Ca) 1.14 1.05-1.25 [facility] HospitalPbchrdtNWFIQJGQOOSA4564-78-30 12:50:00 Test Item Value Reference Range Interpretation Comments POC Hematocrit (test code = POC 44.0 42.0-54.0 Hematocrit) [facility] HospitalVbtdamhNVZZNSNNGNTS2713-03-13 12:50:00 Test Item Value Reference Range Interpretation Comments POC AGAP (test code = POC AGAP) 17.0 10.0-20.0 [facility] HospitalBqaspkzFFFTUDOVVDQV0206-89-48 12:50:00 Test Item Value Reference Range Interpretation Comments POC Hemoglobin (test code = POC 15.0 14.0-18.0 Hemoglobin) [facility] HospitalNcolzpdOBHTVWBDMSWK2747-55-94 12:50:00 Test Item Value Reference Range Interpretation Comments POC Sodium (test code = POC Sodium) 139 135-145 [facility] HospitalCjrcifqHJAZAASCCTDR8640-25-49 12:50:00 Test Item Value Reference Range Interpretation Comments POC Carbon Dioxide (test code = POC 22 24-32 Carbon Dioxide) [facility] HospitalYbssbabWSAZBJIFXDOP9658-86-05 12:50:00 Test Item Value Reference Range Interpretation Comments POC BUN (test code = POC BUN) 24 7-22 [facility] HospitalSppjulxRRMZMTSOHVUB2187-40-10 12:50:00 Test Item Value Reference Range Interpretation Comments POC Creatinine (test code = POC 1.3 0.5-1.4 Creatinine) [facility] HospitalRmkjcqtAHZEYLSZHCFM7281-07-30 12:50:00 Test Item Value Reference Range Interpretation Comments POC Potassium (test code = POC 4.0 3.5-5.1 Potassium) [facility] HospitalIudpvqsUEKFAMGEURHF4877-79-94 12:50:00 Test Item Value Reference Range Interpretation Comments POC Chloride (test code = POC Chloride) 105 95-109 [facility] HospitalIifjrjzVCKTPMXKIXGG8390-97-64 12:50:00 Test Item Value Reference Range Interpretation Comments POC Glucose (test code = POC Glucose) 160 70-99 [facility] HospitalEkwnclxYIVQXXCFURVO3533-00-10 12:50:00 Test Item Value Reference Range Interpretation Comments eGFR (test code = eGFR) 57 [facility] HospitalNxqejqpWWOLWZCNEWAZ9856-75-52 12:50:00 Test Item Value Reference Range Interpretation Comments POC Ion Ca (test code = POC Ion Ca) 1.14 1.05-1.25 [facility] HospitalUbwxfmgOIRMIQHFOGOE7015-73-90 12:50:00 Test Item Value Reference Range Interpretation Comments POC Hematocrit (test code = POC 44.0 42.0-54.0 Hematocrit) [facility] HospitalIumhijzTEDKEAYOYENT7243-43-22 12:50:00 Test Item Value Reference Range Interpretation Comments POC AGAP (test code = POC AGAP) 17.0 10.0-20.0 [facility] HospitalViqltroRXLJKYUXMEYH4172-28-50 12:50:00 Test Item Value Reference Range Interpretation Comments POC Hemoglobin (test code = POC 15.0 14.0-18.0 Hemoglobin) [facility] HospitalKzxereeSYPJYQXQTPRO9207-17-71 12:50:00 Test Item Value Reference Range Interpretation Comments POC Sodium (test code = POC Sodium) 139 135-145 [facility] HospitalOcjvllqFZKYOELIKMKQ5755-43-74 12:50:00 Test Item Value Reference Range Interpretation Comments POC Carbon Dioxide (test code = POC 22 24-32 Carbon Dioxide) [facility] HospitalWxgtnhpPVEUVWIIQLOK2023-82-86 12:50:00 Test Item Value Reference Range Interpretation Comments POC BUN (test code = POC BUN) 24 7-22 [facility] HospitalMpyypcoXMKTJKHETBUK8227-57-47 12:50:00 Test Item Value Reference Range Interpretation Comments POC Creatinine (test code = POC 1.3 0.5-1.4 Creatinine) [facility] HospitalGubonmyGFIONDXGXXCK1440-52-50 12:50:00 Test Item Value Reference Range Interpretation Comments POC Potassium (test code = POC 4.0 3.5-5.1 Potassium) [facility] HospitalTfgtyoxINAFPMXKDSGU9277-82-66 12:50:00 Test Item Value Reference Range Interpretation Comments POC Chloride (test code = POC Chloride) 105 95-109 [facility] HospitalWraiqnuUVYJPGOOJCNT6460-89-18 12:50:00 Test Item Value Reference Range Interpretation Comments POC Glucose (test code = POC Glucose) 160 70-99 [facility] HospitalZiyxzzsQJKEPUZXHPDF3747-50-41 12:50:00 Test Item Value Reference Range Interpretation Comments eGFR (test code = eGFR) 57 [facility] HospitalWknocunBWAKKEJWJXKP4931-38-41 12:50:00 Test Item Value Reference Range Interpretation Comments POC Ion Ca (test code = POC Ion Ca) 1.14 1.05-1.25 [facility] HospitalYujuybkBOJFPPNDIBNY5931-65-61 12:50:00 Test Item Value Reference Range Interpretation Comments POC Hematocrit (test code = POC 44.0 42.0-54.0 Hematocrit) [facility] HospitalUlpxkgiMGAFQTKPEPZB3519-20-24 12:50:00 Test Item Value Reference Range Interpretation Comments POC AGAP (test code = POC AGAP) 17.0 10.0-20.0 [facility] HospitalMvjbjgpTZJUFEEHUIMZ2146-89-47 12:50:00 Test Item Value Reference Range Interpretation Comments POC Hemoglobin (test code = POC 15.0 14.0-18.0 Hemoglobin) [facility] HospitalZkldtuwCILUHDJLSSIK5070-15-57 12:50:00 Test Item Value Reference Range Interpretation Comments POC Sodium (test code = POC Sodium) 139 135-145 [facility] HospitalGkzemhcTIUFQVYTOGLG0026-11-61 16:47:00 Test Item Value Reference Range Interpretation Comments AGAP (test code = AGAP) 11.1 10.0-20.0 [facility] HospitalIcluykdTQXJBOELGAQO8494-06-19 16:47:00 Test Item Value Reference Range Interpretation Comments Chloride Lvl (test code = Chloride Lvl) 103 95-109 [facility] HospitalKktwkniPBRAHPRUAUGR7142-93-59 16:47:00 Test Item Value Reference Range Interpretation Comments Creatinine Lvl (test code = Creatinine 1.40 0.50-1.40 Lvl) [facility] HospitalQuhgjbxULXZSAUKRVIK8359-50-78 16:47:00 Test Item Value Reference Range Interpretation Comments BUN (test code = BUN) 26 7-22 [facility] HospitalStengvmNUNWALOYOKJQ3107-99-04 16:47:00 Test Item Value Reference Range Interpretation Comments Glucose Lvl (test code = Glucose Lvl) 160 70-99 [facility] HospitalPkxcpvhJYVVDDVZXUCM8153-59-59 16:47:00 Test Item Value Reference Range Interpretation Comments Calcium Lvl (test code = Calcium Lvl) 9.1 8.5-10.5 [facility] HospitalWbkltkjFRUPFLDSYUIT8778-18-43 16:47:00 Test Item Value Reference Range Interpretation Comments CO2 (test code = CO2) 25 24-32 [facility] HospitalFjqgvabBXKJWMJXFMOG0659-64-13 16:47:00 Test Item Value Reference Range Interpretation Comments Potassium Lvl (test code = Potassium 4.1 3.5-5.1 Lvl) [facility] HospitalIqfesibKIKDZDHGGYJT6461-41-39 16:47:00 Test Item Value Reference Range Interpretation Comments Sodium Lvl (test code = Sodium Lvl) 135 135-145 [facility] CenterAetfyceJECHGBEOIV9882-95-26 16:47:00 Test Item Value Reference Range Interpretation Comments PTT (test code = PTT) 29.1 s 22.9-35.8 [facility] CenterIcsjofeHZVECJIZAB1909-01-09 16:47:00 Test Item Value Reference Range Interpretation Comments INR (test code = INR) 0.97 0.85-1.17 [facility] CenterNkcvxidLNGBWVEJSR2967-65-63 16:47:00 Test Item Value Reference Range Interpretation Comments PT (test code = PT) 13.1 s 12.0-14.7 [facility] HospitalLddcxxjODHELWIODDNU0745-66-64 16:47:00 Test Item Value Reference Range Interpretation Comments AGAP (test code = AGAP) 11.1 10.0-20.0 [facility] HospitalFwfdavwWKSFBPJPGGNA7045-24-84 16:47:00 Test Item Value Reference Range Interpretation Comments Chloride Lvl (test code = Chloride Lvl) 103 95-109 [facility] HospitalWzskuwoBBNOGLUIDICI9399-88-34 16:47:00 Test Item Value Reference Range Interpretation Comments Creatinine Lvl (test code = Creatinine 1.40 0.50-1.40 Lvl) [facility] HospitalEwewdngJRMHHXCUMHWN3793-68-69 16:47:00 Test Item Value Reference Range Interpretation Comments BUN (test code = BUN) 26 7-22 [facility] HospitalUqqbhcmRNIZKQSQXOUH9318-39-83 16:47:00 Test Item Value Reference Range Interpretation Comments Glucose Lvl (test code = Glucose Lvl) 160 70-99 [facility] HospitalBayquqyPOKSWMACWECJ8837-25-48 16:47:00 Test Item Value Reference Range Interpretation Comments Calcium Lvl (test code = Calcium Lvl) 9.1 8.5-10.5 [facility] HospitalYxkzcwwUUHMCIYRDHKV7482-68-26 16:47:00 Test Item Value Reference Range Interpretation Comments CO2 (test code = CO2) 25 24-32 [facility] HospitalGedicycYHEWUVNNDDCT9582-96-63 16:47:00 Test Item Value Reference Range Interpretation Comments Potassium Lvl (test code = Potassium 4.1 3.5-5.1 Lvl) [facility] HospitalMzbyaxrNDYOSKYNHBVQ0782-42-40 16:47:00 Test Item Value Reference Range Interpretation Comments Sodium Lvl (test code = Sodium Lvl) 135 135-145 [facility] CenterSlcxtlmIBPEHGTKRE7887-00-07 16:47:00 Test Item Value Reference Range Interpretation Comments PTT (test code = PTT) 29.1 s 22.9-35.8 [facility] CenterSgndkurVUQOGVSYUA8092-83-12 16:47:00 Test Item Value Reference Range Interpretation Comments INR (test code = INR) 0.97 0.85-1.17 [facility] CenterThveszfCVNPAPCBJY6624-81-05 16:47:00 Test Item Value Reference Range Interpretation Comments PT (test code = PT) 13.1 s 12.0-14.7 [facility] HospitalCpidzgvFMSTMBYRBYYC1293-31-69 16:47:00 Test Item Value Reference Range Interpretation Comments AGAP (test code = AGAP) 11.1 10.0-20.0 [facility] HospitalCfnhfmzGLYGUHYSZSBK3921-08-95 16:47:00 Test Item Value Reference Range Interpretation Comments Chloride Lvl (test code = Chloride Lvl) 103 95-109 [facility] HospitalWixqiceWSCNEGAOZEDX0857-18-02 16:47:00 Test Item Value Reference Range Interpretation Comments Creatinine Lvl (test code = Creatinine 1.40 0.50-1.40 Lvl) [facility] HospitalLrewrbsYQFPRYNTVPVB5074-50-86 16:47:00 Test Item Value Reference Range Interpretation Comments BUN (test code = BUN) 26 7-22 [facility] HospitalTgamanyJFESHBNUJMEP4090-55-70 16:47:00 Test Item Value Reference Range Interpretation Comments Glucose Lvl (test code = Glucose Lvl) 160 70-99 [facility] HospitalPevpevwGMSFPJDDSSFJ8488-39-72 16:47:00 Test Item Value Reference Range Interpretation Comments Calcium Lvl (test code = Calcium Lvl) 9.1 8.5-10.5 [facility] HospitalXbbnbuyHOZOVPGNMXAZ7526-36-70 16:47:00 Test Item Value Reference Range Interpretation Comments CO2 (test code = CO2) 25 24-32 [facility] HospitalNfhyiifKFXQZCMFNPAF4360-34-05 16:47:00 Test Item Value Reference Range Interpretation Comments Potassium Lvl (test code = Potassium 4.1 3.5-5.1 Lvl) [facility] HospitalJolwaipLDORDEZTALIL3037-48-16 16:47:00 Test Item Value Reference Range Interpretation Comments Sodium Lvl (test code = Sodium Lvl) 135 135-145 [facility] CenterQtbkknzYAGZJCYFPG4119-29-90 16:47:00 Test Item Value Reference Range Interpretation Comments PTT (test code = PTT) 29.1 s 22.9-35.8 [facility] CenterAnwjkpnBNYTNVOGXG9788-79-95 16:47:00 Test Item Value Reference Range Interpretation Comments INR (test code = INR) 0.97 0.85-1.17 [facility] CenterBwhwrosCFCVCGOILL7893-46-77 16:47:00 Test Item Value Reference Range Interpretation Comments PT (test code = PT) 13.1 s 12.0-14.7 [facility] FCMZOMR4844-57-82 16:15:00 Test Item Value Reference Range Interpretation Comments ABO/Rh (test code = ABO/Rh) A NEG [facility] Hospital[facility] RPOMJZP4490-67-50 16:15:00 Test Item Value Reference Range Interpretation Comments Antibody Scrn (test Negative (05/05/16 code = Antibody Scrn) 10:15 AM) [facility] DIKQDZH0199-08-39 16:15:00 Test Item Value Reference Range Interpretation Comments ABO/Rh (test code = ABO/Rh) A NEG [facility]View[facility] [id number] 16:15:00 Test Item Value Reference Range Interpretation Comments Antibody Scrn (test Negative (05/05/16 code = Antibody Scrn) 10:15 AM) [facility]landNuHabitat ABZABIZ5837-28-38 16:15:00 Test Item Value Reference Range Interpretation Comments ABO/Rh (test code = ABO/Rh) A NEG [facility] BANK [id number] 16:15:00 Test Item Value Reference Range Interpretation Comments Antibody Scrn (test Negative (05/05/16 code = Antibody Scrn) 10:15 AM) [facility] HRRNSXM4547-89-19 15:46:00 Test Item Value Reference Range Interpretation Comments RBC product (test code Product available = RBC product) (05/05/16 9:46 AM) [facility]landTa[facility] [id number] 15:46:00 Test Item Value Reference Range Interpretation Comments RBC product (test code Product available = RBC product) (05/05/16 9:46 AM) [facility] [id number] 15:46:00 Test Item Value Reference Range Interpretation Comments RBC product (test code Product available = RBC product) (05/05/16 9:46 AM) [facility] [id number] 14:12:00 Test Item Value Reference Range Interpretation Comments POC Creatinine (test code = POC 1.4 0.5-1.4 Creatinine) [facility] [id number] 14:12:00 Test Item Value Reference Range Interpretation Comments eGFR (test code = eGFR) 52 [facility]2016-12-08 14:12:00 Test Item Value Reference Range Interpretation Comments POC Creatinine (test code = POC 1.4 0.5-1.4 Creatinine) [facility] [id number] 14:12:00 Test Item Value Reference Range Interpretation Comments eGFR (test code = eGFR) 52 [facility]2016-12-08 14:12:00 Test Item Value Reference Range Interpretation Comments POC Creatinine (test code = POC 1.4 0.5-1.4 Creatinine) [facility]PingMeMART[facility] HOSPITALPPRNH2192-23-58 14:12:00 Test Item Value Reference Range Interpretation Comments eGFR (test code = eGFR) 52 [facility] Date/Time Note Provider Source 2018-10-14 09:48:00-00:00 Patient Name: TAMEKA TALBERT MH OPID [facility] : 1950; Age: 68 years y/o Male MR: [id number] Study: Abdomen complete US 10/14/2018 9:48 CDT Ordering Physician: Rafat Ballard MD Comparison: CT abdomen and pelvis 03/16/2016 abd ominal ultrasound 11/02/2015 Clinical Indication: B18.2 Chronic viral hepatitis C - K75.81 Nonalcoholic steatohepatitis (DUENAS); The pancreas duct is dilated measuring up to 9 mm at the pancreatic head. The pancreatic head has an otherwise normal sonographic appearance; the body and tail are obscured by shadowing from overlying b owel gas. Vascular calcifica tion at the abdominal aorta. The visualized abdominal aorta and IVC are otherwise unremarkable. The gallbladder is surgically absent by history. Diffuse increased echogenicit y of the liver is noted comp atible with fatty infiltration of the liver; however, cirrhosis or chronic hepatitis could have this appearance. The span of the liver is 19 cm. No intrahepatic duct dilatati on demonstrated. Common duct caliber is 10.5 mm. The right kidney measures8.6 x 4.7 x 5.1cm. Right renal cortical thickness 8 mm. Simple renal cortical cysts are noted at the superior pole of the right kidney measuring 3.8 x 3.0 x 3.3 cm, interpolar right kidney measuring 1.1 x 0.9 x 1.0 cm and inferior pole measuring 8 mm, respectively. Left kidney measures 10.3 x 5.5 x 4.3cm. Simple renal cortical c ysts are present at the supe rior pole left kidney measuring 8 mm and the inferior pole measuring 3.6 x 2.9 x 3.0 cm and 2.4 x 2.4 x 2.6 cm, respectively. Increased renal cortical echogenicity is noted b ilaterally. The spleen measu res 13 x 5.7 x 4.9 cm. Kidneys and spleen have an otherwise normal sonographic appearance. Flow at the main portal vein is hepatopedal. IMPRESSION: 1. Status post cholecystectomy. 2. Diffuse increased echogen icity of the liver is noted compatible with fatty infiltration of the liver; however, cirrhosis or chronic hepatitis could have this appearance. 3. Bilateral medical renal disease. 4. Global right renal atrophy. 5. Bilateral renal cysts. 6. Compensatory dilatation o f the common duct caliber status post cholecystectomy. The pancreatic duct is dilated measuring up to 9 mm in caliber at the pancreatic head which may also be compensatory. P ancreatic ductal dilatation is noted on the prev ious CT exam, 03/16/2016. SL: [id number] 2016-08-13 08:13:00-00:00 Chest 1view DX [facility] 65 years old Male Clinical Indication: Abnormal chest sounds; Comparison: 08/11/2016 FINDINGS: Tubes and lines: None. LUNGS: The volume of the lungs is normal. There is no evidence of consolidation. No pleural effusion is noted. The pulmonary vasculature is within normal limi ts. MEDIASTINUM: Cardiac silhouette is within normal limits of size. CHEST WALL: Unremarkable. SKELETON: The visualized osseous structures are unremarkable. IMPRESSION: 1. No radiographic evidence of acute cardiopulmo nary disease. : [id number] 2016-08-11 04:24:00-00:00 Portable chest: Patient is r otated to the left. There is a shallow inspiration. The cardiac silhouette and pulmonary vasculature are within normal limits. The small calcified left lung nodule is obscure [facility] d by overlying ribs. The murtaza gs and pleural spaces are otherwise clear. There is no significant change compared to the previous day considering the technical differences. [id number] 2016-08-10 12:35:59-00:00 Portable chest: The cardiome diastinal silhouette and pulmonary vasculature are within normal limits. There is a small calcified nodule overlying the left base, unchanged from the previous CT scanogram o [facility] n 03/16/2016. The lungs and pleural spaces are otherwise clear. There are no acute osseous abnormalities. There is no significant change compared to 05/12/2016. IMPRESSION: No acute radiographic abnormality in the chest. [id number] 2016-05-12 04:32:54-00:00 CHEST, ONE VIEW [facility] HISTORY: Tube placement. FINDINGS: Since the prior exam dated 05/11/2016, no change is seen. Calcified granuloma in the l eft lung base. Lungs are otherwise clear. No pleural effusion or pneumothorax. Heart size normal. No support tube or catheter i s identified. : [id number] 2016-05-11 09:51:56-00:00 Patient Name: TAMEKA TALBERT [facility] : 1950; Age: 65 years y/o Male MR: [id number] * CHEST, portable, 1 view HISTORY: Coughing, COMPARISON: 05/05/2016 TECHNIQUE: A portable frontal radiograph of the chest was obtained. FINDINGS: There is no evidence of an active or acute proce ss within the chest. The lungs are clear. There i s mild chronic elevation of the right hemidiaphragm. There is an 8 mm calcified granuloma in the left lower lobe. There are no pleural effusions. The heart is normal in size. The regional skeleton is unremarkable. IMPRESSION: 1. No active disease. SL: [id number] 2016-05-05 11:10:00-00:00 PA and lateral chest: The ca rdiomediastinal silhouette, pulmonary vasculature and sara are within normal limits. There is a 7 mm calcified granuloma in the lower left lung. The lungs and pleural spaces [facility] are otherwise clear. There are no significant os seous abnormalities. IMPRESSION: No acute radiographic abnormalities in the chest . [id number] 2016-03-16 08:15:00-00:00 CT CTA Rad Consult [facility] Male 65 years old Clinical Indication: Periphe ral vascular disease, unspecified; DLP= 1548.95mGycm Comparison: None Technique: 150 mL Omnipaque 350; vascular components of the examination interpreted by separate physician. FINDINGS: The lung bases are clear. Views of the upper abdominal solid organs reveal a mild irregularity of the surface of the liver, suspicious for cirrhosis. The patient has had a previous cholecystec inez. The pancreas is atroph ic. The adrenal glands and spleen are unremarkable. There are multiple simple cysts involving the kidneys. The pancreatic duct is mildly prominent. There are scattered calcif ications in the pancreas suspicious for chronic calcific pancreatitis. The appendix is within kenny l limits. The bowel is normal in course and caliber. Some diverticulosis is suspected in the distal descending and sigmoid segments of the colon. The bladder contour is smooth. The prostate gland is not enlarged. Visualized osseous structure s show degenerative facet arthropathy in the lower lumbar spine. The muscular and osseous elements of the lower e xtremities are unremarkable. IMPRESSION: 1. Changes of cirrhosis of the liver. 2. Previous cholecystectomy. 3. Atrophic pancreas with ch anges of chronic calcific pancreatitis. No acute edema suspected. 4. Diverticulosis of the distal descending and s igmoid colon. SL: [id number] 2016-03-16 08:15:00-00:00 Renetta calderon Result type: Cardiology Report Result date: 03/16/2016 00:00 CONSUMER CREDIT COUNSELOR Result status: Auth (Verified) Result title: Cardiology Performed by: Derek Farias MD on 03/16/2016 11:10 CONSUMER CREDIT COUNSELOR Signed by: Derek Farias MD on 12:05 CONSUMER CREDIT COUNSELOR Encounter info: [id number] , [facility], Outpatient, 03/16/2016 - 03/16/2016 Contributor system: ESCRIPTION * Final Report * CARDI (Verified) PATIENT NAME: TAMEKA TALBERT DATE OF SERVICE: 03/16/2016 *_*_* PROCEDURE PERFORMED Transaxial images were obtai leif of the abdomen and pelvis and legs after injection of iodinated contrast intravenously per study protocol. Images were available for 2 and 3-dimensional analysis. FINDINGS The distal descending thorac ic aorta and abdominal aorta are well visualized. Mild calcification is noted in the descending thoracic aorta and more significant diffuse atherosclerotic calcification is d etected in the distal abdomi nal aorta. There is no associated aneurysm. There is no significant aorta stenosis. The first major branch of the abdominal aorta is the celiac axis, which appears normal exc ept for just minimal ostial calcification. The distal hepatic and splenic branches are normal. The superior mesenteric artery arises from the anterior abdominal aorta just inferior to the celiac axis. T he proximal SMA is normal. C alcification and less than 50% stenosis is noted in the superior mesenteric artery approximately 4 cm distal to the ostium. Distal SMA branches are normal. The right kidney r eceives 3 renal arteries. Th e superior and mid arteries are the major vessels and appear about the same in size. These are normal. A smaller inferior accessory right renal artery is normal. The left kid juan r also receives 3 renal ar teries. The superior major renal artery is normal and 2 smaller more inferior accessory left renal arteries are normal. The inferior mesenteric artery arises from the anterior abdominal aorta and is patent. The right common iliac arter y is diffusely calcified and contains a 60% to 70% proximal stenosis just distal from the ostium. The right external iliac artery contains diffuse calcification and a less th an 50% stenosis. The right i nternal iliac artery contains scattered calcification. The right common femoral artery contains heavy calcification but no significant stenosis and then bifurcates into the p rofunda femoralis, which is patent and contains minimal calcification, and the superficial femoral artery, which is diffusely atherosclerotic and calcified throughout its course. About midway down the r ight SFA, there is a 100% oc clusion and this is approximately 8 cm in length. There is reconstitution of contrast distal to this complete occlusion. The popliteal artery contains minimal calcification. The right anterior tibial ar robyn is patent down to the foot. The right tibio- peroneal trunk contains scattered calcifications and the right peroneal and right posterior tibial arteries are patent down to the foot. The left common iliac artery contains scattered calcification and a less than 50% stenosis. The left external iliac artery contains diffuse calcified atherosclerosis with an associated less than 50% yoly nosis. The left internal zulay ac artery is patent and contains scattered calcifications. The left common femoral artery contains significant calcification but no significant stenosis. It then bifurcates i nto a patent profunda femora lis which contains mild calcification and a patent left superficial femoral artery, which contains diffuse atherosclerosis with calcification down to the popliteal artery. Th ere is a discrete significan t stenosis at the level of the adductor canal. The left popliteal artery contains minimal calcification and then gives rise to a patent normal left anterior tibial artery, pa tent down to the foot, and a tibio-peroneal trunk, which contains scattered calcifications but no significant stenosis. This then bifurcates into a normal left peroneal artery and left posterior tibial artery. In summary, the examination is pertinent for diffuse distal abdominal aorta calcification with associated atherosclerotic plaque, a significant stenosis in the right common iliac artery, 100% stenosis o f the mid right SFA, which i s 8 cm in length, and a discrete significant stenosis in the left superficial femoral artery at the level of the adductor canal. _*_*_ Dictated by: Lena CHAIDEZ MD cc: ERLIN GRIMES MD CONSUMER CREDIT COUNSELOR / M: CONSUMER CREDIT COUNSELOR CONSUMER CREDIT COUNSELOR/[id number] Doc#: [id number]//lt/ Signature Line Derek Farias MD Electronically Signed: 03/16/16 12:05 2015-11-02 08:22:27-00:00 Patient Name: TAMEKA TALBERT [facility] : 1950; Age: 65 years y/o Male MR: [id number] Study: Abdomen complete US 11/02/2015 8:21 AM CDT Ordering Physician: Rafat Ballard MD Clinical Indication: B18.2 Chronic viral hepatit is C; SAME Comparison: None TECHNIQUE: Grayscale and limited color sonographic evaluation of the abdomen was performed with standard technique. FINDINGS: LIVER: The liver is heterogeneous i n echotexture and diffusely echogenic reflecting mild fatty infiltration. This lowers the sensitivity for detection of hepatic lesion. BILE DUCTS: The intrahepatic duct is not dilated. The common bile duct is not visualized. GALLBLADDER: Nonvisualization of the gallbladder likely post cholecystectomy. PANCREAS: The visualized pancreas appears unremarkable.. SPLEEN: The spleen is unremarkable and measures 12.6 cm x 4.4 cm x 4.3 cm. KIDNEY: The right kidney measures 10.0 cm x 4.8 cm x 6.1 cm. The left kidney measures 10.5 cm x 5.1 cm x 6.3 cm. Bilateral renal cysts are pr esent. The largest lesion is present within the superior right kidney measuring 3.6 cm x 2.8 cm x 3.5 cm. Inferior left renal cysts are present measuring about 3.2 cm x 2.7 cm x 2.4 cm and 1.6 cm x 1.9 cm x 1.8 cm. AORTA AND INFERIOR VENA CAVA: Visualized portions appear unremarkable. ASCITES: There is no right abdominal ascites. IMPRESSION: 1. Postoperative cholecystectomy. Nonvisualizati on of the common bile duct. 2. Bilateral renal cysts. 3. Hepatocellular disease likely diffuse fatty l iver infiltration. SL: [id number]
[2022-10-11] MEDS ORDERED: FENTANYL CITR 100 MCG/2 ML ONE (23:42)
[2022-10-11] MEDS ORDERED: NA CHLORIDE 0.9% 50 ML ONE (23:42)
[2022-10-11 23:48] LABS: Specific Gravity 1.015 (1.005-1.030); Urine Bacteria None Seen /HPF (<20); Urine Bilirubin NEGATIVE (Negative); Urine Blood Negative (Negative); Urine Clarity Clear (Clear); Urine Color Yellow (Yellow); Urine Glucose NEGATIVE (Negative); Urine Mucus Slight /HPF (None Seen); Urine Protein TRACE (Negative); Urine RBC None Seen /HPF (None Seen); Urine Urobilinogen Normal (Normal); Urine pH 5.5 (5.0-7.0)
[2022-10-11 23:51] LABS: Absolute Lymphocytes (CBC) 0.5 K/uL (0.7-4.9); Hematocrit 36.6 % (39.6-49.0); Lymphocytes % 2.7 % (15.3-44.8); MCV 98.4 fL (80-100); MPV 9.7 fL (7.6-11.3); RBC Red Blood Cell Count 3.72 M/uL (4.33-5.43)
[2022-10-11] MEDS ORDERED: MIDAZOLAM HCL IN 0.9 % NACL/PF 100 MG/100 ML BAG IVPB ONE (23:51)
[2022-10-11 23:57] LABS: Blood Gas Oxyhemoglobin 96.9 % (94-97); Blood O2 Saturation 99.3 % (92-98.5)
[2022-10-12 00:11] LABS: Albumin 2.8 g/dL (3.4-5.0); Bilirubin Total 0.7 mg/dL (0.2-1.0); Potassium 4.4 mEq/L (3.5-5.1); Protein, Total 7.3 g/dL (6.4-8.2)
[2022-10-12 00:15] LABS: Troponin High Sensitivity 113.9 pg/mL (<58.9)
[2022-10-12 00:16] LABS: Protime INR 1.16
[2022-10-12 00:22] LABS: SARS-CoV-2 Antigen Rapid Res Negative (Negative)
[2022-10-12 00:34] LABS: Barbiturates NEGATIVE (NEGATIVE); Benzodiazepines NEGATIVE (NEGATIVE); Cocaine NEGATIVE (NEGATIVE); METHAMPHETAM NEGATIVE (NEGATIVE); Methadone NEGATIVE (NEGATIVE); Opiates NEGATIVE (NEGATIVE); Phencyclidine NEGATIVE (NEGATIVE); THC Cannibis POSITIVE (NEGATIVE)
[2022-10-12] MEDS ORDERED: PIPERACIL/TAZO 3.375 GM VIAL IV ONE (00:45)
[2022-10-12] MEDS ORDERED: NA CHLORIDE 0.9% 100 ML ONE (00:45)
[2022-10-12] MEDS ORDERED: D5 0.9 NS 1,000 ML IV ONE (00:46)
[2022-10-12] MEDS ORDERED: VANCOMYCIN 500 MG/VIAL ONE (00:47)
[2022-10-12] MEDS ORDERED: NA CHLORIDE 0.9% 250 ML ONE (00:48)
[2022-10-12 00:57] LABS: Blood Morphology Comment NOT SEEN (NOT SEEN); Platelet Estimate ADEQ
[2022-10-12] MEDS ORDERED: THIAMINE 200 MG/2 ML INJ ONE (02:45)
--- NOTE | 2022-10-12 04:33 | ER ---
Nurse's Notes [facility] Name: Dk Miranda Age: 72 yrs Sex: Male : 1950 Arrival Date: 10/11/2022 Time: 23:10 Bed 2 Private MD: Diagnosis: Acute respiratory failure;Aspiration pneumonia, delirium tremens, fall at home, syncope and collapse, left posterior rib fractures #8, 9, 10, vertebral L1 superior endplate compression fracture, leukocytosis Presentation: 10/11 23:30 Chief complaint: EMS states: toned out for welfare check. on arrival PT unresponsive. kd3 Coronavirus screen: At this time, unable to obtain information related to travel outside the [place] Ebola Screen: Unable to complete the Ebola screening because: Patient is unresponsive. Initial Sepsis Screen: Does the patient meet any 2 criteria? Altered Mental Status. HR > 90 bpm. No. Patient's initial sepsis screen is negative. Does the patient have a suspected source of infection? Yes: Skin breakdown/wound If YES to both, name of provider notified: Specner Fernandez MD. Risk Assessment: Do you want to hurt yourself or someone else? Unable to obtain. Onset of symptoms is unknown. Care prior to arrival: None. Activity prior to arrival: unresponsive. 23:30 Method Of Arrival: EMS: [facility] 3 23:30 Acuity: INDIO 1 kd3 Triage Assessment: 23:30 General: Appears unkempt, Behavior is unresponsive. Pain: Unable to use pain scale. kd3 Patient is unresponsive. EENT: blood noted to mouth and lips. Throat with gag reflex absent. Neuro: Level of Consciousness is unresponsive. Cardiovascular: No deficits noted. Capillary refill < 3 seconds Clubbing of nail beds is absent JVD is absent Patient's skin is warm and dry. Respiratory: Respiratory effort is labored, weak, Respiratory pattern is agonal tachypnea snoring the patient has severe shortness of breath. GI: No deficits noted. Abdomen is round non-distended. : No deficits noted. Derm: generalized bruising and skin tears noted. Musculoskeletal: Capillary refill is sluggish. Historical: - Allergies: 10/12 00:20 Unable to obtain; kd3 - Home Meds: 00:20 Unable to obtain [Active]; kd3 - PMHx: 00:20 Unable to Obtain; kd3 - PSHx: 00:20 Unable to Obtain; kd3 - Immunization history:: Adult Immunizations unknown. - Social history:: Smoking status: unknown. - Family history:: not pertinent. Screenin:27 [facility] ED Fall Risk Assessment (Adult). kd3 07:30 Abuse screen: Pt intubated. Nutritional screening: No deficits noted. Tuberculosis ld1 screening: No symptoms or risk factors identified. Assessment: 10/11 23:30 General: see triage assessment . kd3 23:35 Respiratory: Ventilator assessment: ET Tube: 8.0 at lip. 24 at the lip FiO2: 100%. kd3 PEEP: 5 HOB > 30 degrees. Patient repositioned to supine position. 10/12 01:18 Reassessment: Patient appears in no apparent distress at this time. No changes from lg3 previously documented assessment. 05:05 Reassessment: Patient appears in no apparent distress at this time. No changes from lg3 previously documented assessment. 05:42 Respiratory:. kd3 06:08 Reassessment: Patient appears in no apparent distress at this time. No changes from lg3 previously documented assessment. 07:12 General: This RN pulled 500 mcg of fentanyl with UCHE Wills as witness to make a 3 fentanyl drip for an already existing order. . Vital Signs: 10/11 23:15 BP 138 / 85; Pulse 94; Resp 16; Temp 99.6(Ca); Pulse Ox 100% on 100% FiO2 ETT vent; lg3 23:31 Weight 76.66 kg; kd3 10/12 01:00 BP 139 / 89; Pulse 99; Resp 15 A; Temp 99.4(Ca); Pulse Ox 97% on ETT vent; lg3 02:00 BP 142 / 85; Pulse 91; Resp 14 A; Temp 98.7(Ca); Pulse Ox 97% on ETT vent; lg3 03:15 BP 132 / 82; Pulse 83; Resp 22 A; Temp 98(Ca); Pulse Ox 97% on ETT vent; lg3 04:45 BP 119 / 80; Pulse 81; Resp 24 A; Temp 98.4(Ca); Pulse Ox 100% on ETT vent; lg3 06:00 BP 112 / 68; Pulse 85; Resp 18 A; Temp 98.3(Ca); Pulse Ox 100% on ETT vent; lg3 06:30 BP 96 / 70; Pulse 69; Resp 16 A; Temp 98.1(Ca); Pulse Ox 100% on 45% FiO2 ETT vent; lg3 07:08 BP 116 / 81; Pulse 86; Resp 16 A; Temp 97.9(Ca); Pulse Ox 100% on 45% FiO2 ETT vent; lg3 Ton Coma Score: 02:07 Eye Response: to pain(2). Motor Response: withdraws from pain(4). Verbal Response: sp4 incomprehensible(2). Total: 8. ED Course: 10/11 23:11 Maintain EMS IV. Dressing intact. Good blood return noted. Site clean \T\ dry. Gauge \T\ kd 3 site: 20 gauge right hand . 23:12 Assisted provider with intubation using 8.0 mm ETT via oral route. ET tube secured at kd3 lips. Set up intubation tray. Intubated by Spencer Fernandez MD Placement verified by CO2 detector w/ + color change, auscultating bilateral breath sounds, Patient tolerated measured 24 at the lip. 23:12 Inserted saline lock: 20 gauge in right antecubital area, using aseptic technique. kd3 Blood collected. 23:17 Patient arrived in ED. rv1 23:25 Spencer Fernandez MD is Attending Physician. sp4 23:29 CK Sent. rv1 23:29 Troponin High Sensitivity Sent. rv1 23:29 CBC with Diff Sent. rv1 23:29 CMP Sent. rv1 23:29 Lactate w/ 2H reflex if indic. Sent. rv1 23:29 Protime (+inr) Sent. rv1 23:29 Ptt, Activated Sent. rv1 23:29 Urinalysis w/ reflexes Sent. rv1 23:30 Arm band placed on left wrist. kd3 23:31 Lopez cath inserted, using sterile technique, 16 Fr., by ED staff, balloon inflated, to kd3 gravity drainage, urine specimen collected. 23:31 NGT: 18 OG placed. kd3 23:34 Assist ventilation with ventilator. kd3 23:38 Cleaned of incontinence. Linen changed. kd3 23:53 Chest Single View XRAY In Process Unspecified. EDMS 10/12 00:12 Influenza Screen (a \T\ B) Sent. kd3 00:12 SARS RAPID Sent. kd3 00:12 Urine Drug Screen Sent. kd3 00:12 Acetaminophen Sent. kd3 00:12 Salicylate Sent. kd3 00:12 TSH Sent. kd3 00:12 Alcohol Level Sent. kd3 00:20 Triage completed. kd3 00:27 Patient has correct armband on for positive identification. Placed in gown. Bed in low kd3 position. Side rails up X2. 00:35 Jorge Jackson RN is Primary Nurse. rv 01:10 Chest Single View XRAY In Process Unspecified. EDMS 01:15 Assisted provider with central line placement. Set up central line tray. Triple lumen lg3 line placed in left internal jugular. Line placed by Spencer Fernandez MD Placement verified by CXR, blood return, Blood was collected. 02:05 Head C Spine Cap Wo Con In Process Unspecified. EDMS 04:17 Initiated transfer with Kiarra at [facility]. rv1 05:[address] [facility] by Dr. Sifuentes to ICU 209. rv1 07:31 Patient transferred, IV remains in place. ld1 Administered Medications: 10/11 23:19 Drug: Etomidate IVP 40 mg Route: IVP; Site: right antecubital; kd3 10/12 06:20 Follow up: Response: No adverse reaction lg3 10/11 23:20 Drug: Rocuronium IVP 100 mg Route: IVP; Site: right antecubital; kd3 10/12 06:20 Follow up: Response: No adverse reaction lg3 00:12 Drug: Midazolam IVP or IV 0.01 mg/kg/h Route: IV; Rate: calculated rate; Site: right kd3 antecubital; 00:12 Drug: fentaNYL (PF) IV 25 mcg/kg/h Route: IV; Rate: calculated rate; Site: right kd3 antecubital; 01:15 Drug: vancoMYCIN IVPB 1 grams Route: IVPB; Infused Over: 2 hrs; Site: right antecubital;lg3 03:59 Follow up: Response: No adverse reaction; IV Status: Completed infusion; IV Intake: lg3 250ml 01:16 Drug: D5-NS IV 1000 ml Route: IV; Rate: 125 ml/hr; Site: left jugular; lg3 01:16 Drug: Piperacillin-Tazobactam IVPB 3.375 grams Route: IVPB; Infused Over: 60 mins; lg3 Site: right hand; 02:26 Follow up: Response: No adverse reaction; IV Status: Completed infusion; IV Intake: lg3 100ml 02:37 Drug: Thiamine IV 100 mg Route: IV; Rate: bolus; Site: left jugular; lg3 04:59 Follow up: Response: No adverse reaction; IV Status: Completed infusion; IV Intake: 1ml lg3 04:42 Drug: Lactated Ringers Solution IV 1000 ml Route: IV; Rate: 1000 bolus; Site: left lg3 jugular; 06:20 Follow up: IV Status: Completed infusion; IV Intake: 1000ml lg3 04:59 Drug: Aspirin PO Chewable Tablet 324 mg Route: G-Tube; lg3 06:20 Follow up: Response: No adverse reaction lg3 04:59 Drug: Enoxaparin Sub-Q 80 mg Route: Sub-Q; Site: abdomen; lg3 06:20 Follow up: Response: No adverse reaction lg3 06:30 Drug: Lactated Ringers Solution IV 1000 ml Route: IV; Rate: bolus; Site: left jugular; lg3 06:30 Drug: Albumin IVPB 25 grams Volume: 100 ml; Route: IVPB; Site: left jugular; lg3 06:51 Follow up: Response: No adverse reaction; IV Status: Completed infusion; IV Intake: lg3 100ml Medication: 07:31 VIS not applicable for this client. ld1 Intake: 02:26 IV: 100ml; Total: 100ml. lg3 03:59 IV: 250ml; Total: 350ml. lg3 04:59 IV: 1ml; Total: 351ml. lg3 06:20 IV: 1000ml; Total: 1351ml. lg3 06:51 IV: 100ml; Total: 1451ml. lg3 Outcome: 04:33 ER care complete, transfer ordered by sp4 07:30 Transferred by ground EMS ld1 07:30 Condition: stable 07:30 Discharge instructions given to EMS. 07:31 Patient left the ED. ld1 Signatures: Dispatcher [employer] EDJorge Wolfe RN RN rv Gibson, Lacie, RN RN lg3 Екатерина Yañez RN RN ld1 Karen Salazar RN RN 3 MacMaritza rv1 Spencer Fernandez MD MD sp4 Corrections: (The following items were deleted from the chart) 10/11 23:34 23:12 Assisted provider with intubation using 8.0 mm ETT via oral route. ET tube kd3 secured at lips. Set up intubation tray. Intubated by Spencer Fernandez MD Placement verified by CO2 detector w/ + color change, auscultating bilateral breath sounds, Patient tolerated kd3 10/12 05:05 07 23:32 BP 138 / 85; Pulse 94bpm; Resp 16bpm; Pulse Ox 100% FiO2 100% vent; Temp lg3 99.6F Catheter; kd3 10/12 05:05 01:17 BP 139 / 89; Pulse 99bpm; Resp 15bpm; Assisted; Pulse Ox 97% ET / Ventilator; lg3 Temp 99.4F Catheter; 3 05:05 02:14 BP 142 / 85; Pulse 91bpm; Resp 14bpm; Assisted; Pulse Ox 97% ET / Ventilator; lg3 Temp 98.7F Catheter; lg3 05:05 03:23 BP 132 / 82; Pulse 83bpm; Resp 22bpm; Assisted; Pulse Ox 97% ET / Ventilator; lg3 Temp 98F Catheter; lg3
--- NOTE | 2022-10-12 04:33 | EDPHYS ---
Physician Documentation [facility] Name: Dk Miranda Age: 72 yrs Sex: Male : 1950 Arrival Date: 10/11/2022 Time: 23:10 Bed 2 Private MD: ED Physician Spencer Fernandez HPI: 10/11 23:25 This 72 yrs old Male presents to ER via Unassigned with complaints of sp4 respiratory distress, AMS . 10/12 01:57 72-year-old male presents with EMS with altered mental status and respiratory distress. sp4 Patient was found at home by EMS after somebody called to check on him. Reportedly one of the patient's family requested welfare check by police and EMS. Patient was found at home altered and in distress. Patient reportedly consumes large amount of alcohol. Patient has additional history of insulin-dependent diabetes, peripheral arterial disease, hypertension, alcohol abuse, vertebral fracture, rib fracture, hypoglycemia, and humerus fracture. Patient also has history of frequent falls. Patient was managed here last time 06/13/2022 for hypoglycemia, falls, humerus fracture, vertebral fracture, rib fracture, hypoglycemia. . 02:07 History at this time is not obtainable, patient had to be intubated secondary to severe sp4 respiratory distress on arrival, patient was intubated with RSI also central line was placed left jugular location secondary to poor vascular access. . Collateral information obtained from patient's son. Patient's son confirms that patient has alcohol problem he drinks heavily every evening several drinks of vodka. He has history of frequent falls but he would not quit alcohol consumption. It appears that the patient has been laying on the floor for some time, patient has incontinence of urine and bowel. Dry mucous membranes. Moderate to severe physical deconditioning. Historical: - Allergies: 00:20 Unable to obtain; kd3 - Home Meds: 00:20 Unable to obtain [Active]; kd3 - PMHx: 00:20 Unable to Obtain; kd3 - PSHx: 00:20 Unable to Obtain; kd3 - Immunization history:: Adult Immunizations unknown. - Social history:: Smoking status: unknown. - Family history:: not pertinent. ROS: 02:07 Constitutional: At this time ROS cannot be obtained secondary to altered mental status sp4 02:07 Unable to obtain ROS due to altered mental status. Exam: 01:09 ECG was reviewed by the Attending Physician. EKG time 2315, there is normal sinus sp4 rhythm at rate of 88, prolonged QT, sinus arrhythmia, muscle tremor artifact. Otherwise normal EKG 02:07 Constitutional: This is a well developed, ill-appearing male, toxic appearing male, sp4 moderate to severe respiratory distress, dry mucous membranes, poor hygiene, multiple hematomas to bilateral forearms, moderate to severe physical deconditioning, patient is responsive to pain stimuli, nonverbal at this time, bilateral lower extremity edema, incontinent of bowel and bladder Head/Face: Normocephalic, atraumatic. Eyes: Pupils equal round and reactive to light, additional exam not possible secondary to AMS ENT: Nares patent. No nasal discharge, no septal abnormalities noted. Tympanic membranes are normal and external auditory canals are clear. Dry mucous membranes, poor dentition, pharynx is normal Neck: Trachea midline, no thyromegaly or masses palpated, and no cervical lymphadenopathy. Supple, Chest/axilla: Normal chest wall appearance and motion. Nontender with no deformity. No lesions are appreciated., Respiratory distress and tachypnea. Cardiovascular: Regular tachycardia with a normal S1 and S2. No gallops, murmurs, or rubs. Normal PMI, no JVD. No pulse deficits. Respiratory: Lungs have equal breath sounds bilaterally, bilateral crackles on exam, dyspnea and tachypnea, increased work of breathing, abdominal heaving and retractions Abdomen/GI: Soft, No distension or tympany. No guarding or rebound. Back: No deformities and no pressure ulcers Male : Normal genitalia with no discharge or lesions. Lopez catheter placed on arrival patient is incontinent of bladder Skin: Warm, dry poor skin turgor with multiple hematomas from recent falls and remote falls MS/ Extremity: Pulses equal, no cyanosis. Bilateral lower extremity trace edema, no deformity or signs of dislocation Neuro: Patient is up to pain only, response to pain only, moves all extremities on exam, additional exam is not possible Vital Signs: 07 23:15 BP 138 / 85; Pulse 94; Resp 16; Temp 99.6(Ca); Pulse Ox 100% on 100% FiO2 ETT vent; lg3 23:31 Weight 76.66 kg; kd3 10/12 01:00 BP 139 / 89; Pulse 99; Resp 15 A; Temp 99.4(Ca); Pulse Ox 97% on ETT vent; lg3 02:00 BP 142 / 85; Pulse 91; Resp 14 A; Temp 98.7(Ca); Pulse Ox 97% on ETT vent; lg3 03:15 BP 132 / 82; Pulse 83; Resp 22 A; Temp 98(Ca); Pulse Ox 97% on ETT vent; lg3 04:45 BP 119 / 80; Pulse 81; Resp 24 A; Temp 98.4(Ca); Pulse Ox 100% on ETT vent; lg3 06:00 BP 112 / 68; Pulse 85; Resp 18 A; Temp 98.3(Ca); Pulse Ox 100% on ETT vent; lg3 06:30 BP 96 / 70; Pulse 69; Resp 16 A; Temp 98.1(Ca); Pulse Ox 100% on 45% FiO2 ETT vent; lg3 07:08 BP 116 / 81; Pulse 86; Resp 16 A; Temp 97.9(Ca); Pulse Ox 100% on 45% FiO2 ETT vent; lg3 Ton Coma Score: 02:07 Eye Response: to pain(2). Motor Response: withdraws from pain(4). Verbal Response: sp4 incomprehensible(2). Total: 8. Procedures: 01:06 Intubation: Ventilated with 100% NRB prior to procedure. O2 saturation prior to sp4 procedure was 100 %. Intubated Wilson scope assisted intubation using # 3 Silvana blade with 8.0 mm ETT. was successful on first attempt. Ventilated with Ambu bag. ventilator. Tube secured with ETT monroy at center of mouth measured 24 cm at lip. Placement verified by CXR, CO2 detector with (+) color change, auscultating bilateral breath sounds, O2 saturation after procedure was 100 %. Patient tolerated well, Intubated for acute respiratory distress and impending respiratory failure. Central Line: the site was prepped with in sterile fashion, Chlorhexidine prep, a triple lumen catheter was inserted, in the left internal jugular vein, in 1 attempts. placement was verified, by CXR, by blood return, Ultrasound assisted placement, the site was dressed with Tegaderm, using sterile technique, the patient tolerated the procedure, well, Left internal jugular triple-lumen CVL placed with ultrasound guidance, no complications. MDM: 10/11 23:27 Patient medically screened. sp4 10/12 00:58 Data reviewed: vital signs, nurses notes, EMS record, old medical records, lab test sp4 result(s), EKG, radiologic studies, CT scan, plain films. 01:57 ED course: EXAM DESCRIPTION: Chest Single View 10/12/2022 12:54 AM CDT CLINICAL HISTORY: sp4 72 years, Male, POST ETT COMPARISON: None FINDINGS: Single view of the chest was obtained portable. No prior films are available for comparison. There is a endotracheal tube at mid clavicular line at approximately 3.7 cm from the darnell. There is a nasogastric tube within the stomach. The heart is nonenlarged. The thoracic aorta demonstrate intimal cortication. Minimal opacity within the lateral left upper lung zone. Calcified granuloma within the left lower lung zone. No significant pleural effusions. The rest of the soft tissue and bony structures demonstrate to be unremarkable. IMPRESSION: Endotracheal tube and nasogastric tube in satisfactory position. Minimal opacity lateral left upper lung zone. . 02:17 Differential Diagnosis altered mental status, sepsis, flu. ED course: Please suspect sp4 patient developed delirium tremens at home and has fallen on the floor. Patient most likely remained on the floor for several hours. . 03:18 ED course: Chest X ray - IMPRESSION: Left IJ triple-lumen catheter in good position. No sp4 evidence for pneumothorax. Endotracheal tube and nasogastric tube in good position.. 04:14 ED course: COMPARISON: CT of the chest from June 11. FINDINGS: Lungs: 8 mm pulmonary sp4 nodule in the superior segment of the left lower lobe pleural-based extensions. Recommend a non-contrast Chest CT at 6-12 months. If patient is high risk for malignancy, recommend an additional non-contrast Chest CT at 18-24 months; if patient is low risk for malignancy a non-contrast Chest CT at 18-24 months is optional. These guidelines do not apply to immunocompromised patients and patients with cancer. Follow up in patients with significant comorbidities as clinically warranted. For lung cancer screening, adhere to Lung-RADS guidelines. Reference: Radiology. 2017; 284(1):228-43. Interstitial coarsening in the lung bases. Multifocal confluent airspace disease in the left lower lobe with multinodular configuration which may represent pneumonia and or aspiration. Follow-up recommended to assess for the evolution of this finding. Atelectatic changes in the lung bases. Calcified granuloma in the left lower lobe. Pleura: Small bilateral pleural effusions.. No pneumothorax. Heart and pericardium: The heart is normal in size. No pericardial effusion. Mediastinum and sara: Evaluation of the mediastinum and vasculature is limited without intravenous contrast. Lower neck and chest wall: Unremarkable Vessels: Unremarkable. PICC line in the SVC. ET tube in satisfactory position proximal to the level of the darnell. Bones: Comminuted fracture of the left humeral head with no evidence of glenohumeral dislocation. Comminuted fracture of the medial end of the right clavicle, partially visualized. Multiple old bilateral rib fractures with deformity of the rib cage. Fractures of the left eighth, ninth and 10th ribs posteriorly, which may be acute. Correlation with clinical exam recommended. Prominent compression deformities of T11 and T4, chronic and also present on the prior examination. Liver: Cirrhotic liver morphology. Gallbladder and biliary system: Status post cholecystectomy. Pancreas: Pancreatic calcifications and dilatation of the pancreatic duct likely sequela from chronic pancreatitis. No peripancreatic inflammatory changes or fluid collections. Spleen: Unremarkable Adrenals: Unremarkable Kidneys: Bilateral exophytic simple renal cysts. 1.1 cm hyperattenuating focus in the right kidney likely small hemorrhagic cyst. No follow-up imaging recommended. Gl : No obstruction. No appreciable mucosal thickening. NG tube in the stomach. Sigmoid diverticulosis with no evidence of diverticulitis. Appendix: No findings to suggest acute appendicitis. Urinary bladder: Lopez catheter in the urinary bladder. Reproductive: Unremarkable as visualized Lymph nodes: No pathologically enlarged lymph nodes. Peritoneum: No focal fluid collection. No free air. Vessels: No abdominal aortic aneurysm. Prominent atherosclerotic peripheral vascular disease. Abdominal wall: Unremarkable Bones: Fracture of L1 with disruption of its superior vertebral endplate which may be acute. No significant anterior wedging or loss of height. IMPRESSION: 1. Multifocal confluent airspace disease in the left lower lobe with multinodular configuration which may represent pneumonia and or aspiration. Follow-up recommended to assess for the evolution of this finding. Small bilateral pleural effusions. 2. 8 mm pulmonary nodule in the superior segment of the left lower lobe. See recommendations above. 3. Comminuted fracture of the left humeral head with no evidence of glenohumeral dislocation. 4. Comminuted fracture of the medial end of the right clavicle, partially visualized. 5. Fractures of the left eighth, ninth and 10th ribs posteriorly, which may be acute. Correlation with clinical exam recommended. No pneumothorax. 6. Fracture of L1 with disruption of its superior vertebral endplate which may be acute. No significant anterior wedging or loss of height. 7. Evaluation of intra-abdominal viscera for injury is limited without intravenous contrast. 8. Other chronic or incidental findings as noted.. 04:49 ED course: For troponin elevation and NSTEMI patient was given subcutaneous Lovenox and sp4 also aspirin down the NG tube. 05:00 Consideration of Admission/Observation Patient was admitted/placed on observation. sp4 Escalation of care including admission/observation considered. ED course: Patient was accepted by [facility] 10/11 23:25 Order name: Blood Culture Adult (2) [facility] 10/11 23:25 Order name: CBC with Diff; Complete Time: : [facility] 10/11 23:25 Order name: CMP; Complete Time: [facility] 10/11 23:25 Order name: Lactate w/ 2H reflex if indic.; Complete Time: : [facility] 10/11 23:25 Order name: Protime (+inr); Complete Time: : [facility] 10/11 23:25 Order name: Ptt, Activated; Complete Time: [facility] 10/11 23:25 Order name: Urinalysis w/ reflexes; Complete Time: 00:09 4 10/11 23:25 Order name: Troponin High Sensitivity; Complete Time: : [facility] 10/11 23:25 Order name: CK; Complete Time: : [facility] 10/11 23:26 Order name: ABG; Complete Time: 00:09 4 10/11 23:30 Order name: Alcohol Level; Complete Time: : [facility] 10/11 23:30 Order name: TSH; Complete Time: : 4 10/11 23:30 Order name: Salicylate; Complete Time: 4 10/11 23:30 Order name: Acetaminophen; Complete Time: : 4 10/11 23:31 Order name: Urine Drug Screen; Complete Time: : 4 10/11 23:31 Order name: SARS RAPID; Complete Time: : sp4 10/11 23:31 Order name: Influenza Screen (a \T\ B); Complete Time: 01:19 sp4 10/11 23:54 Order name: Manual Differential; Complete Time: 01:19 EDMS 10/11 23:25 Order name: Chest Single View XRAY sb4 10/11 23:33 Order name: Head C Spine Cap Wo Con EDMS 10/12 00:55 Order name: Chest Single View XRAY 3 10/11 23:25 Order name: EKG; Complete Time: 23:26 sb4 10/11 23:25 Order name: Accucheck; Complete Time: 00:14 sb4 10/11 23:25 Order name: Cardiac monitoring; Complete Time: 00:14 sb4 10/11 23:25 Order name: Cath; Complete Time: 00:14 sb4 10/11 23:25 Order name: EKG - Nurse/Tech; Complete Time: 23:29 sb4 10/11 23:25 Order name: IV Saline Lock - Large Bore; Complete Time: 00:15 sb4 10/11 23:25 Order name: Labs collected and sent; Complete Time: 00:15 sb4 10/11 23:25 Order name: O2 Per Protocol; Complete Time: 00:15 sb4 10/11 23:25 Order name: O2 Sat Monitoring; Complete Time: 00:15 sb4 10/11 23:25 Order name: Vital Signs; Complete Time: 00:15 sb4 10/11 23:29 Order name: Central Line Kit; Complete Time: 00:12 sp4 10/11 23:30 Order name: NG Tube; Complete Time: 00:12 sp4 EC:09 Rate is 88 beats/min. Rhythm is regular, Normal Sinus Rhythm. QRS [place] is Normal. CT sp4 interval is normal. QRS interval is normal. QT interval is prolonged. T waves are Normal. No ST changes noted. Clinical impression: No evidence of ischemia. Administered Medications: 10/11 23:19 Drug: Etomidate IVP 40 mg Route: IVP; Site: right antecubital; 3 10/12 06:20 Follow up: Response: No adverse reaction [facility] 10/11 23:20 Drug: Rocuronium IVP 100 mg Route: IVP; Site: right antecubital; 3 10/12 06:20 Follow up: Response: No adverse reaction lg3 00:12 Drug: Midazolam IVP or IV 0.01 mg/kg/h Route: IV; Rate: calculated rate; Site: right kd3 antecubital; 00:12 Drug: fentaNYL (PF) IV 25 mcg/kg/h Route: IV; Rate: calculated rate; Site: right kd3 antecubital; 01:15 Drug: vancoMYCIN IVPB 1 grams Route: IVPB; Infused Over: 2 hrs; Site: right antecubital;lg3 03:59 Follow up: Response: No adverse reaction; IV Status: Completed infusion; IV Intake: lg3 250ml 01:16 Drug: D5-NS IV 1000 ml Route: IV; Rate: 125 ml/hr; Site: left jugular; lg3 01:16 Drug: Piperacillin-Tazobactam IVPB 3.375 grams Route: IVPB; Infused Over: 60 mins; lg3 Site: right hand; 02:26 Follow up: Response: No adverse reaction; IV Status: Completed infusion; IV Intake: lg3 100ml 02:37 Drug: Thiamine IV 100 mg Route: IV; Rate: bolus; Site: left jugular; lg3 04:59 Follow up: Response: No adverse reaction; IV Status: Completed infusion; IV Intake: 1ml lg3 04:42 Drug: Lactated Ringers Solution IV 1000 ml Route: IV; Rate: 1000 bolus; Site: left lg3 jugular; 06:20 Follow up: IV Status: Completed infusion; IV Intake: 1000ml lg3 04:59 Drug: Aspirin PO Chewable Tablet 324 mg Route: G-Tube; lg3 06:20 Follow up: Response: No adverse reaction lg3 04:59 Drug: Enoxaparin Sub-Q 80 mg Route: Sub-Q; Site: abdomen; lg3 06:20 Follow up: Response: No adverse reaction lg3 06:30 Drug: Lactated Ringers Solution IV 1000 ml Route: IV; Rate: bolus; Site: left jugular; lg3 06:30 Drug: Albumin IVPB 25 grams Volume: 100 ml; Route: IVPB; Site: left jugular; lg3 06:51 Follow up: Response: No adverse reaction; IV Status: Completed infusion; IV Intake: lg3 100ml Disposition Summary: 10/12/22 04:33 Transfer Ordered Transfer Location: [facility] sp4 Reason: Higher level of care sp4 Condition: Stable sp4 Problem: new sp4 Symptoms: have improved sp4 Accepting Physician: Accepting hospitalist(10/12/22 07:31) ld1 Diagnosis - Acute respiratory failure sp4 - Aspiration pneumonia, delirium tremens, fall at home, syncope and collapse, left sp4 posterior rib fractures #8, 9, 10, vertebral L1 superior endplate compression fracture, leukocytosis Forms: - Medication Reconciliation Form sp4 - SBAR form sp4 Critical care time excluding procedures: 05:00 Critical care time: Bedside Care: 46 minutes, Consultation: 12 minutes, Family sp4 Intervention: 12 minutes. Total time: 70 minutes Signatures: Dispatcher [employer] EDMS Jayashree Saini, RN RN lg3 Екатерина Yañez RN RN ld1 Karen Salazar, RN RN kd3 Renetta Beasley, PA-C PA-C sb4 Spencer Fernandez MD MD sp4 Corrections: (The following items were deleted from the chart) 10/11 23:31 23:29 Head C Spine MPR Wo Con+CT.RAD.BRZ ordered. EDMS EDMS 23:31 23:29 Chest Abdomen Pelvis Wo Con+CT.RAD.BRZ ordered. EDMS EDMS 10/12 07:31 04:33 Accepting hospitalist sp4 ld1
[2022-10-12] MEDS ORDERED: Ringers Lactate 1,000 ML IV ONE ×2 (04:40→06:40)
[2022-10-12] MEDS ORDERED: ENOXAPARIN 80 MG/0.8 ML SQ ONE (04:57)
[2022-10-12] MEDS ORDERED: ASPIRIN 81 MG CHEWABLE TABLET ONE (04:57)
[2022-10-12] MEDS ORDERED: ALBUMIN HUMAN 25% 100 ML IV ONE (06:40)
[2022-10-12] MEDS ORDERED: MIDAZOLAM HCL IN 0.9 % NACL/PF 100 MG/100 ML BAG IVPB ONE (07:07)
[2022-10-12] MEDS ORDERED: FENTANYL CITR 100 MCG/2 ML ONE (07:16)
[2022-10-12] MEDS ORDERED: NA CHLORIDE 0.9% 50 ML ONE (07:17)
[2022-10-12 08:07] VITALS: O2SAT 100
[2022-10-12 08:11] VITALS: BP 116/81; TEMP 97.9
--- NOTE | 2022-10-12 12:14 | EKG ---
Test Date: 2022-10-11 Test Time: 23:15:15 Placement Director: RIC MEASUREMENT RESULTS: Intervals: Rate: 88 OK: 158 QRSD: 74 QT: 414 QTc: 500 [place]: P: 75 OK: 158 QRS: 57 T: 69 INTERPRETIVE STATEMENTS: Normal sinus rhythm with sinus arrhythmia Prolonged QT Abnormal ECG Compared to ECG 06/11/2022 13:54:04 Prolonged QT interval now present Electronically Signed On 10-12-22 12:12:29 CDT by Jose Luis Orta
--- NOTE | 2022-10-12 19:02 | RAD REPORT ---
EXAM DESCRIPTION: Chest Single View 10/12/2022 12:54 AM CDT CLINICAL HISTORY: 72 years, Male, POST ETT COMPARISON: None FINDINGS: Single view of the chest was obtained portable. No prior films are available for compariso n. There is a endotracheal tube at mid clavicular line at approximately 3.7 cm from the darnell. There is a nasogastric tube within the stomach. The heart is nonenlarged. The thoracic aorta demonstrate i ntimal cortication. Minimal opacity within the lateral left upper lung zone. Calcified granuloma with in the left lower lung zone. No significant pleural effusions. The rest of the soft tissue and bony structures demonstrate to be unremarkable. IMPRESSION: Endotracheal tube and nasogastric tube in satisfactory position. Minimal opacity lateral left upper lung zone. Electronically signed by: Toni Baker MD 10/12/2022 12:55 AM CDT Due to temporary technical issues with the PACS/Fluency reporting system, reports are being signed by the in house radiologists without review as a courtesy to insure prompt reporting. The interpreting radiologist is fully responsible for the content of the report.
--- NOTE | 2022-10-12 20:37 | RAD REPORT ---
EXAM DESCRIPTION: Chest Single View 10/12/2022 2:17 AM CDT CLINICAL HISTORY: 72 years, Male, central line placement verification COMPARISON: 10/11/2022 FINDINGS: Single view of the chest was obtained portable. Prior films were compared. There has been interval placement of a left IJ triple-lumen catheter tip of the catheter within the cavoatrial junct ion in good position. There is no evidence for pneumothorax. The endotracheal tube and nasogastric tu be demonstrate to be within normal limits. The heart is not enlarged. The thoracic aorta demonstrate intimal cortication. No pleural effusions/or consolidations. The rest of the soft tissue and bony s tructures demonstrate to be unremarkable. IMPRESSION: Left IJ triple-lumen catheter in good position. No evidence for pneumothorax. Endotracheal tube and nasogastric tube in good position. Electronically signed by: Toni Baker MD 10/12/2022 2:18 AM CDT Due to temporary technical issues with the PACS/Fluency reporting system, reports are being signed by the in house radiologists without review as a courtesy to insure prompt reporting. The interpreting radiologist is fully responsible for the content of the report.
--- NOTE | 2022-10-13 07:03 | RAD REPORT ---
EXAM DESCRIPTION: Head C Spine Cap Wo Con CLINICAL HISTORY: CONFUSED, RESPIRATORY DISTRESS TECHNIQUE: Contiguous axial CT images obtained through the brain without IV contrast. Coronal and sa gittal reformatted images were provided. This exam was performed according to our departmental dose-optimization program, which includes autom ated exposure control, adjustment of the mA and/or kV according to patient size and/or use of iterati ve reconstruction technique. COMPARISON: None available for comparison FINDINGS: Brain: Mild age-related loss of brain volume.. No focal mass effect. Fitzgerald-white matter dif ferentiation is within normal limits. No hemorrhage. Ventricles: No ventriculomegaly or midline shift. Extra-axial spaces: No extra-axial collection or hemorrhage. Paranasal sinuses and mastoid air cells: Well-aerated Bones: Unremarkable Soft tissues: Unremarkable IMPRESSION: No acute intracranial injury.. Mild age-related loss of brain volume. EXAM DESCRIPTION: Head C Spine Cap Wo Con CLINICAL HISTORY: CONFUSED, RESPIRATORY DISTRESS TECHNIQUE: Contiguous axial CT images obtained through the cervical spine without IV contrast. Cor onal and sagittal reformatted images also provided. This exam was performed according to our departmental dose-optimization program, which includes autom ated exposure control, adjustment of the mA and/or kV according to patient size and/or use of iterati ve reconstruction technique. COMPARISON: None available for comparison FINDINGS: Vertebra: No acute fracture or subluxation. Degenerative changes: Multilevel degenerative changes of the cervical spine with facet joint arthropa thy, narrowing of intervertebral disc spaces and large anterior osteophytes. Prevertebral soft tissues: Unremarkable Lung apices: Clear IMPRESSION: No acute cervical spine fracture. EXAM DESCRIPTION: Head C Spine Cap Wo Con CLINICAL HISTORY: CONFUSED, RESPIRATORY DISTRESS TECHNIQUE: Contiguous axial images obtained through the chest , abdomen and pelvis without IV contra st. Coronal and sagittal reformatted images provided. This exam was performed according to our departmental dose-optimization program, which includes autom ated exposure control, adjustment of the mA and/or kV according to patient size and/or use of iterati ve reconstruction technique. COMPARISON: CT of the chest from June 11. FINDINGS: Lungs: 8 mm pulmonary nodule in the superior segment of the left lower lobe pleural-based extensions. Recommend a non-contrast Chest CT at 6-12 months. If patient is high risk for malignancy, recommend an additional non-contrast Chest CT at 18-24 months; if patient is low risk for malignancy a non-contrast Chest CT at 18-24 months is optional. These guidelines do not apply to immunocompromised patients and patients with cancer. Follow up in pa tients with significant comorbidities as clinically warranted. For lung cancer screening, adhere to L sebastian-RADS guidelines. Reference: Radiology. 2017; 284(1):228-43. Interstitial coarsening in the lung bases. Multifocal confluent airspace disease in the left lower lobe with multinodular configuration which ma y represent pneumonia and or aspiration. Follow-up recommended to assess for the evolution of this fi nding. Atelectatic changes in the lung bases. Calcified granuloma in the left lower lobe. Pleura: Small bilateral pleural effusions.. No pneumothorax. Heart and pericardium: The heart is normal in size. No pericardial effusion. Mediastinum and sara: Evaluation of the mediastinum and vasculature is limited without intravenous co ntrast. Lower neck and chest wall: Unremarkable Vessels: Unremarkable. PICC line in the SVC. ET tube in satisfactory position proximal to the level of the darnell. Bones: Comminuted fracture of the left humeral head with no evidence of glenohumeral dislocation. Comminuted fracture of the medial end of the right clavicle, partially visualized. Multiple old bilateral rib fractures with deformity of the rib cage. Fractures of the left eighth, ninth and 10th ribs posteriorly, which may be acute. Correlation with c linical exam recommended. Prominent compression deformities of T11 and T4, chronic and also present on the prior examination. Liver: Cirrhotic liver morphology. Gallbladder and biliary system: Status post cholecystectomy. Pancreas: Pancreatic calcifications and dilatation of the pancreatic duct likely sequela from chronic pancreatitis. No peripancreatic inflammatory changes or fluid collections. Spleen: Unremarkable Adrenals: Unremarkable Kidneys: Bilateral exophytic simple renal cysts. 1.1 cm hyperattenuating focus in the right kidney likely small hemorrhagic cyst. No follow-up imaging recommended. Gl : No obstruction. No appreciable mucosal thickening. NG tube in the stomach. Sigmoid diverticulosis with no evidence of diverticulitis. Appendix: No findings to suggest acute appendicitis. Urinary bladder: Lopez catheter in the urinary bladder. Reproductive: Unremarkable as visualized Lymph nodes: No pathologically enlarged lymph nodes. Peritoneum: No focal fluid collection. No free air. Vessels: No abdominal aortic aneurysm. Prominent atherosclerotic peripheral vascular disease. Abdominal wall: Unremarkable Bones: Fracture of L1 with disruption of its superior vertebral endplate which may be acute. No signi ficant anterior wedging or loss of height. IMPRESSION: 1. Multifocal confluent airspace disease in the left lower lobe with multinodular conf iguration which may represent pneumonia and or aspiration. Follow-up recommended to assess for the ev olution of this finding. Small bilateral pleural effusions. 2. 8 mm pulmonary nodule in the superior segment of the left lower lobe. See recommendations above. 3. Comminuted fracture of the left humeral head with no evidence of glenohumeral dislocation. 4. Comminuted fracture of the medial end of the right clavicle, partially visualized. 5. Fractures of the left eighth, ninth and 10th ribs posteriorly, which may be acute. Correlation w ith clinical exam recommended. No pneumothorax. 6. Fracture of L1 with disruption of its superior vertebral endplate which may be acute. No signifi cant anterior wedging or loss of height. 7. Evaluation of intra-abdominal viscera for injury is limited without intravenous contrast. 8. Other chronic or incidental findings as noted. Electronically signed by: Karri Brennan MD 10/12/2022 4:04 AM CDT Due to temporary technical issues with the PACS/Fluency reporting system, reports are being signed by the in house radiologists without review as a courtesy to insure prompt reporting. The interpreting radiologist is fully responsible for the content of the report.
== END 2022-10-12 07:31 | disposition short-term general hospital (02) ==
LOC: ER 23:10
DX: J96.00 Acute respiratory failure, unspecified whether with hypoxia or hypercapnia (principal); J69.0 Pneumonitis due to inhalation of food and vomit; S22.42XA Multiple fractures of ribs, left side, initial encounter for closed fracture; S32.010A Wedge compression fracture of first lumbar vertebra, initial encounter for closed fracture; D72.829 Elevated white blood cell count, unspecified; F10.231 Alcohol dependence with withdrawal delirium; R55 Syncope and collapse; W18.30XA Fall on same level, unspecified, initial encounter; Y92.009 Unspecified place in unspecified non-institutional (private) residence as the place of occurrence of the external cause; Z20.822 Contact with and (suspected) exposure to COVID-19
CPT/HCPCS: 93005; 87040 ×2; 85025; 81001; 36415 ×2; 82550; 87205 ×2; 85610; 83605; 85730; 84443; 84484; 80053; 80307; 87804 ×2; 70450; 71250; 72125; 71045 ×2; 82805; 31500; 51702; 96372; 99291; 99292; 80143; 80179; 82077; 87811; 94002; J3411; J2250 ×2; J2543; J3010 ×2; P9047; J7042; J7120 ×2; J7050